=== PATIENT | female | born 1965 | race African-American/Black ===

== ENCOUNTER 2017-03-02 14:13 | Inpatient (IN) | payer OTHER ==
[2017-03-02 14:51] LABS: #Basophils 0.1 thou/uL (0.0-0.2); #Eosinphils 0.2 thou/uL (0.0-0.7); #Lymphocytes 3.2 thou/uL (1.20-3.40); #Monocytes 0.6 thou/uL (0.11-0.59); #Neutrophils 4.3 thou/uL (1.40-6.50); %Basophils 0.6 % (0.0-1.0); %Lymphocytes 38.8 % (21.0-51.0); %Monocytes 6.7 % (0.0-10.0); Mean Platelet Volume 11.4 fL (7.4-10.4); Red Blood Cell (RBC) Count 5.15 mill/uL (4.20-5.40); White Blood Cell (WBC) Count 8.3 thou/uL (4.8-10.8)
[2017-03-02 15:13] LABS: ALT (SGPT) 41 U/L (8-55); AST (SGOT) 38 U/L (5-34); Alkaline Phosphatase 120 U/L (40-150); Anion Gap 14 mmol/L (10-20); BUN (Urea Nitrogen) 9 mg/dL (7.0-18.7); Bilirubin, Total 0.4 mg/dL (0.2-1.2); CK (CPK) 108 U/L (29-168); Calc. Creatinine Clearance 0 mL/min (70-130); Calcium 9.2 mg/dL (7.8-10.44); Carbon Dioxide 30 mmol/L (22-29); Chloride 99 mmol/L (98-107); Estimated GFR-MDRD 80; Globulin 4.3 g/dL (2.4-3.5)
[2017-03-02 15:17] LABS: Troponin I 0.011 ng/mL (< 0.028)
[2017-03-02] MEDS ORDERED: Albuterol Sulfate 2.5 mg/3 ml Neb NEB PRN (17:04)
[2017-03-02] MEDS ORDERED: Cyclobenzaprine 10 MG TAB PO PRN (17:04)
[2017-03-02] MEDS ORDERED: HYDROcodone/Acetaminophen 10/325 mg Tablet PO PRN (17:04)
--- NOTE | 2017-03-02 17:04 | PDOC.EVN ---
Event Note - Event Note Event Note: H&P dictated 1) SOB 2) Cough 3) CHF decompensation 4) DM II 5) Edema 6) Metabolic alkalosis 7) Obesity 8) HTN 9) COPD 10) Hypothyroidism - obs - levaquin 500mg IV q24hrs, blood cultures - consult pulmonary - neb treatments PRN - continue home meds w/ appropriate hold parameters case and plan d/w patient and mother at length, they understand and agree with this plan
[2017-03-02] MEDS ORDERED: Dextrose 50% Abboject 50 ML SYRINGE SLOW IVP PRN (17:05)
[2017-03-02] MEDS ORDERED: Insulin Regular 300 UNITS/3 ML VIAL SC PRN (17:05)
[2017-03-02] MEDS ORDERED: Dextrose 5% in Water 1,000 ML IV PRN (17:05)
--- NOTE | 2017-03-02 17:26 | RAD ---
AP CHEST: History: Dyspnea. Date: 03-02-17 Comparison: 02-18-17 FINDINGS: AP chest demonstrates cardiomegaly. Tracheostomy tube is seen. Pulmonary vascular congestion is note d. The radiograph is less than optimum due to the underpenetrated nature of the film. The costophren ic angles are difficult to assess. I do recommend correlation with PA and lateral views of the chest to better evaluate the lung bases. IMPRESSION: Cardiomegaly and pulmonary vascular congestion. POS: [facility]
[2017-03-02 18:49] VITALS: BMI 78.1
[2017-03-02] MEDS: Heparin 5,000 UNITS/ML VIAL SC SCH (20:56)
[2017-03-02] MEDS: Furosemide 80 MG TAB PO SCH (20:56)
[2017-03-02] MEDS: ALPRAZolam 0.25 MG TAB PO SCH (20:56)
[2017-03-02] MEDS ORDERED: INSULIN DETEMIR SQ SCH (21:00)
[2017-03-02] MEDS ORDERED: Atorvastatin Calcium 10 MG TAB PO SCH (21:00)
[2017-03-02] MEDS: PRE FILLED SC SCH (23:25)
[2017-03-02] MEDS: INSULIN DETEMIR SC SCH (23:25)
--- NOTE | 2017-03-03 00:57 | HP ---
DATE OF ADMISSION: 03/02/2017 CHIEF COMPLAINT: Shortness of breath and cough. HISTORY OF PRESENT ILLNESS: This is a 51-year-old female who was admitted for being seen in the ER for admission for shortness of breath and cough. The patient states the last time she had a bit of a fever of about 100.5 degrees measured at home. The patient states that she has a tracheostomy and has been coughing up sputum from the tracheostomy tube. The patient states that this had happened to her before, at which point in time, she was diagnosed with bronchitis requiring antibiotics and h ad symptomatic relief status post course of antibiotic treatment. The patient follows Dr. Benjamin Stokes for Internal Medicine and Pulmonary, respectively. The patient denies any alleviating o r aggravating factors. Has no other symptoms or associated complaints. ALLERGIES: DULOXETINE, GABAPENTIN, and PREGABALIN. HOME MEDICATIONS: The patient was given last admission prescription for aspirin 81 mg p.o. daily, F lexeril 10 mg p.o. t.i.d. p.r.n. muscle spasm, Lasix 80 mg p.o. b.i.d., [place] 10/325 mg one tab p.o. q. 4-6 hours p.r.n. pain, Xopenex 1.25 mg nebulizer every 6 hours p.r.n. shortness of breath, Levem ir 85 units subcu b.i.d., levothyroxine 300 mcg 1 p.o. daily, lisinopril 20 mg 1 tablet p.o. daily, Protonix 40 mg 1 tablet p.o. b.i.d. K-Dur 20 mEq 1 tab p.o. b.i.d., Pravachol 40 mg p.o. at bedtime , Xanax 0.25 mg p.o. b.i.d. SOCIAL HISTORY: Denies any drinking or smoking. PAST MEDICAL HISTORY: Positive for hypothyroidism, morbid obesity, heart failure, diabetes mellitus , tracheostomy, shortness of breath, lower extremity edema. FAMILY HISTORY: Positive for hypertension, hyperlipidemia, and diabetes on both sides of her family . REVIEW OF SYSTEMS: A twelve-point review of systems performed. Pertinent positives listed in the H PI, otherwise, negative. PHYSICAL EXAMINATION: VITAL SIGNS: Blood pressure 122/83, 95% O2 saturation on 2 liters nasal cannula, heart rate 102, te mperature 98 degree Fahrenheit. GENERAL: The patient appears mildly distressed, sitting up in her bed with 2 liters on Ventimask ab ove her tracheostomy on her neck. HEENT: Normocephalic, atraumatic. Pupils equal, round, reactive to light and accommodation. Oral cavity moist and pink. NECK: Supple. Trach tube in place. CARDIOVASCULAR: Regular rate and rhythm. S1 and S2. No murmurs, rubs, or gallops appreciated. PULMONARY: Difficult to auscultate given large body habitus, however, clear to auscultation bilater ally. ABDOMEN: Positive bowel sounds, soft, nontender, rotund abdomen. EXTREMITIES: Lower extremities, 2+ peripheral pulses, 1+ pitting edema in bilateral lower extremiti es. NEUROLOGIC: No loss of sensory function. Moving all extremities. LABORATORY DATA: WBC 8.3, hemoglobin 13.8, hematocrit 48, platelet count of 179. BMP reveals sodiu m of 138, potassium 5.9, chloride 99, bicarbonate of 30, creatinine of 0.9, glucose of 300. Otherwi se, no abnormalities noted. Chest x-ray done in the emergency room showed pulmonary edema. ASSESSMENT AND PLAN: 1. Shortness of breath. 2. Cough. 3. Congestive heart failure decompensation. 4. Diabetes mellitus type 2. 5. Hyperlipidemia. 6. Edema. 7. Alkalosis, metabolic. 8. Obesity. 9. Hypertension. At this point in time, we will continue the patient on her home medications. We will start the patient on Levaquin 500 mg IV q. 24 hours. We will hold off on IV fluids at this poi nt in time given that the patient has a clinical presentation of being volume overloaded. 10. Tele monitoring. Will consult Pulmonary team for assistance. 11. We will also obtain blood cultures given that the patient stated that she was having measured f onel at home. We will start the patient on DuoNebs. Home medications of thyroid medications to be continued, blood pressure medications to be continued, diabetes medications to be continued. Hepar in and home Protonix for gastrointestinal and deep vein thrombosis prophylaxis. Case and plan discussed with the patient as well as her mother who was at the bedside at length. Th ey understand and agree with this plan.
[2017-03-03 04:50] LABS: Band 4 % (5-11); Hematocrit 41.4 % (36.0-47.0); Mean Platelet Volume 11.5 fL (7.4-10.4); Neutrophil 77 % (42-75); Red Blood Cell (RBC) Count 4.93 mill/uL (4.20-5.40); White Blood Cell (WBC) Count 7.8 thou/uL (4.8-10.8)
[2017-03-03 05:18] LABS: Anion Gap 13 mmol/L (10-20); BUN (Urea Nitrogen) 10 mg/dL (7.0-18.7); Calc. Creatinine Clearance 224 mL/min (70-130); Calcium 9.2 mg/dL (7.8-10.44); Carbon Dioxide 34 mmol/L (22-29); Chloride 93 mmol/L (98-107); Estimated GFR-MDRD 85
[2017-03-03] MEDS: Levothyroxine Sodium 150 MCG TAB PO SCH (05:33)
[2017-03-03] MEDS: Aspirin 81 mg Enteric Coated Tablet PO SCH (07:41)
[2017-03-03] MEDS: Potassium Chloride 20 MEQ TAB PO SCH ×2 (07:41→15:40)
[2017-03-03] MEDS: Furosemide 80 MG TAB PO SCH (07:41)
[2017-03-03] MEDS: Lisinopril 20 MG TAB PO SCH (07:41)
[2017-03-03] MEDS: ALPRAZolam 0.25 MG TAB PO SCH ×2 (07:41→21:14)
[2017-03-03] MEDS: Heparin 5,000 UNITS/ML VIAL SC SCH ×2 (07:42→21:14)
[2017-03-03] MEDS: PRE FILLED SC SCH ×2 (09:47→21:15)
[2017-03-03] MEDS: INSULIN DETEMIR SC SCH ×2 (09:47→21:15)
[2017-03-03] MEDS ORDERED: Dextrose 50% Abboject 50 ML SYRINGE SLOW IVP PRN (10:15)
[2017-03-03] MEDS ORDERED: Dextrose 5% in Water 1,000 ML IV PRN (10:15)
--- NOTE | 2017-03-03 10:20 | PDOC.PN ---
- Subjective Encounter Start Date: 03/03/17 Encounter Start Time: 09:30 Pt seen and examined, chart reviewed in its entrety. This is my first visit with this patient. Pt feels like her po [place]annon is not working and states that this episode is just like previous episodes of volume overload. No F/C, no cough, +SOB, othopnea and POWELL. no n/V, no new complaints. 10 point ROS performed and neg for all systems except as above - Objective Resuscitation Status: full MAR Reviewed: Yes Vital Signs & Weight: Vital Signs (12 hours) Temp Pulse Resp BP BP Pulse Ox 03/03/17 08:00 98.2 F 95 16 03/03/17 07:50 98.2 F 95 16 128/83 95 03/03/17 07:41 149/96 H 03/03/17 04:00 98.5 F 92 22 H 141/80 H 91 L 03/03/17 00:00 98.5 F 103 H 22 H 138/84 Weight Weight 400 lb I&O: 03/02/17 03/03/17 03/04/17 06:59 06:59 06:59 Intake Total 100 Balance 100 Result Diagrams: 03/03/17 04:01 03/03/17 04:01 Additional Labs: Accuchecks 03/03/17 03/02/17 03/02/17 04:26 23:25 19:46 POC Glucose 362 H 266 H 226 H Radiology Reviewed by me: Yes EKG Reviewed by me: Yes Phys Exam - Physical Examination Constitutional: NAD HEENT: PERRLA, moist MMs, sclera anicteric, oral pharynx no lesions Neck: no nodes, no JVD, supple, full ROM Respiratory: no wheezing, no rhonchi, clear to auscultation bilateral faint bibasilar crackles, right more than left Cardiovascular: RRR, no significant murmur Gastrointestinal: soft, non-tender, no distention, positive bowel sounds Musculoskeletal: pulses present, edema present Neurological: non-focal, normal sensation, moves all 4 limbs Lymphatic: no nodes Psychiatric: normal affect, A&O x 3 Skin: no rash, normal turgor, cap refill <2 seconds Dx/Plan (1) Chest pain Code(s): R07.9 - CHEST PAIN, UNSPECIFIED Status: Acute Qualifiers: Chest pain type: chest pain on breathing Qualified Code(s): R07.1 - Chest pain on breathing; R07.81 - Pleurodynia (2) COPD (chronic obstructive pulmonary disease) Status: Chronic Qualifiers: COPD type: unspecified COPD Qualified Code(s): J44.9 - Chronic obstructive pulmonary disease, unspecified (3) Diabetes mellitus type 2, uncontrolled Code(s): E11.65 - TYPE 2 DIABETES MELLITUS WITH HYPERGLYCEMIA Status: Chronic Qualifiers: Diabetes mellitus complication status: with hyperglycemia Diabetes mellitus shelter insulin use: with terminal makeup operator use Qualified Code(s): E11.65 - Type 2 diabetes mellitus with hyperglycemia; Z79.4 - terminal makeup operator (current) use of insulin Comment: Continue Levemir 85u sc BID (4) Essential hypertension Code(s): I10 - ESSENTIAL (PRIMARY) HYPERTENSION Status: Chronic (5) Morbid obesity with body mass index of 70 and over in adult Code(s): E66.01 - MORBID (SEVERE) OBESITY DUE TO EXCESS CALORIES; Z68.45 - BODY MASS INDEX (BMI) 70 OR GREATER, ADULT Status: Chronic (6) Obesity hypoventilation syndrome Code(s): E66.2 - MORBID (SEVERE) OBESITY WITH ALVEOLAR HYPOVENTILATION Status : Chronic (7) Acute on chronic diastolic (congestive) heart failure Code(s): I50.33 - ACUTE ON CHRONIC DIASTOLIC (CONGESTIVE) HEART FAILURE Status : Acute Comment: conver to IV lasix, check echo, await pulm recommendations - Plan cont current plan of care, plan discussed w/ family, grimm catheter, continue antibiotics, respiratory therapy, DVT proph w/lovenox * .
[2017-03-03] MEDS: Furosemide 40 MG/4 ML VIAL SLOW IVP SCH ×3 (11:24→21:14)
[2017-03-03] MEDS: HumaLOG 300 UNITS/3 ML VIAL SC PRN ×2 (11:27→18:26)
--- NOTE | 2017-03-03 13:10 | CON ---
DATE OF CONSULTATION: 03/03/2017 Ms. Bal is a 51-year-old female I have known for many years. [place] and settle d [place]. She has a tracheostomy placed for severe obstructive sleep apnea. She sees me every 2-3 mo nths for a trach change in the office. She recently lost her son to what sounds like an overdose th at was inadvertent. She has been very upset since that point. She was in the Emergency Department recently with complaints of shortness of breath and responded to a nebulizer treatment. Apparently, she presented back with reported fever. Unfortunately, Mr. Bal has been unable to lose weight. She has life threatening obesity. She thacker s some degree of diastolic dysfunction, but her films are so underpenetrated it is unclear whether o r not she really has interstitial edema when she comes in or is just short of breath because of muco us plugging. She does not have a functioning humidifier for her tracheostomy at home, I believe man y of her visits to the hospital are related to just peripheral mucous plugging secondary to a lack o f humidity. She always wears a speaking valve and almost never has humidity on her trach. She was admitted for further care. PAST MEDICAL HISTORY: 1. Remarkable for degenerative arthritis of her knees. 2. Tracheostomy placed in 2006. 3. Status post intubation for obesity hypoventilation in 2006. 4. History of normal left ventricular systolic function. 5. Diabetes. 6. Hypertension. 7. Hypothyroidism on replacement. 8. History of a in the past. SOCIAL HISTORY: She is nonsmoker, nondrinker. She does not use drugs. FAMILY HISTORY: She has no family history of lung disease. Her mother has moved here from [facility] now and is dealing with some early dementia. ALLERGIES: She reports an intolerance to PREGABALIN and GABAPENTIN. REVIEW OF SYSTEMS: Otherwise negative. PHYSICAL EXAMINATION: GENERAL: She is in no distress. VITAL SIGNS: She is afebrile and has been afebrile since admission. Pulse is 92-95 Blood pressure 149/96, respiratory rate 16, oximetry is 98 on trach collar. HEENT: Pupils are equal. Sclerae is anicteric. NECK: Supple. LUNGS: Remarkable for clear distant breath sounds. HEART: Regular rhythm. ABDOMEN: Soft. EXTREMITIES: With asymmetry. LABORATORY DATA: White count 7.8, hemoglobin 13.4, platelets 167. Electrolytes; sodium 135, potassium 4.8, chloride 92, bicarbonate 34, BUN 10, creatinine 0.86, gluco se 396. BNP was 10. IMPRESSION: I suspect her dyspnea is related to mucus plugging and perhaps bronchitis. She needs h umidity and she needs a functioning humidifier for her trach at home. She says Driss has been michele ble to get her another trach humidifier, I am not sure what the reason for this is. This needs to b e worked on by case management. I will be happy to follow with the other physicians caring for her.
[2017-03-03] MEDS: guaiFENesin ER 600 MG TAB PO SCH (15:40)
[2017-03-04 05:28] LABS: Anion Gap 15 mmol/L (10-20); BUN (Urea Nitrogen) 20 mg/dL (7.0-18.7); Calc. Creatinine Clearance 199 mL/min (70-130); Calcium 9.1 mg/dL (7.8-10.44); Carbon Dioxide 34 mmol/L (22-29); Chloride 90 mmol/L (98-107); Estimated GFR-MDRD 74
[2017-03-04] MEDS: Levothyroxine Sodium 150 MCG TAB PO SCH (05:31)
[2017-03-04] MEDS: Furosemide 40 MG/4 ML VIAL SLOW IVP SCH (05:31)
[2017-03-04] MEDS: HumaLOG 300 UNITS/3 ML VIAL SC PRN ×3 (05:39→17:07)
[2017-03-04 06:06] LABS: Hematocrit 41.5 % (36.0-47.0); Red Blood Cell (RBC) Count 4.96 mill/uL (4.20-5.40); White Blood Cell (WBC) Count 9.2 thou/uL (4.8-10.8)
[2017-03-04 06:07] LABS: Band 1 % (5-11); Hypochromia SLIGHT = 6-15 cells (100X) (0-5/hpf); Neutrophil 67 % (42-75); Polychromasia SLIGHT = 2-3 cells (100X) (0-2/hpf); Reactive Lymphocytes 2 % (0-10); Target Cells SLIGHT = 2-5 cells (100X) (0-1/hpf)
[2017-03-04] MEDS: guaiFENesin ER 600 MG TAB PO SCH ×2 (07:46→16:07)
[2017-03-04] MEDS: ALPRAZolam 0.25 MG TAB PO SCH ×2 (07:46→22:08)
[2017-03-04] MEDS: Lisinopril 20 MG TAB PO SCH (07:46)
[2017-03-04] MEDS: Potassium Chloride 20 MEQ TAB PO SCH ×2 (07:47→16:07)
[2017-03-04] MEDS: Heparin 5,000 UNITS/ML VIAL SC SCH ×2 (07:47→22:11)
[2017-03-04] MEDS: Aspirin 81 mg Enteric Coated Tablet PO SCH (07:47)
[2017-03-04] MEDS: PRE FILLED SC SCH ×2 (09:45→22:10)
[2017-03-04] MEDS: INSULIN DETEMIR SC SCH ×2 (09:45→22:10)
--- NOTE | 2017-03-04 14:28 | PDOC.PN ---
- Subjective Encounter Start Date: 03/04/17 Encounter Start Time: 12:00 Subjective: is breathing better -: says lisa helped her a lot - Objective MAR Reviewed: Yes Vital Signs & Weight: Vital Signs (12 hours) Temp Pulse Resp BP BP Pulse Ox 03/04/17 10:00 99.3 F 99 20 127/83 03/04/17 08:00 98.9 F 96 16 93 L 03/04/17 07:46 149/96 H 03/04/17 07:41 93 L Weight Weight 400 lb I&O: 03/03/17 03/04/17 03/05/17 06:59 06:59 06:59 Intake Total 100 2520 Output Total 3500 Balance 100 -980 Result Diagrams: 03/04/17 03:45 03/04/17 03:45 Additional Labs: Accuchecks 03/04/17 03/04/17 03/03/17 12:19 05:39 21:13 POC Glucose 297 H 340 H 302 H 03/03/17 03/03/17 16:10 11:12 POC Glucose 265 H 429 H Phys Exam - Physical Examination HEENT: PERRLA, moist MMs Neck: no JVD trach+ Respiratory: no wheezing, no rales Cardiovascular: RRR, no significant murmur Gastrointestinal: soft, no distention, positive bowel sounds Musculoskeletal: no edema, pulses present Neurological: non-focal, moves all 4 limbs Psychiatric: A&O x 3 Dx/Plan (1) Acute on chronic respiratory failure with hypercapnia Code(s): J96.22 - ACUTE AND CHRONIC RESPIRATORY FAILURE WITH HYPERCAPNIA Status: Acute (2) DM type 2 (diabetes mellitus, type 2) Status: Chronic Qualifiers: Diabetes mellitus complication status: with unspecified complications Diabetes mellitus pathology teacher insulin use: with prison use Qualified Code(s) : E11.8 - Type 2 diabetes mellitus with unspecified complications; Z79.4 - residential (current) use of insulin (3) COPD (chronic obstructive pulmonary disease) Status: Chronic Qualifiers: COPD type: unspecified COPD Qualified Code(s): J44.9 - Chronic obstructive pulmonary disease, unspecified (4) Essential hypertension Code(s): I10 - ESSENTIAL (PRIMARY) HYPERTENSION Status: Chronic (5) Hypothyroidism Code(s): E03.9 - HYPOTHYROIDISM, UNSPECIFIED Status: Chronic Qualifiers: Hypothyroidism type: unspecified Qualified Code(s): E03.9 - Hypothyroidism , unspecified (6) Morbid obesity with body mass index of 70 and over in adult Code(s): E66.01 - MORBID (SEVERE) OBESITY DUE TO EXCESS CALORIES; Z68.45 - BODY MASS INDEX (BMI) 70 OR GREATER, ADULT Status: Chronic (7) Obesity hypoventilation syndrome Code(s): E66.2 - MORBID (SEVERE) OBESITY WITH ALVEOLAR HYPOVENTILATION Status : Chronic - Plan is feeling much better now -: on levaquin, duonebs and steroids -: correctional casework specialist is still working on getting her trach instrument for humidifie -: -d oxygen -: is amb in room. Has coag-ve staph 2/2 diff extremity samples, ??contaminant * . Review of Systems - Medications/Allergies Allergies/Adverse Reactions: Allergies Allergy/AdvReac Type Severity Reaction Status Date / Time gabapentin Allergy Severe Short of Verified 03/02/17 20:34 Breath pregabalin [From Lyrica] Allergy Severe Short of Verified 03/02/17 20:34 Breath duloxetine Allergy Verified 03/02/17 20:34 Medications: Current Medications Hydrocodone Bitart/Acetaminophen ([place] 10/325) 1 tab PO Q4H PRN PRN Reason: Pain Last Admin: 03/03/17 04:02 Dose: 1 tab Albuterol Sulfate (Ventolin) 2.5 mg NEB Q6H PRN PRN Reason: SOB &/or Wheezing Albuterol/Ipratropium (Duoneb) 3 ml NEB [id number] PRN PRN Reason: SOB &/or Wheezing Alprazolam (Xanax) 0.25 mg PO BID [facility] Last Admin: 03/04/17 07:46 Dose: 0.25 mg Aspirin (Ecotrin) 81 mg PO DAILY [facility] Last Admin: 03/04/17 07:47 Dose: 81 mg Cyclobenzaprine HCl (Flexeril) 10 mg PO TID PRN PRN Reason: Muscle Pain Dextrose/Water (Dextrose 50%) 25 gm SLOW IVP PRN PRN PRN Reason: Hypoglycemia Glucagon (Glucagon) 1 mg IM PRN PRN PRN Reason: Hypoglycemia Guaifenesin (Mucinex) 600 mg PO BID-[facility] Last Admin: 03/04/17 07:46 Dose: 600 mg Heparin Sodium (Porcine) (Heparin) 5,000 units SC BID [facility] Last Admin: 03/04/17 07:47 Dose: 5,000 units Insulin Detemir 85 units/ (Miscellaneous Medication) 0.85 mls @ 0 mls/hr SC BID [facility] Last Admin: 03/04/17 09:45 Dose: 0.85 mls Dextrose/Water (D5w) 1,000 mls @ 0 mls/hr IV .Q0M PRN; As Directed PRN Reason: Hypoglycemia Insulin Human Lispro (Humalog) 0 units SC .AGGRESSIVE SLIDING PRN PRN Reason: Aggressive Correctional Scale Last Admin: 03/04/17 12:56 Dose: 9 unit Levofloxacin (Levaquin) 500 mg PO 2000 [facility] Levothyroxine Sodium (Synthroid) 300 mcg PO 0600 [facility] Last Admin: 03/04/17 05:31 Dose: 300 mcg Lisinopril (Zestril) 20 mg PO DAILY [facility] Last Admin: 03/04/17 07:46 Dose: 20 mg Methylprednisolone Sodium Succinate (Solu-Medrol) 40 mg IVP Q8HR [facility] Last Admin: 03/04/17 12:56 Dose: 40 mg Pantoprazole Sodium (Protonix) 40 mg PO BID [facility] Last Admin: 03/04/17 07:46 Dose: 40 mg Potassium Chloride (K-Dur) 20 meq PO BID-[facility] Last Admin: 03/04/17 07:47 Dose: 20 meq Rosuvastatin Calcium (Crestor) 20 mg PO QPM [facility] Last Admin: 03/03/17 21:14 Dose: 20 mg
--- NOTE | 2017-03-04 18:36 | PRG ---
DATE OF SERVICE: 03/04/2017 SUBJECTIVE: Ms. Bal did well overnight. She says she feels 100% better today. OBJECTIVE: VITAL SIGNS: She is afebrile, heart rate is 99, blood pressure 149/96, respiratory rate 16, oximetr y is 93. LUNGS: Clear. HEART: Regular rhythm. ABDOMEN: Soft. LABORATORY DATA AND FINDINGS: Echocardiogram was normal. White count 9.2, hemoglobin 13.3, platele ts 182. Sodium 134, potassium 4.8, chloride 90, bicarbonate 34, BUN 20, creatinine 0.9, glucose 342 . IMPRESSION: Dyspnea aggravated by depression. I suspect her dyspnea, it is a combination of mucus plugging secondary to lack of humidity on her trach collar at home, monitor with anxiety and depress ion over the recent loss of her son. She does not appear to be bronchospastic. I suspect with time and humidification. We will see tracheobronchial secretions clearing up. I do not think she shoul d be discharged until we are sure she has a humidifier attachment for her trach collar at home. I do not feel she has COPD. She may have a mild component of asthma when she gets bronchitis, but t his is always been a small part of any illness. She does have 2 out of 2 coag negative Staph, cultu res reported today. Initially, this was reported 1 out of 2, not sure what to do with this. Blood cultures probably should be repeated. She is a difficult stick.
--- NOTE | 2017-03-04 22:59 | CON ---
DATE OF CONSULTATION: 03/04/2017 REASON FOR CONSULTATION: Bacteremia. HISTORY OF PRESENT ILLNESS: A 51-year-old with obesity hypoventilation syndrome with tracheostomy, who was admitted with low-grade fever and dyspnea with cough and green sputum. She was diagnosed wi th bronchitis and admitted. Pulmonary Medicine has been consulted. The patient is currently receiv ing [place], Ventolin, DuoNeb, Xanax, Ecotrin, Flexeril, guaifenesin, Levaquin, Crestor, Solu-Medrol, pantoprazole and lisinopril. The patient is feeling better. No headaches. No chest pain. The cou gh has diminished. No abdominal pain. Voiding without difficulty. No diarrhea. PAST MEDICAL HISTORY: Morbid obesity, hypoventilation syndrome, cardiomyopathy, tracheostomy, type 2 diabetes. FAMILY HISTORY: Hypertension, hyperlipidemia. ALLERGIES: DULOXETINE, GABAPENTIN, PREGABALIN. PHYSICAL EXAMINATION: VITAL SIGNS: T-max 98.9-99.3, blood pressure 120/83, pulse 99, respirations 20, O2 sat 93%. SKIN: With tracheostomy, peripheral IV access. No lymphadenopathy. HEENT: Ocular movements are conjugate. Sclerae white. Pupils are equal. Oral cavity moist, still quite a few teeth in place. NECK: Supple. No jugular venous distention. LUNGS: With diminished breath sounds at the base. No wheezing or crackles. HEART: S1, S2 with diminished heart sounds. ABDOMEN: Soft abdomen. No obvious tenderness. No ascites or organomegaly noted. No bladder diste ntion. Trace edema in lower extremities. Pulses are 1+ in dorsalis pedis. LABORATORY DATA: White cell count 9.2, hemoglobin 13, platelets 182 with 67% neutrophils, 25% lymph ocytes. Sodium 134, creatinine 0.97, potassium 4.8. The microbiology with 2/2 sets of blood cultures with coagulase negative Staph, other than Staph epi and Staph lugdunensis. Specimens were obtained about 20 minutes apart from the hands. ASSESSMENT: Morbid obesity with hypoventilation syndrome, tracheostomy, admitted with worsening cou gh, low-grade fever and dyspnea. The organisms isolated from the blood cultures likely represent co ntamination of the sample rather than a true bacteremia, we would not recommend treatment. This typ e of sampling from the hands of patients with morbid obesity is naturally fraught with the higher ra anotnia of contamination of those samples.
[2017-03-05 06:01] LABS: Hematocrit 43.4 % (36.0-47.0); Mean Platelet Volume 10.9 fL (7.4-10.4); Red Blood Cell (RBC) Count 5.19 mill/uL (4.20-5.40); White Blood Cell (WBC) Count 10.5 thou/uL (4.8-10.8)
[2017-03-05] MEDS: Levothyroxine Sodium 150 MCG TAB PO SCH (06:01)
[2017-03-05 06:02] LABS: Band 1 % (5-11); Neutrophil 64 % (42-75)
[2017-03-05 06:19] LABS: Anion Gap 14 mmol/L (10-20); BUN (Urea Nitrogen) 25 mg/dL (7.0-18.7); Calc. Creatinine Clearance 195 mL/min (70-130); Carbon Dioxide 35 mmol/L (22-29); Chloride 92 mmol/L (98-107); Estimated GFR-MDRD 72
[2017-03-05 08:20] VITALS: BP 114/77; TEMP 98.2
[2017-03-05] MEDS: INSULIN DETEMIR SC SCH (09:36)
[2017-03-05] MEDS: PRE FILLED SC SCH (09:36)
[2017-03-05] MEDS: Potassium Chloride 20 MEQ TAB PO SCH (09:37)
[2017-03-05] MEDS: ALPRAZolam 0.25 MG TAB PO SCH (09:37)
[2017-03-05] MEDS: Aspirin 81 mg Enteric Coated Tablet PO SCH (09:37)
[2017-03-05] MEDS: guaiFENesin ER 600 MG TAB PO SCH (09:37)
[2017-03-05] MEDS: Heparin 5,000 UNITS/ML VIAL SC SCH (09:37)
[2017-03-05] MEDS: Lisinopril 20 MG TAB PO SCH (09:37)
--- NOTE | 2017-03-05 13:43 | PRG ---
DATE OF SERVICE: 03/05/2017 Colleen Bal is afebrile. Vital signs were stable overnight. She was discharged home with a trac h collar. Humidity has been arranged. It was emphasized that it is important for her to wear this w hen she is at the house. She will keep her follow up appointment with me.
--- NOTE | 2017-03-05 14:14 | PDOC.PN ---
- Subjective Encounter Start Date: 03/05/17 Encounter Start Time: 08:00 Subjective: no sob, feels better - Objective MAR Reviewed: Yes Vital Signs & Weight: Vital Signs (12 hours) Temp Pulse Resp BP BP Pulse Ox 03/05/17 09:37 114/77 03/05/17 08:17 98.2 F 93 20 114/77 90 L 03/05/17 08:00 98.2 F 93 20 Weight Weight 400 lb I&O: 03/04/17 03/05/17 03/06/17 06:59 06:59 06:59 Intake Total 2520 1620 Output Total 3500 2600 Balance -980 -980 Result Diagrams: 03/05/17 05:06 03/05/17 05:06 Additional Labs: Accuchecks 03/05/17 03/05/17 03/04/17 11:10 04:45 20:56 POC Glucose 109 164 H 283 H 03/04/17 16:35 POC Glucose 291 H Phys Exam - Physical Examination HEENT: PERRLA, moist MMs Neck: no JVD, supple Respiratory: no wheezing, no rales Cardiovascular: RRR, no significant murmur Gastrointestinal: soft, non-tender, positive bowel sounds Musculoskeletal: no edema, pulses present Neurological: non-focal, moves all 4 limbs Psychiatric: A&O x 3 Dx/Plan (1) Acute on chronic respiratory failure with hypercapnia Code(s): J96.22 - ACUTE AND CHRONIC RESPIRATORY FAILURE WITH HYPERCAPNIA Status: Resolved (2) DM type 2 (diabetes mellitus, type 2) Status: Chronic Qualifiers: Diabetes mellitus complication status: with unspecified complications Diabetes mellitus director long term care insulin use: with director long term care use Qualified Code(s) : E11.8 - Type 2 diabetes mellitus with unspecified complications; Z79.4 - technician terminal and repeater (current) use of insulin (3) COPD (chronic obstructive pulmonary disease) Status: Chronic Qualifiers: COPD type: unspecified COPD Qualified Code(s): J44.9 - Chronic obstructive pulmonary disease, unspecified (4) Essential hypertension Code(s): I10 - ESSENTIAL (PRIMARY) HYPERTENSION Status: Chronic (5) Hypothyroidism Code(s): E03.9 - HYPOTHYROIDISM, UNSPECIFIED Status: Chronic Qualifiers: Hypothyroidism type: unspecified Qualified Code(s): E03.9 - Hypothyroidism , unspecified (6) Morbid obesity with body mass index of 70 and over in adult Code(s): E66.01 - MORBID (SEVERE) OBESITY DUE TO EXCESS CALORIES; Z68.45 - BODY MASS INDEX (BMI) 70 OR GREATER, ADULT Status: Chronic (7) Obesity hypoventilation syndrome Code(s): E66.2 - MORBID (SEVERE) OBESITY WITH ALVEOLAR HYPOVENTILATION Status : Chronic - Plan hemostable -: her humidifier with trach is arranged for home use -: dc pt home * .
--- NOTE | 2017-03-06 01:32 | DIS ---
DATE OF ADMISSION: 03/02/2017 DATE OF DISCHARGE: 03/05/2017 DISCHARGE DISPOSITION: To home. PRIMARY DISCHARGE DIAGNOSES: Acute on chronic respiratory failure with hypercapnia, morbid obesity with obesity hypoventilation and trach, chronic obstructive pulmonary disease, diabetes mellitus type 2, hypertension, diastolic dysfunction, hypothyroidism. PROCEDURES DONE DURING HOSPITALIZATION: Echo with 2D Doppler done showed an EF of 50%-55%. Chest x-ray done on the day of admission showed cardiomegaly with pulmonary vascular congestion. H and H 13 and 43, platelet count 195. Discharge BUN and creatinine is 25 and 0.9. BNP was 10. DISCHARGE MEDICATIONS: Prednisone tapering dose starting at 10 mg twice daily, Coreg course of 16 days, Crestor 20 mg p.o. daily, Pravachol 20 mg p.o. at bedtime, Protonix 40 mg p.o. twice daily, potassium chloride 20 mEq p.o. twice daily, Lasix 40 mg p.o. twice daily, levothyroxine 300 mcg p.o. daily, lisinopril 20 mg p.o. daily, Levaquin 500 mg p.o. daily for another 3 days, Levemir 90 units subcutaneously twice daily, and aspirin 81 mg p.o. daily. ALLERGIES: GABAPENTIN, LYRICA, and DULOXETINE. INPATIENT CONSULTS: Dr. Stokes for Pulmonology, Dr. Ley for Infectious Disease. DISCHARGE PLAN: Patient to follow up with Dr. Stokes as before and primary care physician in 1 week. BRIEF COURSE DURING HOSPITALIZATION: The patient initially came to ER with complaints of shortness of breath and coughing spells. She had a fever of 100.5 degrees at home. The patient is morbidly obese, weighing nearly 400 pounds and has history of obesity, obesity hypoventilation with tracheostomy. Her humidifier for tracheostomy was not working at home. She was suspected to have mucus plugging. She has had consultation with Dr. Stokes. She was placed on IV antibiotics along with steroids and bronchodilators. She has responded well to above measures. Case management consultation was requested to help with her procuring humidifier for her tracheostomy at home. Meanwhile, her blood cultures grew Staph capitis in left arm and Staph simulans in right arm. A consultation with Dr. Ley was requested for the above and he is of the opinion that these are contaminants. Patient is not having any fever and her white count is normal. Clinically, she has improved as well. In view of this, no additional antibiotics were placed. She is otherwise hemodynamically stable , ambulating minimally inside the room. She appears to be at her baseline and has been cleared by Dr. Stokes for discharge today. Please see a face to face documentation on [facility] for the day of discharge. DALTON
== END 2017-03-05 12:57 | disposition home or self-care (01) | DRG 205 ==
LOC: ERS 14:13 → OBSVTOIN 16:46 → T4-B 16:46
PROVIDERS: ADMIT Internal Medicine; ATTEND Internal Medicine
DX: J95.03 Malfunction of tracheostomy stoma (principal); J96.22 Acute and chronic respiratory failure with hypercapnia; I50.33 Acute on chronic diastolic (congestive) heart failure; E87.3 Alkalosis; I11.0 Hypertensive heart disease with heart failure; T17.990A Other foreign object in respiratory tract, part unspecified in causing asphyxiation, initial encounter; Z68.45 Body mass index [BMI] 70 or greater, adult; E66.2 Morbid (severe) obesity with alveolar hypoventilation; E11.9 Type 2 diabetes mellitus without complications; J44.9 Chronic obstructive pulmonary disease, unspecified; E78.5 Hyperlipidemia, unspecified; E03.9 Hypothyroidism, unspecified; Z88.8 Allergy status to other drugs, medicaments and biological substances; Z83.3 Family history of diabetes mellitus; Z82.49 Family history of ischemic heart disease and other diseases of the circulatory system; Z84.89 Family history of other specified conditions; Y83.8 Other surgical procedures as the cause of abnormal reaction of the patient, or of later complication, without mention of misadventure at the time of the procedure
CPT/HCPCS: 36415; 36416; 71010; 80048; 80053; 82550; 82553; 83880; 84484; 85007; 85025; 85027; 87040; 87077; 87149; 93005; 93306; 94640; 94760; G8978-GP-CK; G8979-GP-CJ; J1644; J1815; J1940; J1956; J2920; J7620

== ENCOUNTER 2017-06-14 16:24 | Inpatient (IN) | payer OTHER ==
[2017-06-14] MEDS ORDERED: Sodium Chloride For Inhalation 0.9% 3 ML NEB ONE (17:05)
[2017-06-14 17:27] LABS: Mean Corpuscular HGB CONC 31.4 g/dL (32.0-36.0); Mean Corpuscular Volume 79.5 fl (81.0-99.0); Mean Platelet Volume 8.6 fL (7.4-10.4); Platelet Count 217 thou/uL (130-400); RBC Distribution Width 18.1 % (11.5-14.5); White Blood Cell (WBC) Count 9.4 thou/uL (4.8-10.8)
[2017-06-14] MEDS ORDERED: Cefepime 1 GM, Admixture Fee 1 EACH in Sterile Water 10 ML SLOW IVP SCH (17:30)
[2017-06-14] MEDS ORDERED: Oseltamivir 75 MG CAP PO SCH (17:30)
[2017-06-14 17:43] LABS: ALT (SGPT) 20 U/L (8-55); AST (SGOT) 21 U/L (5-34); Albumin 3.7 g/dL (3.5-5.0); Alkaline Phosphatase 91 U/L (40-150); Anion Gap 14 mmol/L (10-20); BUN (Urea Nitrogen) 9 mg/dL (7.0-18.7); Bilirubin, Total 0.6 mg/dL (0.2-1.2); Calc. Creatinine Clearance 0 mL/min (70-130); Calcium 9.5 mg/dL (7.8-10.44); Carbon Dioxide 36 mmol/L (22-29); Chloride 95 mmol/L (98-107); Estimated GFR-MDRD 70; Globulin 4.5 g/dL (2.4-3.5); Glucose 235 mg/dL (70-105); Potassium 4.5 mmol/L (3.5-5.1); Protein, Total 8.2 g/dL (6.0-8.3); Sodium 140 mmol/L (136-145)
[2017-06-14 17:47] LABS: #Basophils 0.1 thou/uL (0.0-0.2); #Eosinphils 0.2 thou/uL (0.0-0.7); #Lymphocytes 3.4 thou/uL (1.20-3.40); #Monocytes 0.6 thou/uL (0.11-0.59); #Neutrophils 5.1 thou/uL (1.40-6.50); %Basophils 0.7 % (0.0-1.0); %Eosinophils 2.3 % (0.0-10.0); %Lymphocytes 36.4 % (21.0-51.0); %Monocytes 6.4 % (0.0-10.0); %Neutrophils 54.2 % (42.0-75.0); Anisocytosis SLIGHT = 6-15 cells (100X) (0-5/hpf); CKMB 1.2 ng/mL (0-6.6); Large Platelets SLIGHT; MDiff Complete? YES; PLT Morphology Comment Appears Adequate; Polychromasia SLIGHT = 2-3 cells (100X) (0-2/hpf); Troponin I Less than 0.010 ng/mL (< 0.028)
[2017-06-14] MEDS ORDERED: methylPREDNISolone Sod Succ/PF 125 MG/2 ML VIAL ONE (17:57)
[2017-06-14] MEDS ORDERED: Water For Inject, Bacteriostat 30 ML ONE (17:57)
--- NOTE | 2017-06-14 17:58 | RAD ---
CHEST ONE VIEW 06/14/16 HISTORY: Shortness of breath. COMPARISON: Chest one view 03/02/17. FINDINGS: The heart size is enlarged. Tracheostomy tube is present. Extensive perihilar air space opacities. No pneumothorax. Likely small effusions. IMPRESSION: Cardiomegaly with pulmonary edema and vascular congestion as well as small effusions. POS: H
[2017-06-14 19:38] LABS: Bilirubin Small (Negative); Blood, Urine Negative (Negative); Clarity CLOUDY (Clear); Glucose, Urine (Dipstick) Negative (Negative); Leukocyte Trace (Negative); Nitrite Negative (Negative); Protein, Urine (Dipstick) Trace mg/dL (Neg-Trace); Specific Gravity, Urine 1.024 (1.002-1.036); pH, Urine 6.5 (5.0-9.0)
[2017-06-14 19:41] LABS: Bacteria/HPF 1+ HPF (None Seen); Hyaline Casts/LPF 4-6 HYALINE CAST LPF (0-3 Hyaline); Pathc Cast-AUWi Flag 0.94 (0-2.49); RBC/HPF 0-3 HPF (0-3)
[2017-06-14] MEDS ORDERED: Dextrose 5% in Water 1,000 ML IV PRN (19:56)
[2017-06-14] MEDS ORDERED: Acetaminophen 325 MG TAB PO PRN (19:56)
[2017-06-14] MEDS ORDERED: Dextrose 50% Abboject 50 ML SYRINGE SLOW IVP PRN (19:56)
[2017-06-14] MEDS ORDERED: HYDROcodone/Acetaminophen 5/325 mg Tablet PO PRN (19:56)
[2017-06-14] MEDS ORDERED: Ondansetron ODT 4 MG TAB PO PRN (19:56)
[2017-06-14 20:02] LABS: Actual Bicarbonate (HCO3a) 40.8 mEq/L (22-26); Base Excess (BEa) 10.4 mEq/L (0 (+/-) 2.5); CO2 Tension 84.8 mmHg (35.0-45.0); O2 Tension (PaO2) 49.6 mmHg (80.0-100.0)
[2017-06-14 20:08] LABS: Hematocrit-ABG 53.5 % (36.0-47.0); Hemoglobin (Hb) 14.8 g/dL (12.0-16.0)
[2017-06-14 20:09] LABS: Analyzer IN Cardio ER; Calcium, Ionized 1.1 mmol/L (1.12-1.30); Puncture Site RBA
[2017-06-14 20:48] LABS: CKMB 1.2 ng/mL (0-6.6); Troponin I Less than 0.010 ng/mL (< 0.028)
[2017-06-14] MEDS ORDERED: Lorazepam 2 MG/ML VIAL ONE (21:00)
--- NOTE | 2017-06-14 22:54 | RAD ---
CHEST ONE VIEW 06/14/17 HISTORY: Trach placement. COMPARISON: Radiograph same day. FINDINGS: Tracheostomy is in place. Tip in good position. Multifocal air space opacities are worsening. Heart s ize is enlarged. IMPRESSION: Worsening air space opacities concerning for edema or pneumonia. POS: [facility]
--- NOTE | 2017-06-15 00:07 | HP ---
DATE OF ADMISSION: 06/14/2017 TIME OF SERVICE: 1938 CHIEF COMPLAINT: Shortness of breath. HISTORY OF PRESENT ILLNESS: Ms. Bal is a 51-year-old female with history of severe obesit y, chronic hypoxemic respiratory failure, status post tracheostomy in [address] Stokes, cor onary artery disease, CHF systolic, diabetes and hypothyroidism who presented to the emergency depart ment for being short of breath. PRIMARY CARE PHYSICIAN: Guanaco Alexander M.D. PRIMARY DOOR PULLER: Phil Stokes M.D. HISTORY OF PRESENT ILLNESS: Ms. Bal is a pleasant 51-year-old female with a history above who pre sented to the emergency department tonight for complaints of shortness of breath with some chest pres sure. She uses 4 liters at home with a humidifier, but started to get progressively more short of br eath. She took 4 breathing treatments last night with only slight improvement. Reportedly, she was 55% on room air. I am not sure why they even checked it; she is never on room air, on arrival to the emergency department. Shortly after getting here she was placed on a trach collar. Sats have been in the 90-95 range since then. She denies any current chest pain. No nausea and vomiting. No diarrhea or constipation. See goddard was apparently recently diagnosed with a brain tumor and is being referred to neurosurgeon for a HORSE DOCTOR shunt placement. She does not think she wants to go through that kind of procedure. She denies any current headaches. She was on medicines one 4 times a day and on another secondary me dicine when she was first diagnosed with tumor to help with her headaches and had no recurrence, and she finished this. No other current complaints. At present, she is on a trach collar, speaking in 7 -8 word sentences. She denies any other complaints at present. PAST MEDICAL HISTORY: 1. Coronary artery disease. 2. Congestive heart failure, last EF was 50-55% in February of this year. She had mild MR, trace T R, and no mention of diastolic dysfunction, though I am sure she had some kind of pulmonary hypertens ion. 3. Diabetes mellitus type 2 4. Hypothyroidism. 5. Hyperlipidemia. 6. Hypertension. 7. Severe obesity. 8. Chronic obstructive pulmonary disease. PAST SURGICAL HISTORY: Include, 1. Tracheostomy [place] [address] Stokes. 2. in the past. HOME MEDICATIONS: 1. Pravachol 20 mg p.o. at bedtime. 2. Levothyroxine 300 mcg daily. 3. Levemir 85 units subcu b.i.d. 4. Lasix 80 mg p.o. b.i.d. 5. Wellborn 10/325 one q.4 h. about 5 times a day. 6. Flexeril 10 mg p.o. q.8 h. p.r.n. muscle spasm. 7. Lisinopril 20 mg daily. 8. Protonix 40 mg p.o. b.i.d. 9. Aspirin 81 mg daily. 10. Vitamin D2 of 50,000 units daily. 11. Metformin 500 mg p.o. q.a.m. 12. Crestor 20 mg daily. 13. Thiamine 50 mg daily. 14. Xopenex nebulizer treatments 0.31 mg p.r.n. 15. Nexium 40 mg once a day. 16. Guaifenesin 600 mg p.o. b.i.d. ALLERGIES: CYMBALTA, GABAPENTIN, LYRICA. FAMILY HISTORY: Negative for clotting or bleeding disorder, no immune dysfunction. SOCIAL HISTORY: Significant for her son on 01/2017. No alcohol, tobacco or drug use. Her sign ificant other is with her. CODED STATUS: We talked about code status. She does wish to be FULL CODE. REVIEW OF SYSTEMS: A 10-point review of systems was performed, negative for all other systems except as stated as per HPI. PHYSICAL EXAMINATION: VITAL SIGNS: Temperature 99.0, pulse 104, blood pressure 143/82, respiratory rate initially was 40 d own to 20, sats reportedly 55% on room air and 97% on a trach collar. GENERAL: She is awake. She is alert. She is oriented x3. She is a severely obese -[place] female appears to be in no acute distress. She is talking in 7-8 word sentences. HEENT: Normocephalic, atraumatic. Pupils equal, round, react to light bilaterally, mucous members a re moist. She has no visible lesions or thrush. NECK: Supple. A 6.5 Greenlandic trach tube is in place. She has some clear to whitish sputum production from that. Site is intact. LUNGS: Have coarse bilateral crackles. She has no rhonchi, and no wheezes are present. She states she was wheezing earlier. CARDIOVASCULAR: She is tachycardic, but regular. Normal S1 and S2. No S3. 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 She does not have any audible murmurs. ABDOMEN: Severely obese. It is nontender, nondistended with good bowel sounds. I cannot palpate in ternal organs. EXTREMITIES: No cyanosis, no clubbing. She has no pitting edema, but does have edema in the bilater al lower extremities. SKIN: Warm, moist, and well perfused. She has no visible rashes or lesions. I did not roll her ove r to look at her backside. NEUROLOGIC: Cranial nerves II-XII grossly intact. Strength is 5/5. Speech pattern is normal. She has no focal deficits. MUSCULOSKELETAL: Normal to inspection. She has no inflamed joints and no palpable effusions. LABORATORY DATA: Sodium 140, potassium 4.5, chloride 95, bicarbonate 36, BUN 14, creatinine 1.01, ca lcium 9.5, and glucose of 235. Liver functions include within normal limits. CBC showed a white count of 9.4, hemoglobin 15.0, hematocrit 47.7 and platelet count 217,000. Lactic acid was normal at 1.3. BNP was normal. MB fraction was normal at 1.2 and troponin I was undetecta ble less than 0.010. BNP was normal at 19. Urinalysis showed 11-20 squamous epithelial cells and this is a contaminated specimen. D-dimer was l ess than 0.27. Chest x-ray showed a cardiomegaly, pulmonary edema, pulmonary vascular congestion, and small bilatera l pleural effusions. ASSESSMENT AND PLAN: 1. Congestive heart failure, likely systolic. 2. Acute on chronic exacerbation. She was placed on IV Lasix. She has normal renal function. We w ill schedule her every 6 hours for the next 24-36 hours. Strict I's and O's and a repeat chest x-ray . She just had an echocardiogram in 02/2017, I do not think it is prudent at this point to repeat; p reenaably will not get good pictures given her body habitus anyways. 3. Chest pain: We will get serial cardiac biomarkers. She is not currently having any chest pain. Initial set of biomarkers were negative. 4. Diabetes mellitus type 2, insulin-dependent. We will continue her Levemir. We will get sliding scale insulin on board for correction. She was placed on a diabetic diet. 5. Hypothyroidism on levothyroxine. We will continue. 6. Hyperlipidemia on Crestor and pravastatin. We will continue. 7. Hypertension, on lisinopril. We will continue. Blood pressure is slightly on the elevated side at present. 8. Severe obesity. 9. Chronic obstructive pulmonary disease without acute exacerbation. We will continue her home DuoN ebs. We will have albuterol as needed. We will hold off on steroids at the present time. 10. Gastroesophageal reflux disease, on Protonix. We will continue to give her that twice a day. W e will place her in a telemetry floor on inpatient status. We will notify Dr. Stokes of admission or his colleagues.
[2017-06-15] MEDS: Furosemide 40 MG/4 ML VIAL SLOW IVP SCH ×5 (00:46→21:50)
[2017-06-15 04:37] LABS: Hemoglobin A1c 9.5 % (4.0-6.0)
[2017-06-15 04:41] LABS: ALT (SGPT) 19 U/L (8-55); AST (SGOT) 15 U/L (5-34); Albumin 3.6 g/dL (3.5-5.0); Alkaline Phosphatase 82 U/L (40-150); Anion Gap 13 mmol/L (10-20); BUN (Urea Nitrogen) 14 mg/dL (7.0-18.7); Bilirubin, Total 0.6 mg/dL (0.2-1.2); CKMB 1.4 ng/mL (0-6.6); Calc. Creatinine Clearance 171 mL/min (70-130); Calcium 9.2 mg/dL (7.8-10.44); Carbon Dioxide 36 mmol/L (22-29); Cardiac Risk 3.9 (Less than 4.5); Chloride 93 mmol/L (98-107); Cholesterol 212 mg/dl (< 200 Desired); Estimated GFR-MDRD 63; Glucose 379 mg/dL (70-105); HDL Cholesterol 55 mg/dL (>60 Neg Risk); LDL Cholesterol, Calculated 139 mg/dL; Magnesium 1.8 mg/dL (1.6-2.6); Potassium 4.7 mmol/L (3.5-5.1); Protein, Total 7.6 g/dL (6.0-8.3); Sodium 137 mmol/L (136-145); Triglycerides 91 mg/dL (Less than 150); Troponin I Less than 0.010 ng/mL (< 0.028)
[2017-06-15 05:03] LABS: #Lymphocytes 1.5 thou/uL (1.20-3.40); #Monocytes 0.1 thou/uL (0.11-0.59); #Neutrophils 6.6 thou/uL (1.40-6.50); %Basophils 0.2 % (0.0-1.0); %Eosinophils 0.5 % (0.0-10.0); %Lymphocytes 18.1 % (21.0-51.0); %Monocytes 1.6 % (0.0-10.0); %Neutrophils 79.5 % (42.0-75.0); Hemoglobin 14.6 g/dL (12.0-16.0); Large Platelets SLIGHT; MDiff Complete? YES; Mean Corpuscular HGB CONC 30.4 g/dL (32.0-36.0); Mean Corpuscular Hemoglobin 24.6 pg (27.0-31.0); Mean Corpuscular Volume 80.8 fl (81.0-99.0); Mean Platelet Volume 9.9 fL (7.4-10.4); PLT Morphology Comment Appears Adequate; Platelet Count 196 thou/uL (130-400); RBC Distribution Width 17.9 % (11.5-14.5); Red Blood Cell (RBC) Count 5.92 mill/uL (4.20-5.40); Target Cells SLIGHT = 2-5 cells (100X) (0-1/hpf); White Blood Cell (WBC) Count 8.3 thou/uL (4.8-10.8)
[2017-06-15] MEDS ORDERED: Rosuvastatin 20 MG TAB PO SCH (09:00)
[2017-06-15] MEDS: Enoxaparin Sodium 40 MG/0.4 ML SYRINGE SC SCH (10:44)
--- NOTE | 2017-06-15 11:25 | RAD ---
PORTABLE CHEST: HISTORY: Pulmonary edema. CHF. COMPARISON: 06/14/2017 FINDINGS: Cardiomegaly. Vascular congestion and evidence of mild interstitial edema. IMPRESSION: Not significantly changed from yesterday. POS: [facility]
[2017-06-15 12:32] LABS: Troponin I Less than 0.010 ng/mL (< 0.028)
[2017-06-15] MEDS: Levalbuterol HCl 0.63 MG/3 ML NEB NEB SCH ×2 (14:10→21:59)
--- NOTE | 2017-06-15 14:40 | PDOC.PN ---
- Subjective Encounter Start Date: 06/15/17 Encounter Start Time: 08:15 -: non-verbal Pt place don SIMV overnight via her tach. Still on at present. no notes form pulm as of them tie i saw her this morning. Breathing is okay, lots of phlegm. No F/C, no n/V/D/c, no CP, no other complaints. nursing reports pt has vaginal discharge. Requests SSI coverage for her accuchecks. Due to her hold intiially in the ER, PM long acting insulin not govne, pt npo due to vent status anyways - Objective Resuscitation Status: Resuscitation Status FULL:Full Resuscitation MAR Reviewed: Yes Vital Signs & Weight: Vital Signs (12 hours) Temp Pulse Resp BP Pulse Ox 06/15/17 14:13 73 111/75 06/15/17 14:10 80 20 100 06/15/17 12:36 77 106/58 L 06/15/17 09:44 92 145/76 H 06/15/17 07:36 99.2 F 85 12 84 L 06/15/17 07:00 99.2 F 06/15/17 06:29 84 127/77 06/15/17 04:00 98.2 F 12 Weight Weight 394 lb 10.039 oz Most Recent Monitor Data Heart Rate from ECG 78 NIBP 100/52 NIBP BP-Mean 74 Respiration from ECG 19 SpO2 99 I&O: 06/14/17 06/15/17 06/16/17 06:59 06:59 06:59 Intake Total 0 0 Output Total 245 183 Balance -245 -183 Result Diagrams: 06/15/17 03:45 06/15/17 03:45 Additional Labs: Accuchecks 06/15/17 10:49 POC Glucose 209 H Radiology Reviewed by me: Yes EKG Reviewed by me: Yes Phys Exam - Physical Examination Constitutional: NAD HEENT: PERRLA, moist MMs, sclera anicteric, oral pharynx no lesions trach C/D/I Neck: no nodes, no JVD, supple, full ROM Respiratory: no wheezing, no rales, no rhonchi, clear to auscultation bilateral Cardiovascular: RRR, no significant murmur, no rub Gastrointestinal: soft, non-tender, no distention, positive bowel sounds Musculoskeletal: pulses present, edema present Neurological: non-focal, normal sensation, moves all 4 limbs Lymphatic: no nodes Psychiatric: normal affect, A&O x 3 Skin: no rash, normal turgor, cap refill <2 seconds Dx/Plan (1) Acute on chronic diastolic (congestive) heart failure Code(s): I50.33 - ACUTE ON CHRONIC DIASTOLIC (CONGESTIVE) HEART FAILURE Status : Acute Comment: conver to IV lasix, check echo, await pulm recommendations (2) Chest pain Code(s): R07.9 - CHEST PAIN, UNSPECIFIED Status: Acute Qualifiers: Chest pain type: chest pain on breathing Qualified Code(s): R07.1 - Chest pain on breathing; R07.81 - Pleurodynia Comment: biomarkers negative, tele normal. (3) COPD (chronic obstructive pulmonary disease) Status: Chronic Qualifiers: COPD type: unspecified COPD Qualified Code(s): J44.9 - Chronic obstructive pulmonary disease, unspecified Comment: Pt with hypercapnea last night, Nebs, Steroids. No sign of infection at present (4) DM type 2 (diabetes mellitus, type 2) Status: Chronic Qualifiers: Diabetes mellitus complication status: without complication Diabetes mellitus fdc insulin use: with fdc use Qualified Code(s): E11.9 - Type 2 diabetes mellitus without complications; Z79.4 - buttermaker continuous churn (current) use of insulin; Z79.4 - buttermaker continuous churn (current) use of insulin; Z79.4 - buttermaker continuous churn ( current) use of insulin; Z79.4 - buttermaker continuous churn (current) use of insulin (5) Essential hypertension Code(s): I10 - ESSENTIAL (PRIMARY) HYPERTENSION Status: Chronic (6) Hypothyroidism Code(s): E03.9 - HYPOTHYROIDISM, UNSPECIFIED Status: Chronic Qualifiers: Hypothyroidism type: unspecified Qualified Code(s): E03.9 - Hypothyroidism , unspecified (7) Morbid obesity with body mass index of 70 and over in adult Code(s): E66.01 - MORBID (SEVERE) OBESITY DUE TO EXCESS CALORIES; Z68.45 - BODY MASS INDEX (BMI) 70 OR GREATER, ADULT Status: Chronic (8) Obesity hypoventilation syndrome Code(s): E66.2 - MORBID (SEVERE) OBESITY WITH ALVEOLAR HYPOVENTILATION Status : Chronic (9) Acute on chronic respiratory failure with hypercapnia Code(s): J96.22 - ACUTE AND CHRONIC RESPIRATORY FAILURE WITH HYPERCAPNIA Status: Resolved Comment: on Vent, pulm to see (10) Acute respiratory failure with hypoxia Code(s): J96.01 - ACUTE RESPIRATORY FAILURE WITH HYPOXIA Status: Acute - Plan cont current plan of care, PT/OT, respiratory therapy, DVT proph w/heparin * .
--- NOTE | 2017-06-15 15:00 | CON ---
DATE OF CONSULTATION: 06/15/2017 SERVICE: Pulmonary Medicine. REASON FOR CONSULTATION: Respiratory failure. HISTORY OF PRESENT ILLNESS: The patient is a 51-year-old -Serbian female who has morbid obes ity and chronic respiratory failure associated with that. She ended up getting a tracheostomy about 2 months ago for respiratory failure. Recently, she was downsized to a fenestrated cuffless tracheos etta. She developed increasing respiratory failure. Ultimately, she was found with altered mentatio n. She was brought to the emergency department. An attempt was made to change out her tracheostomy downstairs, but there was malpositioned of that tracheostomy. They tried to use cuffed 6-0 Shiley tr acheostomy. Unfortunately, it was not long enough to get into the tract. As such, she was brought t o the ICU. We were getting poor return of volumes. I switched this one out comfortably for 6.0 Bivo na which has a longer airway. We started getting return of volumes. Overnight, she remained on [facility] anical ventilation. She started waking up comfortably. She denies any current fevers, chills, nause a or vomiting that precipitated this event. Otherwise, there has been no interval change to her cond ition. PAST MEDICAL HISTORY: 1. Coronary artery disease. 2. Chronic diastolic heart failure. 3. Type 2 diabetes mellitus. 4. Hypothyroidism. 5. Dyslipidemia. 6. Hypertension. 7. Morbid obesity. 8. Chronic hypercapnic respiratory failure. 9. Chronic obstructive pulmonary disease, possible (not evident on flow volumes on ventilator). PAST SURGICAL HISTORY: 1. Tracheostomy. 2. section. ALLERGIES: CYMBALTA, GABAPENTIN, LYRICA. MEDICATIONS: List of her inpatient medications were reviewed. No specific updates were made at this time. FAMILY HISTORY: Noncontributory. SOCIAL HISTORY: She has no history of alcohol, tobacco or illicit drug use. She denies exposure to chemicals, dust, asbestos, or tuberculosis. REVIEW OF SYSTEMS: General, head, ears, eyes, nose, throat, cardiovascular, respiratory, GI, , mus culoskeletal, neurologic and skin is negative except as mentioned in the HPI. PHYSICAL EXAMINATION: VITAL SIGNS: Afebrile with a T-max of 99.2. Pulse 77, blood pressure 106/58, respirations 78, respi rations 19, saturation 99% on 30% FiO2. GENERAL: Patient is on mechanical ventilation via tracheostomy. She is awake and alert. She is in no apparent distress. HEENT: Normocephalic, atraumatic. Sclerae are white, conjunctivae pink. Oral mucosa is moist witho ut lesions. LUNGS: Excellent air entry. There is no prolonged expiratory phase. HEART: Normal rate, regular. ABDOMEN: Soft, nontender, nondistended. Bowel sounds are positive. MUSCULOSKELETAL: No cyanosis or clubbing. No pitting in the bilateral lower extremities. NEUROLOGIC: Grossly nonfocal. LABORATORY DATA: WBC 8.3, hemoglobin 14.6, platelets 196,000. D-dimer 0.27. PH 7.30, pCO2 84, pO2 50. Creatinine 1.11, which is gently uptrending. Basic metabolic profile and liver function studies are otherwise unremarkable. Hemoglobin A1c 9.5. Troponins are negative x3. Liver function studies otherwise unremarkable. Influenza A and B is negative. Respiratory virus PCR is also unremarkable. Influenza A swab is negative. Urine cultures negative to date. IMAGING: Chest x-ray demonstrates vascular congestion and evidence of mild interstitial edema, which is likely reflective of her low lung volumes. There is soft tissue attenuation. As such, this is a n underpenetrated film. The current tracheostomy tube appears to be in decent position, though I can not quite tell what the thomas is. Cardiomegaly is evident, but this is an AP film. ASSESSMENT: 1. Acute on chronic hypoxic and hypercapnic respiratory failure. 2. Obesity hypoventilation syndrome. 3. Acute on chronic diastolic heart failure (mild). PLAN: I will decrease her prednisone to p.o. medication to be delivered once daily. This will be li mited to 5 days. I really do not think obstructive airflow limitation was driving thing that present ed her here. We will gently diurese her over the next 24-48 hours and back off on the pressure suppo rt that we are providing her. Since she did well overnight on mechanical ventilation, I will change her over to pressure support and we can wean her slowly. A Dobbhoff tube will need to be initiated i n the meantime. Tube feeds can be initiated once recommendations are in. We will cover her blood panchal gars for the time being with an aggressive sliding scale. Pulmonary Critical Care will continue to josie velásquez. CRITICAL CARE TIME: 30 minutes.
[2017-06-15] MEDS: predniSONE 5 MG TAB PO SCH ×2 (16:37)
[2017-06-15] MEDS: guaiFENesin ER 600 MG TAB PO SCH ×2 (16:37→16:38)
[2017-06-15] MEDS: Potassium Chloride 20 MEQ TAB PO SCH (16:38)
[2017-06-15] MEDS: Lisinopril 20 MG TAB PO SCH (16:58)
[2017-06-15] MEDS: Insulin Regular 300 UNITS/3 ML VIAL SC PRN ×2 (17:35→23:02)
--- NOTE | 2017-06-15 19:02 | RAD ---
ABDOMEN ONE VIEW: History: Dobbhoff tube placement. Comparison: None. FINDINGS: Dobbhoff tube tip is at the gastric antrum. IMPRESSION: Dobbhoff tube tip gastric antrum. POS: [facility]
[2017-06-15] MEDS: Simvastatin 5 MG TAB PO SCH (21:50)
[2017-06-16] MEDS: Furosemide 40 MG/4 ML VIAL SLOW IVP SCH (03:55)
[2017-06-16] MEDS: Insulin Regular 300 UNITS/3 ML VIAL SC PRN ×3 (04:08→20:21)
[2017-06-16 05:31] LABS: BUN (Urea Nitrogen) 15 mg/dL (7.0-18.7); Calc. Creatinine Clearance 165 mL/min (70-130); Estimated GFR-MDRD 60; Glucose 189 mg/dL (70-105); Magnesium 1.9 mg/dL (1.6-2.6)
[2017-06-16 05:40] LABS: Anion Gap 14 mmol/L (10-20); Carbon Dioxide 38 mmol/L (22-29); Chloride 93 mmol/L (98-107); Potassium 4.1 mmol/L (3.5-5.1); Sodium 141 mmol/L (136-145)
[2017-06-16 05:41] LABS: #Basophils 0.1 thou/uL (0.0-0.2); #Lymphocytes 2.5 thou/uL (1.20-3.40); #Monocytes 0.6 thou/uL (0.11-0.59); #Neutrophils 3.8 thou/uL (1.40-6.50); %Basophils 0.7 % (0.0-1.0); %Eosinophils 0.6 % (0.0-10.0); %Monocytes 7.9 % (0.0-10.0); %Neutrophils 54.7 % (42.0-75.0); Hemoglobin 13.8 g/dL (12.0-16.0); Large Platelets SLIGHT; MDiff Complete? YES; Mean Corpuscular HGB CONC 30.8 g/dL (32.0-36.0); Mean Corpuscular Hemoglobin 24.6 pg (27.0-31.0); Mean Corpuscular Volume 80.1 fl (81.0-99.0); Mean Platelet Volume 9.3 fL (7.4-10.4); PLT Morphology Comment Appears Adequate; Platelet Count 175 thou/uL (130-400); RBC Distribution Width 17.8 % (11.5-14.5); Target Cells SLIGHT = 2-5 cells (100X) (0-1/hpf)
[2017-06-16] MEDS: Levalbuterol HCl 0.63 MG/3 ML NEB NEB SCH (07:55)
--- NOTE | 2017-06-16 08:17 | RAD ---
PORTABLE AP CHEST XRAY: DATE: 06/16/17. HISTORY: Pulmonary edema and CHF. COMPARISON: 02/01/17. FINDINGS: Tracheostomy device is noted in place. The patient is rotated to the left which accentuates the card iac silhouette and bronchovascular markings. This exam is under penetrated which limits adequate galileo luation, but there does appear to be increased opacity involving the majority of the right lung soni red to the left. This is probably related to overlying soft tissue density and patient rotation, but pneumonia right lung cannot be entirely excluded, followup chest x-ray is recommended. There is als o suboptimal evaluation of the left lung base. Radioopaque catheter overlies the midline of the ches t which likely represens a Dobbhoff feeding tube placed in the interim. No other interval change. IMPRESSION: 1. Suboptimal evaluation of the chest due to prominent patient rotation. However, tracheostomy brandy ce and Dobbhoff feeding tube are noted in place. 2. Increased density right hemithorax. This may be related to overlying soft tissue density and acc entuation of markings due to patient rotation, but opacity right lung related to pneumonia cannot be excluded. Continued followup to resolution is recommended. A repeat chest x-ray is suggested. POS: [facility]
[2017-06-16] MEDS: Pantoprazole 40 MG VIAL IVP SCH ×2 (08:55→20:11)
[2017-06-16] MEDS: Enoxaparin Sodium 40 MG/0.4 ML SYRINGE SC SCH (08:55)
[2017-06-16] MEDS: Lisinopril 20 MG TAB PO SCH (08:56)
[2017-06-16] MEDS: predniSONE 5 MG TAB PO SCH ×2 (08:56→17:08)
[2017-06-16] MEDS: guaiFENesin ER 600 MG TAB PO SCH ×2 (08:56→17:08)
[2017-06-16] MEDS: Potassium Chloride 20 MEQ TAB PO SCH ×2 (08:56→17:08)
--- NOTE | 2017-06-16 12:56 | PDOC.PN ---
- Subjective Encounter Start Date: 06/16/17 Encounter Start Time: 09:15 Pt on A/C per pulm, CXR reviewed. Breathing okay on vent via trach. Pt sitting up in chair at bedside. denies F/C, no N/v/d/c, no CP, less sputum production. Dr lundberg to take over today, given lasix last night by Dr Foster, pt with 2.5L UOP 10 point ROS performed and neg for all systems except as above - Objective Resuscitation Status: Resuscitation Status FULL:Full Resuscitation MAR Reviewed: Yes Vital Signs & Weight: Vital Signs (12 hours) Temp Pulse Resp BP 06/16/17 11:00 97.4 F L 06/16/17 10:00 16 06/16/17 08:56 124/68 06/16/17 08:00 99 F 100 14 06/16/17 07:55 79 118/54 L 06/16/17 06:00 20 06/16/17 04:00 99.3 F 23 H 06/16/17 02:00 25 H Weight Weight 393 lb 15.457 oz Most Recent Monitor Data Heart Rate from ECG 60 NIBP 108/66 NIBP BP-Mean 80 Respiration from ECG 16 SpO2 96 I&O: 06/15/17 06/16/17 06/17/17 06:59 06:59 06:59 Intake Total 0 120 100 Output Total 245 2433 185 Balance -245 -2313 -85 Result Diagrams: 06/16/17 04:15 06/16/17 04:15 Additional Labs: Accuchecks 06/16/17 06/16/17 06/15/17 08:53 04:05 23:01 POC Glucose 195 H 198 H 233 H 06/15/17 17:27 POC Glucose 180 H Radiology Reviewed by me: Yes EKG Reviewed by me: Yes Phys Exam - Physical Examination Constitutional: NAD HEENT: PERRLA, moist MMs, sclera anicteric, oral pharynx no lesions Neck: no nodes, no JVD, supple, full ROM 6.5fr trach C/D/I Respiratory: no wheezing coarse bilateral BS, no wheezing, good air movement Cardiovascular: RRR, no significant murmur, no rub Gastrointestinal: soft, non-tender, no distention, positive bowel sounds Musculoskeletal: edema present Neurological: non-focal, normal sensation, moves all 4 limbs Lymphatic: no nodes Psychiatric: normal affect, A&O x 3 Skin: no rash, normal turgor, cap refill <2 seconds Dx/Plan (1) Acute on chronic diastolic (congestive) heart failure Code(s): I50.33 - ACUTE ON CHRONIC DIASTOLIC (CONGESTIVE) HEART FAILURE Status : Acute Comment: continue to IV lasix, check echo, followup on pulm recommendations (2) Chest pain Code(s): R07.9 - CHEST PAIN, UNSPECIFIED Status: Resolved Qualifiers: Chest pain type: chest pain on breathing Qualified Code(s): R07.1 - Chest pain on breathing; R07.81 - Pleurodynia Comment: biomarkers negative, tele normal. (3) COPD (chronic obstructive pulmonary disease) Status: Chronic Qualifiers: COPD type: unspecified COPD Qualified Code(s): J44.9 - Chronic obstructive pulmonary disease, unspecified Comment: Pt with hypercapnea on admit, Nebs, Steroids. bilateral opacities developed quickly, mor elike edema (4) DM type 2 (diabetes mellitus, type 2) Status: Chronic Qualifiers: Diabetes mellitus complication status: without complication Diabetes mellitus fpc insulin use: with fpc use Qualified Code(s): E11.9 - Type 2 diabetes mellitus without complications; Z79.4 - skilled nursing (current) use of insulin; Z79.4 - skilled nursing (current) use of insulin; Z79.4 - assistant terminal manager ( current) use of insulin; Z79.4 - assistant terminal manager (current) use of insulin (5) Essential hypertension Code(s): I10 - ESSENTIAL (PRIMARY) HYPERTENSION Status: Chronic (6) Hypothyroidism Code(s): E03.9 - HYPOTHYROIDISM, UNSPECIFIED Status: Chronic Qualifiers: Hypothyroidism type: unspecified Qualified Code(s): E03.9 - Hypothyroidism , unspecified (7) Morbid obesity with body mass index of 70 and over in adult Code(s): E66.01 - MORBID (SEVERE) OBESITY DUE TO EXCESS CALORIES; Z68.45 - BODY MASS INDEX (BMI) 70 OR GREATER, ADULT Status: Chronic (8) Obesity hypoventilation syndrome Code(s): E66.2 - MORBID (SEVERE) OBESITY WITH ALVEOLAR HYPOVENTILATION Status : Chronic (9) Acute on chronic respiratory failure with hypercapnia Code(s): J96.22 - ACUTE AND CHRONIC RESPIRATORY FAILURE WITH HYPERCAPNIA Status: Resolved Comment: on Vent, pulm to see (10) Acute respiratory failure with hypoxia Code(s): J96.01 - ACUTE RESPIRATORY FAILURE WITH HYPOXIA Status: Acute - Plan cont current plan of care, continue antibiotics, respiratory therapy, out of bed /ambulate, DVT proph w/lovenox * .
[2017-06-16] MEDS: Simvastatin 5 MG TAB PO SCH (20:11)
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
[2017-06-17 05:13] LABS: #Eosinphils 0.1 thou/uL (0.0-0.7); #Lymphocytes 2.4 thou/uL (1.20-3.40); #Monocytes 0.6 thou/uL (0.11-0.59); #Neutrophils 5.6 thou/uL (1.40-6.50); %Basophils 0.1 % (0.0-1.0); %Eosinophils 0.8 % (0.0-10.0); %Lymphocytes 27.3 % (21.0-51.0); %Neutrophils 64.9 % (42.0-75.0); Hemoglobin 13.9 g/dL (12.0-16.0); Mean Corpuscular HGB CONC 31.2 g/dL (32.0-36.0); Mean Corpuscular Hemoglobin 24.9 pg (27.0-31.0); Mean Platelet Volume 10.8 fL (7.4-10.4); Platelet Count 165 thou/uL (130-400); RBC Distribution Width 17.9 % (11.5-14.5); Red Blood Cell (RBC) Count 5.57 mill/uL (4.20-5.40); White Blood Cell (WBC) Count 8.7 thou/uL (4.8-10.8)
[2017-06-17 05:21] LABS: Anion Gap 14 mmol/L (10-20); BUN (Urea Nitrogen) 15 mg/dL (7.0-18.7); Calc. Creatinine Clearance 202 mL/min (70-130); Calcium 9.1 mg/dL (7.8-10.44); Carbon Dioxide 33 mmol/L (22-29); Chloride 93 mmol/L (98-107); Estimated GFR-MDRD 76; Glucose 207 mg/dL (70-105); Magnesium 1.9 mg/dL (1.6-2.6); Potassium 4.2 mmol/L (3.5-5.1); Sodium 136 mmol/L (136-145)
[2017-06-17] MEDS: predniSONE 5 MG TAB PO SCH ×2 (08:39→16:14)
[2017-06-17] MEDS: Insulin Regular 300 UNITS/3 ML VIAL SC PRN ×4 (08:39→20:32)
[2017-06-17] MEDS: Pantoprazole 40 MG VIAL IVP SCH ×2 (08:40→20:31)
[2017-06-17] MEDS: Enoxaparin Sodium 40 MG/0.4 ML SYRINGE SC SCH (08:40)
[2017-06-17] MEDS: guaiFENesin ER 600 MG TAB PO SCH ×2 (08:40→16:14)
[2017-06-17] MEDS: Potassium Chloride 20 MEQ TAB PO SCH ×2 (08:40→16:14)
[2017-06-17] MEDS: Lisinopril 20 MG TAB PO SCH (08:40)
--- NOTE | 2017-06-17 13:21 | PRG ---
DATE OF SERVICE: 06/17/2017 SUBJECTIVE: Colleen Bal states that she feels almost back to her baseline. PHYSICAL EXAMINATION: VITAL SIGNS: She is afebrile, heart rate 87, respiratory rate is 20. She is on a trach collar. Blo od pressure 101/70. GENERAL: She is in no distress. LUNGS: Distant and clear. HEART: Regular rhythm. ABDOMEN: Soft. LABORATORY DATA: White count 8.7, hemoglobin 13.9, platelets 165. Sodium 136, potassium 4.2, chlori de 93, bicarbonate 33, BUN 15, and creatinine 0.94. IMPRESSION: Transient respiratory insufficiency. It is unclear to me whether she really needing mec hanical ventilation. Her blood gas is probably near her baseline with pH 7.3, pCO2 of 84, pO2 49 on presentation. I suspect she just had mucous plugging predominantly may be associated with a viral il lness. She is stable to move out of the Critical Care Unit. She is not having excessive secretions or in any respiratory distress. I have written orders to transfer upstairs.
--- NOTE | 2017-06-17 14:50 | PDOC.PN ---
- Subjective Encounter Start Date: 06/17/17 Encounter Start Time: 11:20 Pt extubated yesterday ot TC. zoran well, no f/C, no CP, no SOB, no n/V/D/C, no cough. less sputum, zoran abx. Trach changed out to her normal. Case discussed with Dr lundberg. no wheezes today 10 point ROS performed and neg for all systems except as above. - Objective Resuscitation Status: Resuscitation Status FULL:Full Resuscitation MAR Reviewed: Yes Vital Signs & Weight: Vital Signs (12 hours) Temp Pulse Resp BP Pulse Ox 06/17/17 11:24 97.6 F 06/17/17 11:14 87 20 06/17/17 08:50 92 25 H 100 06/17/17 08:40 140/87 06/17/17 08:00 98.5 F 88 17 06/17/17 07:00 98.5 F 06/17/17 04:00 98.7 F Weight Admit Weight 393 lb Weight 391 lb 1.601 oz Most Recent Monitor Data Heart Rate from ECG 80 NIBP 101/70 NIBP BP-Mean 102 Respiration from ECG 28 SpO2 93 I&O: 06/16/17 06/17/17 06/18/17 06:59 06:59 06:59 Intake Total 120 1920 800 Output Total 2433 890 160 Balance -2313 1030 640 Result Diagrams: 06/17/17 04:13 06/17/17 04:13 Additional Labs: Accuchecks 06/17/17 06/17/17 06/16/17 10:56 07:07 20:21 POC Glucose 202 H 173 H 168 H 06/16/17 15:51 POC Glucose 203 H Radiology Reviewed by me: Yes EKG Reviewed by me: Yes Phys Exam - Physical Examination Constitutional: NAD HEENT: PERRLA, moist MMs, sclera anicteric, oral pharynx no lesions Neck: no nodes, supple, full ROM trach C/D/I Respiratory: no wheezing distant breath sounds, small volume air movement Cardiovascular: RRR, no significant murmur Gastrointestinal: soft, non-tender, no distention, positive bowel sounds Musculoskeletal: pulses present, edema present Neurological: non-focal, normal sensation, moves all 4 limbs Lymphatic: no nodes Psychiatric: normal affect, A&O x 3 Skin: no rash, normal turgor, cap refill <2 seconds Dx/Plan (1) Acute on chronic diastolic (congestive) heart failure Code(s): I50.33 - ACUTE ON CHRONIC DIASTOLIC (CONGESTIVE) HEART FAILURE Status : Acute Comment: better. Off vent, to medical later today, pulm following (2) Chest pain Code(s): R07.9 - CHEST PAIN, UNSPECIFIED Status: Resolved Qualifiers: Chest pain type: chest pain on breathing Qualified Code(s): R07.1 - Chest pain on breathing; R07.81 - Pleurodynia Comment: biomarkers negative, tele normal. (3) COPD (chronic obstructive pulmonary disease) Status: Chronic Qualifiers: COPD type: unspecified COPD Qualified Code(s): J44.9 - Chronic obstructive pulmonary disease, unspecified Comment: Pt with hypercapnea on admit, Nebs, Steroids. bilateral opacities developed quickly, more like edema (4) DM type 2 (diabetes mellitus, type 2) Status: Chronic Qualifiers: Diabetes mellitus complication status: without complication Diabetes mellitus group home insulin use: with laborer marine terminal use Qualified Code(s): E11.9 - Type 2 diabetes mellitus without complications; Z79.4 - laborer marine terminal (current) use of insulin; Z79.4 - group home (current) use of insulin; Z79.4 - group home ( current) use of insulin; Z79.4 - group home (current) use of insulin (5) Essential hypertension Code(s): I10 - ESSENTIAL (PRIMARY) HYPERTENSION Status: Chronic (6) Hypothyroidism Code(s): E03.9 - HYPOTHYROIDISM, UNSPECIFIED Status: Chronic Qualifiers: Hypothyroidism type: unspecified Qualified Code(s): E03.9 - Hypothyroidism , unspecified (7) Morbid obesity with body mass index of 70 and over in adult Code(s): E66.01 - MORBID (SEVERE) OBESITY DUE TO EXCESS CALORIES; Z68.45 - BODY MASS INDEX (BMI) 70 OR GREATER, ADULT Status: Chronic (8) Obesity hypoventilation syndrome Code(s): E66.2 - MORBID (SEVERE) OBESITY WITH ALVEOLAR HYPOVENTILATION Status : Chronic (9) Acute on chronic respiratory failure with hypercapnia Code(s): J96.22 - ACUTE AND CHRONIC RESPIRATORY FAILURE WITH HYPERCAPNIA Status: Resolved Comment: on Vent, pulm to see (10) Acute respiratory failure with hypoxia Code(s): J96.01 - ACUTE RESPIRATORY FAILURE WITH HYPOXIA Status: Acute - Plan cont current plan of care, continue antibiotics, PT/OT, respiratory therapy * .
[2017-06-17] MEDS: Simvastatin 5 MG TAB PO SCH (20:31)
[2017-06-18 06:06] LABS: #Basophils 0.1 thou/uL (0.0-0.2); #Eosinphils 0.1 thou/uL (0.0-0.7); #Lymphocytes 2.6 thou/uL (1.20-3.40); #Monocytes 0.7 thou/uL (0.11-0.59); #Neutrophils 4.8 thou/uL (1.40-6.50); %Basophils 0.9 % (0.0-1.0); %Lymphocytes 31.5 % (21.0-51.0); %Monocytes 8.1 % (0.0-10.0); %Neutrophils 58.5 % (42.0-75.0); Hemoglobin 13.5 g/dL (12.0-16.0); Mean Corpuscular Hemoglobin 24.8 pg (27.0-31.0); Mean Platelet Volume 9.4 fL (7.4-10.4); Platelet Count 152 thou/uL (130-400); RBC Distribution Width 17.9 % (11.5-14.5); Red Blood Cell (RBC) Count 5.46 mill/uL (4.20-5.40); White Blood Cell (WBC) Count 8.2 thou/uL (4.8-10.8)
[2017-06-18 06:15] LABS: Anion Gap 10 mmol/L (10-20); BUN (Urea Nitrogen) 13 mg/dL (7.0-18.7); Calc. Creatinine Clearance 236 mL/min (70-130); Carbon Dioxide 34 mmol/L (22-29); Chloride 96 mmol/L (98-107); Estimated GFR-MDRD Greater than 90; Glucose 196 mg/dL (70-105); Magnesium 1.9 mg/dL (1.6-2.6); Potassium 3.9 mmol/L (3.5-5.1); Sodium 136 mmol/L (136-145)
[2017-06-18] MEDS: Insulin Regular 300 UNITS/3 ML VIAL SC PRN ×4 (06:19→21:43)
[2017-06-18] MEDS ORDERED: Furosemide 80 MG TAB PO PRN (06:29)
[2017-06-18] MEDS ORDERED: Cyclobenzaprine 10 MG TAB PO PRN (06:29)
[2017-06-18] MEDS ORDERED: Levothyroxine 150 MCG TAB PO SCH (07:00)
[2017-06-18] MEDS: Lisinopril 20 MG TAB PO SCH (08:46)
[2017-06-18] MEDS: predniSONE 5 MG TAB PO SCH ×2 (08:47→17:26)
[2017-06-18] MEDS: Potassium Chloride 20 MEQ TAB PO SCH ×2 (08:47→17:25)
[2017-06-18] MEDS: Aspirin 81 mg Enteric Coated Tablet PO SCH (08:47)
[2017-06-18] MEDS: Enoxaparin Sodium 40 MG/0.4 ML SYRINGE SC SCH (08:48)
[2017-06-18] MEDS: Pantoprazole 40 MG VIAL IVP SCH ×2 (08:48→21:35)
[2017-06-18] MEDS: guaiFENesin ER 600 MG TAB PO SCH ×2 (08:48→17:25)
[2017-06-18] MEDS: DULoxetine 60 MG CAP PO SCH (11:41)
[2017-06-18] MEDS: HYDROcodone/Acetaminophen 10/325 mg Tablet PO PRN (13:00)
--- NOTE | 2017-06-18 13:47 | PDOC.PN ---
- Subjective Encounter Start Date: 06/18/17 Encounter Start Time: 06:30 pt doing well, O2 levels 99-100 when up, to 91% overnight. On 5L TC. uses up to 4 at home No F/c, no N/V/D/C, no CP, SOB improved. less sputum production Cultures reviewed. pseudomonas and M. cattarhalis on cx. 10 point rOS performed and neg for all systems except as per HPI - Objective Resuscitation Status: Resuscitation Status FULL:Full Resuscitation MAR Reviewed: Yes Vital Signs & Weight: Vital Signs (12 hours) Temp Pulse Resp BP BP Pulse Ox 06/18/17 12:54 97.9 F 73 16 139/72 90 L 06/18/17 08:47 97.6 F 76 16 123/75 93 L 06/18/17 08:46 97.6 F 76 16 123/75 93 L 06/18/17 03:58 97.5 F L 68 16 120/68 91 L Weight Admit Weight 393 lb Weight 390 lb 6 oz Most Recent Monitor Data Heart Rate from ECG 72 NIBP 126/79 NIBP BP-Mean 102 Respiration from ECG 20 SpO2 95 I&O: 06/17/17 06/18/17 06/19/17 06:59 06:59 06:59 Intake Total 1920 1300 Output Total 890 360 Balance 1030 940 Result Diagrams: 06/18/17 05:35 06/18/17 05:35 Additional Labs: Accuchecks 06/18/17 06/18/17 06/17/17 10:41 05:41 20:33 POC Glucose 194 H 184 H 230 H 06/17/17 16:13 POC Glucose 224 H Phys Exam - Physical Examination Constitutional: NAD HEENT: PERRLA, moist MMs, sclera anicteric, oral pharynx no lesions Neck: no nodes, no JVD, supple, full ROM trach C/D/I Respiratory: clear to auscultation bilateral decreased BS bilaterally, no prolonged expiratory phase Cardiovascular: RRR, no significant murmur Gastrointestinal: soft, non-tender, no distention, positive bowel sounds Musculoskeletal: pulses present, edema present Neurological: non-focal, normal sensation, moves all 4 limbs Lymphatic: no nodes Psychiatric: normal affect, A&O x 3 Skin: no rash, normal turgor, cap refill <2 seconds Dx/Plan (1) Acute on chronic diastolic (congestive) heart failure Code(s): I50.33 - ACUTE ON CHRONIC DIASTOLIC (CONGESTIVE) HEART FAILURE Status : Acute Comment: better. Off vent, to medical last night, pulm following (2) Chest pain Code(s): R07.9 - CHEST PAIN, UNSPECIFIED Status: Resolved Qualifiers: Chest pain type: chest pain on breathing Qualified Code(s): R07.1 - Chest pain on breathing; R07.81 - Pleurodynia Comment: biomarkers negative, tele normal. (3) COPD (chronic obstructive pulmonary disease) Status: Chronic Qualifiers: COPD type: unspecified COPD Qualified Code(s): J44.9 - Chronic obstructive pulmonary disease, unspecified Comment: Pt with hypercapnea on admit, Nebs, Steroids. bilateral opacities developed quickly, more like edema (4) DM type 2 (diabetes mellitus, type 2) Status: Chronic Qualifiers: Diabetes mellitus complication status: without complication Diabetes mellitus fci insulin use: with superintendent terminal use Qualified Code(s): E11.9 - Type 2 diabetes mellitus without complications; Z79.4 - USP (current) use of insulin; Z79.4 - USP (current) use of insulin; Z79.4 - termite technician ( current) use of insulin; Z79.4 - termite technician (current) use of insulin (5) Essential hypertension Code(s): I10 - ESSENTIAL (PRIMARY) HYPERTENSION Status: Chronic (6) Hypothyroidism Code(s): E03.9 - HYPOTHYROIDISM, UNSPECIFIED Status: Chronic Qualifiers: Hypothyroidism type: unspecified Qualified Code(s): E03.9 - Hypothyroidism , unspecified (7) Morbid obesity with body mass index of 70 and over in adult Code(s): E66.01 - MORBID (SEVERE) OBESITY DUE TO EXCESS CALORIES; Z68.45 - BODY MASS INDEX (BMI) 70 OR GREATER, ADULT Status: Chronic (8) Obesity hypoventilation syndrome Code(s): E66.2 - MORBID (SEVERE) OBESITY WITH ALVEOLAR HYPOVENTILATION Status : Chronic (9) Acute on chronic respiratory failure with hypercapnia Code(s): J96.22 - ACUTE AND CHRONIC RESPIRATORY FAILURE WITH HYPERCAPNIA Status: Resolved Comment: on Vent, pulm to see (10) Acute respiratory failure with hypoxia Code(s): J96.01 - ACUTE RESPIRATORY FAILURE WITH HYPOXIA Status: Acute - Plan * .
[2017-06-18 14:07] VITALS: BMI 64.9
[2017-06-18] MEDS: Simvastatin 5 MG TAB PO SCH (21:35)
--- NOTE | 2017-06-18 21:45 | PRG ---
DATE OF SERVICE: 06/18/2017 Colleen Bal has no complaints today. She wants be in the hospital at least 2 more days. In my op inion, knowing her quite well, this is a social request. She feels safe and comfortable in the [facility] and does not want to be back home alone, especially since her son . OBJECTIVE: VITAL SIGNS: She is afebrile, heart rate is 84, respiratory rate 14, oximetry is 91-96. Blood press ure 138/84. LUNGS: Completely clear. IMPRESSION: 1. Status post mechanical ventilation. 2. Acute on chronic respiratory failure. 3. History of diastolic heart failure, although it is impossible to know with her radiographs whethe r she really has pulmonary edema. I believe she has more right heart dysfunction secondary to obesit y hypoventilation syndrome. She tends to get admitted and treated for "edema" when her radiograph re ally never changes very much. There is a diagnosis on the hospitalist's note that she has obstructive lung disease. She does not h ave chronic obstructive pulmonary disease. She does have hypertension and a tracheostomy for her obesity hypoventilation syndrome. A new a trac h was placed and her Bivona trach was removed in the ICU. She is stable for discharge in the morning and was something comes up overnight.
[2017-06-19] MEDS ORDERED: Levothyroxine 150 MCG TAB PO SCH (06:00)
[2017-06-19] MEDS: Insulin Regular 300 UNITS/3 ML VIAL SC PRN ×2 (06:37→11:37)
[2017-06-19] MEDS ORDERED: predniSONE 5 MG TAB PO SCH (08:00)
[2017-06-19] MEDS: Pantoprazole 40 MG VIAL IVP SCH (09:05)
[2017-06-19] MEDS: Potassium Chloride 20 MEQ TAB PO SCH (09:05)
[2017-06-19] MEDS: Aspirin 81 mg Enteric Coated Tablet PO SCH (09:05)
[2017-06-19] MEDS: guaiFENesin ER 600 MG TAB PO SCH (09:05)
[2017-06-19] MEDS: Lisinopril 20 MG TAB PO SCH ×2 (09:05→09:55)
[2017-06-19] MEDS: DULoxetine 60 MG CAP PO SCH (09:06)
[2017-06-19] MEDS: Enoxaparin Sodium 40 MG/0.4 ML SYRINGE SC SCH (09:06)
[2017-06-19] MEDS: HYDROcodone/Acetaminophen 10/325 mg Tablet PO PRN (11:31)
--- NOTE | 2017-06-19 12:45 | DIS ---
DATE OF ADMISSION: 06/14/2017 DATE OF DISCHARGE: 06/19/2017 PRIMARY CARE PHYSICIAN: Dr. Guanaco Alexander. PRIMARY DIRECTOR HARDWARE: Dr. Phil Stokes. DISCHARGE DIAGNOSES: 1. Acute on chronic hypoxic and hypercapnic respiratory failure. 2. Acute on chronic diastolic congestive heart failure. 3. Noncardiac chest pain. 4. Chronic obstructive pulmonary disease without acute exacerbation. 5. Diabetes mellitus, type 2, insulin-dependent. 6. Essential hypertension. 7. Hypothyroidism. 8. Severe obesity with body mass index over 70. 9. Obesity hypoventilation syndrome. CONSULTATIONS: Pulmonary Critical Care, initially Dr. Christian Foster; care was assumed by Dr. Phil Stokes. PROCEDURES: Echocardiogram on 06/14/2017 showed EF 50%-55%, mild TR, but technically inadequate exam due to body habitus. HISTORY AND PHYSICAL: Ms. Bal is a pleasant 51-year-old -[place] female with history of s evere obesity with obesity hypoventilation syndrome, status post tracheostomy in 2005 or 2006. This was done by Dr. Stokes, and he chronically follows her. She presented to the emergency department on 06/14/2017 complaining of shortness of breath. This was accompanied by some chest pressure. Normally uses 4 liters of home oxygen with humidifier, but had been using humidifier and got more short of breath. She is only getting slightly improved with her b reathing treatment, so presented to the emergency department and reportedly was 55% on room air on ar rival to the emergency department, though she is never without oxygen. She was placed on trach collar with good saturations and was subsequently admitted. She gave additio nal history that she has been diagnosed recently with a brain tumor and being referred to Neurosurger y for CLEAT FEEDER shunt placement, but not sure if she wants to do that. HOSPITAL COURSE: The patient was seen and examined by me in the emergency department. She was admit jeni to the [facility]. She remained fairly stable overnight; however, had progressive shortness of breath. A chest x-ray per Pulmonary was found to have vascular congestion and evidence of mild interstitial edema, likely low lung volumes versus diastolic CHF exacerbation. She was gently diuresed, and over night, 06/15/2017 to 06/16/2017, was placed on mechanical ventilation and Dobbhoff tube feeds. On , Dr. Stokes took over care from a pulmonary standpoint. Her tracheostomy tube was cleaned ou t and she was quickly taken off of the ventilator to [facility]. From 06/17/2017 to 06/19/2017, mira goddard did well, and was transferred to the floor. Oxygen saturation remained good. She did have low 90s during the nighttime, but was in the high 90s during the day when sitting upright. Lungs cleared. She responded well to diuresis with decreased lower extremity edema and decreased pulmonary edema, mira goddard tolerated nebs well, and 06/19/2017 was stable for discharge. PHYSICAL EXAMINATION: The patient was seen and examined on the day of discharge. Discharge plan and disposition were discussed with the patient [id number] at the bedside. DISCHARGE MEDICATIONS: 1. DuoNeb 3 mL q.6 hours, prescription sent. 2. Levofloxacin 500 mg p.o. daily for 7 more days, prescription sent. 3. Prednisone 10 mg p.o. q.a.m. and 5 mg p.o. q.p.m., prescription sent. 4. Aspirin 81 mg daily. 5. Flexeril 10 mg p.o. t.i.d. p.r.n. muscle spasm. 6. Duloxetine 60 mg p.o. daily. 7. Lasix 80 mg p.o. b.i.d. 8. Levothyroxine 300 mcg daily. 9. Lisinopril 20 mg daily. 10. Potassium chloride 20 mEq b.i.d. 11. Pravastatin 20 mg p.o. at bedtime. 12. Albuterol sulfate 0.63 mg q.i.d. p.r.n. 13. Levemir 95 units subcu b.i.d. 14. Protonix 40 mg p.o. b.i.d. DISCHARGE DIET: Heart healthy diabetic recommended. DISCHARGE ACTIVITY: Per cardiopulmonary limits. FOLLOWUP APPOINTMENTS: 1. Dr. Alexander within a week. 2. Dr. Stokes with Pulmonology in 2-3 weeks per his schedule.
[2017-06-19 13:14] VITALS: BP 147/90; TEMP 97.8
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
[2017-06-23] MEDS ORDERED: predniSONE 5 MG TAB PO SCH (08:00)
== END 2017-06-19 13:45 | disposition home or self-care (01) | DRG 208 ==
LOC: ERS 16:24 → ERHOLD 19:29 → CCU 21:35 → SURG A 06-17 21:27
PROVIDERS: ADMIT Internal Medicine Infectious Disease; ATTEND Internal Medicine Infectious Disease
PROC: 0B21XFZ Change Tracheostomy Device in Trachea, External Approach (ICD-10-PCS; 2017-06-14)
PROC: 5A1945Z Respiratory Ventilation, 24-96 Consecutive Hours (ICD-10-PCS; principal; 2017-06-15)
DX: J96.21 Acute and chronic respiratory failure with hypoxia (principal); I50.23 Acute on chronic systolic (congestive) heart failure; Z93.0 Tracheostomy status; I27.20 Pulmonary hypertension, unspecified; Z99.81 Dependence on supplemental oxygen; E66.2 Morbid (severe) obesity with alveolar hypoventilation; Z68.44 Body mass index [BMI] 60.0-69.9, adult; E66.01 Morbid (severe) obesity due to excess calories; I08.1 Rheumatic disorders of both mitral and tricuspid valves; I25.10 Atherosclerotic heart disease of native coronary artery without angina pectoris; I11.0 Hypertensive heart disease with heart failure; E11.9 Type 2 diabetes mellitus without complications; E03.9 Hypothyroidism, unspecified; K21.9 Gastro-esophageal reflux disease without esophagitis
CPT/HCPCS: 31502; 36415; 36416; 71045; 74018; 80048; 80053; 80061; 81003; 81015; 82553; 82805; 83036; 83605; 83735; 83880; 84484; 85025; 85379; 87040; 87070; 87077; 87086; 87186; 87205; 87633; 93005; 93306; 93798; 94002; 94003; 94640; 96365; 96366; 96367; 96375; A4216; C1751; C9113; J0692; J1650; J1815; J1940; J1956; J2060; J2930; J3370; J7614; J7620

== ENCOUNTER 2017-08-01 14:52 | Inpatient (IN) | payer OTHER ==
[2017-08-01] MEDS ORDERED: Sodium Chloride For Inhalation 0.9% 3 ML NEB ONE (15:43)
[2017-08-01 15:53] LABS: ALT (SGPT) 28 U/L (8-55); AST (SGOT) 18 U/L (5-34); Albumin 3.4 g/dL (3.5-5.0); Alkaline Phosphatase 82 U/L (40-150); Anion Gap 15 mmol/L (10-20); BUN (Urea Nitrogen) 7 mg/dL (9.8-20.1); Bilirubin, Total 0.9 mg/dL (0.2-1.2); CK (CPK) 58 U/L (29-168); Calc. Creatinine Clearance 0 mL/min (70-130); Calcium 8.9 mg/dL (7.8-10.44); Carbon Dioxide 32 mmol/L (22-29); Chloride 97 mmol/L (98-107); Estimated GFR-MDRD Greater than 90; Globulin 3.9 g/dL (2.4-3.5); Glucose 169 mg/dL (70-105); Lipase 16 U/L (8-78); Potassium 3.7 mmol/L (3.5-5.1); Protein, Total 7.3 g/dL (6.0-8.3); Sodium 140 mmol/L (136-145)
[2017-08-01 15:56] LABS: CKMB 0.7 ng/mL (0-6.6); Troponin I Less than 0.010 ng/mL (< 0.028)
[2017-08-01 16:07] LABS: Band 2 % (5-11); Eosinophils 3 % (0-10); Hemoglobin 13.9 g/dL (12.0-16.0); Hypochromia SLIGHT = 6-15 cells (100X) (0-5/hpf); Large Platelets SLIGHT; Lymphocytes 18 % (21-51); MDiff Complete? YES; Mean Corpuscular HGB CONC 30.4 g/dL (32.0-36.0); Mean Corpuscular Hemoglobin 22.6 pg (27.0-31.0); Mean Corpuscular Volume 74.4 fl (81.0-99.0); Mean Platelet Volume 12.9 fL (7.4-10.4); Microcytosis SLIGHT = 6-15 cells (100X) (0-5/hpf); Monocytes 6 % (0-10); Neutrophil 66 % (42-75); Ovalocytes SLIGHT = 2-5 cells (100X) (0-1/hpf); PLT Morphology Comment Appears Adequate; Platelet Count 180 thou/uL (130-400); Polychromasia SLIGHT = 2-3 cells (100X) (0-2/hpf); RBC Distribution Width 18.1 % (11.5-14.5); Reactive Lymphocytes 4 % (0-10); Red Blood Cell (RBC) Count 6.13 mill/uL (4.20-5.40); Stomatocytes SLIGHT = 2-5 cells (100X) (0-1/hpf); White Blood Cell (WBC) Count 7.1 thou/uL (4.8-10.8)
--- NOTE | 2017-08-01 16:15 | RAD ---
RADIOGRAPH CHEST 1 VIEW: Date: 08/01/17 Time: 3:43 p.m. HISTORY: 52-year-old female with dyspnea, fever and cough. COMPARISON: 06/16/17 and 06/15/17. FINDINGS: This study is limited because of body habitus. Evaluation of the left lower lung zone is especially l imited because of the cardiomegaly and body habitus. Comparison cannot be made with 06/16/17 because on that study the patient is very rotated to the left and the study is very suboptimal. There is no rei or interval change compared to 06/15/17. Tracheostomy tube. Cardiomegaly. Pulmonary vascular engorgemen t. Mild bilateral interstitial densities which are questionable for mild pulmonary interstitial edema . No large pneumothorax. IMPRESSION: 1. Cardiomegaly and at least mild congestive heart failure. 2. Probable, at least mild, pulmonary interstitial edema. 3. Very similar to 06/15/17. JN [] POS: OFF
[2017-08-01] MEDS ORDERED: Acetaminophen 325 MG TAB PO PRN (18:22)
[2017-08-01] MEDS ORDERED: HYDROcodone/Acetaminophen 5/325 mg Tablet PO PRN (18:22)
[2017-08-01] MEDS ORDERED: Ondansetron PF 4 MG/2 ML Vial IVP PRN (18:22)
[2017-08-01] MEDS ORDERED: Ondansetron ODT 4 MG TAB PO PRN (18:22)
[2017-08-01 19:33] LABS: Troponin I Less than 0.010 ng/mL (< 0.028)
[2017-08-01] MEDS ORDERED: Cyclobenzaprine 10 MG TAB PO PRN (20:17)
[2017-08-01] MEDS ORDERED: Furosemide 80 MG TAB PO PRN (20:17)
[2017-08-01] MEDS ORDERED: HumaLOG 300 UNITS/3 ML VIAL SC PRN (20:19)
[2017-08-01] MEDS ORDERED: Dextrose 50% Abboject 50 ML SYRINGE SLOW IVP PRN (20:19)
[2017-08-01] MEDS ORDERED: Dextrose 5% in Water 1,000 ML IV PRN (20:19)
[2017-08-01] MEDS ORDERED: INSULIN DETEMIR SQ SCH (21:00)
[2017-08-01] MEDS ORDERED: Chloraseptic Spray 180 ml Bottle PO PRN (21:24)
[2017-08-01] MEDS ORDERED: Aluminum & Magnesium Hydroxide 60 ML, Lidocaine 2% Viscous Solution 30 ML, diphenhydrAM... SSW PRN (21:24)
[2017-08-01 21:32] VITALS: BMI 76.6
[2017-08-01] MEDS: Pravastatin Sodium 20 MG TAB PO SCH (21:34)
[2017-08-01] MEDS: predniSONE 5 MG TAB PO SCH (21:35)
[2017-08-01] MEDS: Docusate 100 MG CAP PO SCH (21:35)
[2017-08-01] MEDS: INSULIN DETEMIR SC SCH (21:35)
[2017-08-01] MEDS: PRE FILLED SC SCH (21:35)
[2017-08-01] MEDS: Potassium Chloride 20 MEQ TAB PO SCH (21:35)
[2017-08-01] MEDS: Guaifenesin DM 100-10/5 ML UDCUP PO PRN (21:38)
[2017-08-01 22:03] LABS: Troponin I Less than 0.010 ng/mL (< 0.028)
[2017-08-02 05:48] LABS: #Lymphocytes 2.2 thou/uL (1.20-3.40); #Monocytes 0.8 thou/uL (0.11-0.59); #Neutrophils 8.3 thou/uL (1.40-6.50); %Basophils 0.2 % (0.0-1.0); %Eosinophils 0.2 % (0.0-10.0); %Lymphocytes 19.5 % (21.0-51.0); %Monocytes 6.7 % (0.0-10.0); %Neutrophils 73.4 % (42.0-75.0); Mean Corpuscular HGB CONC 29.6 g/dL (32.0-36.0); Mean Corpuscular Volume 77.9 fl (81.0-99.0); Mean Platelet Volume 9.1 fL (7.4-10.4); Platelet Count 175 thou/uL (130-400); RBC Distribution Width 19.4 % (11.5-14.5); Red Blood Cell (RBC) Count 6.09 mill/uL (4.20-5.40); White Blood Cell (WBC) Count 11.3 thou/uL (4.8-10.8)
[2017-08-02 05:55] LABS: Anion Gap 8 mmol/L (10-20); BUN (Urea Nitrogen) 7 mg/dL (9.8-20.1); Calc. Creatinine Clearance 243 mL/min (70-130); Carbon Dioxide 36 mmol/L (22-29); Chloride 98 mmol/L (98-107); Estimated GFR-MDRD Greater than 90; Glucose 160 mg/dL (70-105); Potassium 4.2 mmol/L (3.5-5.1); Sodium 138 mmol/L (136-145)
[2017-08-02] MEDS: Furosemide 20 MG/2 ML VIAL SLOW IVP SCH ×2 (06:09→14:37)
[2017-08-02] MEDS: Levothyroxine Sodium 100 MCG TAB PO SCH (06:09)
[2017-08-02] MEDS: PROVENTIL INHALER 6.7 G (200 INHALATIONS) INH SCH ×3 (06:28→14:16)
--- NOTE | 2017-08-02 07:26 | HP ---
DATE OF ADMISSION: 08/01/2017 CHIEF COMPLAINT: Shortness of breath and fever. HISTORY OF PRESENT ILLNESS: This is a 52-year-old morbidly obese -Mongolian female with a know n history of chronic respiratory failure on tracheostomy for the past 10 years. The patient was in [facility] usual state of health at home. She has noticed that she was having some congestion and shortness of breath for the past 2 days and noted she had a fever this afternoon when she was visited by home [facility] nurse and she suggested to see her primary care physician and they called the primary care phys jaydenan's office. He asked to take Aleve and asked the patient to go to the ER for further evaluation. When the patient arrived at the [place] [facility] and had a chest x-ray showing evidence of bilate ral infiltrates and also there were signs suggestive of a possible congestive heart failure, but her BNP being normal and having a fever with a recent hospitalization. The patient was admitted for furt her evaluation. The patient was acutely hypoxic and she uses 4 liters of nasal cannula at home, but her oxygen requirements went up to 8 liters to keep the saturations to 92%. The patient was complain ing of severe burning pain in her tracheostomy tube. I I&D'd the tracheostomy tube and sent secretio ns for culture. The patient denied having any chest pain, no nausea, no vomiting. She denies having exposure to any sick people recently. She had influenza A and B test, which was negative. She had a flu and pneumonia vaccine during this season. PAST MEDICAL HISTORY: 1. Coronary artery disease. 2. Congestive heart failure with EF of 50% to 55%. 3. Type 2 diabetes mellitus. 4. Hypertension. 5. Hypothyroidism. 6. Severe obesity. 7. Chronic obstructive pulmonary disease on trach tube ventilation. PAST SURGICAL HISTORY: 1. [place]ache[place] [address] Stokes. 2. in the past. ALLERGIES: CYMBALTA, GABAPENTIN and LYRICA. FAMILY HISTORY: Negative for any clotting or bleeding disorder. No evidence of any coronary artery disease in the family. SOCIAL HISTORY: The patient lives on her own and is visited by home health nurse. She has no histor y of alcohol, no history of illicit drug use. Her son last year of January. CODE STATUS: FULL CODE. HOME MEDICATIONS: 1. Albuterol nebulizer inhalation q.i.d. 2. Aspirin 81 mg p.o. daily. 3. Cyclobenzaprine 10 mg p.o. t.i.d. 4. Duloxetine 60 mg p.o. daily. 5. Lasix 80 mg p.o. b.i.d. 6. DuoNebs q.6 hours. 7. Levemir 95 units subcu b.i.d. 8. Levothyroxine 300 mcg p.o. daily. 9. Lisinopril 20 mg p.o. daily. 10. Pantoprazole 40 mg p.o. b.i.d. 11. Potassium 20 mEq p.o. b.i.d. 12. Pravastatin 20 mg p.o. daily. 13. Prednisolone 10 mg p.o. b.i.d. REVIEW OF SYSTEMS: All 12 systems are reviewed with the patient thoroughly and found to be negative at this time. Systems reviewed HEENT, CVS, COMMISSARY ASSISTANT, respiratory, GI, , musculoskeletal, skin, integume ntary, and psychiatric. Constitutional: Weight loss or gain, sense of well-being, ability to conduct usual activities, exerc ise tolerance. Skin/Breast: Rash, itching, changes in hair growth or loss, nail changes, breast lumps, tenderness, swelling, nipple discharge. Eyes: Vision, double vision, tearing, blind spots, pain. ENT/Mouth: Headaches (location, time of onset, duration, precipitating factors), vertigo, lightheade dness, injury. Vision, double vision, tearing, blind spots, pain, nose bleeding, colds, obstruction, discharge, dental difficulties, gingival bleeding, dentures, neck stiffness, pain, tenderness, chacho s in thyroid or other areas. Cardiovascular: Precordial pain, substernal distress, palpitations, syncope, dyspnea on exertion, or thopnea, nocturnal paroxysmal dyspnea, edema, cyanosis, hypertension, heart murmurs, varicosities, ph lebitis, claudication. Respiratory: Pain, shortness of breath, wheezing, stridor, cough, hemoptysis, fever or night sweats. Gastrointestinal: Poor appetite, dysphagia, indigestion, abdominal pain, heartburn, eructation, naus ea, vomiting, hematemesis, jaundice, constipation, or diarrhea, abnormal stools (clinton-colored, tarry, bloody, greasy, foul smelling), flatulence, hemorrhoids, recent changes in bowel habits. Genitourinary: Urgency, frequency, dysuria, nocturia, hematuria, polyuria, oliguria, unusual (or alfred nge in) color of urine, stones, hesitancy, change in size of stream, dribbling, acute retention or in continence, libido, potency. Musculoskeletal: Pain, swelling, redness or heat of muscles or joints, limitation, of motion, muscul ar weakness, atrophy, cramps. Neurologic/Psychiatric: Convulsions, paralyses, tremor, incoordination, paresthesias, difficulties w ith memory of speech, sensory or motor disturbances, or muscular coordination (ataxia, tremor), emoti onal problems, anxiety, depression, previous psychiatric care, unusual perceptions, hallucinations. Allergy/Immunologic: Skin rash, anemia, bleeding tendency, polydipsia, polyuria, intolerance to heat or cold. PHYSICAL EXAMINATION: VITAL SIGNS: Blood pressures are 124/84, heart rate is 100, respiratory rate is 20, and saturation i s 95% on 4 liters. GENERAL: The patient is moderately built, morbidly obese. She is alert and oriented x3. HEENT: Atraumatic, normocephalic. PERRLA. Extraocular muscles were intact. Oral mucosa is pink an d moist. CARDIOVASCULAR: S1, S2 normal. No murmurs, rubs or gallops. LUNGS: Bilateral air entry was equal. No wheezing, no crackles. ABDOMEN: Soft, nontender. No guarding, no rebound tenderness. Bowel sounds normal. MUSCULOSKELETAL: No calf tenderness. No pedal edema. No joint tenderness, no joint swelling. SKIN: No cyanosis, no erythema, no rash, no pallor. NEUROLOGIC: Cranial nerve examination II through XII intact. No focal deficits were noted. PSYCHIATRIC: No signs of suicidal ideation. No signs of kaden. NECK: No JVD noted. No thyromegaly was noted. LABORATORY DATA: Sodium is 140, potassium 3.7, chloride is 97, BUN is 7, creatinine is 0.77, and blood sugar is 169. WBC is 7.1, hemoglobin is 13.9, hematocrit is 45.6, and platelets 180. ASSESSMENT: 1. Acute hypoxic respiratory failure. 2. Acute bilateral pneumonia. 3. Acute on chronic obstructive pulmonary disease. 4. Type 2 diabetes mellitus. 5. Hypertension. 6. Hyperlipidemia. PLAN: 1. Plan is to continue with albuterol nebulizer treatments every 2 to 3 hours p.r.n. and DuoNebs davy ry 4 hours. We will continue with the oral steroids, the patient is on 10 mg p.o. b.i.d. We will co alexia to monitor her respiratory status at this time and will consult Pulmonary in the morning. 2. The patient has evidence of chronic congestive heart failure and she is on Lasix, we will continu e with this at this time. The patient has known low BNP, but usually the BNP is low in morbidly obes e patients, so I would not go by that and will continue with the diuresis at this time. 3. The patient has obstructive sleep apnea. We will continue with the CPAP at bedtime through her t racheostomy tube. 4. Type 2 diabetes mellitus are well controlled. We will continue the patient with a home dose of L evemir and sliding scale insulin. 5. For bilateral pneumonia, we will start the patient on levofloxacin 750 mg IV daily. 6. DVT prophylaxis with Lovenox 40 mg subcu daily. I spent 75 minutes with this patient.
[2017-08-02] MEDS: Potassium Chloride 20 MEQ TAB PO SCH ×2 (08:26→20:24)
[2017-08-02] MEDS: Lisinopril 20 MG TAB PO SCH (08:26)
[2017-08-02] MEDS: Aspirin 81 mg Enteric Coated Tablet PO SCH (08:27)
[2017-08-02] MEDS: Enoxaparin Sodium 40 MG/0.4 ML SYRINGE SC SCH (08:27)
[2017-08-02] MEDS: predniSONE 5 MG TAB PO SCH ×2 (08:27→20:25)
[2017-08-02] MEDS: Docusate 100 MG CAP PO SCH ×2 (08:27→20:22)
[2017-08-02] MEDS ORDERED: DULoxetine 60 MG CAP PO SCH (09:00)
[2017-08-02] MEDS ORDERED: Lisinopril 2.5 MG TAB PO SCH (09:00)
[2017-08-02] MEDS: Piperacillin/Tazobactam 3.375 GM in Sodium Chloride 0.9% 100 ML IVPB SCH ×3 (11:02→22:52)
[2017-08-02] MEDS: INSULIN DETEMIR SC SCH ×2 (11:40→20:23)
[2017-08-02] MEDS: PRE FILLED SC SCH ×2 (11:40→20:23)
--- NOTE | 2017-08-02 14:38 | PDOC.PN ---
- Subjective Encounter Start Date: 08/02/17 Encounter Start Time: 11:00 Patient is seen today, alert and oriented. No other concern noted. Her Cough is improving. - Objective Resuscitation Status: Resuscitation Status FULL:Full Resuscitation MAR Reviewed: Yes Vital Signs & Weight: Vital Signs (12 hours) Temp Pulse Resp BP BP Pulse Ox 08/02/17 14:00 90 20 93 L 08/02/17 11:40 98.7 F 92 20 120/60 94 L 08/02/17 10:15 104 H 20 95 08/02/17 08:26 130/76 08/02/17 08:00 98.9 F 104 H 24 H 95 08/02/17 07:55 98.9 F 104 H 24 H 130/76 95 08/02/17 06:16 108 H 24 H 95 08/02/17 03:56 99.4 F 109 H 20 138/77 92 L 08/02/17 03:26 107 H 22 H 94 L Weight Weight 377 lb 3.2 oz Result Diagrams: 08/02/17 04:50 08/02/17 04:50 Additional Labs: Accuchecks 08/02/17 08/02/17 08/01/17 11:39 03:26 20:14 POC Glucose 132 H 154 H 139 H Radiology Reviewed by me: Yes Phys Exam - Physical Examination HEENT: PERRLA, moist MMs Neck: no nodes, no JVD Respiratory: no wheezing, no rales Cardiovascular: RRR, no significant murmur Gastrointestinal: soft, non-tender Musculoskeletal: pulses present, edema present Neurological: non-focal, normal sensation Lymphatic: no nodes Psychiatric: normal affect, A&O x 3 Dx/Plan (1) Bilateral pneumonia Code(s): J18.9 - PNEUMONIA, UNSPECIFIED ORGANISM Status: Acute Comment: Bilateral infiltares, pt on levofloxacin, Wbc trending Up, will do Anerobic coverage, with zosyn. will repeat chest xray on friday. (2) Acute respiratory failure with hypoxia Code(s): J96.01 - ACUTE RESPIRATORY FAILURE WITH HYPOXIA Status: Acute Comment: Pt was on 8 liters nC yesterday, it doid comne down to 4 Liters, which is her baseline a bill, Will continue with NEb treatment, pt had suction of her Trac tube yesterday lot of mucus did come out. (3) Anxiety and depression Code(s): F41.8 - OTHER SPECIFIED ANXIETY DISORDERS Status: Acute Comment: Continue Xanax 0.25mg BID, spiritual care support (4) COPD (chronic obstructive pulmonary disease) Status: Chronic Qualifiers: COPD type: unspecified COPD Qualified Code(s): J44.9 - Chronic obstructive pulmonary disease, unspecified Comment: Nebs, Steroids. bilateral infiltrates , will continue to monitor (5) DM type 2 (diabetes mellitus, type 2) Status: Chronic Qualifiers: Diabetes mellitus complication status: without complication Diabetes mellitus rn long term care insulin use: with rn long term care use Qualified Code(s): E11.9 - Type 2 diabetes mellitus without complications; Z79.4 - longterm (current) use of insulin; Z79.4 - long term care phlebotomist (current) use of insulin; Z79.4 - long term care phlebotomist ( current) use of insulin; Z79.4 - longterm (current) use of insulin Comment: continue home dose of insulin. keep BG 140-180 (6) Essential hypertension Code(s): I10 - ESSENTIAL (PRIMARY) HYPERTENSION Status: Chronic (7) Hypothyroidism Code(s): E03.9 - HYPOTHYROIDISM, UNSPECIFIED Status: Chronic Qualifiers: Hypothyroidism type: unspecified Qualified Code(s): E03.9 - Hypothyroidism , unspecified Comment: continue home dose of levothyroixne (8) Morbid obesity with body mass index of 70 and over in adult Code(s): E66.01 - MORBID (SEVERE) OBESITY DUE TO EXCESS CALORIES; Z68.45 - BODY MASS INDEX (BMI) 70 OR GREATER, ADULT Status: Chronic - Plan cont current plan of care, continue antibiotics, PT/OT, secondary social studies teacher, respiratory therapy, incentive spirometry, out of bed/ambulate, DVT proph w/ lovenox * . - Discharge Day Encounter end time: 11:35 Review of Systems - Review of Systems Eyes: negative: Pain, Vision Change, Conjunctivae Inflammation, Eyelid Inflammation, Redness, Other ENT: negative: Ear Pain, Ear Discharge, Nose Pain, Nose Discharge, Nose Congestion, Mouth Pain, Mouth Swelling, Throat Pain, Throat Swelling, Other Respiratory: Cough, Shortness of Breath, SOB with Excertion, Wheezing Cardiovascular: negative: chest pain, palpitations, orthopnea, paroxysmal nocturnal dyspnea, edema, light headedness, other Gastrointestinal: negative: Nausea, Vomiting, Abdominal Pain, Diarrhea, Constipation, Melena, Hematochezia, Other Genitourinary: negative: Dysuria, Frequency, Incontinence, Hematuria, Retention , Other Musculoskeletal: negative: Neck Pain, Shoulder Pain, Arm Pain, Back Pain, Hand Pain, Leg Pain, Foot Pain, Other Skin: negative: Rash, Lesions, Baldomero, Bruising, Other - Medications/Allergies Allergies/Adverse Reactions: Allergies Allergy/AdvReac Type Severity Reaction Status Date / Time gabapentin Allergy Severe Short of Verified 08/01/17 20:21 Breath pregabalin [From Lyrica] Allergy Severe Short of Verified 08/01/17 20:21 Breath Medications: Current Medications Acetaminophen (Tylenol) 650 mg PO Q4H PRN PRN Reason: Headache/Fever or Pain Last Admin: 08/02/17 08:26 Dose: 650 mg Hydrocodone Bitart/Acetaminophen (Spencer 5/325) 1 tab PO Q4H PRN PRN Reason: Moderate Pain (4-6) Albuterol Sulfate (Proventil Hfa) 1 puff INH QID-RT [facility] Last Admin: 08/02/17 14:16 Dose: Not Given Albuterol/Ipratropium (Duoneb) 3 ml NEB [id number] [facility] Last Admin: 08/02/17 14:00 Dose: 3 ml Albuterol/Ipratropium (Duoneb) 3 ml IPPB Q2H PRN PRN Reason: SOB &/or Wheezing Aspirin (Ecotrin) 81 mg PO DAILY [facility] Last Admin: 08/02/17 08:27 Dose: 81 mg Cyclobenzaprine HCl (Flexeril) 10 mg PO TIDPRN PRN PRN Reason: Pain Dextrose/Water (Dextrose 50%) 25 gm SLOW IVP PRN PRN PRN Reason: Hypoglycemia Docusate Sodium (Colace) 100 mg PO BID [facility] Last Admin: 08/02/17 08:27 Dose: 100 mg Duloxetine HCl (Cymbalta) 60 mg PO DAILY [facility] Last Admin: 08/02/17 08:35 Dose: Not Given Enoxaparin Sodium (Lovenox) 40 mg SC 0900 [facility] Last Admin: 08/02/17 08:27 Dose: 40 mg Furosemide (Lasix) 20 mg SLOW IVP 0600,1400 [facility] Last Admin: 08/02/17 06:09 Dose: 20 mg Furosemide (Lasix) 80 mg PO BID PRN PRN Reason: Edema Glucagon (Glucagon) 1 mg IM PRN PRN PRN Reason: Hypoglycemia Guaifenesin/Dextromethorphan (Robitussin Dm) 15 ml PO Q4H PRN PRN Reason: Cough Last Admin: 08/01/17 21:38 Dose: 15 ml Levofloxacin 750 mg/ Device 150 mls @ 100 mls/hr IVPB Q24HR [facility] Dextrose/Water (D5w) 1,000 mls @ 0 mls/hr IV .Q0M PRN; As Directed PRN Reason: Hypoglycemia Insulin Detemir 95 units/ (Miscellaneous Medication) 0.95 mls @ 0 mls/hr SC BID [facility] Last Admin: 08/02/17 11:40 Dose: Not Given Piperacillin Sod/Tazobactam (Sod 3.375 gm/ Sodium Chloride) 100 mls @ 200 mls/ hr IVPB 0400,1000,1600,2200 [facility] Last Admin: 08/02/17 11:02 Dose: 100 mls Insulin Human Lispro (Humalog) 0 units SC .MODERATE SLIDING SC PRN PRN Reason: Moderate Correctional Scale Levothyroxine Sodium (Synthroid) 300 mcg PO 0600 [facility] Last Admin: 08/02/17 06:09 Dose: 300 mcg Lisinopril (Zestril) 20 mg PO DAILY [facility] Last Admin: 08/02/17 08:26 Dose: 20 mg Ondansetron HCl (Zofran Odt) 4 mg PO Q6H PRN PRN Reason: Nausea/Vomiting Ondansetron HCl (Zofran) 4 mg IVP Q6H PRN PRN Reason: Nausea/Vomiting Pantoprazole Sodium (Protonix) 40 mg PO BID [facility] Last Admin: 08/02/17 08:27 Dose: 40 mg Phenol (Chloraseptic [place] 180 Ml Bot) 0 ml PO BIDPRN PRN PRN Reason: Sore Throat Potassium Chloride (K-Dur) 20 meq PO BID [facility] Last Admin: 08/02/17 08:26 Dose: 20 meq Pravastatin Sodium (Pravachol) 20 mg PO HS [facility] Last Admin: 08/01/17 21:34 Dose: 20 mg Prednisone (Prednisone) 10 mg PO QAM [facility] Last Admin: 08/02/17 08:27 Dose: 10 mg Prednisone (Prednisone) 5 mg PO QPM [facility] Last Admin: 08/01/17 21:35 Dose: 5 mg Sertraline HCl (Zoloft) 25 mg PO HS NANI Sodium Chloride (Flush - Normal Saline) 10 ml IVF Q12HR [facility] Last Admin: 08/02/17 08:27 Dose: 10 ml Sodium Chloride (Flush - Normal Saline) 10 ml IVF PRN PRN PRN Reason: Saline Flush
--- NOTE | 2017-08-02 15:55 | CON ---
DATE OF CONSULTATION: 07/23/2017 CONSULTING PHYSICIAN: Hospitalist group. REASON FOR CONSULTATION: Pneumonia. HISTORY OF PRESENT ILLNESS: History was obtained by speaking with patient and also reviewing chart alisa josafat. She is a 52-year-old female who was under the care of Dr. Stokes. She was seen by her home [facility] nurse yesterday and noted to have fever up to 103 and tachypnea. She subsequently went to the [facility] in [facility]. She looked so bad that they transferred over to the [facility] Emergency Room and directly admitted her to this facility. She says over the last 3 -4 days, she has been coughing up yellow-colored secretions. The fever started yesterday and she was started on some antibiotics last night and feels somewhat better this morning. She tells me she was scheduled for tracheostomy change with Dr. Stokes early next week and wants to see if she can get melissa t done while she is in the hospital. PAST MEDICAL HISTORY: 1. COPD. 2. Obstructive sleep apnea. 3. Coronary artery disease. 4. Diastolic congestive heart failure. 5. Diabetes mellitus. 6. Hypertension. 7. Hypothyroidism. PAST SURGICAL HISTORY: 1. Tracheostomy in 2005. 2. . ALLERGIES: CYMBALTA, GABAPENTIN, LYRICA. FAMILY MEDICAL HISTORY: Negative for lung disease. SOCIAL HISTORY: She does not smoke, does not consume alcohol, does not use illicit drugs. MEDICATIONS PRIOR TO ADMISSION: Albuterol, aspirin, cyclobenzaprine, duloxetine, Lasix, DuoNeb, Leve jacques, levothyroxine, lisinopril, pantoprazole, potassium, pravastatin 10 mg twice daily, prednisone. REVIEW OF SYSTEMS: Remarkable for greenish yellow sputum production. She has had no weight changes, had subjective fever and chills. No nausea or vomiting. No hematemesis, melena, or hematochezia. No hematuria or dysuria. Remainder 12 point review of systems are negative. PHYSICAL EXAMINATION: VITAL SIGNS: Temperature 98.7, pulse 90, respirations 20, O2 saturation 94% on 5 liters, blood press ure 120/60. GENERAL: She is awake, alert, conversant by occluding her trach. No distress. NEUROLOGIC: She is alert and oriented x3. She moves all 4 extremities without difficulty. HEENT: Eyes unremarkable. NECK: She has 1 palpable lymph node beneath her left-sided submandibular area. She has no jugular v enous distention. No thyromegaly. Trachea is midline and appears clean. CARDIOVASCULAR: S1, S2 regular without murmur. LUNGS: A few inspiratory crackles bilaterally. ABDOMEN: Soft, morbidly obese, soft and nontender. EXTREMITIES: Without clubbing, cyanosis, or edema. LABORATORY DATA: White blood cell count 11.3, hematocrit 47.4, platelet count 175. Sodium 138, pota ssium 4.2, chloride 98, CO2 36, BUN 7, creatinine 0.7, glucose 160. Chest x-ray was reviewed by me personally. She has markedly underpenetrated film. There are possibl y bilateral infiltrates could be that a lot of this is just atelectasis or some mild interstitial alia ma. ASSESSMENT: 1. Tracheitis versus pneumonia. 2. History of chronic obstructive pulmonary disease/sleep apnea. PLAN: I agree with treatment with broad spectrum IV antibiotics. We will plan a trach change from M on. We happy to follow with you.
[2017-08-02] MEDS: Pravastatin Sodium 20 MG TAB PO SCH (20:22)
[2017-08-02] MEDS: Guaifenesin DM 100-10/5 ML UDCUP PO PRN (20:23)
[2017-08-02] MEDS ORDERED: Aluminum & Magnesium Hydroxide 60 ML, Lidocaine 2% Viscous Solution 30 ML, diphenhydrAM... SSW PRN (23:56)
[2017-08-02] MEDS ORDERED: Calcium Carbonate 500 MG ChewTAB PO PRN (23:57)
[2017-08-03] MEDS: Piperacillin/Tazobactam 3.375 GM in Sodium Chloride 0.9% 100 ML IVPB SCH ×5 (04:22→23:48)
[2017-08-03] MEDS: Guaifenesin DM 100-10/5 ML UDCUP PO PRN (05:35)
[2017-08-03] MEDS: Levothyroxine Sodium 100 MCG TAB PO SCH (05:36)
[2017-08-03] MEDS: Furosemide 20 MG/2 ML VIAL SLOW IVP SCH ×2 (05:36→13:18)
[2017-08-03] MEDS: Docusate 100 MG CAP PO SCH ×2 (09:05→20:57)
[2017-08-03] MEDS: Aspirin 81 mg Enteric Coated Tablet PO SCH (09:05)
[2017-08-03] MEDS: PRE FILLED SC SCH ×2 (09:06→20:58)
[2017-08-03] MEDS: INSULIN DETEMIR SC SCH ×2 (09:06→20:58)
[2017-08-03] MEDS: Enoxaparin Sodium 40 MG/0.4 ML SYRINGE SC SCH (09:06)
[2017-08-03] MEDS: Lisinopril 20 MG TAB PO SCH (09:06)
[2017-08-03] MEDS: Potassium Chloride 20 MEQ TAB PO SCH ×2 (09:07→20:57)
[2017-08-03] MEDS: predniSONE 5 MG TAB PO SCH ×2 (09:07→20:57)
[2017-08-03 10:52] LABS: Anion Gap 12 mmol/L (10-20); BUN (Urea Nitrogen) 13 mg/dL (9.8-20.1); Calc. Creatinine Clearance 128 mL/min (70-130); Calcium 9.1 mg/dL (7.8-10.44); Carbon Dioxide 35 mmol/L (22-29); Chloride 98 mmol/L (98-107); Estimated GFR-MDRD 48; Glucose 178 mg/dL (70-105); Potassium 4.6 mmol/L (3.5-5.1); Sodium 140 mmol/L (136-145)
[2017-08-03 11:18] LABS: #Lymphocytes 1.7 thou/uL (1.20-3.40); #Monocytes 0.6 thou/uL (0.11-0.59); #Neutrophils 5.7 thou/uL (1.40-6.50); %Basophils 0.1 % (0.0-1.0); %Eosinophils 0.6 % (0.0-10.0); %Lymphocytes 21.3 % (21.0-51.0); %Monocytes 7.6 % (0.0-10.0); %Neutrophils 70.4 % (42.0-75.0); Anisocytosis SLIGHT = 6-15 cells (100X) (0-5/hpf); Hemoglobin 14.3 g/dL (12.0-16.0); MDiff Complete? YES; Mean Corpuscular HGB CONC 30.5 g/dL (32.0-36.0); Mean Corpuscular Volume 78.8 fl (81.0-99.0); PLT Morphology Comment Appears Adequate; Platelet Count 167 thou/uL (130-400); Polychromasia SLIGHT = 2-3 cells (100X) (0-2/hpf); RBC Distribution Width 19.4 % (11.5-14.5); Red Blood Cell (RBC) Count 5.96 mill/uL (4.20-5.40); White Blood Cell (WBC) Count 8.1 thou/uL (4.8-10.8)
--- NOTE | 2017-08-03 13:34 | PRG ---
DATE OF SERVICE: 08/03/2017 SUBJECTIVE: Ms. Bal is doing well. She is coughing up more sputum and says overall things are be tter than they were the day before yesterday. PHYSICAL EXAMINATION: VITAL SIGNS: Temperature 98.8, pulse 99, respirations 16, O2 saturation 97%, blood pressure 110/71. HEENT: Unremarkable. NECK: No JVD. Trach is clear. CARDIAC: S1 and S2 regular. ABDOMEN: Soft. LUNGS: Clear. EXTREMITIES: No edema. LABORATORY DATA: White blood cell count 8.1, hematocrit 47, platelet count 167. Sodium 140, potassi um 4.6, chloride 98, CO2 35, BUN 13, creatinine 1.4, and glucose 178. Cultures show beta hemolytic s trep. ASSESSMENT: Tracheitis versus pneumonia. PLAN: Continuing antibiotics until sensitivities are back. Dr. Stokes will return tomorrow.
--- NOTE | 2017-08-03 16:22 | PDOC.PN ---
- Subjective Encounter Start Date: 08/03/17 Encounter Start Time: 16:00 Patient is seen today, alert and oriented, No other Concern noted. She is feeling Much better. - Objective Resuscitation Status: Resuscitation Status FULL:Full Resuscitation MAR Reviewed: Yes Vital Signs & Weight: Vital Signs (12 hours) Temp Pulse Resp BP BP Pulse Ox Pulse Ox 08/03/17 11:00 98.8 F 99 16 110/71 97 08/03/17 10:09 85 18 95 08/03/17 09:40 81 L 08/03/17 09:06 120/83 08/03/17 08:00 98.5 F 85 18 08/03/17 07:18 98.5 F 93 18 120/83 98 08/03/17 06:05 85 18 92 L Pulse Ox 08/03/17 11:00 08/03/17 10:09 08/03/17 09:40 88 L 08/03/17 09:06 08/03/17 08:00 08/03/17 07:18 08/03/17 06:05 Weight Weight 373 lb 14.4 oz I&O: 08/02/17 08/03/17 08/04/17 06:59 06:59 06:59 Intake Total 830 Balance 830 Result Diagrams: 08/03/17 10:25 08/03/17 10:25 Additional Labs: Accuchecks 08/03/17 08/03/17 08/02/17 11:10 04:58 19:18 POC Glucose 185 H 142 H 141 H 08/02/17 16:16 POC Glucose 185 H Phys Exam - Physical Examination HEENT: PERRLA, moist MMs Neck: no nodes, no JVD Respiratory: no wheezing, no rales Cardiovascular: RRR, no significant murmur Gastrointestinal: soft, non-tender Musculoskeletal: no edema, pulses present Neurological: non-focal, normal sensation Lymphatic: no nodes Psychiatric: normal affect, A&O x 3 Skin: no rash, normal turgor Dx/Plan (1) Bilateral pneumonia Code(s): J18.9 - PNEUMONIA, UNSPECIFIED ORGANISM Status: Acute Comment: Bilateral infiltares, pt on levofloxacin, Wbc trending Up, will do Anerobic coverage, with zosyn. will repeat chest xray on friday. Stbale, Trach secretions positive for Beta Strep, will d/c Zosyn. (2) Acute respiratory failure with hypoxia Code(s): J96.01 - ACUTE RESPIRATORY FAILURE WITH HYPOXIA Status: Acute Comment: Pt was on 8 liters nC yesterday, it doid comne down to 4 Liters, which is her baseline a bill, Will continue with NEb treatment, pt had suction of her Trac tube yesterday lot of mucus did come out. (3) Anxiety and depression Code(s): F41.8 - OTHER SPECIFIED ANXIETY DISORDERS Status: Acute Comment: Continue Xanax 0.25mg BID, spiritual care support (4) COPD (chronic obstructive pulmonary disease) Status: Chronic Qualifiers: COPD type: unspecified COPD Qualified Code(s): J44.9 - Chronic obstructive pulmonary disease, unspecified Comment: Nebs, Steroids. 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 keep BG 140-180 (6) Essential hypertension Code(s): I10 - ESSENTIAL (PRIMARY) HYPERTENSION Status: Chronic (7) Hypothyroidism Code(s): E03.9 - HYPOTHYROIDISM, UNSPECIFIED Status: Chronic Qualifiers: Hypothyroidism type: unspecified Qualified Code(s): E03.9 - Hypothyroidism , unspecified Comment: continue home dose of levothyroixne (8) Morbid obesity with body mass index of 70 and over in adult Code(s): E66.01 - MORBID (SEVERE) OBESITY DUE TO EXCESS CALORIES; Z68.45 - BODY MASS INDEX (BMI) 70 OR GREATER, ADULT Status: Chronic - Plan cont current plan of care, plan discussed w/ family, continue antibiotics, 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 - Discharge Day Encounter end time: 16:35 Review of Systems - Review of Systems Constitutional: negative: fever, chills, sweats, weakness, malaise, other Eyes: negative: Pain, Vision Change, Conjunctivae Inflammation, Eyelid Inflammation, Redness, Other ENT: Throat Pain Respiratory: negative: Cough, Dry, Shortness of Breath, Hemoptysis, SOB with Excertion, Pleuritic Pain, Sputum, Wheezing Cardiovascular: negative: chest pain, palpitations, orthopnea, paroxysmal nocturnal dyspnea, edema, light headedness, other Gastrointestinal: negative: Nausea, Vomiting, Abdominal Pain, Diarrhea, Constipation, Melena, Hematochezia, Other Genitourinary: negative: Dysuria, Frequency, Incontinence, Hematuria, Retention , Other Musculoskeletal: negative: Neck Pain, Shoulder Pain, Arm Pain, Back Pain, Hand Pain, Leg Pain, Foot Pain, Other Skin: negative: Rash, Lesions, Baldomero, Bruising, Other Neurological: negative: Weakness, Numbness, Incoordination, Change in Speech, Confusion, Seizures, Other - Medications/Allergies Allergies/Adverse Reactions: Allergies Allergy/AdvReac Type Severity Reaction Status Date / Time gabapentin Allergy Severe Short of Verified 08/01/17 20:21 Breath pregabalin [From Lyrica] Allergy Severe Short of Verified 08/01/17 20:21 Breath Medications: Current Medications Acetaminophen (Tylenol) 650 mg PO Q4H PRN PRN Reason: Headache/Fever or Pain Last Admin: 08/02/17 08:26 Dose: 650 mg Hydrocodone Bitart/Acetaminophen ([place] 5/325) 1 tab PO Q4H PRN PRN Reason: Moderate Pain (4-6) Albuterol/Ipratropium (Duoneb) 3 ml NEB [id number] Last Admin: 08/03/17 14:08 Dose: 3 ml Albuterol/Ipratropium (Duoneb) 3 ml IPPB Q2H PRN PRN Reason: SOB &/or Wheezing Aspirin (Ecotrin) 81 mg PO DAILY [facility] Last Admin: 08/03/17 09:05 Dose: 81 mg Calcium Carbonate (Tums) 1,000 mg PO Q6H PRN PRN Reason: Indigestion/HEARTBURN/GAS Last Admin: 08/03/17 00:18 Dose: 1,000 mg Al Hydroxide/Mg Hydroxide 60 ml/ Lidocaine HCl 30 ml/Diphenhydramine HCl 75 mg 0 ml SSW Q6H PRN PRN Reason: Mouth Irritation Last Admin: 08/03/17 00:18 Dose: 10 ml Cyclobenzaprine HCl (Flexeril) 10 mg PO TIDPRN PRN PRN Reason: Pain Dextrose/Water (Dextrose 50%) 25 gm SLOW IVP PRN PRN PRN Reason: Hypoglycemia Docusate Sodium (Colace) 100 mg PO BID [facility] Last Admin: 08/03/17 09:05 Dose: 100 mg Enoxaparin Sodium (Lovenox) 40 mg SC 0900 [facility] Last Admin: 08/03/17 09:06 Dose: 40 mg Furosemide (Lasix) 80 mg PO BID PRN PRN Reason: Edema Glucagon (Glucagon) 1 mg IM PRN PRN PRN Reason: Hypoglycemia Guaifenesin/Dextromethorphan (Robitussin Dm) 15 ml PO Q4H PRN PRN Reason: Cough Last Admin: 08/03/17 05:35 Dose: 15 ml Levofloxacin 750 mg/ Device 150 mls @ 100 mls/hr IVPB Q24HR [facility] Last Admin: 08/03/17 15:44 Dose: 150 mls Dextrose/Water (D5w) 1,000 mls @ 0 mls/hr IV .Q0M PRN; As Directed PRN Reason: Hypoglycemia Insulin Detemir 95 units/ (Miscellaneous Medication) 0.95 mls @ 0 mls/hr SC BID [facility] Last Admin: 08/03/17 09:06 Dose: 0.95 mls Piperacillin Sod/Tazobactam (Sod 3.375 gm/ Sodium Chloride) 100 mls @ 200 mls/ hr IVPB 0400,1000,1600,2200 [facility] Last Admin: 08/03/17 15:45 Dose: 100 mls Insulin Human Lispro (Humalog) 0 units SC .MODERATE SLIDING SC PRN PRN Reason: Moderate Correctional Scale Levothyroxine Sodium (Synthroid) 300 mcg PO 0600 [facility] Last Admin: 08/03/17 05:36 Dose: 300 mcg Lisinopril (Zestril) 20 mg PO DAILY [facility] Last Admin: 08/03/17 09:06 Dose: 20 mg Ondansetron HCl (Zofran Odt) 4 mg PO Q6H PRN PRN Reason: Nausea/Vomiting Ondansetron HCl (Zofran) 4 mg IVP Q6H PRN PRN Reason: Nausea/Vomiting Pantoprazole Sodium (Protonix) 40 mg PO BID [facility] Last Admin: 08/03/17 09:07 Dose: 40 mg Phenol (Chloraseptic [place] 180 Ml Bot) 0 ml PO BIDPRN PRN PRN Reason: Sore Throat Potassium Chloride (K-Dur) 20 meq PO BID [facility] Last Admin: 08/03/17 09:07 Dose: 20 meq Pravastatin Sodium (Pravachol) 20 mg PO HS [facility] Last Admin: 08/02/17 20:22 Dose: 20 mg Prednisone (Prednisone) 10 mg PO QAM [facility] Last Admin: 08/03/17 09:07 Dose: 10 mg Prednisone (Prednisone) 5 mg PO QPM [facility] Last Admin: 08/02/17 20:25 Dose: 5 mg Sertraline HCl (Zoloft) 25 mg PO HS [facility] Last Admin: 08/02/17 20:22 Dose: 25 mg Sodium Chloride (Flush - Normal Saline) 10 ml IVF Q12HR [facility] Last Admin: 08/03/17 09:08 Dose: 10 ml Sodium Chloride (Flush - Normal Saline) 10 ml IVF PRN PRN PRN Reason: Saline Flush
[2017-08-03] MEDS: Pravastatin Sodium 20 MG TAB PO SCH (20:58)
[2017-08-04] MEDS: Piperacillin/Tazobactam 3.375 GM in Sodium Chloride 0.9% 100 ML IVPB SCH ×2 (05:45→11:28)
[2017-08-04] MEDS: Levothyroxine Sodium 100 MCG TAB PO SCH (05:45)
[2017-08-04] MEDS: Potassium Chloride 20 MEQ TAB PO SCH ×2 (08:54→21:11)
[2017-08-04] MEDS: Lisinopril 20 MG TAB PO SCH (08:54)
[2017-08-04] MEDS: Docusate 100 MG CAP PO SCH ×2 (08:54→20:32)
[2017-08-04] MEDS: Aspirin 81 mg Enteric Coated Tablet PO SCH (08:54)
[2017-08-04] MEDS: predniSONE 5 MG TAB PO SCH ×2 (08:55→21:12)
[2017-08-04] MEDS: INSULIN DETEMIR SC SCH ×2 (08:56→20:32)
[2017-08-04] MEDS: PRE FILLED SC SCH ×2 (08:56→20:32)
[2017-08-04] MEDS: Enoxaparin Sodium 40 MG/0.4 ML SYRINGE SC SCH (08:56)
[2017-08-04 11:41] LABS: #Eosinphils 0.1 thou/uL (0.0-0.7); #Monocytes 0.5 thou/uL (0.11-0.59); %Basophils 0.2 % (0.0-1.0); %Eosinophils 1.8 % (0.0-10.0); %Lymphocytes 30.2 % (21.0-51.0); %Monocytes 7.3 % (0.0-10.0); %Neutrophils 60.7 % (42.0-75.0); Anisocytosis SLIGHT = 6-15 cells (100X) (0-5/hpf); Hemoglobin 13.4 g/dL (12.0-16.0); Hypochromia SLIGHT = 6-15 cells (100X) (0-5/hpf); MDiff Complete? YES; Mean Corpuscular HGB CONC 29.6 g/dL (32.0-36.0); Mean Corpuscular Hemoglobin 23.6 pg (27.0-31.0); Mean Corpuscular Volume 79.6 fl (81.0-99.0); Mean Platelet Volume 8.7 fL (7.4-10.4); PLT Morphology Comment Appears Adequate; Platelet Count 170 thou/uL (130-400); RBC Distribution Width 19.7 % (11.5-14.5); Red Blood Cell (RBC) Count 5.68 mill/uL (4.20-5.40); White Blood Cell (WBC) Count 6.5 thou/uL (4.8-10.8)
[2017-08-04] MEDS ORDERED: Nystatin Powder 15 GM BOT TOP PRN (11:55)
[2017-08-04] MEDS ORDERED: Fluconazole 100 MG TAB PO SCH (12:00)
--- NOTE | 2017-08-04 13:53 | PDOC.PN ---
- Subjective Encounter Start Date: 08/04/17 Encounter Start Time: 12:00 Patient is seen today, alert and oriented. C/o persistant itching of her vagina with yellow cheesy discharge. - Objective Resuscitation Status: Resuscitation Status FULL:Full Resuscitation MAR Reviewed: Yes Vital Signs & Weight: Vital Signs (12 hours) Temp Pulse Pulse Resp BP BP Pulse Ox 08/04/17 11:25 87 20 90 L 08/04/17 10:53 88 08/04/17 08:54 130/86 08/04/17 08:00 98.2 F 87 20 92 L 08/04/17 07:11 92 22 H 92 L 08/04/17 04:30 98.5 F 94 20 107/66 90 L 08/04/17 02:54 91 18 93 L Pulse Ox Pulse Ox 08/04/17 11:25 08/04/17 10:53 95 76 L 08/04/17 08:54 08/04/17 08:00 08/04/17 07:11 08/04/17 04:30 08/04/17 02:54 Weight Weight 373 lb 8 oz I&O: 08/03/17 08/04/17 08/05/17 06:59 06:59 06:59 Intake Total 830 2250 Balance 830 2250 Result Diagrams: 08/04/17 10:33 08/03/17 10:25 Additional Labs: Accuchecks 08/04/17 08/04/17 08/03/17 10:45 04:35 19:15 POC Glucose 176 H 149 H 136 H 08/03/17 16:18 POC Glucose 189 H Phys Exam - Physical Examination HEENT: PERRLA, moist MMs Neck: no nodes, no JVD Respiratory: no wheezing, no rales Cardiovascular: RRR, no significant murmur Gastrointestinal: soft, non-tender Musculoskeletal: no edema, pulses present Neurological: non-focal, normal sensation Psychiatric: normal affect, A&O x 3 Dx/Plan (1) Bilateral pneumonia Code(s): J18.9 - PNEUMONIA, UNSPECIFIED ORGANISM Status: Acute Comment: Bilateral infiltares, pt on levofloxacin, Wbc trending Up, will do Anerobic coverage, with zosyn. will repeat chest xray on friday. Stbale, Trach secretions positive for Beta Strep, will d/c Zosyn. (2) Acute respiratory failure with hypoxia Code(s): J96.01 - ACUTE RESPIRATORY FAILURE WITH HYPOXIA Status: Acute Comment: Pt was on 8 liters nC yesterday, it did comne down to 4 Liters, which is her baseline a bill, Will continue with NEb treatment, pt had suction of her Trac tube yesterday lot of mucus did come out. stbale today. (3) Anxiety and depression Code(s): F41.8 - OTHER SPECIFIED ANXIETY DISORDERS Status: Acute Comment: Continue Xanax 0.25mg BID, spiritual care support (4) COPD (chronic obstructive pulmonary disease) Status: Chronic Qualifiers: COPD type: unspecified COPD Qualified Code(s): J44.9 - Chronic obstructive pulmonary disease, unspecified Comment: Nebs, Steroids. bilateral infiltrates , will continue to monitor (5) DM type 2 (diabetes mellitus, type 2) Status: Chronic Qualifiers: Diabetes mellitus complication status: without complication Diabetes mellitus jail insulin use: with research group director use Qualified Code(s): E11.9 - Type 2 diabetes mellitus without complications; Z79.4 - [facility] (current) use of insulin; Z79.4 - [facility] (current) use of insulin; Z79.4 - supervisor blast furnace ( current) use of insulin; Z79.4 - supervisor blast furnace (current) use of insulin Comment: continue home dose of insulin. keep BG 140-180 (6) Essential hypertension Code(s): I10 - ESSENTIAL (PRIMARY) HYPERTENSION Status: Chronic (7) Hypothyroidism Code(s): E03.9 - HYPOTHYROIDISM, UNSPECIFIED Status: Chronic Qualifiers: Hypothyroidism type: unspecified Qualified Code(s): E03.9 - Hypothyroidism , unspecified Comment: continue home dose of levothyroixne (8) Morbid obesity with body mass index of 70 and over in adult Code(s): E66.01 - MORBID (SEVERE) OBESITY DUE TO EXCESS CALORIES; Z68.45 - BODY MASS INDEX (BMI) 70 OR GREATER, ADULT Status: Chronic - Plan cont current plan of care, continue antibiotics, PT/OT, incentive spirometry, out of bed/ambulate, DVT proph w/lovenox * . - Discharge Day Encounter end time: 12:35 Review of Systems - Review of Systems Constitutional: negative: fever, chills, sweats, weakness, malaise, other Eyes: negative: Pain, Vision Change, Conjunctivae Inflammation, Eyelid Inflammation, Redness, Other Respiratory: negative: Cough, Dry, Shortness of Breath, Hemoptysis, SOB with Excertion, Pleuritic Pain, Sputum, Wheezing Cardiovascular: negative: chest pain, palpitations, orthopnea, paroxysmal nocturnal dyspnea, edema, light headedness, other Gastrointestinal: negative: Nausea, Vomiting, Abdominal Pain, Diarrhea, Constipation, Melena, Hematochezia, Other Musculoskeletal: negative: Neck Pain, Shoulder Pain, Arm Pain, Back Pain, Hand Pain, Leg Pain, Foot Pain, Other Skin: negative: Rash, Lesions, Baldomero, Bruising, Other - Medications/Allergies Allergies/Adverse Reactions: Allergies Allergy/AdvReac Type Severity Reaction Status Date / Time gabapentin Allergy Severe Short of Verified 08/01/17 20:21 Breath pregabalin [From Lyrica] Allergy Severe Short of Verified 08/01/17 20:21 Breath Medications: Current Medications Acetaminophen (Tylenol) 650 mg PO Q4H PRN PRN Reason: Headache/Fever or Pain Last Admin: 08/02/17 08:26 Dose: 650 mg Hydrocodone Bitart/Acetaminophen ([place] 5/325) 1 tab PO Q4H PRN PRN Reason: Moderate Pain (4-6) Albuterol/Ipratropium (Duoneb) 3 ml NEB [id number] [facility] Last Admin: 08/04/17 11:25 Dose: 3 ml Albuterol/Ipratropium (Duoneb) 3 ml IPPB Q2H PRN PRN Reason: SOB &/or Wheezing Aspirin (Ecotrin) 81 mg PO DAILY [facility] Last Admin: 08/04/17 08:54 Dose: 81 mg Calcium Carbonate (Tums) 1,000 mg PO Q6H PRN PRN Reason: Indigestion/HEARTBURN/GAS Last Admin: 08/03/17 00:18 Dose: 1,000 mg Al Hydroxide/Mg Hydroxide 60 ml/ Lidocaine HCl 30 ml/Diphenhydramine HCl 75 mg 0 ml SSW Q6H PRN PRN Reason: Mouth Irritation Last Admin: 08/03/17 00:18 Dose: 10 ml Cyclobenzaprine HCl (Flexeril) 10 mg PO TIDPRN PRN PRN Reason: Pain Dextrose/Water (Dextrose 50%) 25 gm SLOW IVP PRN PRN PRN Reason: Hypoglycemia Docusate Sodium (Colace) 100 mg PO BID [facility] Last Admin: 08/04/17 08:54 Dose: 100 mg Enoxaparin Sodium (Lovenox) 40 mg SC 0900 [facility] Last Admin: 08/04/17 08:56 Dose: 40 mg Fluconazole (Diflucan) 150 mg PO NOW [facility] Stop: 08/04/17 14:00 Furosemide (Lasix) 80 mg PO BID PRN PRN Reason: Edema Glucagon (Glucagon) 1 mg IM PRN PRN PRN Reason: Hypoglycemia Guaifenesin/Dextromethorphan (Robitussin Dm) 15 ml PO Q4H PRN PRN Reason: Cough Last Admin: 08/03/17 05:35 Dose: 15 ml Levofloxacin 750 mg/ Device 150 mls @ 100 mls/hr IVPB Q24HR [facility] Last Admin: 08/03/17 15:44 Dose: 150 mls Dextrose/Water (D5w) 1,000 mls @ 0 mls/hr IV .Q0M PRN; As Directed PRN Reason: Hypoglycemia Insulin Detemir 95 units/ (Miscellaneous Medication) 0.95 mls @ 0 mls/hr SC BID [facility] Last Admin: 08/04/17 08:56 Dose: 0.95 mls Insulin Human Lispro (Humalog) 0 units SC .MODERATE SLIDING SC PRN PRN Reason: Moderate Correctional Scale Last Admin: 08/04/17 11:29 Dose: 2 unit Levothyroxine Sodium (Synthroid) 300 mcg PO 0600 [facility] Last Admin: 08/04/17 05:45 Dose: 300 mcg Lisinopril (Zestril) 20 mg PO DAILY [facility] Last Admin: 08/04/17 08:54 Dose: 20 mg Nystatin (Mycostatin Powder) 0 gm TOP BID PRN PRN Reason: Topical Irritations Ondansetron HCl (Zofran Odt) 4 mg PO Q6H PRN PRN Reason: Nausea/Vomiting Ondansetron HCl (Zofran) 4 mg IVP Q6H PRN PRN Reason: Nausea/Vomiting Pantoprazole Sodium (Protonix) 40 mg PO BID [facility] Last Admin: 08/04/17 08:55 Dose: 40 mg Phenol (Chloraseptic [place] 180 Ml Bot) 0 ml PO BIDPRN PRN PRN Reason: Sore Throat Potassium Chloride (K-Dur) 20 meq PO BID [facility] Last Admin: 08/04/17 08:54 Dose: 20 meq Pravastatin Sodium (Pravachol) 20 mg PO HS [facility] Last Admin: 08/03/17 20:58 Dose: 20 mg Prednisone (Prednisone) 10 mg PO QAM [facility] Last Admin: 08/04/17 08:55 Dose: 10 mg Prednisone (Prednisone) 5 mg PO QPM [facility] Last Admin: 08/03/17 20:57 Dose: 5 mg Sertraline HCl (Zoloft) 25 mg PO HS [facility] Last Admin: 08/03/17 20:57 Dose: 25 mg Sodium Chloride (Flush - Normal Saline) 10 ml IVF Q12HR [facility] Last Admin: 08/04/17 08:58 Dose: 10 ml Sodium Chloride (Flush - Normal Saline) 10 ml IVF PRN PRN PRN Reason: Saline Flush
--- NOTE | 2017-08-04 15:59 | PRG ---
DATE OF SERVICE: 08/04/2017 SUBJECTIVE: Events have been reviewed. OBJECTIVE: VITAL SIGNS: She is afebrile, heart rate is 87, respiratory rate is 20, blood pressure 130/86. NECK : She is on a trach collar. LUNGS: Clear. HEART: Regular rhythm. ABDOMEN: Soft. LABORATORY DATA: White count 6.5, hemoglobin 13.4, platelets 170. IMPRESSION: 1. Sleep apnea with tracheostomy in place. 2. Life-threatening obesity with deconditioning. I suspect deconditioning is a biggest fracture wit h her inability to cough up her secretions. PLAN: I am watching her progressively get weaker, as she gets older and we had a long discussion tod ay about getting back into some type of exercise regimen. She never has been successfully calorie co unting in weight loss. Recent loss of her son has aggravated all of this.
[2017-08-04] MEDS: Pravastatin Sodium 20 MG TAB PO SCH (21:20)
[2017-08-05] MEDS: Levothyroxine Sodium 100 MCG TAB PO SCH (05:36)
[2017-08-05] MEDS: Enoxaparin Sodium 40 MG/0.4 ML SYRINGE SC SCH (08:11)
[2017-08-05] MEDS: predniSONE 5 MG TAB PO SCH ×2 (08:12→21:24)
[2017-08-05] MEDS: Lisinopril 20 MG TAB PO SCH (08:13)
[2017-08-05] MEDS: Aspirin 81 mg Enteric Coated Tablet PO SCH (08:14)
[2017-08-05] MEDS: Potassium Chloride 20 MEQ TAB PO SCH ×2 (08:14→21:24)
[2017-08-05] MEDS: Docusate 100 MG CAP PO SCH ×2 (08:15→21:00)
[2017-08-05] MEDS: INSULIN DETEMIR SC SCH ×2 (10:20→21:00)
[2017-08-05] MEDS: PRE FILLED SC SCH ×2 (10:20→21:00)
--- NOTE | 2017-08-05 16:15 | PDOC.PN ---
- Subjective Encounter Start Date: 08/05/17 Encounter Start Time: 16:15 Subjective: nsg notes rev natalie ovn no new c/o family @ bedside incl -: sister and mother and child. feels breathing is better. still -: feels overall very weak - Objective Resuscitation Status: Resuscitation Status FULL:Full Resuscitation Vital Signs & Weight: Vital Signs (12 hours) Temp Pulse Resp BP BP Pulse Ox Pulse Ox 08/05/17 15:49 87 20 92 L 08/05/17 11:28 97.8 F 85 20 155/89 H 91 L 08/05/17 11:16 80 20 94 L 08/05/17 10:46 95 08/05/17 08:13 124/79 08/05/17 08:00 98.2 F 89 20 92 L 08/05/17 07:51 98.2 F 89 20 124/79 92 L Weight Weight 374 lb I&O: 08/04/17 08/05/17 08/06/17 06:59 06:59 06:59 Intake Total 2250 610 Balance 2250 610 Result Diagrams: 08/04/17 10:33 08/03/17 10:25 Additional Labs: Accuchecks 08/05/17 08/05/17 08/05/17 11:15 10:07 08:12 POC Glucose 186 H 154 H 105 08/05/17 08/04/17 08/04/17 05:36 20:17 16:30 POC Glucose 115 H 106 187 H Phys Exam - Physical Examination Constitutional: NAD HEENT: PERRLA, moist MMs, sclera anicteric Neck: no nodes Respiratory: no wheezing, no rales, no rhonchi, clear to auscultation bilateral very diminished throughout Cardiovascular: RRR, no significant murmur, no rub soft heart tones 2/2 habitus Gastrointestinal: soft, positive bowel sounds Psychiatric: normal affect, A&O x 3 Dx/Plan - Plan * SOB with hypoxica * apprec pulmonary c/s * continue with supportive management and care * on trach collar with 4LNC * inquires about attachment for speaking valve obesity * will need close and continued o/p mgmt * work with PT/ OT while inpt diet: as zoran activity: as zoran dvt ppx Review of Systems - Medications/Allergies Allergies/Adverse Reactions: Allergies Allergy/AdvReac Type Severity Reaction Status Date / Time gabapentin Allergy Severe Short of Verified 08/01/17 20:21 Breath pregabalin [From Lyrica] Allergy Severe Short of Verified 08/01/17 20:21 Breath Medications: Current Medications Acetaminophen (Tylenol) 650 mg PO Q4H PRN PRN Reason: Headache/Fever or Pain Last Admin: 08/02/17 08:26 Dose: 650 mg Hydrocodone Bitart/Acetaminophen ([place] 5/325) 1 tab PO Q4H PRN PRN Reason: Moderate Pain (4-6) Last Admin: 08/05/17 08:22 Dose: 1 tab Albuterol/Ipratropium (Duoneb) 3 ml NEB [id number] [facility] Last Admin: 08/06/17 06:20 Dose: 3 ml Albuterol/Ipratropium (Duoneb) 3 ml IPPB Q2H PRN PRN Reason: SOB &/or Wheezing Aspirin (Ecotrin) 81 mg PO DAILY [facility] Last Admin: 08/05/17 08:14 Dose: 81 mg Calcium Carbonate (Tums) 1,000 mg PO Q6H PRN PRN Reason: Indigestion/HEARTBURN/GAS Last Admin: 08/03/17 00:18 Dose: 1,000 mg Al Hydroxide/Mg Hydroxide 60 ml/ Lidocaine HCl 30 ml/Diphenhydramine HCl 75 mg 0 ml SSW Q6H PRN PRN Reason: Mouth Irritation Last Admin: 08/03/17 00:18 Dose: 10 ml Cyclobenzaprine HCl (Flexeril) 10 mg PO TIDPRN PRN PRN Reason: Pain Dextrose/Water (Dextrose 50%) 25 gm SLOW IVP PRN PRN PRN Reason: Hypoglycemia Docusate Sodium (Colace) 100 mg PO BID [facility] Last Admin: 08/05/17 21:00 Dose: Not Given Enoxaparin Sodium (Lovenox) 40 mg SC 0900 [facility] Last Admin: 08/05/17 08:11 Dose: 40 mg Furosemide (Lasix) 80 mg PO BID PRN PRN Reason: Edema Glucagon (Glucagon) 1 mg IM PRN PRN PRN Reason: Hypoglycemia Guaifenesin/Dextromethorphan (Robitussin Dm) 15 ml PO Q4H PRN PRN Reason: Cough Last Admin: 08/03/17 05:35 Dose: 15 ml Dextrose/Water (D5w) 1,000 mls @ 0 mls/hr IV .Q0M PRN; As Directed PRN Reason: Hypoglycemia Insulin Detemir 95 units/ (Miscellaneous Medication) 0.95 mls @ 0 mls/hr SC BID [facility] Last Admin: 08/05/17 21:00 Dose: Not Given Insulin Human Lispro (Humalog) 0 units SC .MODERATE SLIDING SC PRN PRN Reason: Moderate Correctional Scale Last Admin: 08/04/17 11:29 Dose: 2 unit Levofloxacin (Levaquin) 500 mg PO 1500 [facility] Last Admin: 08/05/17 15:16 Dose: 500 mg Levothyroxine Sodium (Synthroid) 300 mcg PO 0600 [facility] Last Admin: 08/06/17 05:55 Dose: 300 mcg Lisinopril (Zestril) 20 mg PO DAILY [facility] Last Admin: 08/05/17 08:13 Dose: 20 mg Nystatin (Mycostatin Powder) 0 gm TOP BID PRN PRN Reason: Topical Irritations Ondansetron HCl (Zofran Odt) 4 mg PO Q6H PRN PRN Reason: Nausea/Vomiting Ondansetron HCl (Zofran) 4 mg IVP Q6H PRN PRN Reason: Nausea/Vomiting Pantoprazole Sodium (Protonix) 40 mg PO BID [facility] Last Admin: 08/05/17 21:24 Dose: 40 mg Phenol (Chloraseptic [place] 180 Ml Bot) 0 ml PO BIDPRN PRN PRN Reason: Sore Throat Potassium Chloride (K-Dur) 20 meq PO BID [facility] Last Admin: 08/05/17 21:24 Dose: 20 meq Pravastatin Sodium (Pravachol) 20 mg PO HS [facility] Last Admin: 08/05/17 21:30 Dose: 20 mg Prednisone (Prednisone) 10 mg PO QAM [facility] Last Admin: 08/05/17 08:12 Dose: 10 mg Prednisone (Prednisone) 5 mg PO QPM [facility] Last Admin: 08/05/17 21:24 Dose: 5 mg Sertraline HCl (Zoloft) 25 mg PO HS [facility] Last Admin: 08/05/17 21:24 Dose: 25 mg Sodium Chloride (Flush - Normal Saline) 10 ml IVF Q12HR [facility] Last Admin: 08/06/17 00:52 Dose: Not Given Sodium Chloride (Flush - Normal Saline) 10 ml IVF PRN PRN PRN Reason: Saline Flush
--- NOTE | 2017-08-05 20:36 | PRG ---
DATE OF SERVICE: 08/05/2017 SUBJECTIVE: Ms. Bal says she is feeling good enough to go home in the morning. OBJECTIVE: VITAL SIGNS: Heart rate is 85. She is afebrile, respiratory rate is 18, oximetry is 91-92 on a trac h collar, blood pressure 155/89. LUNGS: Remarkable for mild rhonchi bilaterally. HEART: Regular rate and rhythm. ABDOMEN: Soft. LABORATORY DATA: Glucose today has been less than 186 for the whole day. IMPRESSION: 1. Asthmatic bronchitis. 2. Status post tracheostomy in 2005 for her sleep apnea. 3. Obesity. She walked 400 feet today, if we can get her exercising at home, hopefully, she will be able to get some of her strength back. Now has suctioning at home, although she usually does not re quire suctioning. Hopefully, we can discharge her home in the morning if she has a stable night.
[2017-08-05] MEDS: Pravastatin Sodium 20 MG TAB PO SCH (21:30)
[2017-08-06] MEDS: Levothyroxine Sodium 100 MCG TAB PO SCH (05:55)
[2017-08-06 09:18] LABS: #Eosinphils 0.1 thou/uL (0.0-0.7); #Lymphocytes 2.7 thou/uL (1.20-3.40); #Monocytes 0.3 thou/uL (0.11-0.59); %Basophils 0.6 % (0.0-1.0); %Eosinophils 1.6 % (0.0-10.0); %Lymphocytes 42.9 % (21.0-51.0); %Monocytes 5.6 % (0.0-10.0); %Neutrophils 49.2 % (42.0-75.0); Hemoglobin 14.1 g/dL (12.0-16.0); Mean Corpuscular HGB CONC 30.5 g/dL (32.0-36.0); Mean Corpuscular Hemoglobin 23.6 pg (27.0-31.0); Mean Corpuscular Volume 77.5 fl (81.0-99.0); Mean Platelet Volume 8.1 fL (7.4-10.4); Platelet Count 167 thou/uL (130-400); RBC Distribution Width 18.8 % (11.5-14.5); Red Blood Cell (RBC) Count 5.98 mill/uL (4.20-5.40); White Blood Cell (WBC) Count 6.2 thou/uL (4.8-10.8)
[2017-08-06] MEDS: INSULIN DETEMIR SC SCH (09:22)
[2017-08-06] MEDS: PRE FILLED SC SCH (09:22)
[2017-08-06] MEDS: Lisinopril 20 MG TAB PO SCH (09:23)
[2017-08-06] MEDS: Enoxaparin Sodium 40 MG/0.4 ML SYRINGE SC SCH (09:23)
[2017-08-06] MEDS: predniSONE 5 MG TAB PO SCH (09:23)
[2017-08-06] MEDS: Aspirin 81 mg Enteric Coated Tablet PO SCH (09:24)
[2017-08-06] MEDS: Docusate 100 MG CAP PO SCH (09:24)
[2017-08-06] MEDS: Potassium Chloride 20 MEQ TAB PO SCH (09:24)
[2017-08-06 09:28] LABS: Anion Gap 9 mmol/L (10-20); BUN (Urea Nitrogen) 11 mg/dL (9.8-20.1); Calc. Creatinine Clearance 218 mL/min (70-130); Calcium 9.4 mg/dL (7.8-10.44); Carbon Dioxide 36 mmol/L (22-29); Chloride 99 mmol/L (98-107); Estimated GFR-MDRD 89; Glucose 99 mg/dL (70-105); Potassium 4.6 mmol/L (3.5-5.1); Sodium 139 mmol/L (136-145)
[2017-08-06 11:40] VITALS: BP 120/50; TEMP 98.8
--- NOTE | 2017-08-06 11:58 | DIS ---
DISCHARGE DIAGNOSES: 1. Asthmatic bronchitis. 2. Tracheostomy in 2005 for sleep apnea. 3. Deconditioning. 4. Super morbid obesity with a body mass index of 75. 5. Leukocytosis, resolved. BRIEF SUMMARY OF HOSPITAL COURSE: A 52-year-old female with a history of tracheostomy in 2005 for ob structive sleep apnea, super morbid obesity who presented with acute respiratory failure with hypoxia , which is currently resolved at the time of discharge. The patient has a trach collar, which she ty pically uses 4 liters nasal cannula as her baseline at home. She required up to 8 liters nasal cannu la during this hospitalization and is currently back down to 5 liters nasal cannula with continuous i mprovement in her respiratory status. Pulmonary Medicine, Dr. Stokes, was consulted during this hospi talization for the patient's likely asthmatic bronchitis. The patient has been on Levaquin and will continue 5-day course to complete a 10 day course of 500 mg p.o. Levaquin. The patient was also plac ed on steroids during this hospitalization and will rapidly taper off as well. The patient has a kno wn history of super morbid obesity. The patient has had significant component of deconditioning over the last several weeks. She worked with Physical Therapy during this hospitalization and was able t o complete some limited ambulation. At the time of discharge, she is recommended for outpatient phys ical therapy for strengthening and conditioning. Patient also has a known history of hypothyroidism, hypertension, type 2 diabetes, anxiety, and depre ssion which were stable during this hospitalization. CONSULTATIONS: 1. Pulmonary Medicine. 2. Case Management. 3. Physical Therapy. DISCHARGE MEDICATION RECONCILIATION: Please see the EMR for full details. The patient is to resume her home regimen with the addition of antibiotics and steroids as noted above. The patient is able t o complete teach back in terms of her new regimen and duration of the new regimen. DISCHARGE INSTRUCTIONS: The patient has been asked to follow up closely with her primary care provid er in the next week to 2 weeks that she will also follow up closely with her aircraft accessories mechanic. LABORATORY DATA AND IMAGING: On 08/06/2017, WBC 6.2, hemoglobin 14.1, hematocrit 46.4, platelets 167 . Sodium 139, potassium 4.6, chloride 99, bicarbonate 36, BUN 11, creatinine 0.82, glucose 99, calci um 9.4. PATIENT CONDITION AT DISCHARGE: VITAL SIGNS: Temperature 97.4, pulse of 82, respirations 16, satting 91% on 5 liters trach collar, b lood pressure 143/99. GENERAL: The patient is awake, alert, appropriate, in no acute distress, lying in the hospital bed, oriented x3. HEENT: Normocephalic, atraumatic, trach collar in place without erythema or exudate surrounding site and appears to be functioning properly per the patient. Moist mucous membranes. Equal ocular motio ns are intact. CARDIOVASCULAR: S1, S2. Soft heart tones likely secondary to habitus. Pulses 2+ bilateral upper ex tremities. RESPIRATORY: Coarseness throughout. Marginal air movement. No overt wheezes, rales or rhonchi. ABDOMEN: Obese, positive bowel sounds, soft, nontender to palpation. MUSCULOSKELETAL: Moving all 4 extremities independently, able to self reposition the bed without ass ist. Thank you for asking me to participate in the care of the patient. Greater than 30 minutes spent coordinating discharge for the patient. Questions or concerns, please contact me at [facility].
--- NOTE | 2017-08-06 15:31 | PRG ---
DATE OF SERVICE: 08/06/2017 SUBJECTIVE: Ms. Bal says she is ready to go home. She is smiling and laughing this morning. PHYSICAL EXAMINATION: LUNGS: Completely clear. HEART: Regular rhythm. ABDOMEN: Soft and nontender. States she is going to exercise on a daily basis when she gets home. I hope she does. Both her and her family understands that this is imperative to get down the road further. I will see her back in the office in 2-3 weeks. We will change her trach at that time.
== END 2017-08-06 12:23 | disposition home health service (06) | DRG 189 ==
LOC: SCSER 14:52 → T4-B 16:10
PROVIDERS: ADMIT Family Medicine; ATTEND Family Medicine
DX: J96.21 Acute and chronic respiratory failure with hypoxia (principal); Z93.0 Tracheostomy status; I11.0 Hypertensive heart disease with heart failure; Z99.81 Dependence on supplemental oxygen; E66.01 Morbid (severe) obesity due to excess calories; I50.32 Chronic diastolic (congestive) heart failure; J44.1 Chronic obstructive pulmonary disease with (acute) exacerbation; Z68.45 Body mass index [BMI] 70 or greater, adult; G47.33 Obstructive sleep apnea (adult) (pediatric); Z79.4 Long term (current) use of insulin; E11.9 Type 2 diabetes mellitus without complications; E03.9 Hypothyroidism, unspecified; F41.9 Anxiety disorder, unspecified; F32.9 Major depressive disorder, single episode, unspecified; I25.10 Atherosclerotic heart disease of native coronary artery without angina pectoris
CPT/HCPCS: 36415; 36416; 71045; 80048; 80053; 82553; 83605; 83690; 83880; 84484; 85025; 87040; 87070; 87077; 87205; 87804; 93005; 94640; 96365; 96366; G8978-GP-CJ; G8979-GP-CH; G8987-GO-CK; G8988-GO-CI; J1650; J1815; J1940; J1956; J2543; J7050; J7620

== ENCOUNTER 2017-12-31 12:16 | Outpatient (CLI) | payer OTHER ==
--- NOTE | 2017-12-31 13:20 | RAD ---
RIGHT KNEE 4 VIEWS: Date: 12/31/17 HISTORY: Chronic knee pain. FINDINGS: There are marked arthritic changes of the knee. There is fairly pronounced medial compartment narrowi ng, prominent spur formation of the lateral compartment, and patellofemoral joint spaces. IMPRESSION: Severe osteoarthritic changes of the knee. POS: [facility]
--- NOTE | 2017-12-31 13:22 | RAD ---
AP STANDING AND LATERAL VIEWS OF BOTH KNEES: Date: 12/31/17 HISTORY: Knee pain FINDINGS: Severe arthritic changes of the right knee are noted. There are marked degenerative changes of the la teral and patellofemoral compartments, and marked medial compartment joint space narrowing. The conklin es on the left knee are slightly less pronounced, but still fairly severe with marked medial compartm ent joint space narrowing. Slightly less prominent spur formation lateral compartment. IMPRESSION: Severe osteoarthritic changes of both knees. POS: [facility]
== END 2017-12-31 12:17 | disposition home or self-care (01) ==
LOC: SCSRAD 12:16
PROVIDERS: ATTEND Family Medicine
DX: M25.561 Pain in right knee (principal); M17.11 Unilateral primary osteoarthritis, right knee; M17.12 Unilateral primary osteoarthritis, left knee
CPT/HCPCS: 73565

== ENCOUNTER 2018-03-10 18:40 | Emergency (ER) | payer OTHER ==
--- NOTE | 2018-03-10 19:58 | RAD ---
FOUR VIEWS RIGHT KNEE: 03/10/18 HISTORY: Pain. Status post fall. COMPARISON: 12/31/17. FINDINGS: There is tricompartmental degenerative change. No fracture. No malalignment. No joint effusion. IMPRESSION: No fracture. POS: [facility]
--- NOTE | 2018-03-10 20:00 | RAD ---
THREE VIEWS RIGHT WRIST: 03/10/18 HISTORY: Pain. Fall. FINDINGS: There appears to be irregularity involving the scaphoid bone. There is concern for possible scaphoid bone fracture. Correlate clinically. Consider dedicated snuff box view versus a CT. Distal carpal row is unremarkable. IMPRESSION: Findings suggesting a scaphoid bone fracture. POS: [facility]
--- NOTE | 2018-03-10 22:58 | CT ---
CT OF RIGHT WRIST: 03/10/18 CLINICAL HISTORY: Pain, fall with injury. FINDINGS: There is no evidence of a displaced scaphoid fracture. There are tiny scattered lucencies that may re late to small cysts and/or interosseous ganglion. There is fat stranding of the regional soft tissues , dorsally, which may be related to contusion/edema in light of the provided clinical history. IMPRESSION: No evidence of scaphoid fracture. Soft tissue edema/contusion, without underlying fracture of the right wrist. POS: [facility]
== END 2018-03-10 23:33 | disposition home or self-care (01) ==
LOC: ERS 18:40
DX: M25.561 Pain in right knee (principal); M25.531 Pain in right wrist; I25.10 Atherosclerotic heart disease of native coronary artery without angina pectoris; E11.9 Type 2 diabetes mellitus without complications; E03.9 Hypothyroidism, unspecified; E78.5 Hyperlipidemia, unspecified; I10 Essential (primary) hypertension; E66.9 Obesity, unspecified; J44.9 Chronic obstructive pulmonary disease, unspecified; F32.9 Major depressive disorder, single episode, unspecified; Z79.899 Other long term (current) drug therapy; Z79.82 Long term (current) use of aspirin; Z79.4 Long term (current) use of insulin; W07.XXXA Fall from chair, initial encounter

== ENCOUNTER 2018-03-31 11:13 | Inpatient (IN) | payer OTHER ==
[2018-03-31] MEDS ORDERED: Piperacillin/Tazobactam 4.5 GM VIAL ONE (11:31)
[2018-03-31 12:01] LABS: Analyzer IN Cardio ER; Base Excess (BEa) 3.6 mEq/L (-2.0 to +3.0); Carboxyhemoglobin (COHb) 1.6 gm% (0.0-3.0); O2 Tension (PaO2) 68.9 mmHg (80.0-100.0); Potassium - ABG Lab 4.46 mmol/L (3.70-5.30); pH, Arterial 7.28 (7.35-7.45)
[2018-03-31 12:02] LABS: CO2 Tension 71.3 mmHg (35.0-45.0); Puncture Site LR
[2018-03-31 12:03] LABS: ALV-art Gradient 127.175 (0-20)
[2018-03-31 12:15] LABS: ALT (SGPT) 47 U/L (8-55); AST (SGOT) 32 U/L (5-34); Alkaline Phosphatase 131 U/L (40-150); Anion Gap 11 mmol/L (10-20); BUN (Urea Nitrogen) 12 mg/dL (9.8-20.1); Bilirubin, Total 0.8 mg/dL (0.2-1.2); Calc. Creatinine Clearance 0 mL/min (70-130); Calcium 9.6 mg/dL (7.8-10.44); Carbon Dioxide 34 mmol/L (22-29); Chloride 98 mmol/L (98-107); Estimated GFR-MDRD 90; Globulin 5.1 g/dL (2.4-3.5); Glucose 77 mg/dL (70-105); Potassium 5.5 mmol/L (3.5-5.1); Protein, Total 9.1 g/dL (6.0-8.3); Sodium 137 mmol/L (136-145)
--- NOTE | 2018-03-31 12:24 | RAD ---
CHEST 1 VIEW: Date: 03/31/18 HISTORY: 52-year-old female with history of shortness of breath and blood coming out of trachea. COMPARISON: 08/01/17. FINDINGS: Marked cardiomegaly with bilateral vascular congestion, with some increased markings bilaterally. No new process. No pneumothorax. IMPRESSION: Overall stable appearing cardiomegaly and vascular congestion with increased markings bilaterally and costophrenic angle blunting. No significant new process. POS: [facility]
[2018-03-31 12:28] LABS: #Basophils 0.1 thou/uL (0.0-0.2); #Eosinphils 0.2 thou/uL (0.0-0.7); #Lymphocytes 3.3 thou/uL (1.20-3.40); #Monocytes 0.6 thou/uL (0.11-0.59); #Neutrophils 3.6 thou/uL (1.40-6.50); %Basophils 1.3 % (0.0-1.0); %Eosinophils 2.8 % (0.0-10.0); %Lymphocytes 42.1 % (21.0-51.0); %Monocytes 7.5 % (0.0-10.0); %Neutrophils 46.4 % (42.0-75.0); Anisocytosis SLIGHT = 6-15 cells (100X) (0-5/hpf); Hemoglobin 16.1 g/dL (12.0-16.0); Large Platelets SLIGHT; MDiff Complete? YES; Mean Corpuscular HGB CONC 29.8 g/dL (32.0-36.0); Mean Corpuscular Volume 80.4 fL (78.0-98.0); Mean Platelet Volume 9.2 fL (7.4-10.4); PLT Morphology Comment Appears Adequate; Platelet Count 164 thou/uL (130-400); RBC Distribution Width 18.2 % (11.5-14.5); Red Blood Cell (RBC) Count 6.72 mill/uL (4.20-5.40); White Blood Cell (WBC) Count 7.8 thou/uL (4.8-10.8)
[2018-03-31 12:35] LABS: Troponin I Less than 0.010 ng/mL (< 0.028)
[2018-03-31] MEDS ORDERED: Acetaminophen 500 MG TAB ONE (13:31)
[2018-03-31] MEDS ORDERED: Labetalol HCl 100 MG/20 ML VIAL ONE (13:32)
[2018-03-31] MEDS ORDERED: Furosemide 40 MG/4 ML VIAL ONE (13:32)
[2018-03-31 14:13] LABS: Bilirubin Negative (Negative); Blood, Urine Negative (Negative); Clarity CLEAR (Clear); Glucose, Urine (Dipstick) Negative (Negative); Leukocyte Small (Negative); Nitrite Negative (Negative); Protein, Urine (Dipstick) Trace mg/dL (Neg-Trace); Specific Gravity, Urine 1.025 (1.002-1.036); pH, Urine 7.5 (5.0-9.0)
[2018-03-31 14:15] LABS: Bacteria/HPF None Seen HPF (None Seen); Hyaline Casts/LPF 0-3 HYALINE CAST LPF (0-3 Hyaline); Pathc Cast-AUWi Flag 0.14 (0-2.49); RBC/HPF 0-3 HPF (0-3); WBC/HPF 0-3 HPF (0-3)
[2018-03-31] MEDS ORDERED: methylPREDNISolone Sod Succ/PF 125 MG/2 ML VIAL ONE (15:30)
[2018-03-31] MEDS ORDERED: Water For Inject, Bacteriostat 30 ML ONE (15:30)
[2018-03-31 18:15] VITALS: BMI 71.6
--- NOTE | 2018-03-31 18:59 | HP ---
PRIMARY CARE PROVIDER: Guanaco Alexander M.D. CHIEF COMPLAINT: Shortness of breath. HISTORY OF PRESENT ILLNESS: Ms. Bal is a pleasant 52-year-old lady who was seen at [facility] on 03/31/2018. She has a history of chronic respiratory failure on tracheostomy. She reports that 2 days ago she started noticing secretions from her tracheostomy. Reports that there were initially yellow, subsequently green and no red. She also reports wheezing. She also reports shortness of breath with exertion. She also reports cough and fever at home. She denies any nausea or vomiting. She denies any chest pain. REVIEW OF SYSTEMS: All other systems reviewed and found to be negative. PAST MEDICAL HISTORY: Coronary artery disease, congestive heart failure, diabetes mellitus type 2, hypertension, hypothyroidism, severe obesity, chronic respiratory failure with tracheostomy. PAST SURGICAL HISTORY: section and tracheostomy. ALLERGIES: CYMBALTA, GABAPENTIN and LYRICA. FAMILY HISTORY: No family history of premature coronary artery disease. SOCIAL HISTORY: She denies any history of tobacco, alcohol, or recreational drug use. HOME MEDICATIONS: Pravastatin 20 mg daily, levothyroxine 300 mcg daily, Levemir 95 units subcutaneously 2 times a day, Lasix 80 mg 2 times a day, Taiban p.r.n., lisinopril 20 mg daily, Protonix 40 mg 2 times a day, aspirin 81 mg daily, vitamin D2 as prescribed by her primary care provider. PHYSICAL EXAMINATION: GENERAL: Ms. Bal is awake and alert, not in acute distress. VITAL SIGNS: Blood pressure is 166/92, pulse 93, respiratory rate 22, and oxygen saturation 99% on 2 liters of oxygen. Her room air oxygen saturation was 84% when she presented to the emergency room, she had a pulse of 107 and respiratory rate of 22. She is morbidly obese with a BMI of 71.6. EYES: No scleral icterus. No conjunctival pallor. ENT: Moist mucosal membranes. No oropharyngeal erythema or exudates. NECK: She has tracheostomy. Normal range of movement. RESPIRATORY: Accessory muscles of breathing are not active. Chest wall movements are symmetric bilaterally. She has diminished air entry. CARDIOVASCULAR: S1 and S2 are heard, regular. No pericardial rub. ABDOMEN: Distended, nontender, bowel sounds are heard. NEUROLOGIC: No facial droop, plantar reflexes downgoing. SKIN: No rashes or subcutaneous nodules. LYMPHATIC: No cervical lymphadenopathy. PSYCHIATRIC: Normal mood, normal affect. The patient is oriented to person, place, and time. LABORATORY DATA: Ms. Bal's labs and investigations were reviewed. I reviewed her electrocardiogram, which shows normal sinus rhythm, no ST changes to suggest an acute coronary syndrome. I also reviewed her chest x-ray, which shows pulmonary vascular congestion. She has a normal white count, elevated hemoglobin of 16, normal platelet count, normal sodium, elevated potassium of 5.5, normal lactic acid, elevated globulin and serum total protein, but otherwise unremarkable liver profile. Urinalysis positive for small amount of leukocyte esterase and arterial blood gases showing pH of 7.28, pCO2 of 71 and pO2 of 68.9. ASSESSMENT AND PLAN: Mr. Bal is a pleasant 52-year-old lady who was seen at [facility] on 03/31/2018. Her problem list includes: 1. Sepsis: Mr. Bal's presentation meets the criteria for sepsis, source of infection probably the upper respiratory tract. She will be admitted to the hospital for further management. She has been started on empiric antibiotics in the form of vancomycin and Zosyn, which I will continue. 2. Chronic hypoxic and hypercapnic respiratory failure: The patient is presenting with respiratory acidosis and non-anion gap metabolic acidosis. Pulmonology Service is being consulted for management of respiratory issues. 3. Diabetes mellitus type 2: Start Accu-Cheks, insulin sliding scale. 4. Dyslipidemia: Continue statin. 5. Congestive heart failure. The patient has a history of chronic congestive heart failure, diastolic. Does not appear to be in diastolic heart failure exacerbation and her BNP is normal at 40.6. Continue home dose of furosemide. 6. Hypothyroidism: Continue Synthroid. 7. Hypertension: Continue home medications, monitor vital signs and titrate antihypertensives as needed. Many thanks for allowing me to participate in your patient's care. Please feel free to contact me with any questions or concerns. LEVEL OF RISK: High. LEVEL OF COMPLEXITY: High. MTDD
[2018-03-31] MEDS ORDERED: INSULIN DETEMIR SQ SCH (21:00)
[2018-03-31] MEDS: Piperacillin/Tazobactam 4.5 GM in Sodium Chloride 0.9% 100 ML IVPB SCH (21:21)
[2018-03-31] MEDS: Pravastatin Sodium 20 MG TAB PO SCH (21:24)
[2018-03-31] MEDS: Insulin Glargine 95 UNITS in Pre-Filled Syringe 1 EACH SC SCH (21:30)
[2018-03-31] MEDS: HYDROcodone/Acetaminophen 10/325 mg Tablet PO SCH (21:31)
[2018-04-01] MEDS: Piperacillin/Tazobactam 4.5 GM in Sodium Chloride 0.9% 100 ML IVPB SCH ×2 (04:42→12:38)
[2018-04-01] MEDS: Furosemide 80 MG TAB PO SCH ×2 (06:27→13:24)
[2018-04-01] MEDS: HYDROcodone/Acetaminophen 10/325 mg Tablet PO SCH ×3 (06:27→21:32)
[2018-04-01] MEDS: Levothyroxine Sodium 100 MCG TAB PO SCH (06:30)
[2018-04-01] MEDS: Insulin Glargine 95 UNITS in Pre-Filled Syringe 1 EACH SC SCH ×2 (09:31→21:33)
[2018-04-01] MEDS: Aspirin 81 mg Enteric Coated Tablet PO SCH (09:32)
[2018-04-01] MEDS: Lisinopril 20 MG TAB PO SCH (09:32)
[2018-04-01] MEDS ORDERED: Benzonatate 100 MG CAP PO SCH ×3 (12:15→21:00)
--- NOTE | 2018-04-01 16:58 | PDOC.PN ---
- Subjective Encounter Start Date: 04/01/18 Encounter Start Time: 08:00 Pt seen for followup re: sepsis. Denies chest pain. Cough+. Green secretions from tracheostomy. - Objective MAR Reviewed: Yes Vital Signs & Weight: Vital Signs (12 hours) Temp Pulse Resp BP BP Pulse Ox 04/01/18 12:00 97.9 F 96 18 129/80 95 04/01/18 11:41 101 H 24 H 93 L 04/01/18 09:32 134/80 04/01/18 08:00 97.9 F 95 20 131/80 95 04/01/18 06:39 105 H 24 H 91 L Weight Weight 379 lb I&O: 03/31/18 04/01/18 04/02/18 06:59 06:59 06:59 Intake Total 1180 Output Total 1000 Balance 180 Result Diagrams: 03/31/18 11:30 03/31/18 11:30 Additional Labs: Accuchecks 04/01/18 04/01/18 03/31/18 11:12 05:59 21:30 POC Glucose 185 H 237 H 246 H 03/31/18 18:26 POC Glucose 189 H EKG Reviewed by me: Yes (Tele: NSR) Phys Exam - Physical Examination Morbid obesity HEENT: moist MMs, sclera anicteric, oral pharynx no lesions, 2+ tonsils trach collar Respiratory: no wheezing, no rales, no rhonchi, clear to auscultation bilateral Cardiovascular: RRR, no rub S1, S2 Gastrointestinal: soft, non-tender, no distention, positive bowel sounds Musculoskeletal: edema present Neurological: moves all 4 limbs Psychiatric: normal affect, A&O x 3 Dx/Plan (1) Sepsis Code(s): A41.9 - SEPSIS, UNSPECIFIED ORGANISM Status: Acute Comment: likely due to acute bronchitis, improving (2) Acute bronchitis Code(s): J20.9 - ACUTE BRONCHITIS, UNSPECIFIED Status: Acute Qualifiers: Comment: continue antibiotics as below (3) Chronic diastolic CHF (congestive heart failure) Code(s): I50.32 - CHRONIC DIASTOLIC (CONGESTIVE) HEART FAILURE Status: Acute Comment: stable, continue furosemide (4) DM type 2 (diabetes mellitus, type 2) Status: Chronic Qualifiers: Diabetes mellitus longterm insulin use: with longterm use Diabetes mellitus complication status: without complication Qualified Code(s): E11.9 - Type 2 diabetes mellitus without complications; Z79.4 - rn long term care (current) use of insulin; Z79.4 - care home (current) use of insulin; Z79.4 - rn long term care ( current) use of insulin; Z79.4 - care home (current) use of insulin Comment: continue accuchecks, insulin sliding scale (5) Essential hypertension Code(s): I10 - ESSENTIAL (PRIMARY) HYPERTENSION Status: Chronic Comment: controlled (6) Hypothyroidism Code(s): E03.9 - HYPOTHYROIDISM, UNSPECIFIED Status: Chronic Qualifiers: Hypothyroidism type: unspecified Qualified Code(s): E03.9 - Hypothyroidism , unspecified Comment: continue synthroid (7) Obesity hypoventilation syndrome Code(s): E66.2 - MORBID (SEVERE) OBESITY WITH ALVEOLAR HYPOVENTILATION Status : Chronic Comment: stable - Plan continue antibiotics, PT/OT * . Review of Systems - Review of Systems Constitutional: negative: fever, chills, sweats, weakness, malaise Respiratory: Cough, SOB with Excertion, Sputum. negative: Dry, Shortness of Breath, Hemoptysis, Pleuritic Pain, Wheezing Cardiovascular: negative: chest pain, palpitations, orthopnea, paroxysmal nocturnal dyspnea, edema, light headedness Gastrointestinal: negative: Nausea, Vomiting, Abdominal Pain, Diarrhea, Constipation, Melena, Hematochezia Genitourinary: negative: Dysuria, Frequency, Incontinence, Hematuria, Retention Skin: negative: Rash, Lesions, Baldomero, Bruising - Medications/Allergies Allergies/Adverse Reactions: Allergies Allergy/AdvReac Type Severity Reaction Status Date / Time gabapentin Allergy Severe Short of Verified 03/31/18 18:16 Breath pregabalin [From Lyrica] Allergy Severe Short of Verified 03/31/18 18:16 Breath duloxetine [From Cymbalta] Allergy Short of Verified 03/31/18 18:16 Breath Medications: Current Medications Hydrocodone Bitart/Acetaminophen ([place] 10/325) 1 tab PO Q8HR NANI Last Admin: 04/01/18 13:24 Dose: 1 tab Albuterol/Ipratropium (Duoneb) 3 ml NEB [id number] NANI Last Admin: 04/01/18 11:41 Dose: 3 ml Aspirin (Ecotrin) 81 mg PO DAILY NANI Last Admin: 04/01/18 09:32 Dose: 81 mg Budesonide (Pulmicort Neb Solution) 0.5 mg INH BID-RT [facility] Cefdinir (Omnicef) 300 mg PO BID [facility] Stop: 04/06/18 21:01 Furosemide (Lasix) 80 mg PO DAILY [facility] Insulin Glargine 95 units/ (Miscellaneous Medication) 0.95 mls @ 0 mls/hr SC BID [facility] Last Admin: 04/01/18 09:31 Dose: 0.95 mls Levothyroxine Sodium (Synthroid) 300 mcg PO 0600 [facility] Last Admin: 04/01/18 06:30 Dose: 300 mcg Lisinopril (Zestril) 20 mg PO DAILY [facility] Last Admin: 04/01/18 09:32 Dose: 20 mg Miscellaneous Medication (Pharmacy To Dose) 1 each IVPB PRN PRN PRN Reason: Pharmacy to dose Pravastatin Sodium (Pravachol) 20 mg PO HS [facility] Last Admin: 03/31/18 21:24 Dose: 20 mg Sodium Chloride (Flush - Normal Saline) 10 ml IVF Q12HR [facility] Last Admin: 04/01/18 09:32 Dose: 10 ml Sodium Chloride (Flush - Normal Saline) 10 ml IVF PRN PRN PRN Reason: Saline Flush Last Admin: 04/01/18 12:39 Dose: 10 ml
--- NOTE | 2018-04-01 18:01 | CON ---
DATE OF CONSULTATION: 04/01/2018 SERVICE: Pulmonary Medicine. REASON FOR CONSULTATION: Respiratory failure. HISTORY OF PRESENT ILLNESS: The patient is a very pleasant 52-year-old - [place] female with past medical history significant for morbid obesity and possible asthma. Either way, she was in her usual state of health until 3 days prior to admission. She was exposed to her niece who had an upper respiratory tract infection, cold and congestion. Ultimately, 3-4 days later, the patient started feeling fevers and had increasing shortness of breath, work of breathing , and thick cough. Ultimately, she presented to the Emergency Department for shortness of breath and little confusion. She denies having any nausea, vomiting, diarrhea, abdominal discomfort, dysuria, frequency, rashes, hot, red, swollen joints, arthralgias. Overnight, she has been on steroids, nebulized medications, and this morning, she is feeling much improved. She is actually coughing up copious amounts of green sputum and can display this. PAST MEDICAL HISTORY: 1. Morbid obesity. 2. Coronary artery disease. 3. Chronic diastolic heart failure. 4. Type 2 diabetes mellitus. 5. Hypertension. 6. Dyslipidemia. 7. Hypothyroidism. 8. Chronic hypoxic and hypercapnic respiratory failure. 9. Obesity hypoventilation syndrome. 10. Possible asthma. PAST SURGICAL HISTORY: section. Tracheostomy. FAMILY HISTORY: Noncontributory. SOCIAL HISTORY: Negative for alcohol, tobacco or illicit drug use. She has no exposure to chemicals, dust asbestos or tuberculosis. ALLERGIES: CYMBALTA, GABAPENTIN, LYRICA. MEDICATIONS: List of inpatient medications reviewed and modified. REVIEW OF SYSTEMS: General, head, ears, eyes, nose, throat, cardiovascular, respiratory, GI, , musculoskeletal, neurologic and skin is negative except as mentioned in the HPI. PHYSICAL EXAMINATION: VITAL SIGNS: Afebrile, pulse 96, blood pressure 129/80, respirations 18, saturation 95% on 35% FiO2 delivered via trach collar. HEENT: Normocephalic, atraumatic. Sclerae are white, conjunctivae pink. Oral mucosa is moist without lesions. LUNGS: Decent air entry. There is slightly prolonged expiratory phase. Polyphonic wheezing and rhonchi are both noted. I do not appreciate any dependent crackles. HEART: Normal rate, regular. ABDOMEN: Soft, nontender, nondistended. Bowel sounds are positive. MUSCULOSKELETAL: No cyanosis or clubbing. There is no pitting in the bilateral lower extremities. NEUROLOGIC: Grossly nonfocal. LABORATORY DATA: WBC 7.8, hemoglobin 16.1, platelets 164,000. PH 7.28, pCO2 of 71 and pO2 69. Glucose ranges from 189-246. BNP 40, troponin negative x1. Basic metabolic profile and liver function studies are unremarkable except for potassium of 3.5. Her bicarbonate is likely chronically elevated. Urinalysis is completely unremarkable. Respiratory culture is negative. Urine culture, blood cultures x2 were also unremarkable. The sputum culture has moderate white blood cells, but only very few gram positive cocci in pair. IMAGING DATA: Chest x-ray demonstrates low lung volumes. Interstitial markings are increased, but likely secondary to volume. Overall, stable compared to prior. I do not see any new consolidating changes. ASSESSMENT: 1. Acute on chronic hypoxic and hypercapnic respiratory failure. 2. Obesity hypoventilation syndrome. 3. Acute bronchitis versus asthma with acute exacerbation. DISCUSSION AND PLAN: I will deescalate her antibiotics to simply Omnicef. This should cover strep species, which were possibly isolated in the sputum. This will likely veneer jointer returner to be normal karime; however. We will deescalate her steroids and will put her 20 mg of prednisone that she will take daily for the next 6-7 days. The cough suppressants will be discontinued. We will start a dose of Mucinex to see if we can thin some of her secretions. The patient appears to be on the dry side to me. As such, back off on her Lasix to once daily. Ultimately, on discharge from the hospital, she will need to resume her home medications. Pulmonary or Critical Care will continue to follow while the patient remains in house, but tomorrow morning, Dr. Stokes will resume care. 70 minutes have been devoted to this patient in various activities. I personally reviewed all imaging studies and laboratory data noted within this document. For fifty percent of this time, I was interacting with the patient at the bedside or coordinating care with the care team. For the remainder of the time I was immediately available to the patient in the hospital unit. [place]
[2018-04-01] MEDS: Budesonide 0.5 MG/2 ML NEB INH SCH (18:16)
[2018-04-01] MEDS: Cefdinir 300 MG CAP PO SCH (21:32)
[2018-04-01] MEDS: Pravastatin Sodium 20 MG TAB PO SCH (21:32)
[2018-04-02] MEDS: HYDROcodone/Acetaminophen 10/325 mg Tablet PO SCH ×3 (05:30→21:31)
[2018-04-02] MEDS: Levothyroxine Sodium 100 MCG TAB PO SCH (05:30)
[2018-04-02] MEDS: Budesonide 0.5 MG/2 ML NEB INH SCH ×2 (07:09→19:47)
[2018-04-02] MEDS ORDERED: Chloraseptic Spray 180 ml Bottle PO PRN ×2 (07:46→08:15)
[2018-04-02] MEDS ORDERED: Nystatin Powder 15 GM BOT TOP PRN ×2 (07:46→08:15)
[2018-04-02] MEDS ORDERED: Calcium Carbonate 500 MG ChewTAB PO PRN (07:46)
[2018-04-02] MEDS ORDERED: Cyclobenzaprine 10 MG TAB PO PRN (07:46)
[2018-04-02] MEDS ORDERED: Lidocaine Viscous Sol 2% 15 ml UD Cup SSW PRN (07:46)
[2018-04-02] MEDS ORDERED: Mag-Al 1200 mg/1200 mg/30 ML UDCUP SSW PRN (07:46)
[2018-04-02] MEDS ORDERED: Acetaminophen 325 MG TAB PO PRN (07:46)
[2018-04-02] MEDS: Aspirin 81 mg Enteric Coated Tablet PO SCH (09:21)
[2018-04-02] MEDS: Cefdinir 300 MG CAP PO SCH ×2 (09:21→21:31)
[2018-04-02] MEDS: Docusate 100 MG CAP PO SCH ×2 (09:21→21:33)
[2018-04-02] MEDS: Lisinopril 20 MG TAB PO SCH (09:22)
[2018-04-02] MEDS: Furosemide 80 MG TAB PO SCH (09:22)
[2018-04-02] MEDS: Insulin Glargine 95 UNITS in Pre-Filled Syringe 1 EACH SC SCH ×2 (10:19→21:33)
--- NOTE | 2018-04-02 10:26 | PDOC.PN ---
- Subjective Encounter Start Date: 04/02/18 Encounter Start Time: 07:40 -: old records requested/rev Patient seen and examined. No new complaints. No overnight events - Objective MAR Reviewed: Yes Vital Signs & Weight: Vital Signs (12 hours) Temp Pulse Resp BP BP BP Pulse Ox 04/02/18 09:22 128/79 04/02/18 07:56 95 04/02/18 07:54 96.7 F L 95 18 128/79 95 04/02/18 07:11 94 L 04/02/18 07:09 94 28 H 94 L 04/02/18 07:05 94 28 H 94 L 04/02/18 03:24 98.4 F 107 H 20 136/87 95 04/02/18 00:25 102 H 18 115/75 92 L 04/01/18 23:59 90 18 95 Weight Weight 379 lb I&O: 04/01/18 04/02/18 04/03/18 06:59 06:59 06:59 Intake Total 1180 1720 Output Total 1000 3600 Balance 180 -1880 Result Diagrams: 03/31/18 11:30 03/31/18 11:30 Additional Labs: Accuchecks 04/02/18 04/01/18 04/01/18 06:02 20:59 17:19 POC Glucose 121 H 137 H 109 04/01/18 11:12 POC Glucose 185 H Radiology Reviewed by me: Yes EKG Reviewed by me: Yes (nsr) Phys Exam - Physical Examination Constitutional: NAD HEENT: PERRLA, moist MMs, sclera anicteric Neck: no JVD, supple tracheostomy+ Respiratory: no wheezing, no rales, no rhonchi limited due to obesity Cardiovascular: RRR, no significant murmur, no rub limited due to obesity Gastrointestinal: soft, non-tender, no distention, positive bowel sounds morbid obesity Musculoskeletal: no edema, pulses present Neurological: non-focal, normal sensation, moves all 4 limbs Psychiatric: normal affect, A&O x 3 Skin: no rash, normal turgor Dx/Plan (1) Acute on chronic diastolic (congestive) heart failure Code(s): I50.33 - ACUTE ON CHRONIC DIASTOLIC (CONGESTIVE) HEART FAILURE Status : Acute Comment: (2) COPD (chronic obstructive pulmonary disease) Status: Chronic Qualifiers: COPD type: unspecified COPD Qualified Code(s): J44.9 - Chronic obstructive pulmonary disease, unspecified Comment: (3) DM type 2 (diabetes mellitus, type 2) Status: Chronic Qualifiers: Diabetes mellitus senior care insulin use: with senior care use Diabetes mellitus complication status: without complication Qualified Code(s): E11.9 - Type 2 diabetes mellitus without complications; Z79.4 - FPC (current) use of insulin; Z79.4 - FPC (current) use of insulin; Z79.4 - intermediate project manager ( current) use of insulin; Z79.4 - intermediate project manager (current) use of insulin Comment: (4) Essential hypertension Code(s): I10 - ESSENTIAL (PRIMARY) HYPERTENSION Status: Chronic Comment: (5) Hypothyroidism Code(s): E03.9 - HYPOTHYROIDISM, UNSPECIFIED Status: Chronic Qualifiers: Hypothyroidism type: unspecified Qualified Code(s): E03.9 - Hypothyroidism , unspecified Comment: (6) Morbid obesity with body mass index of 70 and over in adult Code(s): E66.01 - MORBID (SEVERE) OBESITY DUE TO EXCESS CALORIES; Z68.45 - BODY MASS INDEX (BMI) 70 OR GREATER, ADULT Status: Chronic (7) Obesity hypoventilation syndrome Code(s): E66.2 - MORBID (SEVERE) OBESITY WITH ALVEOLAR HYPOVENTILATION Status : Chronic Comment: stable (8) Acute on chronic respiratory failure with hypercapnia Code(s): J96.22 - ACUTE AND CHRONIC RESPIRATORY FAILURE WITH HYPERCAPNIA Status: Resolved Comment: - Plan cont current plan of care, plan discussed w/ family, continue antibiotics * continue omnicef and doxycycline * pulmonary following * pt is improving * Dc Tele * transfer to medical * medication reviewed as below * symptomatic treatment. * repeat labs today * home medication reconciled Review of Systems - Review of Systems ENT: negative: Ear Pain, Ear Discharge, Nose Pain, Nose Discharge, Nose Congestion, Mouth Pain, Mouth Swelling, Throat Pain, Throat Swelling, Other Respiratory: Cough, Shortness of Breath. negative: Dry, Hemoptysis, SOB with Excertion, Pleuritic Pain, Sputum, Wheezing Cardiovascular: negative: chest pain, palpitations, orthopnea, paroxysmal nocturnal dyspnea, edema, light headedness, other Gastrointestinal: negative: Nausea, Vomiting, Abdominal Pain, Diarrhea, Constipation, Melena, Hematochezia, Other Genitourinary: negative: Dysuria, Frequency, Incontinence, Hematuria, Retention , Other Musculoskeletal: negative: Neck Pain, Shoulder Pain, Arm Pain, Back Pain, Hand Pain, Leg Pain, Foot Pain, Other Skin: negative: Rash, Lesions, Baldomero, Bruising, Other - Medications/Allergies Allergies/Adverse Reactions: Allergies Allergy/AdvReac Type Severity Reaction Status Date / Time gabapentin Allergy Severe Short of Verified 03/31/18 18:16 Breath pregabalin [From Lyrica] Allergy Severe Short of Verified 03/31/18 18:16 Breath duloxetine [From Cymbalta] Allergy Short of Verified 03/31/18 18:16 Breath Medications: Current Medications Acetaminophen (Tylenol) 650 mg PO Q4H PRN PRN Reason: Headache/Fever or Pain Hydrocodone Bitart/Acetaminophen ([place] 10/325) 1 tab PO Q8HR [facility] Last Admin: 04/02/18 05:30 Dose: 1 tab Al Hydroxide/Mg Hydroxide (Maalox) 60 ml SSW Q6H PRN PRN Reason: Mouth Irritation Albuterol/Ipratropium (Duoneb) 3 ml NEB [id number] [facility] Last Admin: 04/02/18 07:05 Dose: 3 ml Aspirin (Ecotrin) 81 mg PO DAILY [facility] Last Admin: 04/02/18 09:21 Dose: 81 mg Budesonide (Pulmicort Neb Solution) 0.5 mg INH BID-RT [facility] Last Admin: 04/02/18 07:09 Dose: 0.5 mg Calcium Carbonate (Tums) 1,000 mg PO Q6H PRN PRN Reason: Indigestion/HEARTBURN/GAS Cefdinir (Omnicef) 300 mg PO BID [facility] Stop: 04/06/18 21:01 Last Admin: 04/02/18 09:21 Dose: 300 mg Cyclobenzaprine HCl (Flexeril) 10 mg PO TID PRN PRN Reason: Muscle Spasm Docusate Sodium (Colace) 100 mg PO BID [facility] Last Admin: 04/02/18 09:21 Dose: 100 mg Furosemide (Lasix) 80 mg PO DAILY [facility] Last Admin: 04/02/18 09:22 Dose: 80 mg Guaifenesin/Dextromethorphan (Robitussin Dm) 15 ml PO Q4H PRN PRN Reason: Cough Insulin Glargine 95 units/ (Miscellaneous Medication) 0.95 mls @ 0 mls/hr SC BID [facility] Last Admin: 04/01/18 21:33 Dose: 0.95 mls Levothyroxine Sodium (Synthroid) 300 mcg PO 0600 [facility] Last Admin: 04/02/18 05:30 Dose: 300 mcg Lidocaine HCl (Xylocaine 2% Viscous) 30 ml SSW Q6H PRN PRN Reason: Mouth Irritation Lisinopril (Zestril) 20 mg PO DAILY [facility] Last Admin: 04/02/18 09:22 Dose: 20 mg Miscellaneous Medication (Pharmacy To Dose) 1 each IVPB PRN PRN PRN Reason: Pharmacy to dose Nystatin (Mycostatin Powder) 1 gm TOP BID PRN PRN Reason: Topical Irritations Phenol (Chloraseptic [place] 180 Ml Bot) 0 ml PO BIDPRN PRN PRN Reason: Sore Throat Pravastatin Sodium (Pravachol) 20 mg PO HS [facility] Last Admin: 04/01/18 21:32 Dose: 20 mg Sertraline HCl (Zoloft) 25 mg PO [facility] Sodium Chloride (Flush - Normal Saline) 10 ml IVF Q12HR [facility] Last Admin: 04/02/18 09:22 Dose: 10 ml Sodium Chloride (Flush - Normal Saline) 10 ml IVF PRN PRN PRN Reason: Saline Flush Last Admin: 04/01/18 12:39 Dose: 10 ml
[2018-04-02 10:48] LABS: #Eosinphils 0.1 thou/uL (0.0-0.7); #Lymphocytes 2.7 thou/uL (1.20-3.40); #Monocytes 0.8 thou/uL (0.11-0.59); #Neutrophils 4.6 thou/uL (1.40-6.50); %Basophils 0.6 % (0.0-1.0); %Eosinophils 1.7 % (0.0-10.0); %Neutrophils 55.6 % (42.0-75.0); Mean Corpuscular HGB CONC 29.8 g/dL (32.0-36.0); Mean Corpuscular Hemoglobin 24.2 pg (27.0-31.0); Mean Corpuscular Volume 81.2 fL (78.0-98.0); Mean Platelet Volume 9.3 fL (7.4-10.4); Platelet Count 146 thou/uL (130-400); RBC Distribution Width 18.2 % (11.5-14.5); White Blood Cell (WBC) Count 8.3 thou/uL (4.8-10.8)
[2018-04-02 11:29] LABS: ALT (SGPT) 31 U/L (8-55); AST (SGOT) 20 U/L (5-34); Albumin 3.8 g/dL (3.5-5.0); Alkaline Phosphatase 107 U/L (40-150); Anion Gap 19 mmol/L (10-20); BUN (Urea Nitrogen) 21 mg/dL (9.8-20.1); Bilirubin, Total 0.5 mg/dL (0.2-1.2); Calc. Creatinine Clearance 215 mL/min (70-130); Calcium 9.2 mg/dL (7.8-10.44); Carbon Dioxide 25 mmol/L (22-29); Chloride 102 mmol/L (98-107); Estimated GFR-MDRD 86; Globulin 4.6 g/dL (2.4-3.5); Glucose 96 mg/dL (70-105); Potassium 4.9 mmol/L (3.5-5.1); Protein, Total 8.4 g/dL (6.0-8.3); Sodium 141 mmol/L (136-145)
[2018-04-02 11:49] LABS: MDiff Complete? YES; PLT Morphology Comment Appears Adequate; Polychromasia SLIGHT = 2-3 cells (100X) (0-2/hpf); Stomatocytes MODERATE= 6-15 cells (100X) (0-1/hpf)
--- NOTE | 2018-04-02 13:09 | PRG ---
DATE OF SERVICE: 04/02/2108 Ms. Bal is still complaining of a cough with a lot of sputum production. PHYSICAL EXAMINATION: VITAL SIGNS: She is afebrile, heart rate 95, respiratory rate is 18, oximetry is 95 on a humidified trach collar. Blood pressure 128/79. LUNGS: Remarkable for coarse equal breath sounds. CARDIOVASCULAR: Regular rhythm. ABDOMEN: Soft and massive. EXTREMITIES: With chronic edema. IMPRESSION: 1. Asthmatic bronchitis. I suspect this is viral mediated. She does not have chronic obstructive p ulmonary disease. 2. Sleep apnea treated with a tracheostomy. 3. Life threatening obesity. Sadly, she has been unable to lose weight. I noticed she is not on steroids so we will add in steroids. She does not need telemetry monitoring. I reviewed her chest radiograph. I do not feel she has congestive heart failure contributing to her admission. She is on a fairly generous dose of Lasix and will develop a metabolic alkalosis with this most likel y which will aggravate her hypoventilation tendencies. Orders have been changed and steroids have be en added. We will continue to follow.
[2018-04-02] MEDS: Pravastatin Sodium 20 MG TAB PO SCH (21:31)
[2018-04-02] MEDS: Guaifenesin DM 100-10/5 ML UDCUP PO PRN (21:32)
[2018-04-03] MEDS: HYDROcodone/Acetaminophen 10/325 mg Tablet PO SCH ×3 (06:32→22:44)
[2018-04-03] MEDS: Levothyroxine Sodium 100 MCG TAB PO SCH (06:32)
[2018-04-03] MEDS: Furosemide 80 MG TAB PO SCH (08:54)
[2018-04-03] MEDS: Lisinopril 20 MG TAB PO SCH (08:54)
[2018-04-03] MEDS: Aspirin 81 mg Enteric Coated Tablet PO SCH (08:54)
[2018-04-03] MEDS: Cefdinir 300 MG CAP PO SCH ×2 (08:54→22:44)
[2018-04-03] MEDS: Docusate 100 MG CAP PO SCH ×2 (08:54→20:54)
[2018-04-03] MEDS: Insulin Glargine 95 UNITS in Pre-Filled Syringe 1 EACH SC SCH (08:58)
[2018-04-03] MEDS: Budesonide 0.5 MG/2 ML NEB INH SCH ×2 (09:13→20:00)
--- NOTE | 2018-04-03 10:26 | PRG ---
DATE OF SERVICE: 04/03/2018 The patient says she feels somewhat congested and not quite ready to go home. PHYSICAL EXAMINATION: VITAL SIGNS: Temperature is 97.5, pulse 100, respirations 20, O2 sat 91% on 8 liters trach collar. HEENT: Unremarkable. NECK: No JVD. CHEST: Coarse breath sounds. CARDIAC: S1 and S2 regular. ABDOMEN: Soft. EXTREMITIES: No edema. LABORATORY DATA: No new labs were done today. ASSESSMENT: Asthma with exacerbation. PLAN: Convert to oral steroids. Plan for discharge this weekend when she feels up to it.
--- NOTE | 2018-04-03 11:01 | PDOC.PN ---
- Subjective Encounter Start Date: 04/03/18 Encounter Start Time: 07:00 Patient seen and examined. No new complaints. No overnight events pt is not feeling up to her baseline, she feels not ready for discharge - Objective MAR Reviewed: Yes Vital Signs & Weight: Vital Signs (12 hours) Temp Pulse Resp BP BP BP BP 04/03/18 09:16 04/03/18 09:13 100 20 04/03/18 09:04 100 20 04/03/18 08:54 128/79 04/03/18 08:00 04/03/18 07:45 97.5 F L 92 18 120/56 L 04/03/18 03:54 98.7 F 97 24 H 121/72 04/03/18 00:40 105 H 24 H 04/02/18 23:44 97.7 F 105 H 20 124/73 Pulse Ox 04/03/18 09:16 91 L 04/03/18 09:13 91 L 04/03/18 09:04 91 L 04/03/18 08:54 04/03/18 08:00 93 L 04/03/18 07:45 93 L 04/03/18 03:54 94 L 04/03/18 00:40 97 04/02/18 23:44 94 L Weight Weight 379 lb I&O: 04/02/18 04/03/18 04/04/18 06:59 06:59 06:59 Intake Total 1720 Output Total 3600 Balance -1880 Result Diagrams: 04/02/18 10:30 04/02/18 10:30 Additional Labs: Accuchecks 04/03/18 04/03/18 04/02/18 05:48 05:15 19:39 POC Glucose 98 47 L* 279 H 04/02/18 04/02/18 16:24 10:42 POC Glucose 123 H 111 H Phys Exam - Physical Examination Constitutional: NAD HEENT: PERRLA, moist MMs, sclera anicteric Neck: no JVD, supple tracheostomy+ Respiratory: no wheezing, no rales, no rhonchi Cardiovascular: RRR, no significant murmur, no rub Gastrointestinal: soft, non-tender, no distention, positive bowel sounds morbid obesity limiting exam Musculoskeletal: no edema, pulses present Neurological: non-focal, normal sensation, moves all 4 limbs Lymphatic: no nodes Psychiatric: normal affect, A&O x 3 Skin: no rash, normal turgor Dx/Plan (1) Acute bronchitis Code(s): J20.9 - ACUTE BRONCHITIS, UNSPECIFIED Status: Acute Qualifiers: Comment: continue antibiotics as below (2) COPD (chronic obstructive pulmonary disease) Status: Chronic Qualifiers: COPD type: unspecified COPD Qualified Code(s): J44.9 - Chronic obstructive pulmonary disease, unspecified Comment: (3) DM type 2 (diabetes mellitus, type 2) Status: Chronic Qualifiers: Diabetes mellitus skilled nursing insulin use: with long term care social worker use Diabetes mellitus complication status: without complication Qualified Code(s): E11.9 - Type 2 diabetes mellitus without complications; Z79.4 - petroleum terminal plant operator (current) use of insulin; Z79.4 - petroleum terminal plant operator (current) use of insulin; Z79.4 - shelter ( current) use of insulin; Z79.4 - petroleum terminal plant operator (current) use of insulin Comment: (4) Essential hypertension Code(s): I10 - ESSENTIAL (PRIMARY) HYPERTENSION Status: Chronic Comment: (5) Hypothyroidism Code(s): E03.9 - HYPOTHYROIDISM, UNSPECIFIED Status: Chronic Qualifiers: Hypothyroidism type: unspecified Qualified Code(s): E03.9 - Hypothyroidism , unspecified Comment: (6) Morbid obesity with body mass index of 70 and over in adult Code(s): E66.01 - MORBID (SEVERE) OBESITY DUE TO EXCESS CALORIES; Z68.45 - BODY MASS INDEX (BMI) 70 OR GREATER, ADULT Status: Chronic (7) Obesity hypoventilation syndrome Code(s): E66.2 - MORBID (SEVERE) OBESITY WITH ALVEOLAR HYPOVENTILATION Status : Chronic Comment: stable (8) Anxiety and depression Code(s): F41.8 - OTHER SPECIFIED ANXIETY DISORDERS Status: Chronic Comment: (9) Chronic stage c diastolic heart failure Code(s): I50.32 - CHRONIC DIASTOLIC (CONGESTIVE) HEART FAILURE Status: Chronic (10) Hypoglycemia due to type 2 diabetes mellitus Code(s): E11.649 - TYPE 2 DIABETES MELLITUS WITH HYPOGLYCEMIA WITHOUT COMA Status: Acute - Plan cont current plan of care, continue antibiotics, respiratory therapy * continue tracheostomy care * medication reviewed as below * symptomatic treatment * discussed with mother * steroid changed to PO. * monitor blood sugar Review of Systems - Review of Systems ENT: negative: Ear Pain, Ear Discharge, Nose Pain, Nose Discharge, Nose Congestion, Mouth Pain, Mouth Swelling, Throat Pain, Throat Swelling, Other Respiratory: negative: Cough, Dry, Shortness of Breath, Hemoptysis, SOB with Excertion, Pleuritic Pain, Sputum, Wheezing Cardiovascular: negative: chest pain, palpitations, orthopnea, paroxysmal nocturnal dyspnea, edema, light headedness, other Gastrointestinal: negative: Nausea, Vomiting, Abdominal Pain, Diarrhea, Constipation, Melena, Hematochezia, Other Genitourinary: negative: Dysuria, Frequency, Incontinence, Hematuria, Retention , Other Musculoskeletal: negative: Neck Pain, Shoulder Pain, Arm Pain, Back Pain, Hand Pain, Leg Pain, Foot Pain, Other - Medications/Allergies Allergies/Adverse Reactions: Allergies Allergy/AdvReac Type Severity Reaction Status Date / Time gabapentin Allergy Severe Short of Verified 03/31/18 18:16 Breath pregabalin [From Lyrica] Allergy Severe Short of Verified 03/31/18 18:16 Breath duloxetine [From Cymbalta] Allergy Short of Verified 03/31/18 18:16 Breath Medications: Current Medications Acetaminophen (Tylenol) 650 mg PO Q4H PRN PRN Reason: Headache/Fever or Pain Hydrocodone Bitart/Acetaminophen ([place] 10/325) 1 tab PO Q8HR [facility] Last Admin: 04/03/18 06:32 Dose: 1 tab Al Hydroxide/Mg Hydroxide (Maalox) 60 ml SSW Q6H PRN PRN Reason: Mouth Irritation Albuterol/Ipratropium (Duoneb) 3 ml NEB [id number] [facility] Last Admin: 04/03/18 09:04 Dose: 3 ml Aspirin (Ecotrin) 81 mg PO DAILY [facility] Last Admin: 04/03/18 08:54 Dose: 81 mg Budesonide (Pulmicort Neb Solution) 0.5 mg INH BID-RT [facility] Last Admin: 04/03/18 09:13 Dose: 0.5 mg Calcium Carbonate (Tums) 1,000 mg PO Q6H PRN PRN Reason: Indigestion/HEARTBURN/GAS Cefdinir (Omnicef) 300 mg PO BID [facility] Stop: 04/06/18 21:01 Last Admin: 04/03/18 08:54 Dose: 300 mg Cyclobenzaprine HCl (Flexeril) 10 mg PO TID PRN PRN Reason: Muscle Spasm Docusate Sodium (Colace) 100 mg PO BID [facility] Last Admin: 04/03/18 08:54 Dose: 100 mg Furosemide (Lasix) 80 mg PO DAILY [facility] Last Admin: 04/03/18 08:54 Dose: 80 mg Guaifenesin/Dextromethorphan (Robitussin Dm) 15 ml PO Q4H PRN PRN Reason: Cough Last Admin: 04/02/18 21:32 Dose: 15 ml Insulin Glargine 95 units/ (Miscellaneous Medication) 0.95 mls @ 0 mls/hr SC BID [facility] Last Admin: 04/03/18 08:58 Dose: 0.95 mls Levothyroxine Sodium (Synthroid) 300 mcg PO 0600 [facility] Last Admin: 04/03/18 06:32 Dose: 300 mcg Lidocaine HCl (Xylocaine 2% Viscous) 30 ml SSW Q6H PRN PRN Reason: Mouth Irritation Lisinopril (Zestril) 20 mg PO DAILY [facility] Last Admin: 04/03/18 08:54 Dose: 20 mg Nystatin (Mycostatin Powder) 1 gm TOP BID PRN PRN Reason: Topical Irritations Phenol (Chloraseptic [place] 180 Ml Bot) 0 ml PO BIDPRN PRN PRN Reason: Sore Throat Pravastatin Sodium (Pravachol) 20 mg PO HS [facility] Last Admin: 04/02/18 21:31 Dose: 20 mg Prednisone (Prednisone) 40 mg PO 1200 [facility] Sertraline HCl (Zoloft) 25 mg PO HS [facility] Last Admin: 04/02/18 21:31 Dose: 25 mg Sodium Chloride (Flush - Normal Saline) 10 ml IVF Q12HR [facility] Last Admin: 04/03/18 09:03 Dose: Not Given Sodium Chloride (Flush - Normal Saline) 10 ml IVF PRN PRN PRN Reason: Saline Flush Last Admin: 04/01/18 12:39 Dose: 10 ml
[2018-04-03] MEDS: predniSONE 20 MG TAB PO SCH (12:10)
[2018-04-03] MEDS: Pravastatin Sodium 20 MG TAB PO SCH (22:45)
[2018-04-03] MEDS: Guaifenesin DM 100-10/5 ML UDCUP PO PRN (22:46)
[2018-04-04] MEDS: Budesonide 0.5 MG/2 ML NEB INH SCH (06:38)
[2018-04-04 06:59] VITALS: BP 130/80; TEMP 98.2
[2018-04-04] MEDS: Levothyroxine Sodium 100 MCG TAB PO SCH (07:04)
[2018-04-04] MEDS: HYDROcodone/Acetaminophen 10/325 mg Tablet PO SCH (07:05)
[2018-04-04] MEDS: Docusate 100 MG CAP PO SCH (09:41)
[2018-04-04] MEDS: Lisinopril 20 MG TAB PO SCH (09:41)
[2018-04-04] MEDS: Furosemide 80 MG TAB PO SCH (09:41)
[2018-04-04] MEDS: Cefdinir 300 MG CAP PO SCH (09:41)
[2018-04-04] MEDS: Aspirin 81 mg Enteric Coated Tablet PO SCH (09:41)
--- NOTE | 2018-04-04 10:15 | PRG ---
DATE OF SERVICE: 04/04/2018. SUBJECTIVE: She feels better and wants to go home. PHYSICAL EXAMINATION: VITAL SIGNS: Temperature is 98.2, pulse 101, respirations 16, blood pressure 130/80, O2 sat 97%. HEENT: Unremarkable. NECK: Trach clean. CARDIAC: S1 and S2 regular. LUNGS: Clear. ABDOMEN: Soft. EXTREMITIES: No obvious edema. LABORATORY DATA: She had no labs done today. ASSESSMENT: Asthma with exacerbation seems to be back to her baseline. PLAN: From our standpoint, she is clear for discharge. She should be able to finish up a short ster oid taper as an outpatient and complete a short course of antibiotics. She should follow up with Dr. Stokes in 2-3 weeks.
--- NOTE | 2018-04-04 10:38 | DIS ---
DATE OF ADMISSION: 03/31/2018 DATE OF DISCHARGE: 04/04/2018 PRIMARY CARE PHYSICIAN: Guanaco Alexander M.D. DISCHARGE DISPOSITION: Home. PRIMARY DISCHARGE DIAGNOSES: 1. Acute asthmatic bronchitis. 2. Hypoglycemia, associated with diabetes, type 2. SECONDARY DISCHARGE DIAGNOSES: Morbid obesity with body mass index 71; obesity hypoventilation syndr ome with tracheostomy; hypothyroidism; hypertension; chronic diastolic heart failure; diabetes, type 2; chronic obstructive pulmonary disease; anxiety with depression. PRIMARY PROCEDURE/OPERATION: None. RADIOLOGICAL INVESTIGATION: Chest x-ray, on admission, showed congestion and cardiomegaly, no acute process. SIGNIFICANT LABORATORY DATA: WBC 8.3, hemoglobin 15.0, platelets 146. PCO2 of 71.3, pO2 of 68.9, bi carbonate 33. Sodium 141, potassium 4.9, BUN 21, creatinine 0.84, calcium 9.2. LFT normal. Urinaly sis unremarkable. Blood culture and urine culture negative. Respiratory culture negative. Respirat ory virus panel negative. DISCHARGE MEDICATIONS: New medications: Prednisone 40 mg p.o. daily for 5 more days and Omnicef 300 mg p.o. b.i.d. for 5 days. Continue following medications: Flexeril 10 mg t.i.d. p.r.n., [place] 10 one tablet q.8 hourly p.r.n., Lasix 80 mg p.o. b.i.d., Levemir insulin 95 units subcu b.i.d. as per h ome dosage, pravastatin 20 mg p.o. at bedtime, Zoloft 25 mg p.o. at bedtime, aspirin 81 mg p.o. daily , DuoNeb q.6 hourly, levothyroxine 300 mcg p.o. daily, lisinopril 20 mg p.o. daily, Nystatin topical application b.i.d. p.r.n., potassium chloride 20 mEq p.o. b.i.d. CONTRAINDICATIONS: None. CODE STATUS: FULL CODE. INPATIENT CONSULTANTS: Pulmonary group was following while in hospital. ALLERGIES: LYRICA and CYMBALTA. DISCHARGE PLAN: Post hospital, the patient will follow up with primary care physician, Dr. Guanaco willett and Dr. Stokes as instructed. HOSPITAL COURSE: The patient is a 52-year-old female with above-mentioned medical problem, who was a dmitted by Dr. Odonnell on 03/31/2018. Please see his H and P for further detail. The patient is mainl y admitted for increasing shortness of breath and cough with yellowish sputum. Her chest x-ray in e emergency room did not show any acute process. She was admitted for acute bronchitis. She was adm itted initially to telemetry floor. She has chronic respiratory failure, which is hypoxic and hyperc apnic and related with her morbid obesity with hypoventilation syndrome. She has tracheostomy and at is why Pulmonary group was consulted and they were managing tracheostomy as well as bronchitis. While in hospital, she was treated with IV antibiotic therapy with steroid, and subsequentlys antibio tic therapy changed to Omnicef for 5 more days and IV steroid changed to oral prednisone. She was no longer requiring telemetry and that is why we transferred her to medical floor where she continued t o do well. Today, I have seen and examined this patient. She is expressing her wish to go home. She is feeling up to her baseline. All review of system reviewed with her and negative. PHYSICAL EXAMINATION: VITAL SIGNS: Currently, temperature 98.2, pulse 91, respiratory rate 18, saturation 99% on the trach collar, blood pressure 130/80, weight 379 pounds. GENERAL: The patient is currently alert, awake, in no obvious acute distress. HEAD: Normocephalic, atraumatic. LUNGS: Clear to auscultation without any rhonchi or rales, though morbid obesity limiting examinatio n. CARDIAC: S1 and S2, distant. ABDOMEN: Morbid obesity. NECK: Tracheostomy in place. EXTREMITIES: No edema. NEUROLOGIC: Nonfocal examination. While in hospital, we noted that her blood sugar was low and that is why we provided patient educatio n about insulin. Necessary patient education about hypoglycemia and diabetes was also provided. All new medication prescriptions sent to her pharmacy. Total time spent on discharge day, 31 minutes.
[2018-04-04] MEDS: predniSONE 20 MG TAB PO SCH (11:58)
[2018-04-04] MEDS ORDERED: Prevnar 13-Val Conj/PF 0.5 ML SYRINGE IM ONE (12:00)
--- NOTE | 2018-04-07 12:49 | PQF ---
I did not discharge this patient. ROCKY ROSASVECELESTINO NAVARROVERONICA [id number] [facility] [id number] CLINICAL DOCUMENTATION CLARIFICATION FORM: POST DISCHARGE Addendum to original discharge summary date: ____ Late entry note date: __ DATE: 04/07/18 ATTN: Please exercise your independent, professional judgment in responding to the clarification form. Clinical indicators are provided on the bottom of this form for your review Please check appropriate box(es): [ ] Sepsis due to: (Pna, UTI, gangrenous gall bladder, etc.) Due to: [ ] Device (please specify) [ ] Implant [ ] Graft [ ] Infusion [ ] SIRS due to non-infectious process (please specify etiology) [ ] with organ dysfunction [ ] without organ dysfunction [ ] Severe sepsis with acute organ dysfunction of: (Examples: respiratory failure, encephalopathy, acute kidney failure, other) [ ] Septic Shock [ ] Localized infection without sepsis [ ] Other diagnosis [ ] Unable to determine In addition, please specify: Present on Admission (POA): [ ] Yes [ ] No [ ] Unable to determine For continuity of documentation, please document condition throughout progress notes and discharge summary. Thank You. CLINICAL INDICATORS - SIGNS / SYMPTOMS / LABS Respiratory rate >20/min, Hypoxemia, Metabolic acidosis Lactic Acid >2mmol/L, WBC count (>12,000/mm^4 or <4000/mm^3 or 10% neuts, 10% bands) RISK FACTORS Upper respiratory infection Heart failure Respiratory Failure TREATMENTS: IV antibiotics - broad spectrum (This form is maintained as a part of the permanent medical record) 2014 [email or web address], [employer], [place]. All Rights Reserved [email or web address] [phone] MTDD
--- NOTE | 2018-04-07 12:55 | PQF ---
I did not discharge this patient. RALPHROCKY VERONICA VELAZQUEZ [id number] [facility]255 [id number] CLINICAL DOCUMENTATION CLARIFICATION FORM: POST DISCHARGE Addendum to original discharge summary date: ____ Late entry note date: __ DATE: 04/07/18 ATTN: Please exercise your independent, professional judgment in responding to the clarification form. Clinical indicators are provided on the bottom of this form for your review Please check appropriate box(s): [ ] Acute Respiratory Failure: [ ] with Hypoxia [ ] with Hypercapnia [ ] Acute On Chronic Respiratory Failure: [ ] with Hypoxia [ ] with Hypercapnia [ ] Acute Respiratory Failure due to: (etiology) [ ] ARDS (Acute Respiratory Distress Syndrome) [ ] Chronic Respiratory Failure only [ ] with Hypoxia [ ] with Hypercapnia [ ] Hypoxia [ ] Other diagnosis [ ] Unable to determine In addition, please specify: Present on Admission (POA): [ ] Yes [ ] No [ ] Unable to determine For continuity of documentation, please document condition throughout progress notes and discharge summary. Thank You. CLINICAL INDICATORS - SIGNS / SYMPTOMS / LABS PCO2 > 50 mm Hg (PCO2 findings of 10-15 mm Hg above the patient's normal level if patient has COPD) PO2 < 60 mm Hg (PCO2 findings of 10-15 mm Hg below the patient's normal level if patient has COPD) RISK FACTORS Asthma exacerbation CHF exacerbation Trach status Morbid obesity TREATMENTS: Oxygen Pulmonary Consult (This form is maintained as a part of the permanent medical record) 2014 [employer]. All Rights Reserved [email or web address] [phone] MTDD
--- NOTE | 2018-04-09 18:21 | PQF ---
ROCKY ROSAS HERNAN FULLER [id number] CLINICAL DOCUMENTATION CLARIFICATION FORM: POST DISCHARGE Addendum to original discharge summary date: ____ Late entry note date: __ DATE: 04/09/18 ATTN: Please exercise your independent, professional judgment in responding to the clarification form. Clinical indicators are provided on the bottom of this form for your review Please check appropriate box(es): [ ] Sepsis due to: (Pna, UTI, gangrenous gall bladder, etc.) Due to: [ ] Device (please specify) [ ] Implant [ ] Graft [ ] Infusion [ ] SIRS due to non-infectious process (please specify etiology) [ ] with organ dysfunction [ ] without organ dysfunction [ ] Severe sepsis with acute organ dysfunction of: (Examples: respiratory failure, encephalopathy, acute kidney failure, other) [ ] Septic Shock [ ] Localized infection without sepsis [ x ] Other diagnosis _acute bronchitis [ ] Unable to determine In addition, please specify: Present on Admission (POA): [ x ] Yes [ ] No [ ] Unable to determine For continuity of documentation, please document condition throughout progress notes and discharge summary. Thank You. CLINICAL INDICATORS - SIGNS / SYMPTOMS / LABS Respiratory rate >20/min, Hypoxemia, Metabolic acidosis Lactic Acid >2mmol/L, WBC count (>12,000/mm^4 or <4000/mm^3 or 10% neuts, 10% bands) RISK FACTORS Upper respiratory tract infection Heart failure Respiratory failure TREATMENTS: IV antibiotics - broad spectrum (This form is maintained as a part of the permanent medical record) 2014 [place]. All Rights Reserved [email or web address] [phone] MTDD
--- NOTE | 2018-04-09 18:25 | PQF ---
ROCKY ROSAS SALIM NOORJIBHAI MD [id number] [facility] [id number] CLINICAL DOCUMENTATION CLARIFICATION FORM: POST DISCHARGE Addendum to original discharge summary date: ____ Late entry note date: __ DATE: 04/09/18 ATTN: Please exercise your independent, professional judgment in responding to the clarification form. Clinical indicators are provided on the bottom of this form for your review Please check appropriate box(s): [ ] Acute Respiratory Failure: [ ] with Hypoxia [ ] with Hypercapnia [x ] Acute On Chronic Respiratory Failure: [x ] with Hypoxia [ x ] with Hypercapnia [ ] Acute Respiratory Failure due to: (etiology) [ ] ARDS (Acute Respiratory Distress Syndrome) [ ] Chronic Respiratory Failure only [ ] with Hypoxia [ ] with Hypercapnia [ ] Hypoxia [ ] Other diagnosis [ ] Unable to determine In addition, please specify: Present on Admission (POA): [ x ] Yes [ ] No [ ] Unable to determine For continuity of documentation, please document condition throughout progress notes and discharge summary. Thank You. CLINICAL INDICATORS - SIGNS / SYMPTOMS / LABS PCO2 > 50 mm Hg (PCO2 findings of 10-15 mm Hg above the patient's normal level if patient has COPD) PO2 < 60 mm Hg (PCO2 findings of 10-15 mm Hg below the patient's normal level if patient has COPD) RISK FACTORS CHF exacerbation Trach status Asthma TREATMENTS: Oxygen Pulmonary Consult (This form is maintained as a part of the permanent medical record) 2014 [employer]. All Rights Reserved [email or web address] [phone] [email or web address]
== END 2018-04-04 12:39 | disposition home or self-care (01) | DRG 189 ==
LOC: ERS 11:13 → 2NO 17:51 → ONC 04-02 15:24
PROVIDERS: ADMIT Internal Medicine; ATTEND Internal Medicine
DX: J96.21 Acute and chronic respiratory failure with hypoxia (principal); I50.33 Acute on chronic diastolic (congestive) heart failure; Z68.45 Body mass index [BMI] 70 or greater, adult; E87.2 Acidosis; J45.901 Unspecified asthma with (acute) exacerbation; E66.2 Morbid (severe) obesity with alveolar hypoventilation; J96.22 Acute and chronic respiratory failure with hypercapnia; Z93.0 Tracheostomy status; I10 Essential (primary) hypertension; Z88.8 Allergy status to other drugs, medicaments and biological substances; Z79.899 Other long term (current) drug therapy; Z79.891 Long term (current) use of opiate analgesic; E78.5 Hyperlipidemia, unspecified; E03.9 Hypothyroidism, unspecified; I11.0 Hypertensive heart disease with heart failure; E11.649 Type 2 diabetes mellitus with hypoglycemia without coma; I25.10 Atherosclerotic heart disease of native coronary artery without angina pectoris; F41.9 Anxiety disorder, unspecified; F32.9 Major depressive disorder, single episode, unspecified
CPT/HCPCS: 36415; 36416; 71045; 80053; 81003; 81015; 82805; 83605; 83880; 84484; 85025; 87040; 87070; 87086; 87205; 87633; 90471; 90670; 90732; 93005; 94640; 96365; 96367; 96375; G0009; J1940; J2543; J2920; J2930; J3370; J7050; J7506; J7620; J7626

== ENCOUNTER 2018-04-20 17:25 | Inpatient (IN) | payer OTHER ==
[~2018-04-20 17:25] MED LIST: ISOVUE-370 76%-LOCM 1 ML ONE
[2018-04-20] MEDS ORDERED: Morphine 4 MG/ML VIAL ONE (17:42)
[2018-04-20] MEDS ORDERED: Ondansetron PF 4 MG/2 ML Vial ONE (17:43)
[2018-04-20 17:51] LABS: #Basophils 0.1 thou/uL (0.0-0.2); #Eosinphils 0.2 thou/uL (0.0-0.7); #Lymphocytes 3.6 thou/uL (1.20-3.40); #Monocytes 0.7 thou/uL (0.11-0.59); #Neutrophils 5.7 thou/uL (1.40-6.50); %Basophils 0.8 % (0.0-1.0); %Eosinophils 1.8 % (0.0-10.0); %Lymphocytes 35.2 % (21.0-51.0); %Monocytes 6.5 % (0.0-10.0); %Neutrophils 55.7 % (42.0-75.0); Hemoglobin 15.2 g/dL (12.0-16.0); Mean Corpuscular HGB CONC 30.6 g/dL (32.0-36.0); Mean Corpuscular Volume 81.5 fL (78.0-98.0); Mean Platelet Volume 9.4 fL (7.4-10.4); Platelet Count 156 thou/uL (130-400); RBC Distribution Width 17.3 % (11.5-14.5); White Blood Cell (WBC) Count 10.2 thou/uL (4.8-10.8)
[2018-04-20 18:11] LABS: ALT (SGPT) 18 U/L (8-55); AST (SGOT) 11 U/L (5-34); Albumin 3.6 g/dL (3.5-5.0); Alkaline Phosphatase 110 U/L (40-150); Anion Gap 10 mmol/L (10-20); BUN (Urea Nitrogen) 12 mg/dL (9.8-20.1); Bilirubin, Total 0.5 mg/dL (0.2-1.2); Calc. Creatinine Clearance 0 mL/min (70-130); Calcium 9.3 mg/dL (7.8-10.44); Carbon Dioxide 31 mmol/L (22-29); Chloride 104 mmol/L (98-107); Estimated GFR-MDRD 88; Globulin 3.5 g/dL (2.4-3.5); Glucose 162 mg/dL (70-105); Potassium 4.7 mmol/L (3.5-5.1); Protein, Total 7.1 g/dL (6.0-8.3); Sodium 140 mmol/L (136-145)
[2018-04-20 18:16] LABS: CKMB 0.8 ng/mL (0-6.6); Troponin I Less than 0.010 ng/mL (< 0.028)
[2018-04-20] MEDS ORDERED: Nitroglycerin 0.4 MG TAB (25 Tab Bottle) ONE (18:17)
[2018-04-20] MEDS ORDERED: HYDROcodone/Acetaminophen 5/325 mg Tablet ONE (18:23)
--- NOTE | 2018-04-20 19:01 | RAD ---
AP VIEW CHEST: 04/20/2018 HISTORY: Dyspnea. COMPARISON: 03/31/2018 FINDINGS: AP view chest demonstrates cardiomegaly. Pulmonary vascular congestion is seen. A tracheostomy tube is in place. The radiographic appearance of the chest is stable and unchanged since the previous comparison exam f rom 03/31/2018. IMPRESSION: 1. Cardiomegaly. 2. Pulmonary vascular congestion. 3. No evidence of effusions, pneumonia, or pneumothorax is seen. POS: [facility]
--- NOTE | 2018-04-20 19:25 | CT ---
CONTRAST ENHANCED CTA CHEST: 04/20/2018 HISTORY: Dyspnea. COMPARISON: 02/18/2017 TECHNIQUE: A contrast enhanced CTA chest is obtained. FINDINGS: CTA chest demonstrates marked cardiomegaly. There are areas of air space opacities in both upper lobes, right middle lobe, and both lower lobes, compatible with possible diffuse multilobar pneumonia. No evidence of filling defects is seen in the pulmonary arteries to suggest pulmonary emboli. The ao rta demonstrates no evidence of dissections or aneurysms. IMPRESSION: 1. Cardiomegaly. 2. Air space opacities visualized in all lobes. This may represent pneumonia. A tracheostomy tube is in place. The right and left bronchi, as well as the more distal bronchi, are also visible, witho ut evidence of significant obstruction. POS: [facility]
[2018-04-20] MEDS ORDERED: Cefepime 2 GM VIAL ONE (19:47)
[2018-04-20] MEDS ORDERED: Labetalol HCl 100 MG/20 ML VIAL SLOW IVP PRN (23:07)
[2018-04-20] MEDS ORDERED: Dextrose 5% in Water 1,000 ML IV PRN (23:07)
[2018-04-20] MEDS ORDERED: HYDROcodone/Acetaminophen 5/325 mg Tablet PO PRN (23:07)
[2018-04-20] MEDS ORDERED: Dextrose 50% Abboject 50 ML SYRINGE SLOW IVP PRN (23:07)
[2018-04-20] MEDS ORDERED: VANCOMYCIN IVPB PRN (23:43)
[2018-04-21] MEDS: Piperacillin/Tazobactam 3.375 GM in Sodium Chloride 0.9% 100 ML IVPB SCH ×4 (00:08→18:15)
[2018-04-21] MEDS ORDERED: Morphine 4 MG/ML VIAL ONE (03:27)
[2018-04-21] MEDS ORDERED: Ventilator Sedation Protocol 1 EACH FS ONE (03:34)
[2018-04-21] MEDS ORDERED: CCU Electrolyte Replacement 1 EACH FS ONE (03:34)
--- NOTE | 2018-04-21 03:38 | PDOC.EVN ---
Event Note - Event Note Event Note: Patient has decompensated since being placed on the floor. After CPAP started she became lethargic, Blood gas demonstrated a severe respiratory acidosis. She was moved to the ICU, Dr. Rordiguez was notified, he came in and placed her on the Ventilator.
[2018-04-21] MEDS ORDERED: Morphine 2 MG/ML SYRINGE SLOW IVP PRN (03:39)
[2018-04-21] MEDS ORDERED: Fentanyl BOLUS 250 ML IVPB PRN (03:39)
[2018-04-21] MEDS ORDERED: Propofol 1,000 MG/100 ML VIAL IV PRN (03:39)
[2018-04-21] MEDS ORDERED: Lorazepam 2 MG/ML VIAL SLOW IVP PRN (03:39)
[2018-04-21] MEDS ORDERED: Propofol BOLUS 1,000 MG/100 ML VIAL IV PRN (03:39)
[2018-04-21] MEDS ORDERED: DISCONTINUE PREVIOUS NARCOTIC PAIN MEDICATIONS AND BENZODIAZEPINES FS SCH (03:39)
[2018-04-21] MEDS ORDERED: Magnesium Oxide 400 MG TAB PO PRN ×2 (03:41)
[2018-04-21] MEDS ORDERED: Potassium Phosphate 12 MMOL in Sodium Chloride 0.9% 250 ML 250 ML IV PRN (03:41)
[2018-04-21] MEDS ORDERED: Potassium Phosphate 9 MMOL in Sodium Chloride 0.9% 100 ML IVPB PRN (03:41)
[2018-04-21] MEDS ORDERED: Magnesium 2 GM/NS 0.9% 100 ML 2 GM in Premix Bag 1 BAG IVPB PRN (03:41)
[2018-04-21] MEDS ORDERED: Potassium Chloride 40 MEQ in Sodium Chloride 0.9% 250 ML 250 ML IVPB PRN (03:41)
[2018-04-21] MEDS ORDERED: Potassium Chloride 40 MEQ in Premix Bag 1 BAG IVPB PRN (03:41)
[2018-04-21] MEDS ORDERED: CCU ELECTROLYTE REPLACEMENT PROTOCOL FS PRN (03:41)
[2018-04-21] MEDS ORDERED: Potassium Phosphate 15 MMOL in Sodium Chloride 0.9% 250 ML 250 ML IV PRN (03:41)
[2018-04-21] MEDS ORDERED: Potassium Chloride 20 MEQ TAB PO PRN (03:41)
[2018-04-21] MEDS ORDERED: Morphine 4 MG/ML VIAL SLOW IVP PRN (03:44)
--- NOTE | 2018-04-21 03:53 | HP ---
PRIMARY CARE PHYSICIAN: Dr. Alexander. LEASING COORDINATOR: Dr. Stokes. CHIEF COMPLAINT: Shortness of breath and thick phlegm. HISTORY OF PRESENT ILLNESS: Ms. Bal is a very pleasant 52-year-old female that has a history of c hronic respiratory failure. She has had a tracheostomy placed, severe life threatening obesity, diab etes mellitus, and hypertension. She was recently treated at our facility for a community-acquired p neumonia and discharged to home on 04/04/2018. She says from then she has been getting a bit worse. She started having thicker sputum, which has been dark green in color. She has been having fevers, which started about 2 days ago. She also notes some pain on the right side of her chest, especially when she tries to breathe. She also feels very congested and feels more short of breath. She denies any nausea or vomiting; however, no headaches, no dizziness. She says she notices some increased sw elling in her legs, but not recently. REVIEW OF SYSTEMS: All systems were reviewed and are negative except for that mentioned in history o f present illness. PAST MEDICAL HISTORY: Significant for coronary artery disease, congestive heart failure with preserv ed ejection fraction, diabetes mellitus, hypertension, hypothyroidism, obesity with a BMI of 70, and chronic respiratory failure, status post tracheostomy. PAST SURGICAL HISTORY: She has had a and a tracheostomy. ALLERGIES: CYMBALTA, GABAPENTIN, and LYRICA. FAMILY HISTORY: Significant for diabetes mellitus, end-stage renal disease, and hypertension. SOCIAL HISTORY: She is , has two children. She is a nonsmoker, nondrinker. Her mother Dona Seth is her surrogate decision maker and she says her sister and daughter can do this as well. See goddard would like to be a FULL CODE. CURRENT MEDICATIONS: Taken from the emergency room records and include pravastatin 20 mg daily, levo thyroxine 300 mcg daily, Levemir 95 units twice a day, Lasix 80 mg twice daily, Corona 10/325 one tabl et every 4 hours as needed, lisinopril 20 mg daily, Protonix 40 mg twice a day, aspirin 81 mg daily, vitamin D2 of 50,000 units daily. PHYSICAL EXAMINATION: GENERAL: She is alert and oriented. She appears to be in some distress due to dyspnea. She is well -developed and she is morbidly obese. VITAL SIGNS: Blood pressure initially was elevated at 169/137. However, currently it is 111/70, hea rt rate 120, respiratory rate of 26, temperature is 98.5. HEENT: Pupils are equal, round, and reactive. Extraocular muscles are intact. Her sclerae anicteri c. Throat no erythema, no exudates. NECK: There are no bruits, no adenopathy. LUNGS: Difficult to hear or auscultate; however, I did not appreciate any wheezing or rales. There could be decreased breath sounds at the bases, possibly some scattered rales. CARDIOVASCULAR: Again, distant heart tones. Her S1, S2 was normal. There is no S3 or S4. No murmu rs, clicks, or rubs. ABDOMEN: Obese, it is soft, it is nontender, nondistended. Positive for bowel sounds. No rebound o r guarding. MUSCULOSKELETAL: No muscle tenderness, no joint effusions. NEUROLOGIC: Her cranial nerves II through XII are intact. Muscle strength is intact in both the upp er and lower extremities. SKIN AND INTEGUMENT: There are no skin changes. No rash. LABORATORY RESULTS: White blood cell count is 10.2, hemoglobin 15.2, hematocrit is 49.7, platelet co unt is 156. D-dimer 0.69. Sodium 140, potassium 4.7, chloride is 104, CO2 is 31, BUN of 12, creatin ine 0.83, glucose is 162. Troponin was less than 0.010. Chest x-ray by my reading is poorly penetra jeni, heart size is slightly enlarged and she had airspace disease in both lungs. X-RAY FINDINGS: On her EKG also by my reading sinus tachycardia, the heart rate is 188. There is qu ite a bit of baseline artifact, but no specific ST wave changes. ASSESSMENT AND PLAN: This is a pleasant 52-year-old female that presented to the emergency room with shortness of breath and increasing sputum. She had a recent hospitalization for pneumonia and appea rs to have patchy airspace disease once again. Since she has recently been hospitalized, this will b e hospital-acquired pneumonia. 1. Hospital-acquired pneumonia with acute hypoxic respiratory failure. She will be placed inpatient started on broad spectrum IV antibiotics including vancomycin and Zosyn. Her universal grinder operator will be consulted. We will need to have aggressive pulmonary care given her tracheostomy suctioning as neede d and DuoNebs scheduled p.r.n. 2. Diabetes mellitus. We will continue her Levemir insulin, Lantus of the equivalent as well as sli ding scale insulin. 3. Hypertension. Reconcile and restart her antihypertensive medications as well as p.r.n. 4. Severe morbid obesity, which is life threatening and we will complicate her recovery. 5. We will place her on deep venous thrombosis prophylaxis.
[2018-04-21] MEDS: Sodium Chloride 0.9% 1,000 ML IV SCH (03:55)
[2018-04-21] MEDS: fentaNYL Citrate/PF 2,000 MCG in Sodium Chloride 0.9% 60 ML IV SCH (04:06)
[2018-04-21 04:40] LABS: pH, Arterial 7.24 (7.35-7.45)
[2018-04-21 04:41] LABS: Actual Bicarbonate (HCO3a) 28.8 mEq/L (22-28); Base Excess (BEa) -0.4 mEq/L (-2.0 to +3.0); CO2 Tension 68.2 mmHg (35.0-45.0); Carboxyhemoglobin (COHb) 1.2 gm% (0.0-3.0); Hemoglobin (Hb) 14.6 g/dL (12.0-16.0); O2 Tension (PaO2) 49.8 mmHg (80.0-100.0)
[2018-04-21 04:42] LABS: Calcium, Ionized 1.18 mmol/L (1.12-1.30); Potassium - ABG Lab 4.92 mmol/L (3.70-5.30); Puncture Site LBR
[2018-04-21 05:17] LABS: Anion Gap 13 mmol/L (10-20); BUN (Urea Nitrogen) 13 mg/dL (9.8-20.1); Calc. Creatinine Clearance 225 mL/min (70-130); Carbon Dioxide 27 mmol/L (22-29); Chloride 105 mmol/L (98-107); Estimated GFR-MDRD Greater than 90; Glucose 230 mg/dL (70-105); Potassium 5.6 mmol/L (3.5-5.1); Sodium 139 mmol/L (136-145)
[2018-04-21 06:28] LABS: #Eosinphils 0.1 thou/uL (0.0-0.7); #Lymphocytes 1.4 thou/uL (1.20-3.40); #Monocytes 0.8 thou/uL (0.11-0.59); #Neutrophils 8.5 thou/uL (1.40-6.50); %Basophils 0.1 % (0.0-1.0); %Lymphocytes 12.7 % (21.0-51.0); %Neutrophils 79.3 % (42.0-75.0); Hemoglobin 14.1 g/dL (12.0-16.0); MDiff Complete? YES; Mean Corpuscular HGB CONC 30.8 g/dL (32.0-36.0); Mean Corpuscular Hemoglobin 25.2 pg (27.0-31.0); Mean Corpuscular Volume 81.7 fL (78.0-98.0); Mean Platelet Volume 10.6 fL (7.4-10.4); Platelet Count 134 thou/uL (130-400); Polychromasia SLIGHT = 2-3 cells (100X) (0-2/hpf); RBC Distribution Width 17.2 % (11.5-14.5); Red Blood Cell (RBC) Count 5.58 mill/uL (4.20-5.40); Target Cells SLIGHT = 2-5 cells (100X) (0-1/hpf); White Blood Cell (WBC) Count 10.7 thou/uL (4.8-10.8)
--- NOTE | 2018-04-21 06:29 | CON ---
DATE OF CONSULTATION: 04/21/2018 HISTORY OF PRESENT ILLNESS: He is an morbidly obese patient was brought in to the hospital at 17:27. I was called at 3:00 a.m. in the morning, because of progressive respiratory failure. She presented with an O2 sat of 88%, shortness of breath, chest pain, congestion. She is apparently coughing up some dark red sputum and green sputum. She has a trach in place, #6. She had previous history of pneumonia in fact, she was just recently d ischarged from the hospital. Blood gases were called after she became obtunded, which showed severe respiratory acidosis. She was brought to the ICU where she was placed on full face BiPAP with a #[address] by Respir atory. A #6 cuffed trach was replaced. The patient was placed on a warm cycle respirator. There is no family member at the bedside. PAST MEDICAL HISTORY: Acute on chronic respiratory failure, morbid obesity, permanent trach to use, hypothyroidism, hypertension, diastolic dysfunction, pneumonia, morbidly obese. MEDICATIONS: From home included Lasix 80 twice a day, Flexeril, Zoloft 25, lisinopril 20, Synthroid , DuoNeb, insulin, prednisone 40, Pravachol. ALLERGIES: CYMBALTA, LYRICA, GABAPENTIN. SOCIAL HISTORY: Alcohol at this stage, none. Tobacco none. PAST SURGICAL HISTORY: , trach. PHYSICAL EXAMINATION: VITAL SIGNS: Post-intubation sats are 98%, pulse 80, blood pressure of . She was given 2 of mo rphine. CHEST: Decreased breath sounds without any wheezing. CARDIAC: Normal S1, S2, no gallops. ABDOMEN: Massive. EXTREMITIES: Trace edema. LABORATORY DATA AND IMAGING: White count 10,000, H&H is 15 and 49, platelet count 56. Electrolytes are normal. D-dimer is 0.69. She had a CT angio done at 06:24 p.m., shows bilateral airspace diseas e, trach. ASSESSMENT: 1. Bilateral bronchopneumonia, morbid obesity, respiratory failure. 2. Permanent trach. 3. Diabetes. PLAN: Continue vent support. Continue steroids, neb treatments, antibiotics. We will notify Dr. Stokes. This is a 45 minute critical time exclusive of the trach change.
[2018-04-21] MEDS: HumaLOG 300 UNITS/3 ML VIAL SC PRN (07:23)
[2018-04-21 07:28] LABS: Actual Bicarbonate (HCO3a) 29.5 mEq/L (22-28); Base Excess (BEa) 4.1 mEq/L (-2.0 to +3.0); CO2 Tension 47.1 mmHg (35.0-45.0); Calcium, Ionized 1.17 mmol/L (1.12-1.30); Carboxyhemoglobin (COHb) 2.7 gm% (0.0-3.0); Hemoglobin (Hb) 13.6 g/dL (12.0-16.0); O2 Tension (PaO2) 109.1 mmHg (80.0-100.0); pH, Arterial 7.42 (7.35-7.45)
[2018-04-21 07:30] LABS: Puncture Site RR
[2018-04-21 07:31] LABS: ALV-art Gradient 545.025 (0-20)
[2018-04-21] MEDS ORDERED: Diabetic Tussin 200 MG/10 ML UDCUP PO PRN (07:43)
[2018-04-21] MEDS ORDERED: Bisacodyl 10 MG SUPP PR PRN (07:43)
[2018-04-21] MEDS ORDERED: Senokot S 8.6-50 MG TAB PO PRN (07:43)
[2018-04-21] MEDS ORDERED: Sodium Chloride 0.65% Nasal 44 ML BOT EA NARE PRN (07:43)
[2018-04-21] MEDS ORDERED: Loperamide HCl 2 MG CAP PO PRN (07:43)
[2018-04-21] MEDS ORDERED: Eucerin (Mineral Oil/Petrolatum,White) 30 gm Jar TOP PRN (07:43)
[2018-04-21] MEDS ORDERED: Artificial Tears 18 DROP/0.9 ML EA EYE PRN (07:43)
[2018-04-21] MEDS ORDERED: Vancomycin HCl 1 GM in Premix Bag 1 BAG IVPB SCH (09:00)
[2018-04-21] MEDS: Enoxaparin Sodium 40 MG/0.4 ML SYRINGE SC SCH (09:30)
[2018-04-21] MEDS: Famotidine/PF 20 mg/2ml Vial SLOW IVP SCH ×2 (09:30→21:39)
[2018-04-21] MEDS: Saccharomyces boulardii 250 MG CAP PO SCH (09:31)
--- NOTE | 2018-04-21 10:02 | RAD ---
PORTABLE CHEST ONE VIEW: 04/21/2018 8:30 a.m. HISTORY: Respiratory failure. COMPARISON: Exam from the previous day. FINDINGS: A tracheostomy tube remains in place. The heart size is enlarged. There is pulmonary vascular conge stion. No lobar consolidation, pneumothoraces, or large effusions are seen. IMPRESSION: Stable examination. POS: [facility]
--- NOTE | 2018-04-21 10:15 | PDOC.PN ---
- Subjective Encounter Start Date: 04/21/18 Encounter Start Time: 09:50 Patient seen and examined. pt is on vent, awake. No overnight events - Objective Resuscitation Status: Resuscitation Status FULL:Full Resuscitation MAR Reviewed: Yes Vital Signs & Weight: Vital Signs (12 hours) Temp Pulse Resp BP BP Pulse Ox 04/21/18 08:00 97 04/21/18 07:25 66 118/81 04/21/18 03:43 109 H 130/102 H 04/21/18 03:30 100 04/21/18 02:55 98.6 F 04/21/18 00:00 97.6 F 111 H 20 136/82 96 04/20/18 23:50 92 L 04/20/18 23:48 110 H 22 H 91 L 04/20/18 23:23 98.5 F 110 H 28 H 114/74 92 L 04/20/18 23:00 92 L Weight Admit Weight 346 lb 12.594 oz Weight 368 lb Most Recent Monitor Data Heart Rate from ECG 76 NIBP 141/93 NIBP BP-Mean 109 Respiration from ECG 18 SpO2 97 I&O: 04/20/18 04/21/18 04/22/18 06:59 06:59 06:59 Intake Total 688.4 Output Total 335 200 Balance 353.4 -200 Result Diagrams: 04/21/18 04:44 04/21/18 04:44 Additional Labs: Accuchecks 04/21/18 00:27 POC Glucose 186 H Radiology Reviewed by me: Yes (chest xray, CT angio reviewed) EKG Reviewed by me: Yes (nsr) Phys Exam - Physical Examination Constitutional: NAD on vent HEENT: PERRLA, sclera anicteric Neck: no nodes, supple trach with vent Respiratory: no wheezing, no rales, no rhonchi limited due to morbid obesity Cardiovascular: RRR, no significant murmur, no rub Gastrointestinal: soft, non-tender, no distention, positive bowel sounds morbid obesity+ Musculoskeletal: no edema, pulses present Lymphatic: no nodes Skin: no rash, normal turgor Dx/Plan (1) Acute on chronic respiratory failure with hypoxia and hypercapnia Code(s): J96.21 - ACUTE AND CHRONIC RESPIRATORY FAILURE WITH HYPOXIA; J96.22 - ACUTE AND CHRONIC RESPIRATORY FAILURE WITH HYPERCAPNIA Status: Acute (2) Community acquired bacterial pneumonia Code(s): J15.9 - UNSPECIFIED BACTERIAL PNEUMONIA Status: Acute Comment: suspecting GPC and GNR (3) Anxiety and depression Code(s): F41.8 - OTHER SPECIFIED ANXIETY DISORDERS Status: Chronic Comment: (4) COPD (chronic obstructive pulmonary disease) Status: Chronic Qualifiers: Comment: (5) Chronic stage c diastolic heart failure Code(s): I50.32 - CHRONIC DIASTOLIC (CONGESTIVE) HEART FAILURE Status: Chronic (6) DM type 2 (diabetes mellitus, type 2) Status: Chronic Qualifiers: Comment: (7) Essential hypertension Code(s): I10 - ESSENTIAL (PRIMARY) HYPERTENSION Status: Chronic Comment: (8) Hypothyroidism Code(s): E03.9 - HYPOTHYROIDISM, UNSPECIFIED Status: Chronic Qualifiers: Comment: (9) Morbid obesity with body mass index of 70 and over in adult Code(s): E66.01 - MORBID (SEVERE) OBESITY DUE TO EXCESS CALORIES; Z68.45 - BODY MASS INDEX (BMI) 70 OR GREATER, ADULT Status: Chronic (10) Obesity hypoventilation syndrome Code(s): E66.2 - MORBID (SEVERE) OBESITY WITH ALVEOLAR HYPOVENTILATION Status : Chronic Comment: stable - Plan cont current plan of care, continue antibiotics, respiratory therapy * continue vancomycin and zosyn * continue vent as per pulmonary * medication reviewed as below * symptomatic treatment * supportive care. Review of Systems - Review of Systems Other: unable to review as pt is on vent - Medications/Allergies Allergies/Adverse Reactions: Allergies Allergy/AdvReac Type Severity Reaction Status Date / Time gabapentin Allergy Severe Short of Verified 04/20/18 23:16 Breath pregabalin [From Lyrica] Allergy Severe Short of Verified 04/20/18 23:16 Breath duloxetine [From Cymbalta] Allergy Short of Verified 04/20/18 23:16 Breath Medications: Current Medications Acetaminophen (Tylenol) 650 mg PO Q4H PRN PRN Reason: Headache/Fever/Mild Pain (1-3) Albuterol/Ipratropium (Duoneb) 3 ml NEB [id number] NANI Last Admin: 04/21/18 07:25 Dose: 3 ml Albuterol/Ipratropium (Duoneb) 3 ml NEB Q4H PRN PRN Reason: SOB &/or Wheezing Artificial Tears (Tears Naturale) 2 drop EA EYE PRN PRN PRN Reason: Dry Eyes Bisacodyl (Dulcolax) 10 mg NV DAILYPRN PRN PRN Reason: Constipation Clonidine (Catapres) 0.1 mg PO Q4H PRN PRN Reason: SBP >= 180 Dextrose/Water (Dextrose 50%) 25 gm SLOW IVP PRN PRN PRN Reason: Hypoglycemia Enoxaparin Sodium (Lovenox) 40 mg SC 0900 [facility] Last Admin: 04/21/18 09:30 Dose: 40 mg Famotidine (Pepcid) 20 mg SLOW IVP BID [facility] Last Admin: 04/21/18 09:30 Dose: 20 mg Glucagon (Glucagon) 1 mg IM PRN PRN PRN Reason: Hypoglycemia Guaifenesin (Robitussin Sf) 200 mg PO Q4H PRN PRN Reason: Cough Guaifenesin/Dextromethorphan (Robitussin Dm) 15 ml PO Q4H PRN PRN Reason: Cough Hydralazine HCl (Apresoline) 10 mg SLOW IVP Q4H PRN PRN Reason: SBP > 180 and HR < 70 Dextrose/Water (D5w) 1,000 mls @ 0 mls/hr IV .Q0M PRN PRN Reason: Hypoglycemia Piperacillin Sod/Tazobactam (Sod 3.375 gm/ Sodium Chloride) 100 mls @ 200 mls/ hr IVPB Q6HR [facility] Last Admin: 04/21/18 07:13 Dose: 100 mls Vancomycin HCl 2 gm/ Sodium (Chloride) 500 mls @ 250 mls/hr IVPB 0100 [facility] Last Admin: 04/21/18 01:07 Dose: 500 mls Fentanyl Citrate 2,000 mcg/ (Sodium Chloride) 100 mls @ 0 mls/hr IV INF [facility]; Protocol Stop: 05/21/18 03:39 Last Admin: 04/21/18 04:06 Dose: 100 mls Fentanyl Citrate (Fentanyl Bolus) 250 mls @ 0 mls/hr IVPB PRN PRN PRN Reason: Breakthrough pain/agitation Stop: 05/21/18 03:39 Potassium Chloride 40 meq/ (Sodium Chloride) 270 mls @ 135 mls/hr IVPB ASDIR PRN PRN Reason: FOR SERUM K+ 2.5 - 3.5 Potassium Chloride 40 meq/ (Device) 100 mls @ 50 mls/hr IVPB ASDIR PRN PRN Reason: FOR SERUM K+ 2.5 - 3.5 Magnesium Sulfate 1 gm/ Sodium (Chloride) 102 mls @ 102 mls/hr IV PRN PRN PRN Reason: MAG LEVEL 1.4 - 2.0 Magnesium Sulfate 2 gm/ Device 100 mls @ 100 mls/hr IVPB ASDIR PRN PRN Reason: MAGNESIUM < 1.4 Potassium Phosphate 9 mmol/ (Sodium Chloride) 103 mls @ 25.75 mls/hr IVPB ASDIR PRN PRN Reason: Phosphate 1.0-1.8 Potassium Phosphate 12 mmol/ (Sodium Chloride) 254 mls @ 63.5 mls/hr IV ASDIR PRN PRN Reason: Serum phosphate 0.5-0.9 Potassium Phosphate 15 mmol/ (Sodium Chloride) 255 mls @ 63.75 mls/hr IV ASDIR PRN PRN Reason: Serum Phos < 0.5 Sodium Chloride (Normal Saline 0.9%) 1,000 mls @ 50 mls/hr IV .Q20H [facility] Last Admin: 04/21/18 03:55 Dose: 1,000 mls Insulin Human Lispro (Humalog) 0 units SC .MODERATE SLIDING SC PRN PRN Reason: Moderate Correctional Scale Last Admin: 04/21/18 07:23 Dose: 4 unit Insulin Human Lispro (Humalog) 0 units SC .BEDTIME SLIDING SC PRN PRN Reason: Bedtime Correctional Scale Labetalol HCl (Normodyne) 20 mg SLOW IVP Q4H PRN PRN Reason: SBP > 180 and HR >/= 70 Loperamide HCl (Imodium) 2 mg PO PRN PRN PRN Reason: Diarrhea/Loose Stools Lorazepam (Ativan) 2 mg SLOW IVP Q1H PRN PRN Reason: Breakthrough agitation Stop: 05/21/18 03:39 Magnesium Oxide (Magnesium Oxide) 400 mg PO BIDPRN PRN PRN Reason: FOR SERUM MAG 1.4 - 2.0 Magnesium Oxide (Magnesium Oxide) 800 mg PO PRN PRN PRN Reason: FOR SERUM MAG < 1.4 Methylprednisolone Sodium Succinate (Solu-Medrol) 40 mg IVP Q6HR [facility] Last Admin: 04/21/18 07:13 Dose: 40 mg Mineral Oil/White Petrolatum (Eucerin Cream) 0 gm TOP BIDPRN PRN PRN Reason: Dry Skin Miscellaneous Medication (Pharmacy To Dose) 1 each IVPB PRN PRN PRN Reason: PNA Miscellaneous Medication (Phos-Nak) 1 pkt PO TIDPRN PRN PRN Reason: FOR PHOS LEVEL 1.0 - 1.8 Miscellaneous Medication (Phos-Nak) 2 pkt PO TIDPRN PRN PRN Reason: FOR PHOS LEVEL 0.5 - 1.0 Morphine Sulfate (Morphine) 2 mg SLOW IVP Q1H PRN PRN Reason: BREAKTHROUGH PAIN/Agitation Stop: 05/21/18 03:39 Morphine Sulfate (Morphine) 4 mg SLOW IVP Q4H PRN PRN Reason: Severe Pain (7-10) Discontinue Previous Narcotic Pain Medications And Benzodiazepines 1 each FS .ONE NANI Stop: 05/21/18 03:39 Ccu Electrolyte (Replacement Protocol) 0 each FS PRN PRN PRN Reason: FOR ELECTROLYTE REPLACEMENT Potassium Chloride (K-Dur) 40 meq PO ASDIR PRN PRN Reason: FOR SERUM K+ 2.5 - 3.5 Potassium Chloride (Klor-Con) 40 meq PER TUBE ASDIR PRN PRN Reason: FOR SERUM K+ 2.5-3.5 Propofol (Diprivan) 1,000 mg IV INF PRN; Protocol PRN Reason: TO ACHIEVE GOAL RASS Stop: 05/21/18 03:39 Propofol (Diprivan Bolus) 20 mg IV Q5MIN PRN PRN Reason: BREAKTHROUGH AGITATION Stop: 05/21/18 03:39 Saccharomyces Boulardii (Florastor) 250 mg PO DAILY [facility] Last Admin: 04/21/18 09:31 Dose: Not Given Senna/Docusate Sodium (Senokot S) 2 tab PO BID PRN PRN Reason: Constipation Sodium Chloride (Babb Nasal [place]yce 0.65%) 0 ml EA NARE QIDPRN PRN PRN Reason: Nasal Congestion
[2018-04-21] MEDS: hydrALAZINE 20 MG/ML VIAL SLOW IVP PRN (14:13)
--- NOTE | 2018-04-21 16:02 | CON ---
DATE OF CONSULTATION: 04/21/2018 HISTORY OF PRESENT ILLNESS: Ms. Bal is a 52-year-old female who I have known for many years ([facility]). She has a chronic indwelling trach for sleep apnea and chronic respiratory celestina lure. She presented feeling like she was dying according to the family. She apparently started having feve r 2 days ago and pain in her chest. She started feeling more congested. She had an appointment to britt lu yesterday, but did not call to ask to be seen sooner. She has been doing water aerobic exercises, but has not been calorie counting. She subsequently has been admitted with a diagnosis of pneumonia based on the findings on CT scan. T he chest radiograph was horribly underpenetrated. PAST MEDICAL HISTORY: Remarkable for, 1. Diastolic heart failure. 2. Diabetes. 3. Hypertension. 4. Hypothyroidism. 5. Life threatening obesity. 6. Status post tracheostomy for sleep apnea. 7. History of . Her only son last year or the year before, found down in a house that was believed to be a drug house. She had severe depression after this. ALLERGIES: To CYMBALTA, GABAPENTIN and LYRICA. FAMILY HISTORY: Positive for diabetes, renal disease and hypertension. SOCIAL HISTORY: She is a nonsmoker, nondrinker. Her mother is her decision maker by report, but her mother is living here because she is developing some dementia. Her sister is here with her as well. MEDICATIONS: Medications have been reviewed. REVIEW OF SYSTEMS: Not obtained because she is ventilated. PHYSICAL EXAMINATION: VITAL SIGNS: Blood pressure 184/109 earlier, 156/85 this afternoon, heart rate is 82, respiratory ra te is 100, oximetry is 98%, respiratory rate is in the teens. HEAD AND NECK: Unremarkable. LUNGS: Remarkable for rhonchi bilaterally. She has significant secretions. HEART: Regular rhythm. Distant S1 and S2. ABDOMEN: Soft and nontender. EXTREMITIES: Chronically edematous. LABORATORY DATA: White count 10.7, hemoglobin 14.1, platelets 134,000. Sodium 139, potassium 5.6, c hloride 105, bicarbonate 27, BUN 13, creatinine 0.78. Chest CT shows patchy infiltrates, more sugges tive of pneumonia than pulmonary edema, especially with her history. IMPRESSION: 1. Community-acquired pneumonia. 2. Status post tracheostomy many years ago. 3. Recent bout of asthmatic bronchitis. 4. Diastolic heart failure. Her BNP is only 83. I doubt her radiograph is consistent with heart failure. I actually feel her di astolic heart failure is over diagnosed in her since her x-rays are always underpenetrated based on h er size. I do believe deconditioning is one of the biggest factor she is facing prior to this pneumonia. We s pent hours and hours in the office, talking about different ways to calorie count, but she has been u nsuccessful at losing weight. I will be happy to follow her. I have met with the family and answere d all their questions. I would anticipate she will be ventilated for several days. Critical care time, 35 minutes.
[2018-04-22] MEDS: fentaNYL Citrate/PF 2,000 MCG in Sodium Chloride 0.9% 60 ML IV SCH ×2 (00:14→19:46)
[2018-04-22] MEDS: Piperacillin/Tazobactam 3.375 GM in Sodium Chloride 0.9% 100 ML IVPB SCH ×4 (00:57→18:19)
[2018-04-22 04:35] LABS: #Lymphocytes 0.8 thou/uL (1.20-3.40); #Monocytes 0.2 thou/uL (0.11-0.59); #Neutrophils 7.3 thou/uL (1.40-6.50); %Basophils 0.1 % (0.0-1.0); %Eosinophils 0.1 % (0.0-10.0); %Lymphocytes 9.9 % (21.0-51.0); %Monocytes 1.9 % (0.0-10.0); Hemoglobin 13.8 g/dL (12.0-16.0); Mean Corpuscular HGB CONC 30.7 g/dL (32.0-36.0); Mean Corpuscular Hemoglobin 24.8 pg (27.0-31.0); Mean Corpuscular Volume 80.7 fL (78.0-98.0); Mean Platelet Volume 8.1 fL (7.4-10.4); Platelet Count 148 thou/uL (130-400); RBC Distribution Width 17.4 % (11.5-14.5); Red Blood Cell (RBC) Count 5.58 mill/uL (4.20-5.40); White Blood Cell (WBC) Count 8.3 thou/uL (4.8-10.8)
[2018-04-22 04:59] LABS: Anion Gap 14 mmol/L (10-20); BUN (Urea Nitrogen) 13 mg/dL (9.8-20.1); Calc. Creatinine Clearance 231 mL/min (70-130); Calcium 9.3 mg/dL (7.8-10.44); Carbon Dioxide 25 mmol/L (22-29); Chloride 104 mmol/L (98-107); Estimated GFR-MDRD Greater than 90; Glucose 261 mg/dL (70-105); Potassium 4.4 mmol/L (3.5-5.1); Sodium 139 mmol/L (136-145)
[2018-04-22] MEDS: HumaLOG 300 UNITS/3 ML VIAL SC PRN ×4 (06:51→21:25)
[2018-04-22 07:53] LABS: Actual Bicarbonate (HCO3a) 27.2 mEq/L (22-28); Base Excess (BEa) 0.4 mEq/L (-2.0 to +3.0); Calcium, Ionized 1.22 mmol/L (1.12-1.30); Carboxyhemoglobin (COHb) 1.3 gm% (0.0-3.0); Hemoglobin (Hb) 14.6 g/dL (12.0-16.0); O2 Tension (PaO2) 87.5 mmHg (80.0-100.0); Potassium - ABG Lab 4.12 mmol/L (3.70-5.30); pH, Arterial 7.34 (7.35-7.45)
--- NOTE | 2018-04-22 08:15 | RAD ---
SEMI UPRIGHT PORTABLE FRONTAL CHEST RADIOGRAPH: Date: 04-22-18 Comparison: 04-21-18 History: Ventilated patient. FINDINGS: Body habitus and portable technique limit detailed assessment. Stable tracheostomy tube present. Card iac silhouette is prominent. There is nonspecific hazy increased density noted within the perihilar r egions and the left lung base, similar when compared to the prior examination. IMPRESSION: Stable appearance of the chest. Detailed assessment of the lung parenchyma is limited on the basis of body habitus and portable technique. POS: [facility]
[2018-04-22] MEDS: Saccharomyces boulardii 250 MG CAP PO SCH (08:52)
[2018-04-22] MEDS: Enoxaparin Sodium 40 MG/0.4 ML SYRINGE SC SCH (08:57)
[2018-04-22] MEDS: Famotidine/PF 20 mg/2ml Vial SLOW IVP SCH ×2 (08:57→21:16)
[2018-04-22] MEDS: Sodium Chloride 0.9% 1,000 ML IV SCH (09:01)
--- NOTE | 2018-04-22 09:40 | PDOC.PN ---
- Subjective Encounter Start Date: 04/22/18 Encounter Start Time: 07:00 Patient seen and examined. pt is on ventilator, awake, family bedside. No overnight events - Objective Resuscitation Status: Resuscitation Status FULL:Full Resuscitation MAR Reviewed: Yes Vital Signs & Weight: Vital Signs (12 hours) Temp Pulse Resp BP Pulse Ox 04/22/18 07:23 78 137/65 04/22/18 07:22 78 16 100 04/22/18 04:00 98.7 F 04/22/18 02:39 78 125/64 04/22/18 00:15 78 20 100 04/22/18 00:00 98.3 F 04/21/18 22:18 83 141/69 H Weight Admit Weight 368 lb Weight 368 lb Most Recent Monitor Data Heart Rate from ECG 81 NIBP 144/81 NIBP BP-Mean 102 Respiration from ECG 16 SpO2 100 I&O: 04/21/18 04/22/18 04/23/18 06:59 06:59 06:59 Intake Total 688.4 2420 Output Total 335 1475 125 Balance 353.4 945 -125 Result Diagrams: 04/22/18 03:52 04/22/18 03:52 Additional Labs: Accuchecks 04/22/18 04/22/18 04/21/18 06:43 01:26 22:13 POC Glucose 242 H 210 H 202 H 04/21/18 04/21/18 18:25 12:00 POC Glucose 179 H 172 H Radiology Reviewed by me: Yes (chest xray reviewed) EKG Reviewed by me: Yes (nsr) Phys Exam - Physical Examination Constitutional: NAD on vent, awake HEENT: PERRLA, moist MMs, sclera anicteric Neck: no JVD, supple tracheostomy+ Respiratory: no wheezing, no rales, no rhonchi anteriorly, limited due to obesity Cardiovascular: RRR, no significant murmur, no rub distant heart sound+ Gastrointestinal: soft, non-tender, no distention, positive bowel sounds morbid obesity Musculoskeletal: no edema, pulses present Neurological: moves all 4 limbs Lymphatic: no nodes Psychiatric: normal affect Skin: no rash, normal turgor Dx/Plan (1) Acute on chronic respiratory failure with hypoxia and hypercapnia Code(s): J96.21 - ACUTE AND CHRONIC RESPIRATORY FAILURE WITH HYPOXIA; J96.22 - ACUTE AND CHRONIC RESPIRATORY FAILURE WITH HYPERCAPNIA Status: Acute (2) Community acquired bacterial pneumonia Code(s): J15.9 - UNSPECIFIED BACTERIAL PNEUMONIA Status: Acute Comment: suspecting GPC and GNR (3) Anxiety and depression Code(s): F41.8 - OTHER SPECIFIED ANXIETY DISORDERS Status: Chronic Comment: (4) COPD (chronic obstructive pulmonary disease) Status: Chronic Qualifiers: Comment: (5) Chronic stage c diastolic heart failure Code(s): I50.32 - CHRONIC DIASTOLIC (CONGESTIVE) HEART FAILURE Status: Chronic (6) DM type 2 (diabetes mellitus, type 2) Status: Chronic Qualifiers: Comment: (7) Essential hypertension Code(s): I10 - ESSENTIAL (PRIMARY) HYPERTENSION Status: Chronic Comment: (8) Hypothyroidism Code(s): E03.9 - HYPOTHYROIDISM, UNSPECIFIED Status: Chronic Qualifiers: Comment: (9) Morbid obesity with body mass index of 70 and over in adult Code(s): E66.01 - MORBID (SEVERE) OBESITY DUE TO EXCESS CALORIES; Z68.45 - BODY MASS INDEX (BMI) 70 OR GREATER, ADULT Status: Chronic (10) Obesity hypoventilation syndrome Code(s): E66.2 - MORBID (SEVERE) OBESITY WITH ALVEOLAR HYPOVENTILATION Status : Chronic Comment: stable - Plan cont current plan of care, continue antibiotics, respiratory therapy * currently on vancomycin and zosyn * continue solumderol * pulmonary managing vent * discussed with family bedside * medication reviewed as below * symptomatic treatment. Review of Systems - Review of Systems ENT: negative: Ear Pain, Ear Discharge, Nose Pain, Nose Discharge, Nose Congestion, Mouth Pain, Mouth Swelling, Throat Pain, Throat Swelling, Other Respiratory: negative: Cough, Dry, Shortness of Breath, Hemoptysis, SOB with Excertion, Pleuritic Pain, Sputum, Wheezing Cardiovascular: negative: chest pain, palpitations, orthopnea, paroxysmal nocturnal dyspnea, edema, light headedness, other Gastrointestinal: negative: Nausea, Vomiting, Abdominal Pain, Diarrhea, Constipation, Melena, Hematochezia, Other Genitourinary: negative: Dysuria, Frequency, Incontinence, Hematuria, Retention , Other Musculoskeletal: negative: Neck Pain, Shoulder Pain, Arm Pain, Back Pain, Hand Pain, Leg Pain, Foot Pain, Other - Medications/Allergies Allergies/Adverse Reactions: Allergies Allergy/AdvReac Type Severity Reaction Status Date / Time gabapentin Allergy Severe Short of Verified 04/20/18 23:16 Breath pregabalin [From Lyrica] Allergy Severe Short of Verified 04/20/18 23:16 Breath duloxetine [From Cymbalta] Allergy Short of Verified 04/20/18 23:16 Breath Medications: Current Medications Acetaminophen (Tylenol) 650 mg PO Q4H PRN PRN Reason: Headache/Fever/Mild Pain (1-3) Albuterol/Ipratropium (Duoneb) 3 ml NEB [id number] [facility] Last Admin: 04/22/18 07:22 Dose: 3 ml Albuterol/Ipratropium (Duoneb) 3 ml NEB Q4H PRN PRN Reason: SOB &/or Wheezing Artificial Tears (Tears Naturale) 2 drop EA EYE PRN PRN PRN Reason: Dry Eyes Bisacodyl (Dulcolax) [address] DAILYPRN PRN PRN Reason: Constipation Clonidine (Catapres) 0.1 mg PO Q4H PRN PRN Reason: SBP >= 180 Dextrose/Water (Dextrose 50%) 25 gm SLOW IVP PRN PRN PRN Reason: Hypoglycemia Enoxaparin Sodium (Lovenox) 40 mg SC 0900 [facility] Last Admin: 04/22/18 08:57 Dose: 40 mg Famotidine (Pepcid) 20 mg SLOW IVP BID [facility] Last Admin: 04/22/18 08:57 Dose: 20 mg Glucagon (Glucagon) 1 mg IM PRN PRN PRN Reason: Hypoglycemia Guaifenesin (Robitussin Sf) 200 mg PO Q4H PRN PRN Reason: Cough Guaifenesin/Dextromethorphan (Robitussin Dm) 15 ml PO Q4H PRN PRN Reason: Cough Hydralazine HCl (Apresoline) 10 mg SLOW IVP Q4H PRN PRN Reason: SBP > 180 and HR < 70 Last Admin: 04/21/18 14:13 Dose: 10 mg Dextrose/Water (D5w) 1,000 mls @ 0 mls/hr IV .Q0M PRN PRN Reason: Hypoglycemia Piperacillin Sod/Tazobactam (Sod 3.375 gm/ Sodium Chloride) 100 mls @ 200 mls/ hr IVPB Q6HR [facility] Last Admin: 04/22/18 07:40 Dose: 100 mls Vancomycin HCl 2 gm/ Sodium (Chloride) 500 mls @ 250 mls/hr IVPB 0100 [facility] Last Admin: 04/22/18 02:30 Dose: 500 mls Fentanyl Citrate 2,000 mcg/ (Sodium Chloride) 100 mls @ 0 mls/hr IV INF NANI; Protocol Stop: 05/21/18 03:39 Last Admin: 04/22/18 00:14 Dose: 100 mls Fentanyl Citrate (Fentanyl Bolus) 250 mls @ 0 mls/hr IVPB PRN PRN PRN Reason: Breakthrough pain/agitation Stop: 05/21/18 03:39 Potassium Chloride 40 meq/ (Sodium Chloride) 270 mls @ 135 mls/hr IVPB ASDIR PRN PRN Reason: FOR SERUM K+ 2.5 - 3.5 Potassium Chloride 40 meq/ (Device) 100 mls @ 50 mls/hr IVPB ASDIR PRN PRN Reason: FOR SERUM K+ 2.5 - 3.5 Magnesium Sulfate 1 gm/ Sodium (Chloride) 102 mls @ 102 mls/hr IV PRN PRN PRN Reason: MAG LEVEL 1.4 - 2.0 Magnesium Sulfate 2 gm/ Device 100 mls @ 100 mls/hr IVPB ASDIR PRN PRN Reason: MAGNESIUM < 1.4 Potassium Phosphate 9 mmol/ (Sodium Chloride) 103 mls @ 25.75 mls/hr IVPB ASDIR PRN PRN Reason: Phosphate 1.0-1.8 Potassium Phosphate 12 mmol/ (Sodium Chloride) 254 mls @ 63.5 mls/hr IV ASDIR PRN PRN Reason: Serum phosphate 0.5-0.9 Potassium Phosphate 15 mmol/ (Sodium Chloride) 255 mls @ 63.75 mls/hr IV ASDIR PRN PRN Reason: Serum Phos < 0.5 Sodium Chloride (Normal Saline 0.9%) 1,000 mls @ 50 mls/hr IV .Q20H [facility] Last Admin: 04/22/18 09:01 Dose: 1,000 mls Insulin Human Lispro (Humalog) 0 units SC .MODERATE SLIDING SC PRN PRN Reason: Moderate Correctional Scale Last Admin: 04/22/18 06:51 Dose: 2 unit Insulin Human Lispro (Humalog) 0 units SC .BEDTIME SLIDING SC PRN PRN Reason: Bedtime Correctional Scale Labetalol HCl (Normodyne) 20 mg SLOW IVP Q4H PRN PRN Reason: SBP > 180 and HR >/= 70 Loperamide HCl (Imodium) 2 mg PO PRN PRN PRN Reason: Diarrhea/Loose Stools Lorazepam (Ativan) 0.5 mg SLOW IVP Q6H PRN PRN Reason: Anxiety/Agitation Magnesium Oxide (Magnesium Oxide) 400 mg PO BIDPRN PRN PRN Reason: FOR SERUM MAG 1.4 - 2.0 Magnesium Oxide (Magnesium Oxide) 800 mg PO PRN PRN PRN Reason: FOR SERUM MAG < 1.4 Methylprednisolone Sodium Succinate (Solu-Medrol) 40 mg IVP Q6HR [facility] Last Admin: 04/22/18 07:40 Dose: 40 mg Mineral Oil/White Petrolatum (Eucerin Cream) 0 gm TOP BIDPRN PRN PRN Reason: Dry Skin Miscellaneous Medication (Pharmacy To Dose) 1 each IVPB PRN PRN PRN Reason: PNA Miscellaneous Medication (Phos-Nak) 1 pkt PO TIDPRN PRN PRN Reason: FOR PHOS LEVEL 1.0 - 1.8 Miscellaneous Medication (Phos-Nak) 2 pkt PO TIDPRN PRN PRN Reason: FOR PHOS LEVEL 0.5 - 1.0 Morphine Sulfate (Morphine) 2 mg SLOW IVP Q1H PRN PRN Reason: BREAKTHROUGH PAIN/Agitation Stop: 05/21/18 03:39 Morphine Sulfate (Morphine) 4 mg SLOW IVP Q4H PRN PRN Reason: Severe Pain (7-10) Discontinue Previous Narcotic Pain Medications And Benzodiazepines 1 each FS .ONE [facility] Stop: 05/21/18 03:39 Ccu Electrolyte (Replacement Protocol) 0 each FS PRN PRN PRN Reason: FOR ELECTROLYTE REPLACEMENT Potassium Chloride (K-Dur) 40 meq PO ASDIR PRN PRN Reason: FOR SERUM K+ 2.5 - 3.5 Potassium Chloride (Klor-Con) 40 meq PER TUBE ASDIR PRN PRN Reason: FOR SERUM K+ 2.5-3.5 Propofol (Diprivan) 1,000 mg IV INF PRN; Protocol PRN Reason: TO ACHIEVE GOAL RASS Stop: 05/21/18 03:39 Propofol (Diprivan Bolus) 20 mg IV Q5MIN PRN PRN Reason: BREAKTHROUGH AGITATION Stop: 12/13/18 03:39 Saccharomyces Boulardii (Florastor) 250 mg PO DAILY [facility] Last Admin: 04/22/18 08:52 Dose: Not Given Senna/Docusate Sodium (Senokot S) 2 tab PO BID PRN PRN Reason: Constipation Sodium Chloride ([place] 0.65%) 0 ml EA NARE QIDPRN PRN PRN Reason: Nasal Congestion
[2018-04-22] MEDS: Lorazepam 2 MG/ML VIAL SLOW IVP PRN (09:50)
--- NOTE | 2018-04-22 13:04 | PRG ---
DATE OF SERVICE: 04/22/2018 SUBJECTIVE: Colleen Bal is in good spirits. She is in no distress. We are slowly decreasing her ventilatory support. OBJECTIVE: VITAL SIGNS: Her heart rates in the 60s-70s. Blood pressure is still intermittently elevated but wi th her very large arms, I am not sure these are accurate blood pressures. Her respiratory rate is 20 . She is afebrile. LUNGS: Distant and clear. HEART: Regular rhythm. ABDOMEN: Soft and nontender. EXTREMITIES: Without asymmetry. She always has lower extremity edema. LABORATORY DATA: White count 8.3, hemoglobin 13.8, platelets 148. Sodium 139, potassium 4.4, chlori de 104, bicarbonate 25, BUN 13, creatinine 0.76, pH 7.34, CO2 is 52, pO2 87. Ventilatory rate was turned down from 16 to 10 today. IMPRESSION AND PLAN: 1. Pneumonia. 2. Acute on chronic respiratory failure. 3. Sleep apnea treated with a tracheostomy. 4. Life-threatening obesity. 5. History of diastolic dysfunction, but her BNP is extremely low. It is more likely that this is a ll pneumonia involving both lungs. I met with family and answered all their questions. She appears to be stable at this time. CRITICAL CARE TIME: Thirty minutes.
[2018-04-23] MEDS: Piperacillin/Tazobactam 3.375 GM in Sodium Chloride 0.9% 100 ML IVPB SCH ×5 (00:17→23:14)
[2018-04-23 04:43] LABS: #Lymphocytes 0.7 thou/uL (1.20-3.40); #Monocytes 0.3 thou/uL (0.11-0.59); #Neutrophils 8.4 thou/uL (1.40-6.50); %Basophils 0.3 % (0.0-1.0); %Lymphocytes 7.1 % (21.0-51.0); %Monocytes 3.1 % (0.0-10.0); %Neutrophils 89.4 % (42.0-75.0); Hemoglobin 13.6 g/dL (12.0-16.0); Mean Corpuscular HGB CONC 30.8 g/dL (32.0-36.0); Mean Corpuscular Volume 81.3 fL (78.0-98.0); Mean Platelet Volume 7.5 fL (7.4-10.4); Platelet Count 144 thou/uL (130-400); RBC Distribution Width 17.2 % (11.5-14.5); Red Blood Cell (RBC) Count 5.42 mill/uL (4.20-5.40); White Blood Cell (WBC) Count 9.4 thou/uL (4.8-10.8)
[2018-04-23 04:54] LABS: Anion Gap 11 mmol/L (10-20); BUN (Urea Nitrogen) 15 mg/dL (9.8-20.1); Calc. Creatinine Clearance 214 mL/min (70-130); Calcium 9.1 mg/dL (7.8-10.44); Carbon Dioxide 28 mmol/L (22-29); Chloride 103 mmol/L (98-107); Estimated GFR-MDRD 89; Glucose 312 mg/dL (70-105); Potassium 4.7 mmol/L (3.5-5.1); Sodium 137 mmol/L (136-145)
[2018-04-23] MEDS: HumaLOG 300 UNITS/3 ML VIAL SC PRN ×4 (06:09→22:14)
[2018-04-23 06:44] LABS: Actual Bicarbonate (HCO3a) 30.8 mEq/L (22-28); Base Excess (BEa) 2.3 mEq/L (-2.0 to +3.0); Calcium, Ionized 1.25 mmol/L (1.12-1.30); Carboxyhemoglobin (COHb) 1.3 gm% (0.0-3.0); Hemoglobin (Hb) 14.3 g/dL (12.0-16.0); O2 Tension (PaO2) 96.6 mmHg (80.0-100.0); Potassium - ABG Lab 4.66 mmol/L (3.70-5.30); pH, Arterial 7.29 (7.35-7.45)
[2018-04-23 06:46] LABS: Puncture Site RR
--- NOTE | 2018-04-23 08:27 | RAD ---
CHEST 1 VIEW: INDICATION: Intubation. COMPARISON: Prior exam dated 04/22/2018. FINDINGS: Cardiomegaly with pulmonary vascular congestion persists. No definite consolidation or pneumothorax is evident. Tracheostomy tube is unchanged in position. IMPRESSION: Stable exam. POS: [facility]
[2018-04-23] MEDS: Famotidine/PF 20 mg/2ml Vial SLOW IVP SCH ×2 (08:47→22:09)
[2018-04-23] MEDS: Saccharomyces boulardii 250 MG CAP PO SCH (08:47)
[2018-04-23] MEDS: Enoxaparin Sodium 40 MG/0.4 ML SYRINGE SC SCH (08:48)
--- NOTE | 2018-04-23 09:58 | PDOC.PN ---
- Subjective Encounter Start Date: 04/23/18 Encounter Start Time: 09:30 Patient seen and examined. No new complaints. No overnight events pt is on vent - Objective Resuscitation Status: Resuscitation Status FULL:Full Resuscitation MAR Reviewed: Yes Vital Signs & Weight: Vital Signs (12 hours) Pulse Resp BP Pulse Ox 04/23/18 08:00 22 H 04/23/18 07:02 67 152/82 H 04/23/18 06:00 14 04/23/18 03:11 56 L 04/23/18 03:00 10 L 04/23/18 00:23 60 23 H 100 04/23/18 00:00 25 H 04/22/18 22:13 58 L Weight Admit Weight 368 lb Weight 368 lb Most Recent Monitor Data Heart Rate from ECG 93 NIBP 121/76 NIBP BP-Mean 91 Respiration from ECG 8 SpO2 97 I&O: 04/22/18 04/23/18 04/24/18 06:59 06:59 06:59 Intake Total 2420 2947.9 240 Output Total 1475 1500 110 Balance 945 1447.9 130 Result Diagrams: 04/23/18 04:25 04/23/18 04:25 Additional Labs: Accuchecks 04/23/18 04/22/18 04/22/18 06:06 21:18 17:08 POC Glucose 323 H 336 H 304 H 04/22/18 12:27 POC Glucose 246 H Radiology Reviewed by me: Yes (chest xray reviewed) EKG Reviewed by me: Yes (nsr) Phys Exam - Physical Examination Constitutional: NAD HEENT: PERRLA, moist MMs, sclera anicteric trach with vent Respiratory: no wheezing, no rales, no rhonchi Cardiovascular: RRR, no significant murmur, no rub Gastrointestinal: soft, non-tender, no distention, positive bowel sounds Musculoskeletal: no edema, pulses present Neurological: non-focal, normal sensation, moves all 4 limbs Lymphatic: no nodes Psychiatric: normal affect Skin: no rash, normal turgor Dx/Plan (1) Acute on chronic respiratory failure with hypoxia and hypercapnia Code(s): J96.21 - ACUTE AND CHRONIC RESPIRATORY FAILURE WITH HYPOXIA; J96.22 - ACUTE AND CHRONIC RESPIRATORY FAILURE WITH HYPERCAPNIA Status: Acute (2) Community acquired bacterial pneumonia Code(s): J15.9 - UNSPECIFIED BACTERIAL PNEUMONIA Status: Acute Comment: suspecting GPC and GNR (3) Anxiety and depression Code(s): F41.8 - OTHER SPECIFIED ANXIETY DISORDERS Status: Chronic Comment: (4) COPD (chronic obstructive pulmonary disease) Status: Chronic Qualifiers: Comment: (5) Chronic stage c diastolic heart failure Code(s): I50.32 - CHRONIC DIASTOLIC (CONGESTIVE) HEART FAILURE Status: Chronic (6) DM type 2 (diabetes mellitus, type 2) Status: Chronic Qualifiers: Comment: (7) Essential hypertension Code(s): I10 - ESSENTIAL (PRIMARY) HYPERTENSION Status: Chronic Comment: (8) Hypothyroidism Code(s): E03.9 - HYPOTHYROIDISM, UNSPECIFIED Status: Chronic Qualifiers: Comment: (9) Morbid obesity with body mass index of 70 and over in adult Code(s): E66.01 - MORBID (SEVERE) OBESITY DUE TO EXCESS CALORIES; Z68.45 - BODY MASS INDEX (BMI) 70 OR GREATER, ADULT Status: Chronic (10) Obesity hypoventilation syndrome Code(s): E66.2 - MORBID (SEVERE) OBESITY WITH ALVEOLAR HYPOVENTILATION Status : Chronic Comment: stable - Plan cont current plan of care, plan discussed w/ family, continue antibiotics, respiratory therapy * add diflucan for yeast infection * discussed with mother bedside * medication reviewed as below * symptomatic treatment * vent as per pulmonary * continue vancomycin and zosyn and solumedrol. Review of Systems - Review of Systems Other: not reliable as pt is not able to talk well with trach and on vent - Medications/Allergies Allergies/Adverse Reactions: Allergies Allergy/AdvReac Type Severity Reaction Status Date / Time gabapentin Allergy Severe Short of Verified 04/20/18 23:16 Breath pregabalin [From Lyrica] Allergy Severe Short of Verified 04/20/18 23:16 Breath duloxetine [From Cymbalta] Allergy Short of Verified 04/20/18 23:16 Breath Medications: Current Medications Acetaminophen (Tylenol) 650 mg PO Q4H PRN PRN Reason: Headache/Fever/Mild Pain (1-3) Albuterol/Ipratropium (Duoneb) 3 ml NEB [id number] [facility] Last Admin: 04/23/18 07:02 Dose: 3 ml Albuterol/Ipratropium (Duoneb) 3 ml NEB Q4H PRN PRN Reason: SOB &/or Wheezing Artificial Tears (Tears Naturale) 2 drop EA EYE PRN PRN PRN Reason: Dry Eyes Bisacodyl (Dulcolax) 10 mg [place] DAILYPRN PRN PRN Reason: Constipation Clonidine (Catapres) 0.1 mg PO Q4H PRN PRN Reason: SBP >= 180 Dextrose/Water (Dextrose 50%) 25 gm SLOW IVP PRN PRN PRN Reason: Hypoglycemia Enoxaparin Sodium (Lovenox) 40 mg SC 0900 [facility] Last Admin: 04/23/18 08:48 Dose: 40 mg Famotidine (Pepcid) 20 mg SLOW IVP BID [facility] Last Admin: 04/23/18 08:47 Dose: 20 mg Glucagon (Glucagon) 1 mg IM PRN PRN PRN Reason: Hypoglycemia Guaifenesin (Robitussin Sf) 200 mg PO Q4H PRN PRN Reason: Cough Guaifenesin/Dextromethorphan (Robitussin Dm) 15 ml PO Q4H PRN PRN Reason: Cough Hydralazine HCl (Apresoline) 10 mg SLOW IVP Q4H PRN PRN Reason: SBP > 180 and HR < 70 Last Admin: 04/21/18 14:13 Dose: 10 mg Dextrose/Water (D5w) 1,000 mls @ 0 mls/hr IV .Q0M PRN PRN Reason: Hypoglycemia Piperacillin Sod/Tazobactam (Sod 3.375 gm/ Sodium Chloride) 100 mls @ 200 mls/ hr IVPB Q6HR [facility] Last Admin: 04/23/18 05:54 Dose: 100 mls Fentanyl Citrate 2,000 mcg/ (Sodium Chloride) 100 mls @ 0 mls/hr IV INF NANI; Protocol Stop: 05/21/18 03:39 Last Admin: 04/22/18 19:46 Dose: 100 mls Fentanyl Citrate (Fentanyl Bolus) 250 mls @ 0 mls/hr IVPB PRN PRN PRN Reason: Breakthrough pain/agitation Stop: 05/21/18 03:39 Potassium Chloride 40 meq/ (Sodium Chloride) 270 mls @ 135 mls/hr IVPB ASDIR PRN PRN Reason: FOR SERUM K+ 2.5 - 3.5 Potassium Chloride 40 meq/ (Device) 100 mls @ 50 mls/hr IVPB ASDIR PRN PRN Reason: FOR SERUM K+ 2.5 - 3.5 Magnesium Sulfate 1 gm/ Sodium (Chloride) 102 mls @ 102 mls/hr IV PRN PRN PRN Reason: MAG LEVEL 1.4 - 2.0 Magnesium Sulfate 2 gm/ Device 100 mls @ 100 mls/hr IVPB ASDIR PRN PRN Reason: MAGNESIUM < 1.4 Potassium Phosphate 9 mmol/ (Sodium Chloride) 103 mls @ 25.75 mls/hr IVPB ASDIR PRN PRN Reason: Phosphate 1.0-1.8 Potassium Phosphate 12 mmol/ (Sodium Chloride) 254 mls @ 63.5 mls/hr IV ASDIR PRN PRN Reason: Serum phosphate 0.5-0.9 Potassium Phosphate 15 mmol/ (Sodium Chloride) 255 mls @ 63.75 mls/hr IV ASDIR PRN PRN Reason: Serum Phos < 0.5 Vancomycin HCl 1.75 gm/ Sodium (Chloride) 500 mls @ 250 mls/hr IVPB 0100,1300 [facility] Insulin Human Lispro (Humalog) 0 units SC .MODERATE SLIDING SC PRN PRN Reason: Moderate Correctional Scale Last Admin: 04/23/18 06:09 Dose: 8 unit Insulin Human Lispro (Humalog) 0 units SC .BEDTIME SLIDING SC PRN PRN Reason: Bedtime Correctional Scale Last Admin: 04/22/18 21:25 Dose: 4 unit Labetalol HCl (Normodyne) 20 mg SLOW IVP Q4H PRN PRN Reason: SBP > 180 and HR >/= 70 Loperamide HCl (Imodium) 2 mg PO PRN PRN PRN Reason: Diarrhea/Loose Stools Lorazepam (Ativan) 0.5 mg SLOW IVP Q6H PRN PRN Reason: Anxiety/Agitation Last Admin: 04/22/18 09:50 Dose: 0.5 mg Magnesium Oxide (Magnesium Oxide) 400 mg PO BIDPRN PRN PRN Reason: FOR SERUM MAG 1.4 - 2.0 Magnesium Oxide (Magnesium Oxide) 800 mg PO PRN PRN PRN Reason: FOR SERUM MAG < 1.4 Methylprednisolone Sodium Succinate (Solu-Medrol) 40 mg IVP Q6HR [facility] Last Admin: 04/23/18 05:54 Dose: 40 mg Mineral Oil/White Petrolatum (Eucerin Cream) 0 gm TOP BIDPRN PRN PRN Reason: Dry Skin Miscellaneous Medication (Pharmacy To Dose) 1 each IVPB PRN PRN PRN Reason: PNA Miscellaneous Medication (Phos-Nak) 1 pkt PO TIDPRN PRN PRN Reason: FOR PHOS LEVEL 1.0 - 1.8 Miscellaneous Medication (Phos-Nak) 2 pkt PO TIDPRN PRN PRN Reason: FOR PHOS LEVEL 0.5 - 1.0 Morphine Sulfate (Morphine) 2 mg SLOW IVP Q1H PRN PRN Reason: BREAKTHROUGH PAIN/Agitation Stop: 05/21/18 03:39 Morphine Sulfate (Morphine) 4 mg SLOW IVP Q4H PRN PRN Reason: Severe Pain (7-10) Discontinue Previous Narcotic Pain Medications And Benzodiazepines 1 each FS .ONE [facility] Stop: 05/21/18 03:39 Ccu Electrolyte (Replacement Protocol) 0 each FS PRN PRN PRN Reason: FOR ELECTROLYTE REPLACEMENT Potassium Chloride (K-Dur) 40 meq PO ASDIR PRN PRN Reason: FOR SERUM K+ 2.5 - 3.5 Potassium Chloride (Klor-Con) 40 meq PER TUBE ASDIR PRN PRN Reason: FOR SERUM K+ 2.5-3.5 Propofol (Diprivan) 1,000 mg IV INF PRN; Protocol PRN Reason: TO ACHIEVE GOAL RASS Stop: 05/21/18 03:39 Propofol (Diprivan Bolus) 20 mg IV Q5MIN PRN PRN Reason: BREAKTHROUGH AGITATION Stop: 05/21/18 03:39 Saccharomyces Boulardii (Florastor) 250 mg PO DAILY [facility] Last Admin: 04/23/18 08:47 Dose: 250 mg Senna/Docusate Sodium (Senokot S) 2 tab PO BID PRN PRN Reason: Constipation Sodium Chloride ([place] 0.65%) 0 ml EA NARE QIDPRN PRN PRN Reason: Nasal Congestion
[2018-04-23] MEDS ORDERED: Fluconazole 100 MG TAB PO SCH (10:00)
[2018-04-23] MEDS ORDERED: Insulin Glargine 30 UNITS in Pre-Filled Syringe 1 EACH SC SCH (11:00)
[2018-04-23] MEDS ORDERED: Vancomycin HCl 1.75 GM in Sodium Chloride 0.9% 500 ML IVPB SCH (13:00)
--- NOTE | 2018-04-23 15:10 | PRG ---
DATE OF SERVICE: 04/23/2018 SUBJECTIVE: Colleen Bal did well overnight. She has no complaints today. OBJECTIVE: GENERAL: This morning, her heart rate was in the 80s. Blood pressure has been stable. Blood pressu re after lunch 156/96. LUNGS: Remarkable for clear breath sounds. She has strong cough. HEART: Regular rhythm. ABDOMEN: Soft. EXTREMITIES: Unchanged. LABORATORY DATA: White count 9.4, hemoglobin 13.6, platelets 144. PH 7.29, CO2 of 66, pO2 of 96. S odium 137, potassium 4.7, chloride 103, bicarbonate 28, BUN 15, creatinine 0.82. IMPRESSION: 1. Acute respiratory failure secondary to pneumonia. 2. Asthma. 3. Sleep apnea treated with tracheostomy. 4. Deconditioning. 5. Life threatening obesity. 6. Diabetes. PLAN: I feel she has likely been eating to keep up with her insulin. Given that I am told she was o n over 180 units of insulin today. We will start with slow release insulin and then supplement her w ith sliding scale, gradually advance her diet. She has been on trach collar all afternoon, she has d one well with that. We will continue nocturnal ventilation for now. Critical care time 30 minutes.
[2018-04-23] MEDS: Acetaminophen 325 MG TAB PO PRN (17:59)
[2018-04-23] MEDS: Cepastat Lozenges 1 LOZ PO PRN (19:59)
[2018-04-23] MEDS: Lorazepam 2 MG/ML VIAL SLOW IVP PRN (22:38)
[2018-04-23] MEDS: hydrALAZINE 20 MG/ML VIAL SLOW IVP PRN (23:15)
[2018-04-24] MEDS: Piperacillin/Tazobactam 3.375 GM in Sodium Chloride 0.9% 100 ML IVPB SCH (05:42)
[2018-04-24] MEDS: HumaLOG 300 UNITS/3 ML VIAL SC PRN ×3 (05:50→21:24)
[2018-04-24] MEDS: hydrALAZINE 20 MG/ML VIAL SLOW IVP PRN (06:16)
[2018-04-24 06:26] LABS: Anion Gap 10 mmol/L (10-20); BUN (Urea Nitrogen) 15 mg/dL (9.8-20.1); Calc. Creatinine Clearance 222 mL/min (70-130); Calcium 9.4 mg/dL (7.8-10.44); Carbon Dioxide 29 mmol/L (22-29); Chloride 100 mmol/L (98-107); Estimated GFR-MDRD Greater than 90; Glucose 299 mg/dL (70-105); Potassium 4.5 mmol/L (3.5-5.1); Sodium 134 mmol/L (136-145)
[2018-04-24 06:47] LABS: #Lymphocytes 0.9 thou/uL (1.20-3.40); #Monocytes 0.2 thou/uL (0.11-0.59); %Basophils 0.3 % (0.0-1.0); %Eosinophils 0.1 % (0.0-10.0); %Lymphocytes 11.3 % (21.0-51.0); %Monocytes 2.5 % (0.0-10.0); %Neutrophils 85.9 % (42.0-75.0); Hemoglobin 14.5 g/dL (12.0-16.0); Large Platelets SLIGHT; MDiff Complete? YES; Mean Corpuscular HGB CONC 30.8 g/dL (32.0-36.0); Mean Corpuscular Volume 81.3 fL (78.0-98.0); Mean Platelet Volume 10.8 fL (7.4-10.4); PLT Morphology Comment Appears Adequate; Platelet Count 137 thou/uL (130-400); RBC Distribution Width 17.2 % (11.5-14.5); Red Blood Cell (RBC) Count 5.78 mill/uL (4.20-5.40); White Blood Cell (WBC) Count 8.2 thou/uL (4.8-10.8)
[2018-04-24] MEDS: Cepastat Lozenges 1 LOZ PO PRN ×3 (07:39→20:21)
[2018-04-24] MEDS: Acetaminophen 325 MG TAB PO PRN ×3 (07:39→20:21)
--- NOTE | 2018-04-24 08:09 | RAD ---
CHEST 1 VIEW: COMPARISON: 04/23/2018. HISTORY: Ventilated patient. Respiratory distress. FINDINGS: Tracheostomy is redemonstrated. Heart is enlarged. Pulmonary vessels are within normal limits. Red emonstration of interstitial opacities in the right hemithorax. No significant pleural fluid or pneu mothorax. IMPRESSION: No significant interval change. POS: [facility]
[2018-04-24] MEDS: Guaifenesin DM 100-10/5 ML UDCUP PO PRN (08:54)
[2018-04-24] MEDS: Fluconazole 100 MG TAB PO SCH (08:54)
[2018-04-24] MEDS: Famotidine/PF 20 mg/2ml Vial SLOW IVP SCH ×2 (08:54→20:21)
[2018-04-24] MEDS: Insulin Glargine 30 UNITS in Pre-Filled Syringe 1 EACH SC SCH ×2 (08:55→21:24)
[2018-04-24] MEDS: Saccharomyces boulardii 250 MG CAP PO SCH (08:55)
[2018-04-24] MEDS: Enoxaparin Sodium 40 MG/0.4 ML SYRINGE SC SCH (08:55)
[2018-04-24] MEDS ORDERED: Furosemide 40 MG/4 ML VIAL IVP SCH (10:48)
--- NOTE | 2018-04-24 10:59 | PRG ---
DATE OF SERVICE: 04/24/2018 SUBJECTIVE: Ms. Bal did well overnight. She is willing to try not using nocturnal ventilation to night. OBJECTIVE: LUNGS: Clear. She does have thick secretions. HEART: Regular rhythm. ABDOMEN: Soft and nontender. EXTREMITIES: Without edema. She feels like she is swollen, so will give her one low dose of Lasix. I do not feel that diastolic heart failure as a cause of her admission. I feel this is more likely p neumonia. Antibiotics can be switched to oral antibiotics at this time. She will remain in the critical care unit. We will switch mechanical ventilation to p.r.n. I met wi th family and answered all their questions.
--- NOTE | 2018-04-24 11:06 | PDOC.PN ---
- Subjective Encounter Start Date: 04/24/18 Encounter Start Time: 09:30 Patient seen and examined. No new complaints. No overnight events pt is off vent now but she was on last night has very thick secretion through trach - Objective Resuscitation Status: Resuscitation Status FULL:Full Resuscitation MAR Reviewed: Yes Vital Signs & Weight: Vital Signs (12 hours) Temp Pulse Resp BP Pulse Ox 04/24/18 07:19 94 L 04/24/18 06:49 81 04/24/18 06:16 73 195/114 H 04/24/18 03:14 69 04/24/18 03:00 21 H 04/24/18 01:00 98.1 F 04/24/18 00:53 61 29 H 96 04/23/18 23:15 72 Weight Admit Weight 368 lb Weight 368 lb Most Recent Monitor Data Heart Rate from ECG 88 NIBP 148/91 NIBP BP-Mean 110 Respiration from ECG 23 SpO2 96 I&O: 04/23/18 04/24/18 04/25/18 06:59 06:59 06:59 Intake Total 2947.9 2637 Output Total 1500 1615 Balance 1447.9 1022 Result Diagrams: 04/24/18 06:07 04/24/18 06:07 Additional Labs: Accuchecks 04/24/18 04/23/18 04/23/18 05:43 22:09 17:13 POC Glucose 255 H 287 H 282 H 04/23/18 11:14 POC Glucose 323 H Radiology Reviewed by me: Yes (chest xray reviewed) EKG Reviewed by me: Yes (nsr) Phys Exam - Physical Examination Constitutional: NAD HEENT: PERRLA, moist MMs, sclera anicteric Neck: no JVD, supple trach+ Respiratory: no wheezing, no rales, no rhonchi limited due to morbid obesity Cardiovascular: RRR, no significant murmur Gastrointestinal: soft, non-tender, no distention, positive bowel sounds morbid obesity Musculoskeletal: no edema, pulses present Neurological: non-focal Lymphatic: no nodes Psychiatric: normal affect Skin: no rash, normal turgor Dx/Plan (1) Acute on chronic respiratory failure with hypoxia and hypercapnia Code(s): J96.21 - ACUTE AND CHRONIC RESPIRATORY FAILURE WITH HYPOXIA; J96.22 - ACUTE AND CHRONIC RESPIRATORY FAILURE WITH HYPERCAPNIA Status: Acute (2) Community acquired bacterial pneumonia Code(s): J15.9 - UNSPECIFIED BACTERIAL PNEUMONIA Status: Acute Comment: suspecting GPC and GNR (3) Anxiety and depression Code(s): F41.8 - OTHER SPECIFIED ANXIETY DISORDERS Status: Chronic Comment: (4) COPD (chronic obstructive pulmonary disease) Status: Chronic Qualifiers: Comment: (5) Chronic stage c diastolic heart failure Code(s): I50.32 - CHRONIC DIASTOLIC (CONGESTIVE) HEART FAILURE Status: Chronic (6) DM type 2 (diabetes mellitus, type 2) Status: Chronic Qualifiers: Comment: (7) Essential hypertension Code(s): I10 - ESSENTIAL (PRIMARY) HYPERTENSION Status: Chronic Comment: (8) Hypothyroidism Code(s): E03.9 - HYPOTHYROIDISM, UNSPECIFIED Status: Chronic Qualifiers: Comment: (9) Morbid obesity with body mass index of 70 and over in adult Code(s): E66.01 - MORBID (SEVERE) OBESITY DUE TO EXCESS CALORIES; Z68.45 - BODY MASS INDEX (BMI) 70 OR GREATER, ADULT Status: Chronic (10) Obesity hypoventilation syndrome Code(s): E66.2 - MORBID (SEVERE) OBESITY WITH ALVEOLAR HYPOVENTILATION Status : Chronic Comment: stable - Plan cont current plan of care, plan discussed w/ family, continue antibiotics, respiratory therapy * today solumedrol changed to PO prednisone * as per pulmonary antibiotics changed to PO * continue diflucan * continue mucinex * monitor in ccu and ventilator use only PRN * medication reviewed as below * symptomatic treatment * discussed with family bedside * will add lantus 30 unit sc bedtime. Review of Systems - Review of Systems Constitutional: negative: fever, chills, sweats, weakness, malaise, other Eyes: negative: Pain, Vision Change, Conjunctivae Inflammation, Eyelid Inflammation, Redness, Other ENT: negative: Ear Pain, Ear Discharge, Nose Pain, Nose Discharge, Nose Congestion, Mouth Pain, Mouth Swelling, Throat Pain, Throat Swelling, Other Respiratory: Cough, Shortness of Breath. negative: Dry, Hemoptysis, SOB with Excertion, Pleuritic Pain, Sputum, Wheezing Cardiovascular: negative: chest pain, palpitations, orthopnea, paroxysmal nocturnal dyspnea, edema, light headedness, other Gastrointestinal: negative: Nausea, Vomiting, Abdominal Pain, Diarrhea, Constipation, Melena, Hematochezia, Other Genitourinary: negative: Dysuria, Frequency, Incontinence, Hematuria, Retention , Other Musculoskeletal: negative: Neck Pain, Shoulder Pain, Arm Pain, Back Pain, Hand Pain, Leg Pain, Foot Pain, Other Skin: negative: Rash, Lesions, Baldomero, Bruising, Other - Medications/Allergies Allergies/Adverse Reactions: Allergies Allergy/AdvReac Type Severity Reaction Status Date / Time gabapentin Allergy Severe Short of Verified 04/20/18 23:16 Breath pregabalin [From Lyrica] Allergy Severe Short of Verified 04/20/18 23:16 Breath duloxetine [From Cymbalta] Allergy Short of Verified 04/20/18 23:16 Breath Medications: Current Medications Acetaminophen (Tylenol) 650 mg PO Q4H PRN PRN Reason: Headache/Fever/Mild Pain (1-3) Last Admin: 04/24/18 07:39 Dose: 650 mg Albuterol/Ipratropium (Duoneb) 3 ml NEB A4HT-FP [facility] Last Admin: 04/24/18 06:49 Dose: 3 ml Albuterol/Ipratropium (Duoneb) 3 ml NEB Q4H PRN PRN Reason: SOB &/or Wheezing Artificial Tears (Tears Naturale) 2 drop EA EYE PRN PRN PRN Reason: Dry Eyes Bisacodyl (Dulcolax) 10 mg MA DAILYPRN PRN PRN Reason: Constipation Clonidine (Catapres) 0.1 mg PO Q4H PRN PRN Reason: SBP >= 180 Dextrose/Water (Dextrose 50%) 25 gm SLOW IVP PRN PRN PRN Reason: Hypoglycemia Enoxaparin Sodium (Lovenox) 40 mg SC 0900 [facility] Last Admin: 04/24/18 08:55 Dose: 40 mg Famotidine (Pepcid) 20 mg SLOW IVP BID [facility] Last Admin: 04/24/18 08:54 Dose: 20 mg Fluconazole (Diflucan) 100 mg PO DAILY [facility] Last Admin: 04/24/18 08:54 Dose: 100 mg Furosemide (Lasix) 60 mg IVP NOW [facility] Stop: 04/24/18 12:00 Glucagon (Glucagon) 1 mg IM PRN PRN PRN Reason: Hypoglycemia Guaifenesin (Robitussin Sf) 200 mg PO Q4H PRN PRN Reason: Cough Guaifenesin (Mucinex) 1,200 mg PO Q12HR NANI Guaifenesin/Dextromethorphan (Robitussin Dm) 15 ml PO Q4H PRN PRN Reason: Cough Last Admin: 04/24/18 08:54 Dose: 15 ml Hydralazine HCl (Apresoline) 10 mg SLOW IVP Q4H PRN PRN Reason: SBP > 180 and HR < 70 Last Admin: 04/24/18 06:16 Dose: 10 mg Dextrose/Water (D5w) 1,000 mls @ 0 mls/hr IV .Q0M PRN PRN Reason: Hypoglycemia Potassium Chloride 40 meq/ (Sodium Chloride) 270 mls @ 135 mls/hr IVPB ASDIR PRN PRN Reason: FOR SERUM K+ 2.5 - 3.5 Potassium Chloride 40 meq/ (Device) 100 mls @ 50 mls/hr IVPB ASDIR PRN PRN Reason: FOR SERUM K+ 2.5 - 3.5 Magnesium Sulfate 1 gm/ Sodium (Chloride) 102 mls @ 102 mls/hr IV PRN PRN PRN Reason: MAG LEVEL 1.4 - 2.0 Magnesium Sulfate 2 gm/ Device 100 mls @ 100 mls/hr IVPB ASDIR PRN PRN Reason: MAGNESIUM < 1.4 Potassium Phosphate 9 mmol/ (Sodium Chloride) 103 mls @ 25.75 mls/hr IVPB ASDIR PRN PRN Reason: Phosphate 1.0-1.8 Potassium Phosphate 12 mmol/ (Sodium Chloride) 254 mls @ 63.5 mls/hr IV ASDIR PRN PRN Reason: Serum phosphate 0.5-0.9 Potassium Phosphate 15 mmol/ (Sodium Chloride) 255 mls @ 63.75 mls/hr IV ASDIR PRN PRN Reason: Serum Phos < 0.5 Insulin Glargine 30 units/ (Miscellaneous Medication) 0.3 mls @ 0 mls/hr SC QAM NANI Last Admin: 04/24/18 08:55 Dose: 0.3 mls Insulin Glargine 30 units/ (Miscellaneous Medication) 0.3 mls @ 0 mls/hr SC HS NANI Insulin Human Lispro (Humalog) 0 units SC .BEDTIME SLIDING SC PRN PRN Reason: Bedtime Correctional Scale Last Admin: 04/23/18 22:14 Dose: 3 unit Insulin Human Lispro (Humalog) 0 units SC .AGGRESSIVE SLIDING PRN; Protocol PRN Reason: AGGRESSIVE SLIDING SCALE Last Admin: 04/24/18 05:50 Dose: 9 unit Labetalol HCl (Normodyne) 20 mg SLOW IVP Q4H PRN PRN Reason: SBP > 180 and HR >/= 70 Loperamide HCl (Imodium) 2 mg PO PRN PRN PRN Reason: Diarrhea/Loose Stools Lorazepam (Ativan) 0.5 mg SLOW IVP Q6H PRN PRN Reason: Anxiety/Agitation Last Admin: 04/23/18 22:38 Dose: 0.5 mg Magnesium Oxide (Magnesium Oxide) 400 mg PO BIDPRN PRN PRN Reason: FOR SERUM MAG 1.4 - 2.0 Magnesium Oxide (Magnesium Oxide) 800 mg PO PRN PRN PRN Reason: FOR SERUM MAG < 1.4 Mineral Oil/White Petrolatum (Eucerin Cream) 0 gm TOP BIDPRN PRN PRN Reason: Dry Skin Miscellaneous Medication (Pharmacy To Dose) 1 each IVPB PRN PRN PRN Reason: PNA Miscellaneous Medication (Phos-Nak) 1 pkt PO TIDPRN PRN PRN Reason: FOR PHOS LEVEL 1.0 - 1.8 Miscellaneous Medication (Phos-Nak) 2 pkt PO TIDPRN PRN PRN Reason: FOR PHOS LEVEL 0.5 - 1.0 Morphine Sulfate (Morphine) 2 mg SLOW IVP Q1H PRN PRN Reason: BREAKTHROUGH PAIN/Agitation Stop: 05/21/18 03:39 Morphine Sulfate (Morphine) 4 mg SLOW IVP Q4H PRN PRN Reason: Severe Pain (7-10) Discontinue Previous Narcotic Pain Medications And Benzodiazepines 1 each FS .ONE NANI Stop: 05/21/18 03:39 Ccu Electrolyte (Replacement Protocol) 0 each FS PRN PRN PRN Reason: FOR ELECTROLYTE REPLACEMENT Potassium Chloride (K-Dur) 40 meq PO ASDIR PRN PRN Reason: FOR SERUM K+ 2.5 - 3.5 Potassium Chloride (Klor-Con) 40 meq PER TUBE ASDIR PRN PRN Reason: FOR SERUM K+ 2.5-3.5 Prednisone (Prednisone) 40 mg PO QAM-WM NANI Propofol (Diprivan) 1,000 mg IV INF PRN; Protocol PRN Reason: TO ACHIEVE GOAL RASS Stop: 05/21/18 03:39 Saccharomyces Boulardii (Florastor) 250 mg PO DAILY [facility] Last Admin: 04/24/18 08:55 Dose: 250 mg Scopolamine (Transderm Scop) 1.5 mg TD Q3D [facility] Senna/Docusate Sodium (Senokot S) 2 tab PO BID PRN PRN Reason: Constipation Sodium Chloride ([place] Nasal [place] 0.65%) 0 ml EA NARE QIDPRN PRN PRN Reason: Nasal Congestion Sodium Chloride (Flush - Normal Saline) 10 ml IVF Q12HR [facility] Last Admin: 04/23/18 22:09 Dose: 10 ml Sodium Chloride (Flush - Normal Saline) 10 ml IVF PRN PRN PRN Reason: Saline Flush Throat Lozenges (Cepastat Lozenges) 1 che PO PRN PRN PRN Reason: SORE THROAT Last Admin: 04/24/18 07:39 Dose: 1 che
[2018-04-24] MEDS: Scopolamine 1.5 mg/72 hour Patch TD SCH (11:11)
--- NOTE | 2018-04-24 17:50 | EKG ---
Test Reason : SOB Blood Pressure : / mmHG Vent. Rate : 118 BPM Atrial Rate : 118 BPM P-R Int : 136 ms QRS Dur : 080 ms QT Int : 334 ms P-R-T Axes : 042 039 033 degrees QTc Int : 468 ms Sinus tachycardia Otherwise normal ECG Confirmed by RADHA STOCKTON [id number]), metropolitan editor [address] ([id number] on 04/24/2018 5:49:04 PM Referred By: Confirmed By:RADHA STOCKTON
[2018-04-24] MEDS: guaiFENesin ER 600 MG TAB PO SCH (20:20)
[2018-04-25] MEDS: Acetaminophen 325 MG TAB PO PRN ×2 (03:26→09:27)
[2018-04-25] MEDS: Cepastat Lozenges 1 LOZ PO PRN ×3 (03:26→18:12)
[2018-04-25] MEDS: Guaifenesin DM 100-10/5 ML UDCUP PO PRN ×2 (03:28→09:45)
[2018-04-25 06:53] LABS: Band 1 % (5-11); Hemoglobin 14.8 g/dL (12.0-16.0); Lymphocytes 33 % (21-51); MDiff Complete? YES; Mean Corpuscular HGB CONC 30.7 g/dL (32.0-36.0); Mean Corpuscular Hemoglobin 24.7 pg (27.0-31.0); Mean Corpuscular Volume 80.5 fL (78.0-98.0); Mean Platelet Volume 10.7 fL (7.4-10.4); Monocytes 6 % (0-10); Neutrophil 60 % (42-75); PLT Morphology Comment Appears Decreased; Platelet Count 113 thou/uL (130-400); Polychromasia SLIGHT = 2-3 cells (100X) (0-2/hpf); RBC Distribution Width 17.3 % (11.5-14.5); Red Blood Cell (RBC) Count 5.99 mill/uL (4.20-5.40); White Blood Cell (WBC) Count 6.6 thou/uL (4.8-10.8)
[2018-04-25 09:04] LABS: Anion Gap 10 mmol/L (10-20); BUN (Urea Nitrogen) 18 mg/dL (9.8-20.1); Calc. Creatinine Clearance 266 mL/min (70-130); Carbon Dioxide 31 mmol/L (22-29); Chloride 101 mmol/L (98-107); Estimated GFR-MDRD Greater than 90; Glucose 102 mg/dL (70-105); Potassium 4.4 mmol/L (3.5-5.1); Sodium 138 mmol/L (136-145)
[2018-04-25] MEDS: predniSONE 20 MG TAB PO SCH (09:28)
[2018-04-25] MEDS: guaiFENesin ER 600 MG TAB PO SCH ×2 (09:29→20:15)
[2018-04-25] MEDS: Enoxaparin Sodium 40 MG/0.4 ML SYRINGE SC SCH (09:29)
[2018-04-25] MEDS: Fluconazole 100 MG TAB PO SCH (09:29)
[2018-04-25] MEDS: Famotidine/PF 20 mg/2ml Vial SLOW IVP SCH ×2 (09:29→20:16)
[2018-04-25] MEDS: Saccharomyces boulardii 250 MG CAP PO SCH (09:30)
--- NOTE | 2018-04-25 09:44 | PDOC.PN ---
- Subjective Encounter Start Date: 04/25/18 Encounter Start Time: 09:41 Ms. Bal was seen today in follow-up of Pneumonia. She look much better than when I saw her on admission. She comlains of some pain around the trach collar. She also notes some pain in her right knee. She normally takes [place] at home. - Objective Resuscitation Status: Resuscitation Status FULL:Full Resuscitation MAR Reviewed: Yes Vital Signs & Weight: Vital Signs (12 hours) Temp Pulse Resp Pulse Ox 04/25/18 09:08 94 L 04/25/18 07:00 97.9 F 04/25/18 04:00 97.8 F 04/25/18 00:45 89 31 H 93 L 04/25/18 00:00 98.0 F Weight Admit Weight 368 lb Weight 368 lb Most Recent Monitor Data Heart Rate from ECG 72 NIBP 158/99 NIBP BP-Mean 118 Respiration from ECG 27 SpO2 95 I&O: 04/24/18 04/25/18 04/26/18 06:59 06:59 06:59 Intake Total 2637 1906 Output Total 1615 4065 70 Balance 1022 -2159 -70 Result Diagrams: 04/25/18 05:45 04/25/18 07:48 Additional Labs: Accuchecks 04/25/18 04/24/18 04/24/18 06:53 21:23 15:55 POC Glucose 110 251 H 288 H Phys Exam - Physical Examination HEENT: PERRLA + rhonchi anteriorly in both lungs, and Score Caller- wheezing- bilaterally Cardiovascular: RRR, no significant murmur, no rub Gastrointestinal: soft, non-tender, no distention, positive bowel sounds Musculoskeletal: no edema Dx/Plan (1) Hospital-acquired pneumonia Code(s): J18.9 - PNEUMONIA, UNSPECIFIED ORGANISM Status: Acute (2) Acute on chronic respiratory failure with hypoxia and hypercapnia Code(s): J96.21 - ACUTE AND CHRONIC RESPIRATORY FAILURE WITH HYPOXIA; J96.22 - ACUTE AND CHRONIC RESPIRATORY FAILURE WITH HYPERCAPNIA Status: Acute (3) DM type 2 (diabetes mellitus, type 2) Status: Chronic Qualifiers: Comment: (4) Essential hypertension Code(s): I10 - ESSENTIAL (PRIMARY) HYPERTENSION Status: Chronic Comment: (5) Morbid obesity with body mass index of 70 and over in adult Code(s): E66.01 - MORBID (SEVERE) OBESITY DUE TO EXCESS CALORIES; Z68.45 - BODY MASS INDEX (BMI) 70 OR GREATER, ADULT Status: Chronic (6) Obesity hypoventilation syndrome Code(s): E66.2 - MORBID (SEVERE) OBESITY WITH ALVEOLAR HYPOVENTILATION Status : Chronic Comment: stable - Plan * Pneumonia- Hospital acquired with acute respiratory failure- improving- She is now off continuous mechanical ventilation. She is on oral antibiotics. Continue aggressive pulmonary toilet. * HTN- blood pressure is elevated- but unsure if this is factious due to cuff size- will continue the current antibiotics, and PRN medications * DM- blood glucose is stable * KATERINA- ( Obesity Hypoventilation ) stable * Deconditioning- continue PT/OT. * Symptom Management
[2018-04-25] MEDS: Insulin Glargine 30 UNITS in Pre-Filled Syringe 1 EACH SC SCH ×2 (09:45→20:16)
[2018-04-25] MEDS: HYDROcodone/Acetaminophen 10/325 mg Tablet PO PRN ×2 (11:09→20:18)
--- NOTE | 2018-04-25 14:15 | PRG ---
DATE OF SERVICE: 04/25/2018 SUBJECTIVE: This morning, she is sitting on the side of the bed. Trach in place without any distres s. No coughing, no wheezing. She says the trach is bothering her. Only next week we can probably downsize it to a cuffless trach. OBJECTIVE: VITAL SIGNS: Sats are 94 on trach collar, blood pressure 158/90, respiratory rate 18.. CHEST: Decreased breath sounds, anterior rhonchi. CARDIAC: Normal S1 and S2, no gallops. ABDOMEN: Soft, no masses. LABORATORY DATA: White count 6.6, H and H 4 and 48, platelet count is 113. Electrolytes are normal. Last chest x-ray shows haziness, probably . IMPRESSION: Acute on chronic respiratory failure, pneumonia, chronic obstructive pulmonary disease, sleep apnea. PLAN: Continue supportive care and PT. P.o. prednisone. She could probably be transferred to a monitored bed. [id number] critical care time.
[2018-04-25] MEDS: HumaLOG 300 UNITS/3 ML VIAL SC PRN ×2 (18:11→20:16)
[2018-04-26] MEDS: HYDROcodone/Acetaminophen 10/325 mg Tablet PO PRN ×2 (03:17→19:58)
[2018-04-26] MEDS: Cepastat Lozenges 1 LOZ PO PRN ×4 (03:18→22:56)
[2018-04-26 03:50] LABS: #Basophils 0.1 thou/uL (0.0-0.2); #Eosinphils 0.1 thou/uL (0.0-0.7); #Lymphocytes 2.1 thou/uL (1.20-3.40); #Monocytes 0.7 thou/uL (0.11-0.59); #Neutrophils 5.2 thou/uL (1.40-6.50); %Basophils 1.1 % (0.0-1.0); %Lymphocytes 25.3 % (21.0-51.0); %Monocytes 8.6 % (0.0-10.0); Hemoglobin 14.5 g/dL (12.0-16.0); Mean Corpuscular HGB CONC 30.9 g/dL (32.0-36.0); Mean Corpuscular Hemoglobin 24.8 pg (27.0-31.0); Mean Corpuscular Volume 80.3 fL (78.0-98.0); Platelet Count 117 thou/uL (130-400); RBC Distribution Width 16.9 % (11.5-14.5); Red Blood Cell (RBC) Count 5.86 mill/uL (4.20-5.40); White Blood Cell (WBC) Count 8.1 thou/uL (4.8-10.8)
[2018-04-26 04:10] LABS: Anion Gap 8 mmol/L (10-20); BUN (Urea Nitrogen) 16 mg/dL (9.8-20.1); Calc. Creatinine Clearance 270 mL/min (70-130); Calcium 8.9 mg/dL (7.8-10.44); Carbon Dioxide 37 mmol/L (22-29); Chloride 99 mmol/L (98-107); Estimated GFR-MDRD Greater than 90; Glucose 149 mg/dL (70-105); Sodium 140 mmol/L (136-145)
[2018-04-26] MEDS: Enoxaparin Sodium 40 MG/0.4 ML SYRINGE SC SCH (08:38)
[2018-04-26] MEDS: Fluconazole 100 MG TAB PO SCH (08:38)
[2018-04-26] MEDS: predniSONE 20 MG TAB PO SCH (08:39)
[2018-04-26] MEDS: Famotidine/PF 20 mg/2ml Vial SLOW IVP SCH (08:39)
[2018-04-26] MEDS: guaiFENesin ER 600 MG TAB PO SCH ×2 (08:39→19:58)
[2018-04-26] MEDS: Saccharomyces boulardii 250 MG CAP PO SCH (08:40)
[2018-04-26] MEDS: Insulin Glargine 30 UNITS in Pre-Filled Syringe 1 EACH SC SCH ×2 (08:41→20:00)
--- NOTE | 2018-04-26 09:54 | PDOC.PN ---
- Subjective Encounter Start Date: 04/26/18 Encounter Start Time: 09:53 Ms. Bal was seen today in follow-up of Pneumonia. She complains of some pain around the trach collar, but otherwise ok. she continues to have the left knee pain. - Objective Resuscitation Status: Resuscitation Status FULL:Full Resuscitation MAR Reviewed: Yes Vital Signs & Weight: Vital Signs (12 hours) Temp Pulse Resp Pulse Ox 04/26/18 07:38 92 L 04/26/18 07:13 69 25 H 95 04/26/18 05:00 98.0 F 04/26/18 01:16 67 23 H 98 04/26/18 00:00 97.9 F Weight Admit Weight 368 lb Weight 368 lb Most Recent Monitor Data Heart Rate from ECG 89 NIBP 149/107 NIBP BP-Mean 121 Respiration from ECG 19 SpO2 97 I&O: 04/25/18 04/26/18 04/27/18 06:59 06:59 06:59 Intake Total 1906 1780 0 Output Total 4065 1305 0 Balance -2159 475 0 Result Diagrams: 04/26/18 03:20 04/26/18 03:20 Additional Labs: Accuchecks 04/26/18 04/25/18 04/25/18 05:56 20:15 17:03 POC Glucose 122 H 283 H 223 H 04/25/18 09:50 POC Glucose 104 Phys Exam - Physical Examination HEENT: PERRLA Respiratory: no wheezing, no rales, no rhonchi, clear to auscultation bilateral Cardiovascular: RRR, no significant murmur, no rub Gastrointestinal: soft, non-tender, no distention, positive bowel sounds Musculoskeletal: edema present + crepitus in the knee joint- bilaterally Neurological: non-focal Dx/Plan (1) Hospital-acquired pneumonia Code(s): J18.9 - PNEUMONIA, UNSPECIFIED ORGANISM Status: Acute (2) Acute on chronic respiratory failure with hypoxia and hypercapnia Code(s): J96.21 - ACUTE AND CHRONIC RESPIRATORY FAILURE WITH HYPOXIA; J96.22 - ACUTE AND CHRONIC RESPIRATORY FAILURE WITH HYPERCAPNIA Status: Acute (3) DM type 2 (diabetes mellitus, type 2) Status: Chronic Qualifiers: Comment: (4) Essential hypertension Code(s): I10 - ESSENTIAL (PRIMARY) HYPERTENSION Status: Chronic Comment: (5) Morbid obesity with body mass index of 70 and over in adult Code(s): E66.01 - MORBID (SEVERE) OBESITY DUE TO EXCESS CALORIES; Z68.45 - BODY MASS INDEX (BMI) 70 OR GREATER, ADULT Status: Chronic (6) Obesity hypoventilation syndrome Code(s): E66.2 - MORBID (SEVERE) OBESITY WITH ALVEOLAR HYPOVENTILATION Status : Chronic Comment: stable - Plan * Healthcare Associated Pneumonia- She is now off antibiotics. Her respiratory status has improved * DM- blood glucose is stable * HTN- Blood Pressure is a bit labile, but mostly controlled- will restart Lisinopril * She can be moved to the [facility]. * Mobilize as tolerated
--- NOTE | 2018-04-26 12:10 | PRG ---
DATE OF SERVICE: 04/26/2018 SUBJECTIVE: This morning, awake, alert, responsive, in no distress. OBJECTIVE: VITAL SIGNS: Sats are 92 on trach collar, respiratory , pulse 69, blood pressure 149/89. CHEST: Chest reveals decreased breath sounds, no wheezing. CARDIAC: Normal S1, S2. ABDOMEN: Soft, no masses. LABORATORY DATA: White count 8000, H and H 4 and 47, platelet count is normal. IMPRESSION: Chronic obstructive pulmonary disease; morbid obesity; sleep apnea; respiratory failure, improved. PLAN: She can be transferred to MICU unit. Continue supportive care. Can probably downsize to a cuffless trach tomorrow.
[2018-04-27] MEDS: HYDROcodone/Acetaminophen 10/325 mg Tablet PO PRN ×3 (00:43→21:09)
[2018-04-27] MEDS: Cepastat Lozenges 1 LOZ PO PRN ×3 (00:44→21:10)
[2018-04-27] MEDS: Enoxaparin Sodium 40 MG/0.4 ML SYRINGE SC SCH (07:38)
[2018-04-27] MEDS: Fluconazole 100 MG TAB PO SCH (07:38)
[2018-04-27] MEDS: predniSONE 20 MG TAB PO SCH (07:38)
[2018-04-27] MEDS: guaiFENesin ER 600 MG TAB PO SCH ×2 (07:39→21:08)
[2018-04-27] MEDS: Saccharomyces boulardii 250 MG CAP PO SCH (07:39)
[2018-04-27] MEDS: hydrALAZINE 20 MG/ML VIAL SLOW IVP PRN ×2 (07:40→16:41)
[2018-04-27] MEDS: cloNIDine 0.1 MG TAB PO PRN ×2 (07:49→15:06)
[2018-04-27] MEDS ORDERED: Sterile Water 10 ML VIAL IVP SCH (08:39)
[2018-04-27] MEDS: Activase 2 MG VIAL CATH SCH ×2 (09:18→11:45)
[2018-04-27] MEDS: Insulin Glargine 30 UNITS in Pre-Filled Syringe 1 EACH SC SCH (09:51)
--- NOTE | 2018-04-27 10:04 | PDOC.PN ---
- Subjective Encounter Start Date: 04/27/18 Encounter Start Time: 09:59 Ms. Bal was seen today in follow-up of Pneumonia. She says she is feeling better, but still has some tension around her tracheostomy site. - Objective Resuscitation Status: Resuscitation Status FULL:Full Resuscitation MAR Reviewed: Yes Vital Signs & Weight: Vital Signs (12 hours) Temp Pulse Resp BP Pulse Ox 04/27/18 07:26 97.7 F 67 22 H 191/114 H 96 04/27/18 07:15 75 20 97 04/27/18 03:43 96.9 F L 60 20 139/62 97 04/27/18 01:03 66 20 97 04/26/18 23:46 97.4 F L 60 20 173/116 H 95 Weight Admit Weight 368 lb Weight 383 lb 4.8 oz Most Recent Monitor Data Heart Rate from ECG 77 NIBP 109/89 NIBP BP-Mean 95 Respiration from ECG 20 SpO2 99 I&O: 04/26/18 04/27/18 04/28/18 06:59 06:59 06:59 Intake Total 1780 1860 Output Total 1305 1625 Balance 475 235 Result Diagrams: 04/26/18 03:20 04/26/18 03:20 Additional Labs: Accuchecks 04/27/18 04/27/18 04/26/18 06:49 05:44 21:36 POC Glucose 85 67 L 173 H 04/26/18 11:34 POC Glucose 147 H Phys Exam - Physical Examination HEENT: PERRLA Respiratory: no wheezing decreased breath sounds at the bases Cardiovascular: RRR, no significant murmur, no rub Gastrointestinal: soft, non-tender, no distention, positive bowel sounds Musculoskeletal: no edema Neurological: non-focal, moves all 4 limbs Psychiatric: normal affect, A&O x 3 Dx/Plan (1) Hospital-acquired pneumonia Code(s): J18.9 - PNEUMONIA, UNSPECIFIED ORGANISM Status: Acute (2) Acute on chronic respiratory failure with hypoxia and hypercapnia Code(s): J96.21 - ACUTE AND CHRONIC RESPIRATORY FAILURE WITH HYPOXIA; J96.22 - ACUTE AND CHRONIC RESPIRATORY FAILURE WITH HYPERCAPNIA Status: Resolved (3) DM type 2 (diabetes mellitus, type 2) Status: Chronic Qualifiers: Comment: (4) Essential hypertension Code(s): I10 - ESSENTIAL (PRIMARY) HYPERTENSION Status: Chronic Comment: (5) Morbid obesity with body mass index of 70 and over in adult Code(s): E66.01 - MORBID (SEVERE) OBESITY DUE TO EXCESS CALORIES; Z68.45 - BODY MASS INDEX (BMI) 70 OR GREATER, ADULT Status: Chronic (6) Obesity hypoventilation syndrome Code(s): E66.2 - MORBID (SEVERE) OBESITY WITH ALVEOLAR HYPOVENTILATION Status : Chronic Comment: stable - Plan * Healthcare Associated Pneumonia- she has completed antibiotics * DM- blood glucose is running low- will decrease the dose of her scheduled insulin, and continue with SSI * HTN- blood pressure is elevated- will re-start Lisinopril * KATERINA- stable * Thrombocytopenia- Pepcid was discontinued, and Started Protonix in it's place - will monitor * Severe deconditioning- continue PT/OT, and plan is for possible Rehab transfer.
[2018-04-27] MEDS ORDERED: Lisinopril 20 MG TAB PO SCH ×2 (10:07→10:30)
[2018-04-27] MEDS: Scopolamine 1.5 mg/72 hour Patch TD SCH (10:33)
[2018-04-27] MEDS: HumaLOG 300 UNITS/3 ML VIAL SC PRN ×2 (12:33→17:24)
--- NOTE | 2018-04-27 15:08 | PRG ---
DATE OF SERVICE: 04/27/2018 SUBJECTIVE: Colleen Bal says she is feeling better. She wants her trach changed back to her cuff less trach. OBJECTIVE: VITAL SIGNS: She is afebrile, heart rate is 63, respiratory rate is 18, oximetry is 92, blood pressu re 121/72. LUNGS: Clear. HEART: Regular rhythm. ABDOMEN: Soft. LABORATORY DATA: There is no new lab today. IMPRESSION: 1. Pneumonia with respiratory failure, clinically improved. 2. Life threatening obesity. 3. Sleep apnea treated with a permanent tracheostomy. We will change out her trach later today or t omorrow.
[2018-04-27] MEDS ORDERED: Simvastatin 5 MG TAB PO SCH (21:00)
[2018-04-27] MEDS: Insulin Glargine 10 UNITS in Pre-Filled Syringe 1 EACH SC SCH (21:19)
[2018-04-28 04:29] LABS: #Basophils 0.1 thou/uL (0.0-0.2); #Eosinphils 0.2 thou/uL (0.0-0.7); #Lymphocytes 2.2 thou/uL (1.20-3.40); #Monocytes 0.6 thou/uL (0.11-0.59); %Basophils 0.6 % (0.0-1.0); %Eosinophils 3.1 % (0.0-10.0); %Lymphocytes 26.8 % (21.0-51.0); %Monocytes 7.7 % (0.0-10.0); %Neutrophils 61.8 % (42.0-75.0); Hemoglobin 14.1 g/dL (12.0-16.0); Mean Corpuscular Hemoglobin 24.9 pg (27.0-31.0); Mean Corpuscular Volume 80.3 fL (78.0-98.0); Platelet Count 118 thou/uL (130-400); RBC Distribution Width 16.5 % (11.5-14.5); Red Blood Cell (RBC) Count 5.67 mill/uL (4.20-5.40)
[2018-04-28 04:33] LABS: Anion Gap 9 mmol/L (10-20); BUN (Urea Nitrogen) 14 mg/dL (9.8-20.1); Calc. Creatinine Clearance 269 mL/min (70-130); Calcium 8.9 mg/dL (7.8-10.44); Carbon Dioxide 36 mmol/L (22-29); Chloride 99 mmol/L (98-107); Estimated GFR-MDRD Greater than 90; Glucose 81 mg/dL (70-105); Sodium 140 mmol/L (136-145)
[2018-04-28] MEDS: Enoxaparin Sodium 40 MG/0.4 ML SYRINGE SC SCH (09:10)
[2018-04-28] MEDS: Insulin Glargine 10 UNITS in Pre-Filled Syringe 1 EACH SC SCH ×2 (09:10→20:05)
[2018-04-28] MEDS: predniSONE 20 MG TAB PO SCH (09:11)
[2018-04-28] MEDS: guaiFENesin ER 600 MG TAB PO SCH ×2 (09:11→20:02)
[2018-04-28] MEDS: Saccharomyces boulardii 250 MG CAP PO SCH (09:11)
[2018-04-28] MEDS: Lisinopril 20 MG TAB PO SCH (09:11)
[2018-04-28] MEDS: Aspirin 81 mg Enteric Coated Tablet PO SCH (09:11)
[2018-04-28] MEDS: HYDROcodone/Acetaminophen 10/325 mg Tablet PO PRN ×2 (09:21→23:50)
[2018-04-28] MEDS: Fluconazole 100 MG TAB PO SCH (09:21)
--- NOTE | 2018-04-28 09:59 | PDOC.PN ---
- Subjective Encounter Start Date: 04/28/18 Encounter Start Time: 09:58 Ms. Bal was seen today in follow-up of Pneumonia. She is breathing better, but notes some tightness around her trach. She also notes the continued pain in her right knee. - Objective Resuscitation Status: Resuscitation Status FULL:Full Resuscitation MAR Reviewed: Yes Vital Signs & Weight: Vital Signs (12 hours) Temp Pulse Resp BP BP Pulse Ox 04/28/18 09:11 137/93 H 04/28/18 07:46 98 04/28/18 07:23 97.2 F L 71 26 H 159/97 H 93 L 04/28/18 06:51 85 22 H 95 04/28/18 04:00 98.4 F 69 16 159/92 H 91 L 04/28/18 00:10 96 24 H 96 04/28/18 00:08 98.6 F 81 18 172/89 H 92 L Weight Admit Weight 368 lb Weight 383 lb 4.8 oz Most Recent Monitor Data Heart Rate from ECG 77 NIBP 109/89 NIBP BP-Mean 95 Respiration from ECG 20 SpO2 99 I&O: 04/27/18 04/28/18 04/29/18 06:59 06:59 06:59 Intake Total 1860 410 Output Total 1625 2900 Balance 235 -2490 Result Diagrams: 04/28/18 03:31 04/28/18 03:31 Additional Labs: Accuchecks 04/28/18 04/27/18 04/27/18 05:38 20:08 16:20 POC Glucose 72 246 H 300 H 04/27/18 10:28 POC Glucose 175 H Phys Exam - Physical Examination HEENT: PERRLA Respiratory: no wheezing, no rales, no rhonchi, clear to auscultation bilateral Cardiovascular: RRR, no significant murmur, no rub Gastrointestinal: soft, non-tender, no distention, positive bowel sounds Musculoskeletal: edema present Neurological: non-focal, moves all 4 limbs Psychiatric: normal affect, A&O x 3 Dx/Plan (1) Hospital-acquired pneumonia Code(s): J18.9 - PNEUMONIA, UNSPECIFIED ORGANISM Status: Acute (2) Acute on chronic respiratory failure with hypoxia and hypercapnia Code(s): J96.21 - ACUTE AND CHRONIC RESPIRATORY FAILURE WITH HYPOXIA; J96.22 - ACUTE AND CHRONIC RESPIRATORY FAILURE WITH HYPERCAPNIA Status: Resolved (3) DM type 2 (diabetes mellitus, type 2) Status: Chronic Qualifiers: Comment: (4) Essential hypertension Code(s): I10 - ESSENTIAL (PRIMARY) HYPERTENSION Status: Chronic Comment: (5) Morbid obesity with body mass index of 70 and over in adult Code(s): E66.01 - MORBID (SEVERE) OBESITY DUE TO EXCESS CALORIES; Z68.45 - BODY MASS INDEX (BMI) 70 OR GREATER, ADULT Status: Chronic (6) Obesity hypoventilation syndrome Code(s): E66.2 - MORBID (SEVERE) OBESITY WITH ALVEOLAR HYPOVENTILATION Status : Chronic Comment: stable (7) Physical deconditioning Code(s): R53.81 - OTHER MALAISE Status: Acute - Plan * Pneumonia- She has completed her course of antibiotics * KATERINA - treated with chronic tracheostomy. * HTN- blood pressure is stable * DM- blood glucose is still running a bit low- will continue to viktoriya insulin as needed * Deconditioning- severely deconditioned- continue PT/OT and she will likely need some time with PT at a skilled or Rehab facility prior to discharge home
[2018-04-28] MEDS ORDERED: predniSONE 20 MG TAB PO SCH (10:58)
--- NOTE | 2018-04-28 11:34 | PRG ---
DATE OF SERVICE: 04/28/2018 SUBJECTIVE: Ms. Bal is doing well. She wanted her trach changed to a new #6. Cuffless trach was placed and smooth inner cannula will be placed (there was one missing in the box). The fenestrated cannulas tend to give her granulation tissue in her stoma. OBJECTIVE: VITAL SIGNS: She is afebrile, blood pressure 137/93, respiratory rate 20, oximetry is 93. LUNGS: Clear. HEART: Regular rhythm. ABDOMEN: Soft. EXTREMITIES: She is still fairly unsteady on her feet. LABORATORY DATA: White count is 8, hemoglobin 14.1, platelets 118,000. Sodium 140, potassium 4, chl oride 99, bicarbonate 36, BUN 14, creatinine 0.6. ASSESSMENT AND PLAN: Family wants to take her over to [place] for her rehabilitation and diet mo nitoring. If she can get to where she can walk short distance to a car, I would be fine with this in stead of her going into a long-term here in town. She is hesitant to leave town. I will support her with whichever decision she makes. We are not having any secretion issues at this time. Her ast hma appears to be stable. I believe she is recovering from pneumonia. Her prednisone dosing can be cut tomorrow to 20 mg a day.
[2018-04-28] MEDS: HumaLOG 300 UNITS/3 ML VIAL SC PRN (17:18)
[2018-04-28] MEDS ORDERED: Simvastatin 20 MG TAB PO SCH (21:00)
[2018-04-29] MEDS ORDERED: predniSONE 20 MG TAB PO SCH (08:00)
--- NOTE | 2018-04-29 08:30 | PDOC.PN ---
- Subjective Encounter Start Date: 04/29/18 Encounter Start Time: 08:29 Ms. Bal was seen today in follow-up of Pneumonia. She says she is feeling much better. She is less short of breath, and the trach feels better after this was changed. - Objective Resuscitation Status: Resuscitation Status FULL:Full Resuscitation MAR Reviewed: Yes Vital Signs & Weight: Vital Signs (12 hours) Temp Pulse Resp BP Pulse Ox 04/29/18 07:41 98 04/29/18 07:34 98.2 F 79 12 142/91 H 95 04/29/18 07:18 97 04/29/18 07:17 80 18 96 04/29/18 03:51 97.8 F 66 20 150/92 H 90 L 04/29/18 00:12 74 20 95 04/28/18 23:42 97.6 F 74 20 161/103 H 96 Weight Admit Weight 368 lb Weight 383 lb 4.8 oz Most Recent Monitor Data Heart Rate from ECG 77 NIBP 109/89 NIBP BP-Mean 95 Respiration from ECG 20 SpO2 99 I&O: 04/28/18 04/29/18 04/30/18 06:59 06:59 06:59 Intake Total 410 1160 Output Total 2900 1500 Balance -2490 -340 Result Diagrams: 04/28/18 03:31 04/28/18 03:31 Additional Labs: Accuchecks 04/29/18 04/28/18 04/28/18 05:31 20:03 16:40 POC Glucose 73 194 H 254 H 04/28/18 10:40 POC Glucose 133 H Phys Exam - Physical Examination HEENT: PERRLA Respiratory: no wheezing, no rales, no rhonchi, clear to auscultation bilateral Cardiovascular: RRR, no significant murmur, no rub Gastrointestinal: soft, non-tender, positive bowel sounds Musculoskeletal: no edema Dx/Plan (1) Hospital-acquired pneumonia Code(s): J18.9 - PNEUMONIA, UNSPECIFIED ORGANISM Status: Resolved (2) Acute on chronic respiratory failure with hypoxia and hypercapnia Code(s): J96.21 - ACUTE AND CHRONIC RESPIRATORY FAILURE WITH HYPOXIA; J96.22 - ACUTE AND CHRONIC RESPIRATORY FAILURE WITH HYPERCAPNIA Status: Resolved (3) DM type 2 (diabetes mellitus, type 2) Status: Chronic Qualifiers: Comment: (4) Essential hypertension Code(s): I10 - ESSENTIAL (PRIMARY) HYPERTENSION Status: Chronic Comment: (5) Morbid obesity with body mass index of 70 and over in adult Code(s): E66.01 - MORBID (SEVERE) OBESITY DUE TO EXCESS CALORIES; Z68.45 - BODY MASS INDEX (BMI) 70 OR GREATER, ADULT Status: Chronic (6) Obesity hypoventilation syndrome Code(s): E66.2 - MORBID (SEVERE) OBESITY WITH ALVEOLAR HYPOVENTILATION Status : Chronic Comment: stable (7) Physical deconditioning Code(s): R53.81 - OTHER MALAISE Status: Acute - Plan * Pneumonia- resolved * HTN- blood pressure is a bit elevated - will add a low dose Amlodipine * DM- blood glucose has been a bit labile- will continue the current dose of Insulin with a SSI * Deconditioning- continue PT/OT * Plan is for Skilled vs. Rehab either locally or in [place]..
[2018-04-29] MEDS: guaiFENesin ER 600 MG TAB PO SCH (08:42)
[2018-04-29] MEDS: Aspirin 81 mg Enteric Coated Tablet PO SCH (08:43)
[2018-04-29] MEDS: Saccharomyces boulardii 250 MG CAP PO SCH (08:43)
[2018-04-29] MEDS: Fluconazole 100 MG TAB PO SCH (08:43)
[2018-04-29] MEDS: Enoxaparin Sodium 40 MG/0.4 ML SYRINGE SC SCH (08:43)
[2018-04-29] MEDS: Insulin Glargine 10 UNITS in Pre-Filled Syringe 1 EACH SC SCH (08:44)
[2018-04-29] MEDS: Lisinopril 20 MG TAB PO SCH (08:46)
[2018-04-29 10:48] VITALS: BMI 74.8
[2018-04-29] MEDS: HYDROcodone/Acetaminophen 10/325 mg Tablet PO PRN (11:10)
--- NOTE | 2018-04-29 13:55 | PRG ---
DATE OF SERVICE: 04/29/2018 SUBJECTIVE: She says she walked 400 feet yesterday and 500 today. She is still a little bit hypertensive, although her arms are so large, I cannot imagine that the [facility] are accurate. OBJECTIVE: VITAL SIGNS: Temperature is 97.6, heart rate 82, respiratory rate is 23, blood pressure this afterno on 167/110. LUNGS: Clear. CARDIOVASCULAR: Regular rhythm. ABDOMEN: Soft. IMPRESSION: 1. Pneumonia, clinically improved. 2. Underlying asthma that is controlled. 3. Status post removal of her cuffed tracheostomy and a new #6 cuffless tracheostomy was placed with a smooth inner cannula. 4. Obesity. 5. Deconditioning. It is really up to her whether or not she feels strong enough to go home. Her aunt wants her to come over to [place] and stay with her, so they can help and force a diet. Apparently, her life situ ation here is pretty stressful. I will see her if she is discharged this weekend. If she is dischar ged today or tomorrow, I will see her in follow up in the office in 3-4 weeks.
[2018-04-29 15:25] VITALS: BP 164/89; TEMP 98
[2018-04-29] MEDS: HumaLOG 300 UNITS/3 ML VIAL SC PRN (16:54)
--- NOTE | 2018-04-29 19:47 | DIS ---
DATE OF ADMISSION: 04/20/2018 DATE OF DISCHARGE: 04/29/2018 PRIMARY CARE PHYSICIAN: Guanaco Alexander M.D. DISCHARGE DISPOSITION: To inpatient rehabilitation. DISCHARGE DIAGNOSES: 1. Healthcare-associated pneumonia. 2. Acute on chronic respiratory failure with hypoxemia and hypercapnia. 3. Diabetes mellitus, type 2. 4. Hypertension. 5. Morbid obesity with a BMI of 70. 6. Congestive heart failure with preserved ejection fraction. DISCHARGE MEDICATIONS: Pravastatin 20 mg at bedtime, Zoloft 25 mg p.o. at bedtime, aspirin 81 mg dusty ly, clonidine 0.1 mg p.o. q.4 h. as needed, Colace 100 mg twice daily, Lovenox 40 mg subcu daily for DVT prophylaxis, Lasix 80 mg daily, Zuni 10/325 one tablet q.4 h. as needed, Lantus insulin 10 units twice a day, Albuterol nebulizers q.6 scheduled and q.4 hours p.r.n., levothyroxine 300 mcg daily, l isinopril 200 mg daily, Nystatin powder 15 grams twice a day as needed, Protonix 40 mg daily, K-Dur 2 0 mEq daily, prednisone 20 mg daily, Florastor 250 mg daily, and scopolamine transdermal every 3 days . PROCEDURES DONE DURING ADMISSION: The patient had a CT angiogram of the chest showing cardiomegaly. There was some airspace opacities visualized in all lobes. This could represent pneumonia. A trach eostomy tube was in place. CODE STATUS: FULL CODE. ALLERGIES: GABAPENTIN, PREGABALIN, and DULOXETINE. HOSPITAL COURSE: Ms. Bal is a very pleasant 52-year-old female that has a history of chronic resp iratory failure due mostly to obesity hypoventilation syndrome. She has a tracheostomy, which she thacker s had in place since 2005. She was recently treated at our facility for pneumonia and was discharged on 04/04/2018. She says that she had been doing okay after discharge, but then began to have recrud escence of her symptoms. She began having cough and congestion and increasing shortness of breath. She was subsequently admitted and found to have pneumonia. This is likely a healthcare-associated pn eumonia since her recent hospitalization was within the last 3 months. She was admitted to the [facility] and started on broad spectrum antibiotics; however, she quickly decompensated and required intubation . She remained on the ventilator for several days until she could be weaned off. She was seen by lmonary and Critical Care during this time. There was also some degree of volume overload. She was diuresed with IV Lasix initially and a couple of days after admission and then the diuretics were dis continued due to some degree of elevated CO2 level. She was able to be transitioned out of the ICU. Her tracheostomy tube was changed and the size was adjusted. The patient had become somewhat decond itioned during the course of her hospital stay. She was only able to take a few steps within the brian m and would quickly become hypertensive and tachycardic due to severe physical deconditioning. For t his reason, she was evaluated for inpatient rehabilitation and once she was stabilized, able to be tr ansferred to the inpatient rehab on 04/29/2018.
== END 2018-04-29 19:50 | DRG 208 ==
LOC: ERS 17:25 → T4-B 19:41 → CCU 22:47 → IMCU/EMU 04-26 17:05
PROVIDERS: ADMIT Internal Medicine Infectious Disease; ATTEND Internal Medicine Infectious Disease
PROC: 5A1945Z Respiratory Ventilation, 24-96 Consecutive Hours (ICD-10-PCS; principal; 2018-04-21)
DX: J15.9 Unspecified bacterial pneumonia (principal); J96.21 Acute and chronic respiratory failure with hypoxia; J96.22 Acute and chronic respiratory failure with hypercapnia; Z68.45 Body mass index [BMI] 70 or greater, adult; E87.2 Acidosis; I50.32 Chronic diastolic (congestive) heart failure; E66.2 Morbid (severe) obesity with alveolar hypoventilation; E11.9 Type 2 diabetes mellitus without complications; I25.10 Atherosclerotic heart disease of native coronary artery without angina pectoris; I11.0 Hypertensive heart disease with heart failure; E03.9 Hypothyroidism, unspecified; F41.9 Anxiety disorder, unspecified; F32.9 Major depressive disorder, single episode, unspecified; J44.9 Chronic obstructive pulmonary disease, unspecified; Z79.82 Long term (current) use of aspirin; Z79.4 Long term (current) use of insulin; Z93.0 Tracheostomy status; Z83.3 Family history of diabetes mellitus; Z84.1 Family history of disorders of kidney and ureter; Z82.49 Family history of ischemic heart disease and other diseases of the circulatory system
CPT/HCPCS: 36415; 36416; 71045; 71275; 80048; 80053; 80202; 82553; 82805; 83605; 83880; 84484; 85025; 85379; 87040; 87070; 87205; 93005; 94002; 94003; 94640; 94760; 96365; 96368; 96375; A4216; G8978-GP-CJ; G8979-GP-CI; G8987-GO-CJ; G8988-GO-CI; G8996-GN-CH; G8997-GN-CH; J0360; J0692; J1650; J1940; J1956; J2060; J2270; J2405; J2543; J2920; J2997; J3010; J3370; J7050; J7506; J7620; S0028

== ENCOUNTER 2018-07-08 09:02 | Outpatient (CLI) | payer OTHER ==
--- NOTE | 2018-07-08 11:04 | MMO ---
BILATERAL MAMMOGRAMS: DATE: 07/08/18 HISTORY: Screening mammography. COMPARISON: 01/20/14. FINDINGS: Scattered fibroglandular densities and benign-appearing calcifications. No dominant mass or suspiciou s calcifications. The study was evaluated with the assistance of computer-aided detection. IMPRESSION: BIRADS 1: Negative Suggest routine follow-up. POS: [facility]
== END 2018-07-08 09:03 | disposition home or self-care (01) ==
LOC: SCSMAMMO 09:02
PROVIDERS: ATTEND Family Medicine
DX: Z12.31 Encounter for screening mammogram for malignant neoplasm of breast (principal)
CPT/HCPCS: 77067

== ENCOUNTER 2018-07-13 15:21 | Emergency (ER) | payer OTHER ==
[2018-07-13] MEDS ORDERED: Lidocaine 1% (PF) 30 ML VIAL ONE (17:01)
[2018-07-13] MEDS ORDERED: HYDROcodone/Acetaminophen 10/325 mg Tablet ONE (17:01)
[2018-07-13 17:20] LABS: #Eosinphils 0.2 thou/uL (0.0-0.7); #Lymphocytes 2.7 thou/uL (1.20-3.40); #Monocytes 0.9 thou/uL (0.11-0.59); #Neutrophils 5.1 thou/uL (1.40-6.50); %Basophils 0.5 % (0.0-1.0); %Eosinophils 1.8 % (0.0-10.0); %Lymphocytes 30.4 % (21.0-51.0); %Monocytes 10.2 % (0.0-10.0); %Neutrophils 57.1 % (42.0-75.0); Hemoglobin 13.6 g/dL (12.0-16.0); Mean Corpuscular HGB CONC 32.1 g/dL (32.0-36.0); Mean Corpuscular Volume 77.8 fL (78.0-98.0); Mean Platelet Volume 11.9 fL (7.4-10.4); Platelet Count 193 thou/uL (130-400); RBC Distribution Width 14.6 % (11.5-14.5); Red Blood Cell (RBC) Count 5.45 mill/uL (4.20-5.40)
[2018-07-13 17:32] LABS: ALT (SGPT) 30 U/L (8-55); AST (SGOT) 22 U/L (5-34); Albumin 3.4 g/dL (3.5-5.0); Alkaline Phosphatase 73 U/L (40-150); Anion Gap 12 mmol/L (10-20); BUN (Urea Nitrogen) 12 mg/dL (9.8-20.1); Bilirubin, Total 0.8 mg/dL (0.2-1.2); Calc. Creatinine Clearance 0 mL/min (70-130); Calcium 9.8 mg/dL (7.8-10.44); Carbon Dioxide 28 mmol/L (22-29); Chloride 101 mmol/L (98-107); Estimated GFR-MDRD Greater than 90; Globulin 3.4 g/dL (2.4-3.5); Glucose 141 mg/dL (70-105); Potassium 4.1 mmol/L (3.5-5.1); Protein, Total 6.8 g/dL (6.0-8.3); Sodium 137 mmol/L (136-145)
[2018-07-13] MEDS ORDERED: Morphine 4 MG/ML VIAL ONE (17:38)
== END 2018-07-13 18:31 | disposition home or self-care (01) ==
LOC: ERS 15:21
DX: L02.213 Cutaneous abscess of chest wall (principal); N76.4 Abscess of vulva; L02.416 Cutaneous abscess of left lower limb; I25.10 Atherosclerotic heart disease of native coronary artery without angina pectoris; E11.9 Type 2 diabetes mellitus without complications; E03.9 Hypothyroidism, unspecified; E78.5 Hyperlipidemia, unspecified; I11.0 Hypertensive heart disease with heart failure; I50.9 Heart failure, unspecified; E66.9 Obesity, unspecified; J44.9 Chronic obstructive pulmonary disease, unspecified; F32.9 Major depressive disorder, single episode, unspecified
CPT/HCPCS: 10060; 36415; 56405; 80053; 83605; 85025; 96372; J2001; J2270

== ENCOUNTER 2018-07-16 20:36 | Observation (INO) | payer OTHER ==
[2018-07-16 21:22] LABS: #Basophils 0.1 thou/uL (0.0-0.2); #Eosinphils 0.1 thou/uL (0.0-0.7); #Lymphocytes 2.6 thou/uL (1.20-3.40); #Neutrophils 3.9 thou/uL (1.40-6.50); %Basophils 1.2 % (0.0-1.0); %Eosinophils 1.6 % (0.0-10.0); %Lymphocytes 33.4 % (21.0-51.0); %Monocytes 12.8 % (0.0-10.0); Hemoglobin 13.5 g/dL (12.0-16.0); Mean Corpuscular Hemoglobin 25.1 pg (27.0-31.0); Mean Corpuscular Volume 78.7 fL (78.0-98.0); Mean Platelet Volume 12.1 fL (7.4-10.4); Platelet Count 171 thou/uL (130-400); RBC Distribution Width 15.1 % (11.5-14.5); Red Blood Cell (RBC) Count 5.35 mill/uL (4.20-5.40); White Blood Cell (WBC) Count 7.7 thou/uL (4.8-10.8)
--- NOTE | 2018-07-16 21:31 | RAD ---
AP VIEW CHEST: 07/16/18 HISTORY: Fever. Patient with tracheostomy. Difficulty with tracheostomy tube. AP view chest is obtained on 07/16/18. Comparison made to previous exam from 04/24/18. AP view chest demonstrates a tracheostomy tube in place. Cardiomegaly seen. Pulmonary vascular conges tion seen. No evidence of effusions, pneumonia or pneumothorax seen. IMPRESSION: Cardiomegaly with no evidence of acute intrathoracic abnormality seen. POS: [facility]
[2018-07-16 21:44] LABS: ALT (SGPT) 20 U/L (8-55); AST (SGOT) 18 U/L (5-34); Albumin 3.6 g/dL (3.5-5.0); Alkaline Phosphatase 69 U/L (40-150); Anion Gap 13 mmol/L (10-20); BUN (Urea Nitrogen) 8 mg/dL (9.8-20.1); Bilirubin, Total 0.4 mg/dL (0.2-1.2); Calc. Creatinine Clearance 0 mL/min (70-130); Calcium 9.7 mg/dL (7.8-10.44); Carbon Dioxide 24 mmol/L (22-29); Chloride 103 mmol/L (98-107); Estimated GFR-MDRD 89; Globulin 3.6 g/dL (2.4-3.5); Glucose 156 mg/dL (70-105); Potassium 4.4 mmol/L (3.5-5.1); Protein, Total 7.2 g/dL (6.0-8.3); Sodium 136 mmol/L (136-145)
[2018-07-16] MEDS ORDERED: Furosemide 40 MG/4 ML VIAL ONE (22:28)
[2018-07-17] MEDS ORDERED: Dextrose 50% Abboject 50 ML SYRINGE SLOW IVP PRN (01:27)
[2018-07-17] MEDS ORDERED: HumaLOG 300 UNITS/3 ML VIAL SC PRN (01:27)
[2018-07-17] MEDS ORDERED: hydrALAZINE 20 MG/ML VIAL SLOW IVP PRN (01:27)
[2018-07-17] MEDS ORDERED: Dextrose 5% in Water 1,000 ML IV PRN (01:27)
[2018-07-17] MEDS ORDERED: Ondansetron PF 4 MG/2 ML Vial IVP PRN (01:27)
[2018-07-17] MEDS ORDERED: Acetaminophen 325 MG TAB PO PRN (01:27)
--- NOTE | 2018-07-17 04:23 | HP ---
PRIMARY CARE PHYSICIAN: Guanaco Alexander MD. CHIEF COMPLAINT: Concern for fever yesterday and feeding tightness around her trach. HISTORY OF PRESENT ILLNESS: This is a 53-year-old female with past medical history of morbid obesity, congestive heart failure with preserved ejection fraction, hypertension, diabetes type 2, chronic respiratory failure likely due to obesity hypoventilation syndrome. The patient has a trach since 2005 and is on continuous oxygen at home, presented to the emergency department for feeding tightness around her trach. The patient reports that yesterday she thought she had a fever of 101 Farenheit, but then on recheck by her relative, the patient's temperature was 98.6 Farenheit. The patient reports that she follows up with PCP and the patient has 2 cellulitis, one under her right breast and second on her left labia. The patient is taking bactrim twice per day at this point. The patient denies any shortness of breath or chest pain at this point. The patient was taking Lasix 40 mg twice per day when she was discharged from rehab recently. She stopped taking that medication because she was concerned that if she urinates lot, then she will get UTI. The patient in the past has been on Lasix 80 mg twice per day, Lasix was changed to 40 mg twice per day at the rehab. The patient reports compliance with her medications at this point. Review of chart indicate medications some of which the patient was able verify. The patient has home health as well and reported that she follows up with her trash collector supervisor and was recently seen within the last month. The patient 's trach was recently changed. The patient denies any problems with her trach change since it has been changed. The patient's trach was checked in the ER and it was suctioned. There was not any significant infection noted. The patient's chest x-ray shows to be diminished in the ER. In the ER, the patient was given one dose of Lasix 40 mg IV. The patient was also given hydralazine because of her blood pressure was 197/129 on arrival. The patient was also given DuoNeb as well. The patient did not have any other complaints other than mentioned above. MEDICATIONS: 1. Lasix. 2. Insulin. 3. DuoNeb. 4. Levothyroxine. 5. Lisinopril. 6. Nystatin. PAST MEDICAL HISTORY: 1. Diabetes. 2. Coronary artery disease. 3. Congestive heart failure. 4. Obesity hypoventilation syndrome. 5. Morbid obesity. PAST SURGICAL HISTORY: Trach and . SOCIAL HISTORY: The patient lives at home, does not smoke or drink. FAMILY HISTORY: Significant for diabetes and end-stage renal disease. ALLERGIES: CYMBALTA, GABAPENTIN, AND LYRICA. REVIEW OF SYSTEMS: CONSTITUTIONAL: Subjective fever yesterday. EYES: No visual changes. EARS: No changes to her hearing. NOSE: No bleeding. THROAT: No sore throat noted. CARDIOVASCULAR: Denies any chest pain. Reports edema. RESPIRATIONS: Some shortness of breath, cough, and sputum production. GI: No nausea, vomiting, or diarrhea. GENITOURINARY: Denies dysuria. Reports infection, for which she is being treated. MSK: Edema. SKIN: Boils under her breast and her left labia. PHYSICAL EXAMINATION: VITAL SIGNS: Blood pressure 113/77, pulse 105, respirations 19, and O2 saturation 99% with the trach. CONSTITUTIONAL: Alert, in no acute distress. HEENT: Eyes, extraocular movements are intact. No abnormality grossly noted of ears and nose. Mouth, no exudate noted. NECK: The patient has a trach. CARDIOVASCULAR: Limited because of morbid obesity. Heart sounds could be heard and no murmurs, rubs, or gallops could be appreciated. RESPIRATIONS: Examination limited due to morbid obesity, diminished breath sounds. BREASTS: Boil seems to be drained. No surrounding erythema or tenderness noted. ABDOMEN: Bowel sounds positive, soft, and nontender. VAGINAL: Left labia boil nontender. No surrounding erythema noted. EXTREMITIES: Lower extremity examination; trace edema. NEUROLOGIC: Alert. SKIN: Boils as mentioned in the chest. GENITOURINARY: From by SUPERVISOR [employer] Reyes. IMAGING STUDIES: Chest x-ray, cardiomegaly with no evidence of acute intrathoracic abnormality seen. EKG negative for ST segment elevation. LABORATORY DATA: CBC and BMP reviewed. BMP within normal limits. Troponin also within limits at this point. ASSESSMENT AND PLAN: 1. Shortness of breath: Supsect acute congestive heart failure. Other dx include URI. BNP within normal limits and CBC also not significant for any infection at this point. The patient was given Lasix IV suspecting may be congestive heart failure exacerbation with volume overload given the patient had not taken her Lasix. We will continue IV Lasix 40 mg daily at this point right now. We will continue trach and O2 management per RT, nebulizer as well. We will draw blood cultures and sputum cultures, look at influenza panel. Trach being managed by trash collector supervisor 2. Obesity hypoventilation syndrome. Continue trach as mentioned above. 3. Hypertension, uncontrolled on admission. The patient was given hydralazine IV. We will have hydralazine p.r.n. We will restart home medications once it have been verified 4. . Cellulitis under her right breast and left labia. We will continue home Bactrim twice per day. We will get cultures at this point. They did not appear to be acutely infected or worsening at this point. 5. Diabetes. Continue insulin SSI, PT/OT ordered. DVT prophylaxis ordered. If the patient does not improve and continues to have symptoms, recommended consulting trash collector supervisor. At this point, the patient is full code. 6. Medical power of sergeant of corrections. She would like a daughter to be assigned and then after that her sister. Job ID: [id number] [facility]
[2018-07-17] MEDS: HYDROcodone/Acetaminophen 10/325 mg Tablet PO PRN ×2 (05:19→16:54)
[2018-07-17 06:02] LABS: #Eosinphils 0.2 thou/uL (0.0-0.7); #Lymphocytes 2.4 thou/uL (1.20-3.40); #Neutrophils 3.1 thou/uL (1.40-6.50); %Basophils 0.4 % (0.0-1.0); %Eosinophils 2.5 % (0.0-10.0); %Lymphocytes 35.9 % (21.0-51.0); %Monocytes 14.8 % (0.0-10.0); %Neutrophils 46.5 % (42.0-75.0); Mean Corpuscular HGB CONC 31.7 g/dL (32.0-36.0); Mean Corpuscular Hemoglobin 24.9 pg (27.0-31.0); Mean Corpuscular Volume 78.5 fL (78.0-98.0); Platelet Count 158 thou/uL (130-400); RBC Distribution Width 15.1 % (11.5-14.5); Red Blood Cell (RBC) Count 5.23 mill/uL (4.20-5.40); White Blood Cell (WBC) Count 6.7 thou/uL (4.8-10.8)
[2018-07-17 06:25] LABS: Anion Gap 11 mmol/L (10-20); BUN (Urea Nitrogen) 9 mg/dL (9.8-20.1); Calc. Creatinine Clearance 225 mL/min (70-130); Calcium 9.4 mg/dL (7.8-10.44); Carbon Dioxide 28 mmol/L (22-29); Chloride 103 mmol/L (98-107); Estimated GFR-MDRD Greater than 90; Glucose 114 mg/dL (70-105); Potassium 4.1 mmol/L (3.5-5.1); Sodium 138 mmol/L (136-145)
[2018-07-17] MEDS: Enoxaparin Sodium 40 MG/0.4 ML SYRINGE SC SCH (09:35)
[2018-07-17] MEDS: Sulfameth/Trimethoprim DS 800-160mg TAB PO SCH ×2 (09:35→20:25)
[2018-07-17] MEDS: Aspirin 81 mg Enteric Coated Tablet PO SCH (09:35)
[2018-07-17] MEDS: Furosemide 40 MG/4 ML VIAL SLOW IVP SCH (09:35)
[2018-07-17] MEDS: Docusate 100 MG CAP PO SCH ×2 (09:35→20:25)
[2018-07-17 12:08] VITALS: BMI 65.9
--- NOTE | 2018-07-17 18:27 | PDOC.PN ---
- Subjective Encounter Start Date: 07/17/18 Encounter Start Time: 18:25 Patient lying in bed, feels better. Denies chest pain, shortness of breath. Continuing on lasix. - Objective Resuscitation Status - Order Detail: 07/16/18 23:31 Resuscitation Status Routine Resuscitation Status: FULL: Full Resuscitation MAR Reviewed: Yes Vital Signs & Weight: Vital Signs (12 hours) Temp Pulse Pulse Pulse Resp BP BP 07/17/18 16:00 98.2 F 99 22 H 07/17/18 12:00 98.6 F 92 22 H 07/17/18 11:09 07/17/18 09:43 104 H 108 H 181/83 H 135/75 07/17/18 08:37 98.0 F 96 24 H BP Pulse Ox 07/17/18 16:00 124/74 92 L 07/17/18 12:00 126/79 94 L 07/17/18 11:09 86 L 07/17/18 09:43 07/17/18 08:37 127/62 93 L Weight Admit Weight 349 lb 3.2 oz Weight 349 lb 3.2 oz I&O: 07/16/18 07/17/18 07/18/18 06:59 06:59 06:59 Intake Total 200 920 Output Total 400 900 Balance -200 20 Result Diagrams: 07/17/18 05:09 07/17/18 05:09 Additional Labs: Accuchecks 07/17/18 07/17/18 07/17/18 16:30 12:03 05:17 POC Glucose 125 H 163 H 111 H Radiology Reviewed by me: Yes Phys Exam - Physical Examination Constitutional: NAD HEENT: PERRLA, moist MMs, oral pharynx no lesions Neck: no nodes, full ROM Trach in place Diminished breath sounds Cardiovascular: RRR, no significant murmur Gastrointestinal: soft, non-tender, positive bowel sounds Obese Musculoskeletal: pulses present trace edema Neurological: non-focal, moves all 4 limbs Lymphatic: no nodes Psychiatric: normal affect, A&O x 3 Skin: no rash, cap refill <2 seconds Dx/Plan - Plan cont current plan of care, continue antibiotics, respiratory therapy, DVT proph w/lovenox * Continue supportive medical management * Viral screen negative, cultures so far negative * Continue bactrim for cellulitis/boil * Currently improving with lasix * Last echo showed preserved EF
[2018-07-18] MEDS: HYDROcodone/Acetaminophen 10/325 mg Tablet PO PRN ×2 (03:12→11:17)
[2018-07-18] MEDS: Aspirin 81 mg Enteric Coated Tablet PO SCH (09:51)
[2018-07-18] MEDS: Enoxaparin Sodium 40 MG/0.4 ML SYRINGE SC SCH (10:02)
[2018-07-18] MEDS: Furosemide 40 MG/4 ML VIAL SLOW IVP SCH (10:02)
[2018-07-18] MEDS: Docusate 100 MG CAP PO SCH (10:02)
[2018-07-18] MEDS: Sulfameth/Trimethoprim DS 800-160mg TAB PO SCH (10:02)
[2018-07-18 17:26] VITALS: BP 137/80; TEMP 97.6
== END 2018-07-18 18:24 | disposition home or self-care (01) ==
LOC: ERS 20:36 → 2NO 07-17 00:55
PROVIDERS: ADMIT Family Medicine; ATTEND Family Medicine
DX: R06.02 Shortness of breath (principal); E66.2 Morbid (severe) obesity with alveolar hypoventilation; Z68.44 Body mass index [BMI] 60.0-69.9, adult; N61.0 Mastitis without abscess; N76.2 Acute vulvitis; E11.9 Type 2 diabetes mellitus without complications; I25.10 Atherosclerotic heart disease of native coronary artery without angina pectoris; I50.9 Heart failure, unspecified; Z88.8 Allergy status to other drugs, medicaments and biological substances; Z99.81 Dependence on supplemental oxygen; Z98.890 Other specified postprocedural states
CPT/HCPCS: 36415; 36416; 71045; 80048; 80053; 83605; 83880; 84484; 85025; 87040; 87633; 89220; 93005; 94640; 96372; 96374; 96376; G0378; J1650; J1940

== ENCOUNTER 2018-11-30 16:34 | Observation (INO) | payer OTHER ==
[2018-11-30 17:29] LABS: #Basophils 0.1 thou/uL (0.0-0.2); #Eosinphils 0.2 thou/uL (0.0-0.7); #Lymphocytes 3.8 thou/uL (1.20-3.40); #Monocytes 0.7 thou/uL (0.11-0.59); #Neutrophils 3.3 thou/uL (1.40-6.50); %Basophils 0.9 % (0.0-1.0); %Lymphocytes 46.9 % (21.0-51.0); %Monocytes 8.1 % (0.0-10.0); %Neutrophils 41.1 % (42.0-75.0); Mean Corpuscular HGB CONC 33.4 g/dL (32.0-36.0); Mean Corpuscular Hemoglobin 26.3 pg (27.0-31.0); Mean Corpuscular Volume 78.7 fL (78.0-98.0); Mean Platelet Volume 11.4 fL (7.4-10.4); Platelet Count 160 thou/uL (130-400); RBC Distribution Width 15.7 % (11.5-14.5); Red Blood Cell (RBC) Count 4.97 mill/uL (4.20-5.40); White Blood Cell (WBC) Count 8.1 thou/uL (4.8-10.8)
--- NOTE | 2018-11-30 17:40 | RAD ---
Chest one view HISTORY: Dyspnea. COMPARISON: 07/16/2018. FINDINGS: Cardiac silhouette is magnified and enlarged. Pulmonary vasculature is engorged with bilate ral perihilar infiltrates. Mediastinum midline with tracheostomy appliance in place. No lobar consolidation or evidence of pneumothorax. IMPRESSION: Cardiomegaly with mild pulmonary edema. Similar to the previous exam.
[2018-11-30 17:53] LABS: ALT (SGPT) 10 U/L (8-55); AST (SGOT) 11 U/L (5-34); Albumin 3.6 g/dL (3.5-5.0); Alkaline Phosphatase 95 U/L (40-150); Anion Gap 9 mmol/L (10-20); BUN (Urea Nitrogen) 10 mg/dL (9.8-20.1); Bilirubin, Total 0.3 mg/dL (0.2-1.2); Calc. Creatinine Clearance 0 mL/min (70-130); Calcium 9.1 mg/dL (7.8-10.44); Carbon Dioxide 29 mmol/L (22-29); Chloride 106 mmol/L (98-107); Estimated GFR-MDRD Greater than 90; Globulin 3.5 g/dL (2.4-3.5); Glucose 124 mg/dL (70-105); Protein, Total 7.1 g/dL (6.0-8.3); Sodium 139 mmol/L (136-145)
[2018-11-30] MEDS ORDERED: Aspirin 325 MG TAB ONE (21:42)
[2018-11-30] MEDS ORDERED: Nitroglycerin 0.4 MG TAB 1 EACH ONE (21:42)
[2018-11-30] MEDS ORDERED: Acetaminophen 500 MG TAB ONE (21:45)
[2018-11-30 22:06] LABS: Troponin I Less than 0.010 ng/mL (< 0.028)
[2018-11-30] MEDS ORDERED: Ondansetron PF 4 MG/2 ML Vial IVP PRN (22:26)
[2018-11-30] MEDS ORDERED: Ondansetron ODT 4 MG TAB PO PRN (22:26)
[2018-11-30] MEDS ORDERED: Acetaminophen 650 MG Suppository PR PRN (22:26)
[2018-11-30] MEDS ORDERED: Acetaminophen 325 MG TAB PO PRN (22:26)
[2018-11-30] MEDS ORDERED: Furosemide 40 MG/4 ML VIAL SLOW IVP SCH (22:30)
[2018-11-30] MEDS ORDERED: Nitroglycerin 2% Ointment 1 INCH/1 GM Packet TOP SCH (22:45)
[2018-11-30] MEDS ORDERED: Dextrose 5% in Water 1,000 ML IV PRN (23:22)
[2018-11-30] MEDS ORDERED: HumaLOG 300 UNITS/3 ML VIAL SC PRN (23:22)
[2018-11-30] MEDS ORDERED: Dextrose 50% Abboject 50 ML SYRINGE SLOW IVP PRN (23:22)
--- NOTE | 2018-11-30 23:50 | HP ---
PRIMARY CARE PHYSICIAN: The patient follows with Dr. Stokes. CHIEF COMPLAINT: Shortness of breath. HISTORY OF PRESENT ILLNESS: This is a 53-year-old female patient who is morbidly obese with history of CHF, diabetes, hypertension, coronary artery disease, hypothyroidism, and hyperlipidemia, came to the hospital after having severe gradually worsening shortness of breath associated with some greenish sputum. The patient has a trach. The patient follows with Dr. Stokes. She has a history of hypoventilation syndrome and also severe COPD, continues oxygen on the trach collar. Associated with cough. REVIEW OF SYSTEMS: CONSTITUTIONAL: The patient had fever, but has resolved. That was a few days ago. No chills. Generalized weakness. RESPIRATORY: The patient has cough, sputum production, shortness of breath. The patient has a Trach . CARDIOVASCULAR: No chest pain, palpitation. GASTROINTESTINAL: No nausea. No vomiting, diarrhea, or abdominal pain. SUPERVISOR LITHARGE: No dizziness, headache or feeling lightheaded. GENITOURINARY: No burning on urination. EXTREMITIES: No leg swelling. All other systems were reviewed and negative except for the findings mentioned above. PAST MEDICAL HISTORY: As mentioned in the HPI. PAST SURGICAL HISTORY: Trach and . PSYCHIATRIC HISTORY: Depression and loss of son 2 years ago. SOCIAL HISTORY: No alcohol. No drugs. No smoking history. Lives at home. FAMILY HISTORY: Noncontributory to this case. ALLERGIES: NO ALLERGIES IN MILD BENDING. ALLERGIES: CYMBALTA, GABAPENTIN, AND LYRICA. REPORTED MEDICATIONS: Pravastatin, levothyroxine, Levemir, Lasix, lisinopril, Protonix, aspirin, ergocalciferol, Crestor, thiamine, Xopenex, Ultram, and Bactrim DS. PHYSICAL EXAMINATION: VITAL SIGNS: On presentation, blood pressure 149/89 with heart rate 86, respiratory rate was 12, temperature 98.8, pain 9/10 and oxygen saturation 99% on room air. GENERAL: The patient is morbidly obese. The patient has a trach. The patient is alert and oriented, not in acute distress. HEENT: Eyes normal conjunctivae. Moist oral mucosa. Anicteric. No JVD. RESPIRATORY: Bilateral diminished air entry. No rales. No wheezes. Symmetric expansion. CARDIOVASCULAR: Normal rate and regular rhythm. No murmurs. No edema. ABDOMEN: Soft. Normal bowel sounds. MUSCULOSKELETAL: Baseline range of motion and strength. SKIN: Warm and intact. No pallor. No rash. No redness. Capillary refill seems to be intact. NEURO: No evidence of any new focal weakness. Cranial nerves seems to be intact. PSYCH: The patient is in good mood. No anxiety. Optimal judgment. DIAGNOSTIC STUDIES: EKG was reviewed. The patient has normal sinus rhythm with a rate of 79 with no significant abnormalities found on the EKG. Chest x-ray showed cardiomegaly with congestive heart failure. LABORATORY DATA: Reviewed. The patient has white count 9.1, hemoglobin 13, MCV 78.7, platelet count 160. Chemistry; sodium 139, potassium 5.0, chloride 106, carbon dioxide 29, anion gap 9, BUN 10, creatinine 0.76, GFR greater than 90, glucose 124, calcium 9.1, total bilirubin 0.3. LFTs were negative. Troponin was negative x2. ASSESSMENT AND PLAN: The patient will be placed in the hospital with following medical problems: 1. Acute hypoxic respiratory failure, which is acute on chronic. The patient will be continued on oxygen. We will consult Dr. Stokes to see the patient for any further recommendation. The patient reported having some mucus plug in the past few days coming out of the trach and she reported she can clean her trach properly. However, no other fever. No other signs of sepsis at this point or infection. This seems to be mostly related to underlying congestive heart failure. The patient has reported that she has had no Lasix in the past few days because she had been told that whenever she was dehydrated, just to hold the Lasix. 2. Acute congestive heart failure exacerbation. The patient has held the Lasix as mentioned above. We will restart the Lasix. Reconcile home medications. We will do daily weight. Monitor kidney function. Reconcile home medications. 3. Morbid obesity. Advised to lose weight. 4. Uncontrolled diabetes, blood sugar 124. This is mild. We will place the patient on sliding scale for optimal control. 5. Uncontrolled hypertension, systolic blood pressure 149, reconcile home medications, adjust treatment as needed. 6. Hyperlipidemia. Low-cholesterol diet is advised. Reconcile home medications. 7. History of coronary artery disease, reconcile home medications. Does not seems to be the primary problem at this point. 8. Deep venous thrombosis prophylaxis. Job ID: [id number]
[2018-12-01] MEDS ORDERED: Nitroglycerin 2% Ointment 1 INCH/1 GM Packet ONE (00:56)
[2018-12-01] MEDS ORDERED: Furosemide 40 MG/4 ML VIAL ONE ×2 (00:56→07:38)
[2018-12-01 01:02] LABS: Troponin I Less than 0.010 ng/mL (< 0.028)
[2018-12-01 03:40] LABS: #Eosinphils 0.2 thou/uL (0.0-0.7); #Lymphocytes 3.1 thou/uL (1.20-3.40); #Monocytes 0.5 thou/uL (0.11-0.59); #Neutrophils 3.4 thou/uL (1.40-6.50); %Basophils 0.5 % (0.0-1.0); %Eosinophils 3.3 % (0.0-10.0); %Lymphocytes 42.4 % (21.0-51.0); %Monocytes 6.9 % (0.0-10.0); %Neutrophils 46.8 % (42.0-75.0); Hemoglobin 11.9 g/dL (12.0-16.0); Mean Corpuscular HGB CONC 33.2 g/dL (32.0-36.0); Mean Corpuscular Hemoglobin 26.7 pg (27.0-31.0); Mean Corpuscular Volume 80.2 fL (78.0-98.0); Mean Platelet Volume 11.7 fL (7.4-10.4); Platelet Count 144 thou/uL (130-400); RBC Distribution Width 15.6 % (11.5-14.5); Red Blood Cell (RBC) Count 4.46 mill/uL (4.20-5.40); White Blood Cell (WBC) Count 7.3 thou/uL (4.8-10.8)
[2018-12-01 04:00] LABS: Anion Gap 11 mmol/L (10-20); BUN (Urea Nitrogen) 13 mg/dL (9.8-20.1); Calc. Creatinine Clearance 0 mL/min (70-130); Calcium 8.8 mg/dL (7.8-10.44); Carbon Dioxide 27 mmol/L (22-29); Chloride 104 mmol/L (98-107); Estimated GFR-MDRD 87; Glucose 237 mg/dL (70-105); Potassium 3.9 mmol/L (3.5-5.1); Sodium 138 mmol/L (136-145)
[2018-12-01] MEDS: Furosemide 40 MG/4 ML VIAL SLOW IVP SCH ×2 (07:47→15:49)
[2018-12-01] MEDS: Nitroglycerin 2% Ointment 1 INCH/1 GM Packet TOP SCH ×3 (07:48→21:06)
[2018-12-01] MEDS ORDERED: Enoxaparin Sodium 40 MG/0.4 ML SYRINGE ONE (09:06)
[2018-12-01] MEDS: Enoxaparin Sodium 40 MG/0.4 ML SYRINGE SC SCH (09:10)
[2018-12-01 10:06] VITALS: BMI 62.8
--- NOTE | 2018-12-01 12:38 | PDOC.PN ---
- Subjective Encounter Start Date: 12/01/18 Encounter Start Time: 12:37 Patient sitting in bed, she reports shortness of breath improved today. She reports a lot of phlegm production that improves with suction of trach. She denies chest pain, palpitations or abdominal pain. She does state right knee pain that she has been dealing with fora while and plans to see an orthopedic surgeon due to arthritis and "knee is bone on bone" - Objective Resuscitation Status - Order Detail: 11/30/18 22:26 Resuscitation Status Routine Resuscitation Status: FULL: Full Resuscitation MAR Reviewed: Yes Vital Signs & Weight: Vital Signs (12 hours) Temp Pulse Resp BP Pulse Ox 12/01/18 09:55 97.9 F 86 20 129/68 100 Weight Weight 366 lb 6.4 oz I&O: 11/30/18 12/01/18 12/02/18 06:59 06:59 06:59 Output Total 400 Balance -400 Result Diagrams: 12/01/18 03:20 12/01/18 03:20 Additional Labs: Accuchecks 12/01/18 10:46 POC Glucose 177 H Radiology Reviewed by me: Yes Phys Exam - Physical Examination Constitutional: NAD HEENT: moist MMs, oral pharynx no lesions Neck: no nodes, supple Coarse breath sounds bilaterally Cardiovascular: RRR, no significant murmur Gastrointestinal: soft, positive bowel sounds Musculoskeletal: pulses present Neurological: non-focal, moves all 4 limbs Lymphatic: no nodes Psychiatric: A&O x 3 Skin: normal turgor Dx/Plan (1) Acute on chronic respiratory failure with hypoxia and hypercapnia Code(s): J96.21 - ACUTE AND CHRONIC RESPIRATORY FAILURE WITH HYPOXIA; J96.22 - ACUTE AND CHRONIC RESPIRATORY FAILURE WITH HYPERCAPNIA Status: Acute (2) COPD (chronic obstructive pulmonary disease) Status: Chronic Qualifiers: Comment: (3) Chronic stage c diastolic heart failure Code(s): I50.32 - CHRONIC DIASTOLIC (CONGESTIVE) HEART FAILURE Status: Chronic (4) DM type 2 (diabetes mellitus, type 2) Status: Chronic Qualifiers: Comment: (5) Essential hypertension Code(s): I10 - ESSENTIAL (PRIMARY) HYPERTENSION Status: Chronic Comment: (6) Hypothyroidism Code(s): E03.9 - HYPOTHYROIDISM, UNSPECIFIED Status: Chronic Qualifiers: Comment: (7) Obesity hypoventilation syndrome Code(s): E66.2 - MORBID (SEVERE) OBESITY WITH ALVEOLAR HYPOVENTILATION Status : Chronic Comment: stable (8) Anxiety and depression Code(s): F41.8 - OTHER SPECIFIED ANXIETY DISORDERS Status: Chronic Comment: - Plan cont current plan of care, DVT proph w/lovenox * Continue lasix and supportive care * Suction and oxygen via trach as needed * Consult placed for patient coach operator Dr Stokes * Continue other home medications
--- NOTE | 2018-12-01 20:32 | PDOC.EVN ---
Event Note - Event Note Event Note: Notified by RN, patient complaining of hypersecretions and also home meds have not yet been reconciled. Will start scopolamine patch to help with secretions. Patient normally on nebs at home, will resume, in addition to Levothyroxine, statin, and Lisinopril. Will hold on Lasix, since she is already on IV Lasix.
[2018-12-01] MEDS: Pravastatin Sodium 20 MG TAB PO SCH (21:00)
[2018-12-01] MEDS ORDERED: Scopolamine 1.5 mg/72 hour Patch TD SCH (21:00)
[2018-12-01] MEDS: Diabetic Tussin 200 MG/10 ML UDCUP PO PRN (22:39)
[2018-12-02] MEDS: Levothyroxine Sodium 100 MCG TAB PO SCH (06:09)
[2018-12-02] MEDS: Furosemide 40 MG/4 ML VIAL SLOW IVP SCH ×2 (06:09→14:58)
[2018-12-02] MEDS: Nitroglycerin 2% Ointment 1 INCH/1 GM Packet TOP SCH ×3 (07:30→21:29)
[2018-12-02] MEDS: Lisinopril 20 MG TAB PO SCH (09:59)
[2018-12-02] MEDS: Enoxaparin Sodium 40 MG/0.4 ML SYRINGE SC SCH (09:59)
[2018-12-02] MEDS: Aspirin 81 mg Enteric Coated Tablet PO SCH (10:01)
--- NOTE | 2018-12-02 16:10 | PDOC.PN ---
- Subjective Encounter Start Date: 12/02/18 Encounter Start Time: 16:08 Patient sitting up in bed with family at bedside. She reports continued cough with phlegm production. She reports shortness of breath and wheezing improved with duonebs. She denies chest pain or palpitations. - Objective Resuscitation Status - Order Detail: 11/30/18 22:26 Resuscitation Status Routine Resuscitation Status: FULL: Full Resuscitation MAR Reviewed: Yes Vital Signs & Weight: Vital Signs (12 hours) Temp Pulse Resp BP BP Pulse Ox 12/02/18 13:44 70 14 12/02/18 11:05 97.8 F 70 16 128/59 L 98 12/02/18 08:00 97.9 F 84 18 122/72 93 L 12/02/18 07:19 80 16 12/02/18 04:45 76 18 129/63 98 Weight Weight 359 lb 8 oz I&O: 12/01/18 12/02/18 12/03/18 06:59 06:59 06:59 Intake Total 900 Output Total 2600 Balance -1700 Result Diagrams: 12/01/18 03:20 12/01/18 03:20 Additional Labs: Accuchecks 12/02/18 12/02/18 12/01/18 12:07 06:13 21:07 POC Glucose 190 H 148 H 148 H 12/01/18 16:31 POC Glucose 121 H Radiology Reviewed by me: Yes Phys Exam - Physical Examination Constitutional: NAD HEENT: oral pharynx no lesions Neck: no nodes, full ROM Coarse breath sounds bilaterally Cardiovascular: RRR, no significant murmur Gastrointestinal: soft, positive bowel sounds Mild tenderness in LUQ Musculoskeletal: pulses present Neurological: moves all 4 limbs Lymphatic: no nodes Psychiatric: normal affect, A&O x 3 Skin: no rash, cap refill <2 seconds Dx/Plan (1) Acute on chronic respiratory failure with hypoxia and hypercapnia Code(s): J96.21 - ACUTE AND CHRONIC RESPIRATORY FAILURE WITH HYPOXIA; J96.22 - ACUTE AND CHRONIC RESPIRATORY FAILURE WITH HYPERCAPNIA Status: Acute (2) COPD (chronic obstructive pulmonary disease) Status: Chronic Qualifiers: Comment: (3) Chronic stage c diastolic heart failure Code(s): I50.32 - CHRONIC DIASTOLIC (CONGESTIVE) HEART FAILURE Status: Chronic (4) DM type 2 (diabetes mellitus, type 2) Status: Chronic Qualifiers: Comment: (5) Essential hypertension Code(s): I10 - ESSENTIAL (PRIMARY) HYPERTENSION Status: Chronic Comment: (6) Hypothyroidism Code(s): E03.9 - HYPOTHYROIDISM, UNSPECIFIED Status: Chronic Qualifiers: Comment: (7) Obesity hypoventilation syndrome Code(s): E66.2 - MORBID (SEVERE) OBESITY WITH ALVEOLAR HYPOVENTILATION Status : Chronic Comment: stable (8) Anxiety and depression Code(s): F41.8 - OTHER SPECIFIED ANXIETY DISORDERS Status: Chronic Comment: - Plan cont current plan of care, plan discussed w/ family, respiratory therapy, DVT proph w/lovenox * Continue Diuresis * Symptomatic care * Consult to her primary adjunct psychology professor Dr Stokes placed and appreciate recommendations * Continue scopolamine patch for secretions * Trach care as directed * Will likely transition to oral lasix and discharge home in next 24 hours
[2018-12-02] MEDS ORDERED: Calcium Carbonate 500 MG ChewTAB PO PRN (16:16)
[2018-12-02] MEDS: Diabetic Tussin 200 MG/10 ML UDCUP PO PRN (16:35)
[2018-12-02 16:47] LABS: #Basophils 0.1 thou/uL (0.0-0.2); #Eosinphils 0.2 thou/uL (0.0-0.7); #Lymphocytes 3.2 thou/uL (1.20-3.40); #Monocytes 0.6 thou/uL (0.11-0.59); #Neutrophils 3.5 thou/uL (1.40-6.50); %Basophils 0.8 % (0.0-1.0); %Eosinophils 2.6 % (0.0-10.0); %Monocytes 8.4 % (0.0-10.0); %Neutrophils 46.1 % (42.0-75.0); Hemoglobin 14.1 g/dL (12.0-16.0); Mean Corpuscular HGB CONC 33.5 g/dL (32.0-36.0); Mean Corpuscular Hemoglobin 26.5 pg (27.0-31.0); Mean Corpuscular Volume 79.1 fL (78.0-98.0); Mean Platelet Volume 11.3 fL (7.4-10.4); Platelet Count 174 thou/uL (130-400); RBC Distribution Width 15.2 % (11.5-14.5); Red Blood Cell (RBC) Count 5.31 mill/uL (4.20-5.40); White Blood Cell (WBC) Count 7.6 thou/uL (4.8-10.8)
[2018-12-02 17:08] LABS: Anion Gap 16 mmol/L (10-20); BUN (Urea Nitrogen) 17 mg/dL (9.8-20.1); Calc. Creatinine Clearance 193 mL/min (70-130); Calcium 9.7 mg/dL (7.8-10.44); Carbon Dioxide 29 mmol/L (22-29); Chloride 97 mmol/L (98-107); Estimated GFR-MDRD 82; Glucose 147 mg/dL (70-105); Sodium 138 mmol/L (136-145)
[2018-12-02] MEDS ORDERED: INSULIN DETEMIR 90 UNIT SQ SCH (21:00)
[2018-12-02] MEDS: Pravastatin Sodium 20 MG TAB PO SCH (21:27)
[2018-12-02] MEDS: PRE FILLED SC SCH (21:30)
[2018-12-02] MEDS: INSULIN GLARGINE SC SCH (21:30)
[2018-12-03 05:30] LABS: #Eosinphils 0.2 thou/uL (0.0-0.7); #Lymphocytes 2.9 thou/uL (1.20-3.40); #Monocytes 0.7 thou/uL (0.11-0.59); #Neutrophils 3.5 thou/uL (1.40-6.50); %Basophils 0.5 % (0.0-1.0); %Eosinophils 3.3 % (0.0-10.0); %Lymphocytes 39.9 % (21.0-51.0); %Monocytes 9.4 % (0.0-10.0); %Neutrophils 46.9 % (42.0-75.0); Mean Corpuscular HGB CONC 33.2 g/dL (32.0-36.0); Mean Corpuscular Hemoglobin 26.2 pg (27.0-31.0); Mean Platelet Volume 11.8 fL (7.4-10.4); Platelet Count 162 thou/uL (130-400); RBC Distribution Width 15.1 % (11.5-14.5); Red Blood Cell (RBC) Count 4.96 mill/uL (4.20-5.40); White Blood Cell (WBC) Count 7.4 thou/uL (4.8-10.8)
[2018-12-03 05:51] LABS: Anion Gap 12 mmol/L (10-20); BUN (Urea Nitrogen) 17 mg/dL (9.8-20.1); Calc. Creatinine Clearance 209 mL/min (70-130); Calcium 9.1 mg/dL (7.8-10.44); Carbon Dioxide 32 mmol/L (22-29); Chloride 97 mmol/L (98-107); Estimated GFR-MDRD 90; Glucose 125 mg/dL (70-105); Potassium 3.8 mmol/L (3.5-5.1); Sodium 137 mmol/L (136-145)
[2018-12-03] MEDS: Nitroglycerin 2% Ointment 1 INCH/1 GM Packet TOP SCH (06:14)
[2018-12-03] MEDS: Levothyroxine Sodium 100 MCG TAB PO SCH (06:17)
[2018-12-03] MEDS: Furosemide 40 MG/4 ML VIAL SLOW IVP SCH (06:18)
[2018-12-03] MEDS: Lisinopril 20 MG TAB PO SCH (10:08)
[2018-12-03] MEDS: Aspirin 81 mg Enteric Coated Tablet PO SCH (10:08)
[2018-12-03] MEDS: PRE FILLED SC SCH (10:09)
[2018-12-03] MEDS: INSULIN GLARGINE SC SCH (10:09)
[2018-12-03] MEDS: Enoxaparin Sodium 40 MG/0.4 ML SYRINGE SC SCH (10:10)
[2018-12-03 12:32] VITALS: BP 143/64; TEMP 98.4
--- NOTE | 2018-12-04 12:34 | EKG ---
Test Reason : Blood Pressure : / mmHG Vent. Rate : 079 BPM Atrial Rate : 079 BPM P-R Int : 160 ms QRS Dur : 074 ms QT Int : 384 ms P-R-T Axes : 039 029 060 degrees QTc Int : 440 ms Normal sinus rhythm Normal ECG Confirmed by MERA PRATT ([id number]), greeting card editor ARLINE SLOAN ([id number]) on 12/04/2018 12:34:50 PM Referred By: Confirmed By:MERA PRATT
== END 2018-12-03 13:20 | disposition home or self-care (01) ==
LOC: ERS 16:34 → ERHOLD 21:40 → 2SW 12-01 09:31
PROVIDERS: ADMIT Hospitalist; ATTEND Hospitalist
DX: J96.21 Acute and chronic respiratory failure with hypoxia (principal); J96.22 Acute and chronic respiratory failure with hypercapnia; I11.0 Hypertensive heart disease with heart failure; I50.32 Chronic diastolic (congestive) heart failure; I25.10 Atherosclerotic heart disease of native coronary artery without angina pectoris; E03.9 Hypothyroidism, unspecified; E78.5 Hyperlipidemia, unspecified; E11.9 Type 2 diabetes mellitus without complications; J44.9 Chronic obstructive pulmonary disease, unspecified; F41.8 Other specified anxiety disorders; E66.2 Morbid (severe) obesity with alveolar hypoventilation; Z68.44 Body mass index [BMI] 60.0-69.9, adult; Z79.4 Long term (current) use of insulin; Z79.82 Long term (current) use of aspirin; Z79.899 Other long term (current) drug therapy; Z88.8 Allergy status to other drugs, medicaments and biological substances
CPT/HCPCS: 36415; 36416; 71045; 80048; 80053; 83880; 84484; 85025; 93005; 94640; 94760; 96360; 96361; 96372; 96374; 96376; G0378; J1650; J1815; J1940; J7620

== ENCOUNTER 2019-02-03 11:42 | Inpatient (IN) | payer OTHER ==
[2019-02-03] MEDS ORDERED: methylPREDNISolone Sod Succ/PF 125 MG/2 ML VIAL ONE (12:51)
[2019-02-03 13:28] LABS: #Basophils 0.1 thou/uL (0.0-0.2); #Eosinphils 0.4 thou/uL (0.0-0.7); #Lymphocytes 3.6 thou/uL (1.20-3.40); #Monocytes 0.8 thou/uL (0.11-0.59); #Neutrophils 8.9 thou/uL (1.40-6.50); %Basophils 0.6 % (0.0-1.0); %Eosinophils 2.6 % (0.0-10.0); %Lymphocytes 26.2 % (21.0-51.0); %Monocytes 5.8 % (0.0-10.0); %Neutrophils 64.8 % (42.0-75.0); Hemoglobin 13.1 g/dL (12.0-16.0); Mean Corpuscular HGB CONC 33.6 g/dL (32.0-36.0); Mean Corpuscular Hemoglobin 26.9 pg (27.0-31.0); Mean Corpuscular Volume 80.1 fL (78.0-98.0); Mean Platelet Volume 12.1 fL (7.4-10.4); Platelet Count 142 thou/uL (130-400); RBC Distribution Width 13.5 % (11.5-14.5); Red Blood Cell (RBC) Count 4.86 mill/uL (4.20-5.40); White Blood Cell (WBC) Count 13.7 thou/uL (4.8-10.8)
--- NOTE | 2019-02-03 14:04 | RAD ---
PORTABLE CHEST: HISTORY: Dyspnea. COMPARISON: 11/30/2018. FINDINGS: Cardiomegaly. Vascular congestion. Confluent infiltrate and/or edema seen in the perihilar regions, slightly more prominent on the right. Probable effusions. Suboptimal exam due to attenuation and po rtable technique. IMPRESSION: Cardiomegaly and evidence of vascular congestion and probable edema. POS: [facility]
[2019-02-03] MEDS ORDERED: Furosemide 40 MG/4 ML VIAL ONE (14:43)
[2019-02-03] MEDS ORDERED: cefTRIAXone\\ROCEPHIN 2 GM VIAL ONE (14:43)
[2019-02-03] MEDS ORDERED: Aspirin Chewable 81 MG TAB ONE (14:43)
[2019-02-03 14:51] LABS: ALT (SGPT) 13 U/L (8-55); AST (SGOT) 8 U/L (5-34); Albumin 3.5 g/dL (3.5-5.0); Alkaline Phosphatase 86 U/L (40-150); Anion Gap 11 mmol/L (10-20); BUN (Urea Nitrogen) 17 mg/dL (9.8-20.1); Bilirubin, Total 0.4 mg/dL (0.2-1.2); Calc. Creatinine Clearance 0 mL/min (70-130); Calcium 8.8 mg/dL (7.8-10.44); Carbon Dioxide 28 mmol/L (22-29); Chloride 103 mmol/L (98-107); Estimated GFR-MDRD Greater than 90; Globulin 3.2 g/dL (2.4-3.5); Glucose 149 mg/dL (70-105); Potassium 4.7 mmol/L (3.5-5.1); Protein, Total 6.7 g/dL (6.0-8.3); Sodium 137 mmol/L (136-145)
[2019-02-03] MEDS ORDERED: Azithromycin 500 MG VIAL ONE (15:53)
[2019-02-03] MEDS ORDERED: Acetaminophen 500 MG TAB ONE (18:21)
[2019-02-03 18:31] LABS: Troponin I Less than 0.010 ng/mL (< 0.028)
[2019-02-03] MEDS ORDERED: Ondansetron PF 4 MG/2 ML Vial IVP PRN (18:52)
[2019-02-03] MEDS ORDERED: Ondansetron ODT 4 MG TAB PO PRN (18:52)
[2019-02-03] MEDS ORDERED: Acetaminophen 650 MG Suppository PR PRN (18:52)
[2019-02-03] MEDS ORDERED: Senokot S 8.6-50 MG TAB PO PRN (18:52)
[2019-02-03] MEDS ORDERED: Dextrose 5% in Water 1,000 ML IV PRN (18:56)
[2019-02-03] MEDS ORDERED: Dextrose 50% Abboject 50 ML SYRINGE SLOW IVP PRN (18:56)
--- NOTE | 2019-02-03 19:12 | PDOC.HHP ---
Hospitalist HPI - History of Present Illness Chest pain History of Present Illness: Patient states she has been experiencing shortness of breath and chest pain for the last several days. She has noted hemoptysis x 2 days. Very concerned for pneumonia due to previous admission with severe SOB/pneumonia in 04/2018 during which time she required intubation x 2.5 weeks. She is on O2 at home with tracheostomy in place since 2005. ED Course: Had CXR demonstrating CHF exacerbation. Treated with lasix in the ED. Has had 2L of urinary output since then. Hospitalist History - Past Medical History Source: patient Other Medical History: CHF COPD Depression Hypothyroidism Diabetes Mellitus, insulin dependent Hypertension Tracheostomy, recently changed by Dr. Stokes 2 weeks ago. CAD Hyperlipidemia Morbid obesity - Past Surgical History Other Surgical History: Tracheostomy - Social History Smoking Status: Never smoker Alcohol: reports: None. denies: Rare, Occassional, Heavy Drugs: reports: none. denies: cocaine, heroine, marijuana, methamphetamine, Other Living Situation: Alone - Exam General Appearance: NAD Eye: PERRL, anicteric sclera ENT: normocephalic atraumatic, no oropharyngeal lesions, moist mucosa Neck: supple, no lymphadenopathy Heart: RRR Respiratory: CTAB, no wheezes, no rales, no ronchi Gastrointestinal: soft, non-distended (morbidly obese), no guarding, tender to palpation (diffuse discomfort with palpation) Extremities: no edema Skin: normal turgor, no lesions, no rashes Neurological: CN's grossly intact Musculoskeletal: normal tone, normal strength Psychiatric: normal affect, normal behavior, A&O x 3 Hospitalist Results - Labs Result Diagrams: 02/03/19 12:59 02/03/19 14:17 Lab results: WBC 13.7 thou/uL (4.8-10.8) H 02/03/19 12:59 Hgb 13.1 g/dL (12.0-16.0) 02/03/19 12:59 Hct 38.9 % (36.0-47.0) 02/03/19 12:59 MCV 80.1 fL (78.0-98.0) 02/03/19 12:59 Plt Count 142 thou/uL (130-400) 02/03/19 12:59 Neutrophils % 64.8 % (42.0-75.0) 02/03/19 12:59 Sodium 137 mmol/L (136-145) 02/03/19 14:17 Potassium 4.7 mmol/L (3.5-5.1) 02/03/19 14:17 Chloride 103 mmol/L (98-107) 02/03/19 14:17 Carbon Dioxide 28 mmol/L (22-29) 02/03/19 14:17 BUN 17 mg/dL (9.8-20.1) 02/03/19 14:17 Creatinine 0.71 mg/dL (0.6-1.1) 02/03/19 14:17 Glucose 149 mg/dL (70-105) H 02/03/19 14:17 Calcium 8.8 mg/dL (7.8-10.44) 02/03/19 14:17 Total Bilirubin 0.4 mg/dL (0.2-1.2) 02/03/19 14:17 AST 8 U/L (5-34) 02/03/19 14:17 ALT 13 U/L (8-55) 02/03/19 14:17 Alkaline Phosphatase 86 U/L (40-150) 02/03/19 14:17 Troponin I Less than 0.010 ng/mL (< 0.028) 02/03/19 17:13 B-Natriuretic Peptide 15.9 pg/mL (0-100) 02/03/19 12:54 Serum Total Protein 6.7 g/dL (6.0-8.3) 02/03/19 14:17 Albumin 3.5 g/dL (3.5-5.0) 02/03/19 14:17 Hospitalist H&P A/P - Problem (1) Chest pain Code(s): R07.9 - CHEST PAIN, UNSPECIFIED Status: Acute Assessment and Plan: reports cough and hemoptysis. Will add d-dimer, if positive will obtain CTA. Possible underlying pneumonia, continue IV Abx. Consult placed to Dr. March, Dr. Rodriguez has discussed case with him. (2) Acute CHF Code(s): I50.9 - HEART FAILURE, UNSPECIFIED Status: Acute Assessment and Plan: Continue lasix, given 80 mg of lasix in ED. (3) DM type 2 (diabetes mellitus, type 2) Status: Chronic Qualifiers: Assessment and Plan: Resume home meds and monitor glucose. Initiate ISS. (4) Essential hypertension Code(s): I10 - ESSENTIAL (PRIMARY) HYPERTENSION Status: Chronic (5) Hypothyroidism Code(s): E03.9 - HYPOTHYROIDISM, UNSPECIFIED Status: Chronic Qualifiers: Assessment and Plan: Resume home meds once verified. (6) Morbid obesity with body mass index of 70 and over in adult Code(s): E66.01 - MORBID (SEVERE) OBESITY DUE TO EXCESS CALORIES; Z68.45 - BODY MASS INDEX (BMI) 70 OR GREATER, ADULT Status: Chronic Assessment and Plan: Patient previously receiving rehab and it was discontinued. PT/OT consult placed.
[2019-02-03] MEDS: Famotidine 20 MG TAB PO SCH (20:23)
[2019-02-03 20:25] VITALS: BMI 70.4
[2019-02-03 20:45] LABS: Troponin I Less than 0.010 ng/mL (< 0.028)
[2019-02-03] MEDS ORDERED: Famotidine/PF 20 mg/2ml Vial SLOW IVP SCH (21:00)
[2019-02-03] MEDS: HumaLOG 300 UNITS/3 ML VIAL SC PRN (22:01)
[2019-02-04] MEDS: methylPREDNISolone Sod Succ 40 MG VIAL IVP SCH ×5 (00:36→23:41)
[2019-02-04 07:04] LABS: Anion Gap 17 mmol/L (10-20); BUN (Urea Nitrogen) 16 mg/dL (9.8-20.1); Calc. Creatinine Clearance 223 mL/min (70-130); Calcium 9.4 mg/dL (7.8-10.44); Carbon Dioxide 22 mmol/L (22-29); Chloride 100 mmol/L (98-107); Estimated GFR-MDRD Greater than 90; Glucose 282 mg/dL (70-105); Potassium 5.2 mmol/L (3.5-5.1); Sodium 134 mmol/L (136-145)
[2019-02-04 07:14] LABS: #Lymphocytes 1.7 thou/uL (1.20-3.40); #Monocytes 0.2 thou/uL (0.11-0.59); #Neutrophils 11.1 thou/uL (1.40-6.50); %Basophils 0.2 % (0.0-1.0); %Lymphocytes 12.9 % (21.0-51.0); %Monocytes 1.7 % (0.0-10.0); %Neutrophils 85.2 % (42.0-75.0); Hemoglobin 13.6 g/dL (12.0-16.0); Mean Corpuscular HGB CONC 34.1 g/dL (32.0-36.0); Mean Corpuscular Volume 79.1 fL (78.0-98.0); Mean Platelet Volume 11.3 fL (7.4-10.4); Platelet Count 166 thou/uL (130-400); RBC Distribution Width 13.2 % (11.5-14.5); Red Blood Cell (RBC) Count 5.04 mill/uL (4.20-5.40)
[2019-02-04] MEDS: HumaLOG 300 UNITS/3 ML VIAL SC PRN ×4 (09:45→21:05)
[2019-02-04] MEDS: Acetaminophen 325 MG TAB PO PRN ×2 (09:46→17:24)
[2019-02-04] MEDS: Famotidine 20 MG TAB PO SCH ×2 (09:47→20:59)
--- NOTE | 2019-02-04 11:05 | CON ---
DATE OF CONSULTATION: HISTORY OF PRESENT ILLNESS: A morbidly obese 53-year-old female, who sees Dr. Stokes, has been having difficulty breathing now for several days, presented to the ER with low-grade fever, cough, congestion, and shortness of breath. Difficult to assess much on the x-rays, just morbidly obese, haziness bilateral. Possibility of superimposed infection. The patient has a permanent trach. She is in and out of the hospital numerous times, in fact she just left the hospital no more than a month ago, acute on chronic respiratory failure. PAST MEDICAL HISTORY: 1. Morbid obesity. 2. Permanent trach. 3. KATERINA. 4. Diabetes. 5. Hypertension. 6. Hypothyroidism. 7. Anxiety. 8. Depression. 9. Bronchitis. 10. Severe deconditioning. PREVIOUS SURGERIES: 1. Trach. 2. . ALLERGIES: CYMBALTA, GABAPENTIN, AND LYRICA. SOCIAL HISTORY: No alcohol or tobacco. HOME MEDICINES: As outlined. 1. Aspirin. 2. Lasix 80 twice a day. 3. Pravachol 20. 4. Protonix 20. 5. Lisinopril 20. 6. Synthroid 200. 7. Neb. 8. Insulin 90 b.i.d. 9. Pain medicine. 10. Zoloft. REVIEW OF SYSTEMS: Otherwise negative. PHYSICAL EXAMINATION: GENERAL: She is in mild distress. VITAL SIGNS: With a respiratory rate of 20, temperature 98, pulse 77, saturations 93%, and blood pressure 146/82. CHEST: Bilateral rhonchi. CARDIAC: Sinus tach. ABDOMEN: Massive. EXTREMITIES: Trace edema. LABORATORY DATA: Sodium 134 and glucose 282. White count 13,000, hemoglobin and hematocrit 13 and 36. Platelet count is normal. IMPRESSION: 1. Acute on chronic respiratory failure. 2. Morbid obesity. 3. Diastolic dysfunction. 4. Diabetes. PLAN: Restart home medication. Empiric antibiotics. Supportive care. We will follow. TIME SPENT: Consultation note, 70 minutes, 50% in direct patient care. Job ID: [id number]
[2019-02-04] MEDS: Piperacillin/Tazobactam 4.5 GM in Sodium Chloride 0.9% 100 ML IVPB SCH ×3 (12:05→23:41)
--- NOTE | 2019-02-04 15:26 | PDOC.HOSPP ---
- Subjective Encounter Date: 02/04/19 Encounter Time: 11:00 Subjective: Ms. Bal was seen today in follow-up of acute respiratory failure and hemoptysis. She is feeling better. She is talking in complete sentences, and says the hemoptysis has cleared up. - Objective Vital Signs & Weight: Vital Signs (12 hours) Temp Pulse Pulse Pulse Resp BP BP 02/04/19 14:17 88 20 02/04/19 12:27 98.1 F 78 19 02/04/19 10:30 78 80 161/77 H 192/88 H 02/04/19 07:39 02/04/19 07:37 02/04/19 07:35 98 F 77 19 02/04/19 07:34 74 20 02/04/19 03:25 98.1 F 73 20 BP Pulse Ox 02/04/19 14:17 02/04/19 12:27 129/73 92 L 02/04/19 10:30 02/04/19 07:39 97 02/04/19 07:37 97 02/04/19 07:35 146/92 H 95 02/04/19 07:34 97 02/04/19 03:25 134/65 100 Weight Admit Weight 373 lb 3 oz Weight 373 lb 3 oz I&O: 02/03/19 02/04/19 02/05/19 06:59 06:59 06:59 Intake Total 240 Output Total 1450 Balance -1210 Result Diagrams: 02/04/19 07:07 02/04/19 05:41 Additional Labs: Accuchecks 02/04/19 02/04/19 02/03/19 11:09 05:16 23:30 POC Glucose 302 H 276 H 324 H 02/03/19 21:42 POC Glucose 375 H Hospitalist ROS - Medication Medications: Active Medications Generic Name Dose Route Start Last Admin Trade Name Freq PRN Reason Stop Dose Admin Acetaminophen 650 mg 02/03/19 18:52 02/04/19 09:46 Tylenol PO 650 mg Q4H PRN Administration Headache/Fever/Mild Pain (1-3) Albuterol/Ipratropium 3 ml 02/04/19 13:00 02/04/19 14:20 Duoneb NEB Not Given [id number] NANI Famotidine 20 mg 02/03/19 21:00 02/04/19 09:47 Pepcid PO 20 mg Q12HR NANI Administration Piperacillin Sod/Tazobactam 100 mls @ 200 mls/hr 02/04/19 12:00 02/04/19 12: 05 Sod 4.5 gm/ Sodium Chloride IVPB 100 mls Q6HR NANI Administration Insulin Human Lispro 0 units 02/03/19 18:56 02/04/19 12:07 Humalog SC 11 unit .AGGRESSIVE SLIDING PRN Administration Aggressive Correctional Scale Methylprednisolone Sodium Succinate 40 mg 02/03/19 23:59 02/04/19 12:06 Solu-Medrol IVP 40 mg Q6HR NANI Administration - Exam Eye: PERRL, anicteric sclera Heart: RRR, no murmur, no gallops, no rubs Respiratory: CTAB, no wheezes, no rales, no ronchi, normal chest expansion, no tachypnea Gastrointestinal: soft, non-tender, non-distended, normal bowel sounds, no palpable masses, no hepatomegaly Extremities: no cyanosis, no clubbing Hosp A/P (1) Acute respiratory failure with hypoxemia Code(s): J96.01 - ACUTE RESPIRATORY FAILURE WITH HYPOXIA Status: Acute (2) COPD (chronic obstructive pulmonary disease) Status: Chronic Qualifiers: (3) DM type 2 (diabetes mellitus, type 2) Status: Chronic Qualifiers: (4) Essential hypertension Code(s): I10 - ESSENTIAL (PRIMARY) HYPERTENSION Status: Chronic (5) Morbid obesity with body mass index of 70 and over in adult Code(s): E66.01 - MORBID (SEVERE) OBESITY DUE TO EXCESS CALORIES; Z68.45 - BODY MASS INDEX (BMI) 70 OR GREATER, ADULT Status: Chronic - Plan * Acute on chronic respiratory failure- due to pneumonia- continue Levaquin and Zosyn * Hemoptysis- due to #1 * HTN- blood pressure is a bit labile * DM- blood glucose is elevated- due to steroids- she has been re-started on her home insulin, and continue SSI * COPD- stable * Continue as per Pulmonary Medicine
[2019-02-04] MEDS: Simvastatin 5 MG TAB PO SCH (20:59)
[2019-02-04] MEDS: guaiFENesin ER 600 MG TAB PO SCH (20:59)
[2019-02-04] MEDS ORDERED: INSULIN DETEMIR 90 UNIT SQ SCH (21:00)
[2019-02-04] MEDS ORDERED: Pravastatin Sodium 20 MG TAB PO SCH (21:00)
[2019-02-04] MEDS ORDERED: Furosemide 80 MG TAB PO SCH (21:00)
[2019-02-04] MEDS: Insulin Glargine 90 UNITS in Pre-Filled Syringe 1 EACH SC SCH (21:00)
[2019-02-05] MEDS: Piperacillin/Tazobactam 4.5 GM in Sodium Chloride 0.9% 100 ML IVPB SCH ×3 (05:13→18:08)
[2019-02-05] MEDS: Levothyroxine Sodium 100 MCG TAB PO SCH (05:14)
[2019-02-05] MEDS: methylPREDNISolone Sod Succ 40 MG VIAL IVP SCH ×3 (05:17→18:07)
[2019-02-05] MEDS: HumaLOG 300 UNITS/3 ML VIAL SC PRN ×4 (05:54→21:53)
[2019-02-05] MEDS: guaiFENesin ER 600 MG TAB PO SCH ×2 (08:56→21:53)
[2019-02-05] MEDS: Pantoprazole 40 MG GRANULES PACKET PO SCH (08:57)
[2019-02-05] MEDS: Lisinopril 20 MG TAB PO SCH (08:57)
[2019-02-05] MEDS: Furosemide 80 MG TAB PO SCH ×2 (08:58→15:21)
[2019-02-05] MEDS: Famotidine 20 MG TAB PO SCH ×2 (08:59→21:52)
[2019-02-05] MEDS: Aspirin 81 mg Enteric Coated Tablet PO SCH (08:59)
[2019-02-05] MEDS: Insulin Glargine 90 UNITS in Pre-Filled Syringe 1 EACH SC SCH (09:00)
[2019-02-05] MEDS ORDERED: Non-Formulary Item 1 EACH (Levothyroxine Sodium [Levothyroxine Sodium] 200 MCG) PO SCH (09:00)
--- NOTE | 2019-02-05 15:20 | PRG ---
DATE OF SERVICE: 02/05/2019 SUBJECTIVE: The patient is seen and examined at the bedside. She is feeling somewhat better. Her breathing improved. She is putting a lot of urine out. OBJECTIVE: VITAL SIGNS: Blood pressure is 172/100, temperature is 98.4, pulse is 67, respiratory rate is 17, O2 saturation is 90% on trach collar, flow rate is 12. HEENT: Head is otherwise normocephalic. Pupils are responding to light properly. Sclerae are nonicteric. Oral mucosa is moist. GENERAL: She is morbidly obese. Her BMI is 69.6. She weighs 368 pounds and her height is 5 feet and 1 inch. NECK: Obese. LUNGS: Breath sounds diminished at both bases. HEART: S1, S2 normal. No S3. No S4. Distant. ABDOMEN: Very obese. Bowel sounds present. No organomegaly. EXTREMITIES: 1+ peripheral edema similar bilaterally on both lower extremities. NEUROLOGIC: She follows my commands. She moves all 4 extremities. There is no any motor or sensory deficits. LABORATORY DATA: Labs showed a white count of 13.0, hemoglobin 13.6, hematocrit 39.9, platelet count is 166,000. Glycemia is between 198 to 332. IMPRESSION: 1. Acute respiratory failure with hypoxemia. 2. Chronic tracheostomy status. 3. Chronic obstructive pulmonary disease. 4. Morbid obesity. 5. Diabetes mellitus, type 2. 6. Essential hypertension. PLAN: Continue diuresis. She is putting out around 1500 mL per 24 hours. Continue DuoNeb. Continue steroids. Continue antibiotic which is Levaquin IV piggyback and Zosyn IV piggyback. Continue DuoNeb. Echocardiogram was done, results are still pending. Job ID: [id number]
[2019-02-05] MEDS: Acetaminophen 325 MG TAB PO PRN (15:29)
--- NOTE | 2019-02-05 19:51 | PRG ---
DATE OF SERVICE: 02/05/2019 SUBJECTIVE: Colleen Bal has no complaints. She says she feels much better. Intake and output, previous 24 hours -1300 mL. OBJECTIVE: VITAL SIGNS: Stable. She is afebrile. Heart rate 70, respiratory rate 17, oximetry is 98%. On her trach collar, blood pressure 135/79. She did have a couple of elevated blood pressures that were recorded earlier, but it is unclear whether or not a large cuff was being used for these measurements. IMPRESSION: 1. Obesity with sleep apnea and a tracheostomy. 2. History of diastolic dysfunction. Her BNP was only 15 this admission, so it is hard to believe that her complaints were related to diastolic heart failure. Impossible to get a good radiograph given her size. I truly believe after having cared for quite a long period of time, there is some time some secondary gain with being admitted to the hospital. It has also been possibly know whether blood pressure is controlled at home or not. Other issues include diabetes and a history of asthma, although to be quite honest, really only have heard her wheeze in the past when she has had a bad case of bronchitis. She is not wheezing at this point in time, so I will stop the steroids. They are just making her hungry at this point, I believe. I will stop the IV antimicrobial therapy as well. Job ID: [id number]
[2019-02-05] MEDS: Simvastatin 5 MG TAB PO SCH (21:52)
[2019-02-05] MEDS: Insulin Glargine 100 UNITS in Pre-Filled Syringe 1 EACH SC SCH (22:27)
[2019-02-06] MEDS: Levothyroxine Sodium 100 MCG TAB PO SCH (06:10)
[2019-02-06] MEDS: HumaLOG 300 UNITS/3 ML VIAL SC PRN (06:34)
[2019-02-06 07:38] LABS: #Basophils 0.1 thou/uL (0.0-0.2); #Lymphocytes 3.2 thou/uL (1.20-3.40); #Neutrophils 8.4 thou/uL (1.40-6.50); %Basophils 0.7 % (0.0-1.0); %Eosinophils 0.1 % (0.0-10.0); %Lymphocytes 25.1 % (21.0-51.0); %Monocytes 8.1 % (0.0-10.0); Hemoglobin 14.4 g/dL (12.0-16.0); Mean Corpuscular HGB CONC 33.8 g/dL (32.0-36.0); Mean Corpuscular Hemoglobin 27.1 pg (27.0-31.0); Mean Corpuscular Volume 80.1 fL (78.0-98.0); Mean Platelet Volume 10.9 fL (7.4-10.4); Platelet Count 202 thou/uL (130-400); RBC Distribution Width 13.5 % (11.5-14.5); White Blood Cell (WBC) Count 12.7 thou/uL (4.8-10.8)
[2019-02-06 07:55] LABS: Anion Gap 10 mmol/L (10-20); BUN (Urea Nitrogen) 20 mg/dL (9.8-20.1); Calc. Creatinine Clearance 207 mL/min (70-130); Calcium 9.4 mg/dL (7.8-10.44); Carbon Dioxide 34 mmol/L (22-29); Chloride 98 mmol/L (98-107); Estimated GFR-MDRD 86; Glucose 183 mg/dL (70-105); Sodium 138 mmol/L (136-145)
[2019-02-06] MEDS: Pantoprazole 40 MG GRANULES PACKET PO SCH (09:16)
[2019-02-06] MEDS: Aspirin 81 mg Enteric Coated Tablet PO SCH (09:16)
[2019-02-06] MEDS: Amlodipine 5 MG TAB PO SCH (09:16)
[2019-02-06] MEDS: Lisinopril 20 MG TAB PO SCH (09:16)
[2019-02-06] MEDS: Famotidine 20 MG TAB PO SCH ×2 (09:16→21:52)
[2019-02-06] MEDS: Insulin Glargine 100 UNITS in Pre-Filled Syringe 1 EACH SC SCH ×2 (09:17→21:51)
[2019-02-06] MEDS: Furosemide 80 MG TAB PO SCH ×2 (09:17→13:57)
[2019-02-06] MEDS: guaiFENesin ER 600 MG TAB PO SCH ×2 (09:17→21:51)
--- NOTE | 2019-02-06 13:23 | PRG ---
DATE OF SERVICE: 02/06/2019 SUBJECTIVE: The patient is seen and examined at the bedside. She complains about some cramps in the left flank and left part of the abdomen. Apparently, she is on her cycle. She did not have menstrual bleeding for a quite some time and it came back. She has some clots, and she is asking me for some naproxen to help her pain related to the cycle. Her appetite is good. OBJECTIVE: VITAL SIGNS: Blood pressure is 140/82, pulse is 101, respiratory rate is 12, O2 saturation is 94%, temperature is 97.4, maximal temperature is 99.5. HEENT: Her pupils are responding to light properly. Sclerae are nonicteric. Oral mucosa is moist. NECK: Supple. Obese. LUNGS: Clear. HEART: S1, S2 normal. No S3. No S4. ABDOMEN: Soft, obese, nontender. There is some tenderness in the left flank area to palpation. EXTREMITIES: 1+ peripheral edema on both lower extremities. NEUROLOGICAL: She is alert and oriented x4. There is no any motor or sensory deficit present. Cranial nerves are intact. LABORATORY DATA: Labs showed white count of 12.7, hematocrit 42.4, hemoglobin 14.4, platelet count 202. Sodium of 138, potassium 4.0, chloride 98, CO2 of 34, BUN 20, creatinine 0.84, glycemia is ranging from 134 to 288, calcium 9.4. IMAGING STUDIES: Echocardiogram, an LVEF was estimated at 45% to 55%. Technically, inadequate exam. There is some possible diastolic dysfunction based on the echocardiogram, but the quality of this test was not that good. IMPRESSION: 1. Acute respiratory failure with hypoxemia. 2. Chronic tracheostomy in place. 3. Morbid obesity. 4. Diabetes mellitus type 2. 5. Essential hypertension. 6. Menstrual period most likely related to menopausal bleeding. 7. Muscle cramps, most likely related to diuretic use. PLAN: Start her on some p.o. potassium and magnesium. Continue diuretics p.o. Start her on naproxen. Continue DuoNeb's. Continue antibiotic. Cardiology consultation for possible CHF, diastolic dysfunction diagnosis. Job ID: [id number]
[2019-02-06] MEDS: Naproxen 500 MG TAB PO PRN (13:57)
--- NOTE | 2019-02-06 17:04 | PRG ---
DATE OF SERVICE: 02/06/2019 SUBJECTIVE: Colleen Bal is probably at her baseline. I also watched her ambulating in the [place] without any complaints. She is very cooperative with physical therapy. Echocardiogram was done. As expected it is an inadequate study technically because of her size. No good visualization of the left ventricle was obtained, although she does have LVH. OBJECTIVE: LUNGS: Clear. HEART: Regular rhythm. ABDOMEN: Soft. IMPRESSION: 1. Diastolic dysfunction, clinically stable. 2. Status post tracheostomy for acute on chronic respiratory failure with sleep apnea. PLAN: I believe she is stable for discharge. Job ID: [id number]
[2019-02-06] MEDS: Simvastatin 5 MG TAB PO SCH (21:51)
[2019-02-07] MEDS: Naproxen 500 MG TAB PO PRN ×2 (02:24→13:53)
[2019-02-07] MEDS: Levothyroxine Sodium 100 MCG TAB PO SCH (05:19)
[2019-02-07] MEDS ORDERED: Potassium Chloride 20 MEQ TAB PO SCH (08:00)
[2019-02-07] MEDS: Aspirin 81 mg Enteric Coated Tablet PO SCH (08:10)
[2019-02-07] MEDS: Pantoprazole 40 MG GRANULES PACKET PO SCH (08:10)
[2019-02-07] MEDS: Famotidine 20 MG TAB PO SCH (08:10)
[2019-02-07] MEDS: Amlodipine 5 MG TAB PO SCH (08:10)
[2019-02-07] MEDS: Furosemide 80 MG TAB PO SCH ×2 (08:10→13:54)
[2019-02-07] MEDS: guaiFENesin ER 600 MG TAB PO SCH (08:10)
[2019-02-07] MEDS: Lisinopril 20 MG TAB PO SCH (08:10)
[2019-02-07] MEDS: Insulin Glargine 100 UNITS in Pre-Filled Syringe 1 EACH SC SCH (08:11)
[2019-02-07] MEDS ORDERED: Magnesium Oxide 250 MG TAB PO SCH (09:00)
[2019-02-07 12:33] VITALS: BP 159/66; TEMP 98.1
--- NOTE | 2019-02-07 15:30 | PRG ---
DATE OF SERVICE: 02/07/2019 SUBJECTIVE: Colleen Bal is in no distress. She has no complaints. OBJECTIVE: VITAL SIGNS: She is afebrile. Heart rate is 89, respiratory rate 17, oximetry is 97%, and blood pressure 159/66. LUNGS: Clear. HEART: Regular rhythm. ABDOMEN: Soft. IMPRESSION AND PLAN: 1. Diastolic heart failure ? 2. Life-threatening obesity. 3. Status post tracheostomy with chronic indwelling #6 Shiley, which she does an excellent job of caring for at home. 4. History of asthma, but no clinical asthma this admission. Blood pressures have been recorded as being elevated intermittently, but this is using a wrist cuff, which is notoriously inaccurate. She had a totally normal BNP this admission. Even though echo suggests her EF was down a little bit, I doubt that is a real finding given the technical difficulty of doing an echocardiogram on an almost 400 pounds woman. I believe she is stable for discharge. Job ID: [id number]
== END 2019-02-07 15:35 | disposition home or self-care (01) | DRG 291 ==
LOC: ERS 11:42 → 2NO 16:20
PROVIDERS: ADMIT Internal Medicine Nephrology; ATTEND Internal Medicine Nephrology
DX: I11.0 Hypertensive heart disease with heart failure (principal); I50.31 Acute diastolic (congestive) heart failure; J18.9 Pneumonia, unspecified organism; J96.21 Acute and chronic respiratory failure with hypoxia; Z68.44 Body mass index [BMI] 60.0-69.9, adult; J44.0 Chronic obstructive pulmonary disease with (acute) lower respiratory infection; R04.2 Hemoptysis; E66.2 Morbid (severe) obesity with alveolar hypoventilation; E11.9 Type 2 diabetes mellitus without complications; E03.9 Hypothyroidism, unspecified; F41.9 Anxiety disorder, unspecified; F32.9 Major depressive disorder, single episode, unspecified; Z93.0 Tracheostomy status; Z79.82 Long term (current) use of aspirin; Z79.899 Other long term (current) drug therapy; Z79.4 Long term (current) use of insulin
CPT/HCPCS: 36415; 36416; 71045; 80048; 80053; 83605; 83880; 84484; 85025; 85379; 87040; 93005; 93306; 94640; 94760; 96365; 96367; 96375; J0456; J0696; J1815; J1940; J1956; J2543; J2920; J2930; J3490; J7620

== ENCOUNTER 2019-07-21 16:04 | Inpatient (IN) | payer OTHER ==
[2019-07-21] MEDS ORDERED: Cefepime 2 GM VIAL ONE (16:34)
[2019-07-21 16:40] LABS: Base Excess-Venous 3.6 mmol/L (-2.0 to 3.0); Bicarbonate (HCO3v) 30.6 mmol/L (22.0-28.0); CO2 Tension (PvCO2) 54.2 mmHg (40.0-50.0); Calcium, Ionized 1.11 mmol/L (See Comments:); Chloride 101 mmol/L (98-107); Glucose 211 mg/dL (70-105); Hemoglobin - Calc 15.8 g/dL (12.0-16.0); Lactate 1.28 mmol/L (0.50-2.20); Sodium 140 mmol/L (138-145); T. Carbon Dioxide 32.3 mmol/L (22.0-28.0); vO2 Saturation-calc 54.7 % (60.0-85.0)
--- NOTE | 2019-07-21 16:48 | RAD ---
RADIOGRAPH CHEST 1 VIEW: Date: 07/21/19 Time: 4:39 p.m. HISTORY: 54-year-old female with cough and chest pain. COMPARISON: 01/26/19 FINDINGS: Tracheostomy tube remains. Cardiomegaly again noted. Pulmonary venous engorgement. Study is limited b ecause of body habitus. Diffuse haziness throughout bilateral lung goldman probably represents pulmona ry edema. Focal mass-like opacity at right perihilar region, new since prior study. No pneumothorax. IMPRESSION: 1. Mass versus consolidation at right perihilar upper lobe. 2. Cardiomegaly and probably congestive heart failure. JN [] POS: [facility]
[2019-07-21 16:52] LABS: #Basophils 0.1 thou/uL (0.0-0.2); #Eosinphils 0.3 thou/uL (0.0-0.7); #Lymphocytes 2.6 thou/uL (1.20-3.40); #Monocytes 0.6 thou/uL (0.11-0.59); #Neutrophils 6.4 thou/uL (1.40-6.50); %Basophils 0.7 % (0.0-1.0); %Eosinophils 2.7 % (0.0-10.0); %Lymphocytes 26.1 % (21.0-51.0); %Monocytes 5.8 % (0.0-10.0); %Neutrophils 64.7 % (42.0-75.0); Hemoglobin 16.1 g/dL (12.0-16.0); Mean Corpuscular HGB CONC 32.7 g/dL (32.0-36.0); Mean Corpuscular Hemoglobin 25.3 pg (27.0-31.0); Mean Corpuscular Volume 77.4 fL (78.0-98.0); Mean Platelet Volume 11.6 fL (7.4-10.4); Platelet Count 158 thou/uL (130-400); RBC Distribution Width 16.7 % (11.5-14.5); Red Blood Cell (RBC) Count 6.34 mill/uL (4.20-5.40); White Blood Cell (WBC) Count 9.9 thou/uL (4.8-10.8)
[2019-07-21 17:20] LABS: ALT (SGPT) 13 U/L (8-55); AST (SGOT) 27 U/L (5-34); Albumin 4.2 g/dL (3.5-5.0); Alkaline Phosphatase 104 U/L (40-110); Anion Gap 14 mmol/L (10-20); BUN (Urea Nitrogen) 7 mg/dL (9.8-20.1); Bilirubin, Total 0.6 mg/dL (0.2-1.2); CK (CPK) 304 U/L (29-168); Calc. Creatinine Clearance 0 mL/min (70-130); Calcium 9.2 mg/dL (7.8-10.44); Carbon Dioxide 28 mmol/L (22-29); Chloride 100 mmol/L (98-107); Estimated GFR-MDRD 88; Globulin 4.7 g/dL (2.4-3.5); Glucose 187 mg/dL (70-105); Lipase 24 U/L (8-78); Potassium 5.1 mmol/L (3.5-5.1); Protein, Total 8.9 g/dL (6.0-8.3); Sodium 137 mmol/L (136-145)
[2019-07-21] MEDS ORDERED: Labetalol HCl 100 MG/20 ML VIAL ONE (17:50)
[2019-07-21] MEDS ORDERED: Morphine 4 MG/ML VIAL ONE (17:50)
[2019-07-21] MEDS ORDERED: Acetaminophen 500 MG TAB ONE (18:18)
[2019-07-21] MEDS ORDERED: HYDROcodone/Acetaminophen 7.5/325 mg Tablet PO PRN (18:39)
[2019-07-21] MEDS ORDERED: Ondansetron PF 4 MG/2 ML Vial IVP PRN (18:39)
[2019-07-21] MEDS ORDERED: Senokot S 8.6-50 MG TAB PO PRN (18:39)
[2019-07-21] MEDS ORDERED: Dextrose 5% in Water 1,000 ML IV PRN (18:44)
[2019-07-21] MEDS ORDERED: Dextrose 50% Abboject 50 ML SYRINGE SLOW IVP PRN (18:44)
[2019-07-21] MEDS ORDERED: Labetalol HCl 100 MG/20 ML VIAL SLOW IVP PRN (18:44)
[2019-07-21] MEDS ORDERED: hydrALAZINE 20 MG/ML VIAL SLOW IVP PRN (18:58)
--- NOTE | 2019-07-21 20:05 | HP ---
CHIEF COMPLAINT: Respiratory failure and cough. HISTORY OF PRESENT ILLNESS: A 54-year-old obese female, trach dependent due to her obesity hypoventilation syndrome and trach placed remotely, presenting with respiratory failure with cough and fever of a few days duration. In the ER, she had a sepsis alert. Chest x-ray showed right upper lobe and middle lobe pneumonia and hypoxia with sats of 86%. Blood cultures done and vancomycin, cefepime, Levaquin initiated. She also presented with hypertensive urgency with systolic blood pressure around 240. After labetalol IV given, her blood pressure is 205/120. The patient will be admitted for further care. REVIEW OF SYSTEMS: The patient had a subjective fever the last few days and cough. She did not notice any tracheal abnormality or discharge. Denies [place] chest pain, but generalized body ache. No nausea, vomiting, abdominal pain, constipation, diarrhea, hematuria, or dysuria. She also admitted for very similar presentation in January 2019. Requiring intubation in 2018 for the same. Tracheostomy placed in 2005. PAST MEDICAL HISTORY: 1. Morbid obesity. 2. Hypertension. 3. Insulin-dependent type 2 diabetes mellitus. 4. Hypertension. 5. CHF. 6. Hypothyroidism. 7. Status post trach. MEDICATIONS: 1. Amlodipine 5 mg daily. 2. Aspirin 81 mg daily. 3. Lasix 80 mg twice a day. 4. Guaifenesin 600 mg twice a day. 5. Glargine 100 units twice a day. 6. DuoNeb 3 mL every 6 hours as needed. 7. Levothyroxine 200 mcg daily. 8. Lisinopril 20 mg daily. 9. Pantoprazole 20 mg daily. 10. Potassium chloride 20 mEq. 11. Sertraline 25 mg at bedtime. 12. Zocor 10 mg at bedtime. SOCIAL HISTORY: Does not smoke or drink alcohol. FAMILY HISTORY: Father's health conditions, unknown. Mother had diabetes, hypertension as well as Alzheimer's. PHYSICAL EXAMINATION: VITAL SIGNS: Still pending, but she is afebrile and her blood pressure on the monitor was 205/125. GENERAL: She is morbidly obese female, almost in cry spell today. Trach in place and she is able to talk clearly without any discomfort. CARDIOVASCULAR: Regular rate and rhythm. LUNGS: Anterior auscultation has a remote lung sounds. I did not appreciate any wheezing. ABDOMEN: Quite protuberant. Significant pannus all lower. EXTREMITIES: Again with a body habitus and not able to assess any edema. SKIN: No rash noted. LABORATORY DATA: Her chemistry panel looks in the normal range except creatine kinase of 304, total protein 8.9. Her lipase is 24. Her blood glucose is 187. Creatinine 0.82. CBC in the normal range. Her venous pH 7.3, pCO2 54. PO2, again it is a venous blood and it is 30.6. Her chest x-ray showed mass versus consolidation at right perihilar upper lobe. Cardiomegaly and probably CHF. IMPRESSION: This is a 54-year-old morbidly obese female presenting with the followin. Community-acquired pneumonia. 2. Right middle lobe and right upper lobe pneumonia. 3. Hypoxia. 4. Chronic hypercapnic respiratory failure and s/p trach dependent. plan: 1. Blood cultures have been done in the ER. I will continue vancomycin, cefepime, and Levaquin. 2. Follow the culture results and deescalate antibiotics. This is more of a clinical picture as she does not have any temp as well as elevated white count currently. 3. Hypertensive urgency, unknown etiology for the elevated blood pressure. The patient states that she is compliant with her medications. I will continue her home regimen as well as p.r.n. labetalol and hydralazine. 4. Type 2 diabetes mellitus. She is on very high doses of insulin. We will continue the same along with the sliding scale insulin. 5. History of hypothyroidism. Continue with her supplement. 5b. Morbid obesity - consider bariatric surgery as outpatient. 6. DVT prophylaxis. Lovenox b.i.d. 7. Rest of the management based on the clinical course. Job ID: [id number] [facility]
[2019-07-21] MEDS ORDERED: Vancomycin HCl 1 GM in Premix Bag 1 BAG IVPB SCH (21:00)
[2019-07-21 22:10] VITALS: BMI 78.7
[2019-07-21] MEDS: Insulin Glargine 100 UNITS in Pre-Filled Syringe 1 EACH SC SCH (23:13)
[2019-07-21] MEDS: guaiFENesin ER 600 MG TAB PO SCH (23:14)
[2019-07-21] MEDS: Simvastatin 5 MG TAB PO SCH (23:14)
[2019-07-21] MEDS: Famotidine/PF 20 mg/2ml Vial SLOW IVP SCH (23:14)
[2019-07-21] MEDS: Enoxaparin Sodium 40 MG/0.4 ML SYRINGE SC SCH (23:14)
[2019-07-21] MEDS: hydrALAZINE 20 MG/ML VIAL SLOW IVP SCH (23:14)
[2019-07-21] MEDS: Furosemide 80 MG TAB PO SCH (23:15)
[2019-07-22] MEDS: Cefepime 1 GM in Sodium Chloride 0.9% 100 ML IVPB SCH ×2 (04:33→17:22)
[2019-07-22] MEDS: hydrALAZINE 20 MG/ML VIAL SLOW IVP SCH ×2 (04:33→10:49)
[2019-07-22 04:35] LABS: #Eosinphils 0.2 thou/uL (0.0-0.7); #Lymphocytes 1.7 thou/uL (1.20-3.40); #Monocytes 0.9 thou/uL (0.11-0.59); #Neutrophils 6.8 thou/uL (1.40-6.50); %Basophils 0.5 % (0.0-1.0); %Eosinophils 1.7 % (0.0-10.0); %Lymphocytes 17.8 % (21.0-51.0); %Neutrophils 71.1 % (42.0-75.0); Hemoglobin 13.9 g/dL (12.0-16.0); Mean Corpuscular HGB CONC 32.9 g/dL (32.0-36.0); Mean Corpuscular Hemoglobin 25.6 pg (27.0-31.0); Mean Corpuscular Volume 77.9 fL (78.0-98.0); Mean Platelet Volume 12.4 fL (7.4-10.4); Platelet Count 135 thou/uL (130-400); RBC Distribution Width 15.7 % (11.5-14.5); Red Blood Cell (RBC) Count 5.43 mill/uL (4.20-5.40); White Blood Cell (WBC) Count 9.6 thou/uL (4.8-10.8)
[2019-07-22 04:52] LABS: Anion Gap 11 mmol/L (10-20); BUN (Urea Nitrogen) 6 mg/dL (9.8-20.1); Calc. Creatinine Clearance 238 mL/min (70-130); Calcium 8.9 mg/dL (7.8-10.44); Carbon Dioxide 30 mmol/L (22-29); Chloride 97 mmol/L (98-107); Estimated GFR-MDRD Greater than 90; Glucose 301 mg/dL (70-105); Potassium 3.6 mmol/L (3.5-5.1); Sodium 134 mmol/L (136-145)
[2019-07-22] MEDS: Levothyroxine Sodium 100 MCG TAB PO SCH (06:09)
[2019-07-22] MEDS: Vancomycin HCl 1.75 GM in Sodium Chloride 0.9% 500 ML IVPB SCH ×2 (06:09→17:26)
[2019-07-22] MEDS ORDERED: Lisinopril 20 MG TAB PO SCH (09:00)
[2019-07-22] MEDS: Enoxaparin Sodium 40 MG/0.4 ML SYRINGE SC SCH ×2 (10:46→23:06)
[2019-07-22] MEDS: Aspirin 325 mg Enteric Coated Tablet PO SCH (10:46)
[2019-07-22] MEDS: Magnesium Oxide 250 MG TAB PO SCH (10:47)
[2019-07-22] MEDS: Potassium Chloride 20 MEQ TAB PO SCH (10:47)
[2019-07-22] MEDS: guaiFENesin ER 600 MG TAB PO SCH ×2 (10:48→23:06)
[2019-07-22] MEDS: Furosemide 80 MG TAB PO SCH ×2 (10:49→23:06)
[2019-07-22] MEDS: Famotidine/PF 20 mg/2ml Vial SLOW IVP SCH ×2 (10:49→23:05)
[2019-07-22] MEDS: Acetaminophen 325 MG TAB PO PRN ×2 (12:54→23:06)
[2019-07-22] MEDS ORDERED: Insulin Glargine 50 UNITS in Pre-Filled Syringe 1 EACH SC SCH (13:00)
--- NOTE | 2019-07-22 13:42 | PDOC.HOSPP ---
- Subjective Encounter Date: 07/22/19 Encounter Time: 10:30 Subjective: feels slightly better since admission, RT nearby, will do chest PT as being obese, IS may not be effective. BG high. flu neg; rabia in process. - Objective Vital Signs & Weight: Vital Signs (12 hours) Temp Pulse Resp BP BP Pulse Ox 07/22/19 11:45 98.9 F 114 H 20 175/95 H 93 L 07/22/19 10:39 99.4 F 112 H 17 156/90 H 92 L 07/22/19 10:34 110 H 22 H 95 07/22/19 07:54 114 H 24 H 98 07/22/19 04:41 134/75 07/22/19 04:33 115 H 200/100 H 07/22/19 04:24 100.4 F H 115 H 22 H 200/100 H 100 07/22/19 03:31 119 H 20 100 Weight Weight 403 lb 7.135 oz I&O: 07/21/19 07/22/19 07/23/19 06:59 06:59 06:59 Intake Total 240 Output Total 3300 Balance -3060 Result Diagrams: 07/22/19 04:18 07/22/19 04:18 Additional Labs: Accuchecks 07/22/19 07/22/19 07/21/19 11:24 05:46 21:41 POC Glucose 247 H 286 H 299 H Hospitalist ROS - Medication Medications: Active Medications Generic Name Dose Route Start Last Admin Trade Name Freq PRN Reason Stop Dose Admin Acetaminophen 650 mg 07/21/19 18:39 07/22/19 12:54 Tylenol PO 650 mg Q4H PRN Administration Headache/Fever/Mild Pain (1-3) Albuterol/Ipratropium 3 ml 07/22/19 10:30 07/22/19 10:34 Duoneb NEB 3 ml [id number] NANI Administration Aspirin 325 mg 07/22/19 09:00 07/22/19 10:46 Ecotrin PO 325 mg DAILY NANI Administration Enoxaparin Sodium 40 mg 07/21/19 21:00 07/22/19 10:46 Lovenox SC 40 mg BID NANI Administration Famotidine 20 mg 07/21/19 21:00 07/22/19 10:49 Pepcid SLOW IVP 20 mg Q12HR NANI Administration Furosemide 80 mg 07/21/19 21:00 07/22/19 10:49 Lasix PO 80 mg BID NANI Administration Guaifenesin 600 mg 07/21/19 21:00 07/22/19 10:48 Mucinex PO 600 mg BID NANI Administration Hydralazine HCl 20 mg 07/21/19 21:00 07/22/19 10:49 Apresoline SLOW IVP 20 mg 0300,0900,1500,2100 NANI Administration Cefepime HCl 1 gm/ Sodium 100 mls @ 200 mls/hr 07/22/19 05:00 07/22/19 04:33 Chloride IVPB 100 mls 0500,1700 NANI Administration Vancomycin HCl 1.75 gm/ Sodium 500 mls @ 250 mls/hr 07/22/19 06:00 07/22/19 06:09 Chloride IVPB 500 mls 0600,1800 NANI Administration Levofloxacin 750 mg 07/22/19 06:00 07/22/19 06:09 Levaquin PO 750 mg 0600 NANI Administration Levothyroxine Sodium 200 mcg 07/22/19 06:00 07/22/19 06:09 Synthroid PO 200 mcg 0600 NANI Administration Lisinopril 20 mg 07/22/19 09:00 07/22/19 10:47 Zestril PO 20 mg DAILY NANI Administration Magnesium Oxide 250 mg 07/22/19 09:00 07/22/19 10:47 Magnesium Oxide PO 250 mg DAILY NANI Administration Pantoprazole Sodium 20 mg 07/22/19 09:00 07/22/19 10:51 Protonix PO 20 mg DAILY NANI Administration Potassium Chloride 20 meq 07/22/19 08:00 07/22/19 10:47 K-Dur PO 20 meq QAM-WM NANI Administration Sertraline HCl 25 mg 07/21/19 21:00 07/21/19 23:15 Zoloft PO 25 mg HS NANI Administration Simvastatin 10 mg 07/21/19 21:00 07/21/19 23:14 Zocor PO 10 mg HS NANI Administration - Exam General Appearance: NAD, awake alert Eye: PERRL ENT: normocephalic atraumatic Neck: supple Heart: RRR Respiratory: CTAB Gastrointestinal: non-distended, normal bowel sounds Extremities: no cyanosis Skin: normal turgor Neurological: no focal deficits Hosp A/P - Plan Comm acquired pneumonia RML and RUL pneumonia --blx ucx in process -flu neg. HTN urgency --suboptimally cont'd BP at baseline - nc'd acei dose to the max -added hydralazine PO tid, w.. holds. DM2 -not cont'd -fw w.. a1c - titrating basal insulin. Morbid obesity -would benefit w.. bariatric sux evaluation as outpt.
[2019-07-22] MEDS: Insulin Glargine 100 UNITS in Pre-Filled Syringe 1 EACH SC SCH (13:43)
[2019-07-22] MEDS: hydrALAZINE 25 MG TAB PO SCH ×2 (16:12→23:06)
[2019-07-22] MEDS: Insulin Regular 300 UNITS/3 ML VIAL SC PRN (18:25)
[2019-07-22] MEDS: Insulin Glargine 50 UNITS in Pre-Filled Syringe 1 EACH SC SCH ×2 (23:04→23:07)
[2019-07-22] MEDS: Simvastatin 5 MG TAB PO SCH (23:05)
[2019-07-23 05:08] LABS: Hemoglobin A1c 9.4 % (4.0-6.0)
[2019-07-23] MEDS: Cefepime 1 GM in Sodium Chloride 0.9% 100 ML IVPB SCH ×2 (05:16→17:14)
[2019-07-23] MEDS: Acetaminophen 325 MG TAB PO PRN (05:16)
[2019-07-23] MEDS: Levothyroxine Sodium 100 MCG TAB PO SCH (05:16)
[2019-07-23 05:28] LABS: Vancomycin, Trough 10.9 ug/mL
[2019-07-23] MEDS: Vancomycin HCl 1.75 GM in Sodium Chloride 0.9% 500 ML IVPB SCH (07:37)
[2019-07-23] MEDS: hydrALAZINE 25 MG TAB PO SCH ×3 (09:25→20:34)
[2019-07-23] MEDS: Fioricet 325/50/40 mg Tablet PO PRN (09:26)
[2019-07-23] MEDS: Magnesium Oxide 250 MG TAB PO SCH (09:28)
[2019-07-23] MEDS: Potassium Chloride 20 MEQ TAB PO SCH (09:28)
[2019-07-23] MEDS: Furosemide 80 MG TAB PO SCH ×2 (09:29→20:35)
[2019-07-23] MEDS: Enoxaparin Sodium 40 MG/0.4 ML SYRINGE SC SCH ×2 (09:29→20:33)
[2019-07-23] MEDS: guaiFENesin ER 600 MG TAB PO SCH ×4 (09:29→20:35)
[2019-07-23] MEDS: Aspirin 325 mg Enteric Coated Tablet PO SCH (09:29)
[2019-07-23] MEDS: Famotidine/PF 20 mg/2ml Vial SLOW IVP SCH ×2 (09:30→20:35)
[2019-07-23] MEDS: Insulin Glargine 50 UNITS in Pre-Filled Syringe 1 EACH SC SCH ×3 (09:36→20:37)
[2019-07-23] MEDS: Lisinopril 20 MG TAB PO SCH (09:53)
[2019-07-23] MEDS ORDERED: Bacteriostatic Water 30 ML VIAL FS PRN (10:24)
[2019-07-23] MEDS ORDERED: methylPREDNISolone Sod Succ/PF 125 MG/2 ML VIAL IVP SCH (10:30)
--- NOTE | 2019-07-23 10:44 | PDOC.HOSPP ---
- Subjective Encounter Date: 07/23/19 Encounter Time: 09:40 Subjective: cough, and no fever or high wbcs. feels frontal [place] and BP. no neck stiffness per pt. - Objective Vital Signs & Weight: Vital Signs (12 hours) Temp Pulse Resp BP BP Pulse Ox 07/23/19 09:25 112 H 135/73 07/23/19 07:46 99 F 117 H 20 119/72 93 L 07/23/19 07:40 110 H 20 07/23/19 05:16 121 H 170/88 H 07/23/19 03:58 98.0 F 113 H 16 173/82 H 92 L 07/23/19 02:19 121 H 28 H 93 L 07/22/19 23:41 98.4 F 170/88 H 07/22/19 23:06 116 H 07/22/19 22:53 116 H 28 H 95 Weight Weight 403 lb 7.135 oz I&O: 07/22/19 07/23/19 07/24/19 06:59 06:59 06:59 Intake Total 240 1280 Output Total 3300 2200 Balance -3060 -920 Result Diagrams: 07/22/19 04:18 07/22/19 04:18 Additional Labs: Accuchecks 07/23/19 07/22/19 07/22/19 06:40 21:10 17:00 POC Glucose 147 H 178 H 242 H 07/22/19 11:24 POC Glucose 247 H Hospitalist ROS - Medication Medications: Active Medications Generic Name Dose Route Start Last Admin Trade Name Freq PRN Reason Stop Dose Admin Acetaminophen 650 mg 07/21/19 18:39 07/23/19 05:16 Tylenol PO 650 mg Q4H PRN Administration Fever/Mild Pain (1-3) Acetaminophen/Butalbital/Caffeine 1 tab 07/23/19 08:57 07/23/19 09:26 Fioricet PO 07/28/19 08:58 1 tab TIDPRN PRN Administration Headache Albuterol/Ipratropium 3 ml 07/22/19 10:30 07/23/19 07:40 Duoneb NEB 3 ml [id number] NANI Administration Aspirin 325 mg 07/22/19 09:00 07/23/19 09:29 Ecotrin PO 325 mg DAILY NANI Administration Enoxaparin Sodium 40 mg 07/21/19 21:00 07/23/19 09:29 Lovenox SC 40 mg BID NANI Administration Famotidine 20 mg 07/21/19 21:00 07/23/19 09:30 Pepcid SLOW IVP 20 mg Q12HR NANI Administration Furosemide 80 mg 07/21/19 21:00 07/23/19 09:29 Lasix PO 80 mg BID NANI Administration Guaifenesin 600 mg 07/21/19 21:00 07/23/19 09:29 Mucinex PO 600 mg BID NANI Administration Hydralazine HCl 20 mg 07/21/19 18:58 07/23/19 05:16 Apresoline SLOW IVP 20 mg Q6H PRN Administration SBP > 150 Hydralazine HCl 50 mg 07/22/19 15:00 07/23/19 09:25 Apresoline PO 50 mg TID NANI Administration Cefepime HCl 1 gm/ Sodium 100 mls @ 200 mls/hr 07/22/19 05:00 07/23/19 05:16 Chloride IVPB 100 mls 0500,1700 NANI Administration Insulin Glargine 50 units/ 0.5 mls @ 0 mls/hr 07/22/19 21:00 07/23/19 09:38 Miscellaneous Medication SC 0.5 mls BID NANI Administration Insulin Glargine 50 units/ 0.5 mls @ 0 mls/hr 07/22/19 21:00 07/23/19 09:36 Miscellaneous Medication SC 0.5 mls BID NANI Administration Insulin Human Regular 0 units 07/21/19 18:44 07/22/19 18:25 Humulin R SC 4 unit .MODERATE SLIDING SC PRN Administration Moderate Correctional Scale Levofloxacin 750 mg 07/22/19 06:00 07/23/19 05:16 Levaquin PO 750 mg 0600 NANI Administration Levothyroxine Sodium 200 mcg 07/22/19 06:00 07/23/19 05:16 Synthroid PO 200 mcg 0600 NANI Administration Lisinopril 40 mg 07/23/19 09:00 07/23/19 09:53 Zestril PO 40 mg DAILY NANI Administration Magnesium Oxide 250 mg 07/22/19 09:00 07/23/19 09:28 Magnesium Oxide PO 250 mg DAILY NANI Administration Pantoprazole Sodium 20 mg 07/22/19 09:00 07/23/19 09:28 Protonix PO 20 mg DAILY NANI Administration Potassium Chloride 20 meq 07/22/19 08:00 07/23/19 09:28 K-Dur PO 20 meq QAM-WM NANI Administration Sertraline HCl 25 mg 07/21/19 21:00 07/22/19 23:05 Zoloft PO 25 mg HS NANI Administration Simvastatin 10 mg 07/21/19 21:00 07/22/19 23:05 Zocor PO 10 mg HS NANI Administration - Exam General Appearance: NAD, awake alert Eye: PERRL, anicteric sclera ENT: normocephalic atraumatic ENT - other findings: trach Heart: RRR Respiratory: CTAB Gastrointestinal: normal bowel sounds Skin: normal turgor Neurological: cranial nerve grossly intact, no focal deficits Neurological - other findings: difficult to assess meningeal sns in the pt Hosp A/P - Plan Comm acquired pneumonia RML and RUL pneumonia --blx ucx in process -flu neg. -given morbid obesity, i have intstructed resp therapist to do chest PT q4hr duing BD treatments, guaifensin qid -added solumedrol on as sxs are not getting better -pulmonary consult. HTN urgency --suboptimally cont'd BP at baseline - nc'd acei dose to the max -added hydralazine PO tid, w.. holds. -BP much better on DM2 -not cont'd -fw w.. a1c---------> 9.4 - titrating basal insulin. Frontal headache and no hx of migraine, no pain behind the eyes and no neck stiffness. - does not believe this is related to meningeal/meningitis - but keep the differential in mind, if clinical cond. changes, CT head and consider IR eval for LP. - fioricet PRN Morbid obesity -would benefit w.. bariatric sux evaluation as outpt.
[2019-07-23] MEDS: Bacteriostatic Water 30 ML VIAL FS PRN (10:54)
[2019-07-23] MEDS: Insulin Regular 300 UNITS/3 ML VIAL SC PRN (17:16)
[2019-07-23] MEDS: Simvastatin 5 MG TAB PO SCH (20:35)
[2019-07-23] MEDS: Famotidine 20 MG TAB PO SCH (20:35)
--- NOTE | 2019-07-24 00:26 | CON ---
DATE OF CONSULTATION: 07/23/2019 HISTORY OF PRESENT ILLNESS: Ms. Bal is a 54-year-old female, who I have followed for many years with tracheostomy placed for obesity hypoventilation syndrome. I will see her every couple of months in the office to change out her trach. She presented on the with complaints of fever and a cough. She was admitted, started on broad antimicrobial therapy. She was also noted to be hypertensive when she came in. She says she is feeling better. She had hemoptysis on presentation. She says she now has pink sputum. PAST MEDICAL HISTORY: Remarkable for: 1. Hypertension. 2. Diabetes. 3. Diastolic dysfunction. 4. Hypothyroidism, on replacement. 5. History of tracheostomy. 6. History of obesity. MEDICATIONS: Have been reviewed. FAMILY HISTORY: Not obtained. SOCIAL HISTORY: Nonsmoker, nondrinker. She is not . Unfortunately, her son presumably from a drug overdose many years back. REVIEW OF SYSTEMS: 10 point review of systems completed, otherwise negative. Most of her family is in [place], but they are very supportive. PHYSICAL EXAMINATION: GENERAL: Ms. Bal is a 54-year-old female, who I have followed for many years with tracheostomy placed for obesity hypoventilation syndrome. VITAL SIGNS: She is afebrile now. Heart rate is 105, respiratory rate is 20, oximetry is 93% on a trach collar, blood pressure 143/79. HEAD AND NECK: Unremarkable. LUNGS: Distant, clear. HEART: Regular rhythm. No S3. S1 and S2 are distant secondary to her size. ABDOMEN: Soft and nontender. EXTREMITIES: Without asymmetry. LABORATORY DATA: White count 9.6, hemoglobin 13.9, platelets 135. Yesterday, sodium 134, potassium 3.6, chloride 97, bicarb 30, BUN 6, creatinine 0.79. Chest radiograph is very underpenetrated and rotated, suggests a right suprahilar infiltrate. IMPRESSION: 1. Probable pneumonia versus radiographic abnormality secondary to mucus plugging. I doubt this is lung mass. 2. She is so large, so the good quality chest x-ray is not easily feasible. She can probably be transitioned into p.o. antimicrobial therapy. I am not sure she needs 160 mg of Lasix a day. This will probably create a metabolic alkalosis. Her steroid dosing can be decreased. TIME SPENT: This is a 50-minute consult, with greater than 50% of the time was spent on the unit coordinating care. Job ID: [id number] [facility]
[2019-07-24] MEDS: Cefepime 1 GM in Sodium Chloride 0.9% 100 ML IVPB SCH (04:48)
[2019-07-24] MEDS: Levothyroxine Sodium 100 MCG TAB PO SCH (04:49)
[2019-07-24] MEDS ORDERED: methylPREDNISolone Sod Succ/PF 125 MG/2 ML VIAL IVP SCH (09:00)
[2019-07-24] MEDS: Enoxaparin Sodium 40 MG/0.4 ML SYRINGE SC SCH ×2 (10:00→20:13)
[2019-07-24] MEDS: Magnesium Oxide 250 MG TAB PO SCH (10:00)
[2019-07-24] MEDS: Potassium Chloride 20 MEQ TAB PO SCH (10:01)
[2019-07-24] MEDS: guaiFENesin ER 600 MG TAB PO SCH ×4 (10:01→20:14)
[2019-07-24] MEDS: Furosemide 80 MG TAB PO SCH ×2 (10:01→20:14)
[2019-07-24] MEDS: Lisinopril 20 MG TAB PO SCH (10:02)
[2019-07-24] MEDS: Famotidine 20 MG TAB PO SCH ×2 (10:03→20:13)
[2019-07-24] MEDS: hydrALAZINE 25 MG TAB PO SCH ×3 (10:03→20:13)
[2019-07-24] MEDS: Aspirin 325 mg Enteric Coated Tablet PO SCH (10:03)
[2019-07-24] MEDS: methylPREDNISolone Sod Succ 40 MG VIAL IVP SCH ×2 (10:04→20:19)
[2019-07-24] MEDS: Famotidine/PF 20 mg/2ml Vial SLOW IVP SCH ×2 (10:20→20:14)
[2019-07-24] MEDS: Insulin Glargine 50 UNITS in Pre-Filled Syringe 1 EACH SC SCH ×2 (10:55→20:18)
[2019-07-24] MEDS: Insulin Regular 300 UNITS/3 ML VIAL SC PRN ×2 (10:56→18:21)
--- NOTE | 2019-07-24 12:12 | PDOC.HOSPP ---
- Subjective Encounter Date: 07/24/19 Encounter Time: 08:00 Subjective: says she is breathing better and thinks she can ambulate a bit today her resp secretions are coming down but still yellow green per patient. no fever, is fully oriented will arrange for speaking valve per patient - Objective Vital Signs & Weight: Vital Signs (12 hours) Temp Pulse Resp BP BP Pulse Ox 07/24/19 11:21 108 H 18 07/24/19 11:19 108 H 18 07/24/19 10:03 108 H 144/70 H 07/24/19 10:02 144/70 H 07/24/19 08:00 98.6 F 99 24 H 144/70 H 93 L 07/24/19 03:27 98.0 F 108 H 16 125/60 93 L 07/24/19 02:32 110 H 28 H 92 L Weight Weight 403 lb 7.135 oz I&O: 07/23/19 07/24/19 07/25/19 06:59 06:59 06:59 Intake Total 1280 2260 Output Total 2200 1450 Balance -920 810 Result Diagrams: 07/22/19 04:18 07/22/19 04:18 Additional Labs: Accuchecks 07/24/19 07/24/19 07/23/19 10:52 05:30 20:15 POC Glucose 196 H 212 H 358 H 07/23/19 07/23/19 17:02 10:46 POC Glucose 323 H 149 H Hospitalist ROS - Medication Medications: Active Medications Generic Name Dose Route Start Last Admin Trade Name Freq PRN Reason Stop Dose Admin Acetaminophen 650 mg 07/21/19 18:39 07/23/19 05:16 Tylenol PO 650 mg Q4H PRN Administration Fever/Mild Pain (1-3) Acetaminophen/Butalbital/Caffeine 1 tab 07/23/19 08:57 07/23/19 09:26 Fioricet PO 07/28/19 08:58 1 tab TIDPRN PRN Administration Headache Albuterol/Ipratropium 3 ml 07/22/19 10:30 07/24/19 11:19 Duoneb NEB 3 ml [id number] NANI Administration Aspirin 325 mg 07/22/19 09:00 07/24/19 10:03 Ecotrin PO 325 mg DAILY NANI Administration Enoxaparin Sodium 40 mg 07/21/19 21:00 07/24/19 10:00 Lovenox SC 40 mg BID NANI Administration Famotidine 20 mg 07/21/19 21:00 07/24/19 10:20 Pepcid SLOW IVP Not Given Q12HR [facility] Famotidine 20 mg 07/23/19 21:00 07/24/19 10:03 Pepcid PO 20 mg Q12HR NANI Administration Furosemide 80 mg 07/21/19 21:00 07/24/19 10:01 Lasix PO 80 mg BID NANI Administration Guaifenesin 600 mg 07/23/19 13:00 07/24/19 10:01 Mucinex PO 600 mg QID NANI Administration Hydralazine HCl 20 mg 07/21/19 18:58 07/23/19 05:16 Apresoline SLOW IVP 20 mg Q6H PRN Administration SBP > 150 Hydralazine HCl 50 mg 07/22/19 15:00 07/24/19 10:03 Apresoline PO 50 mg TID NANI Administration Cefepime HCl 1 gm/ Sodium 100 mls @ 200 mls/hr 07/22/19 05:00 07/24/19 04:48 Chloride IVPB 100 mls 0500,1700 NANI Administration Insulin Glargine 50 units/ 0.5 mls @ 0 mls/hr 07/22/19 21:00 07/24/19 10:55 Miscellaneous Medication SC 0.5 mls BID NANI Administration Insulin Glargine 50 units/ 0.5 mls @ 0 mls/hr 07/22/19 21:00 07/24/19 10:55 Miscellaneous Medication SC 0.5 mls BID NANI Administration Vancomycin HCl 2 gm/ Sodium 500 mls @ 250 mls/hr 07/23/19 18:00 07/24/19 05: 35 Chloride IVPB 500 mls 0600,1800 NANI Administration Insulin Human Regular 0 units 07/21/19 18:44 07/24/19 10:56 Humulin R SC 2 unit .MODERATE SLIDING SC PRN Administration Moderate Correctional Scale Levofloxacin 750 mg 07/22/19 06:00 07/24/19 04:49 Levaquin PO 750 mg 0600 NANI Administration Levothyroxine Sodium 200 mcg 07/22/19 06:00 07/24/19 04:49 Synthroid PO 200 mcg 0600 NANI Administration Lisinopril 40 mg 07/23/19 09:00 07/24/19 10:02 Zestril PO 40 mg DAILY NANI Administration Magnesium Oxide 250 mg 07/22/19 09:00 07/24/19 10:00 Magnesium Oxide PO 250 mg DAILY NANI Administration Methylprednisolone Sodium Succinate 20 mg 07/24/19 09:00 07/24/19 10:04 Solu-Medrol IVP 20 mg BID NANI Administration Pantoprazole Sodium 20 mg 07/22/19 09:00 07/24/19 10:02 Protonix PO 20 mg DAILY NANI Administration Potassium Chloride 20 meq 07/22/19 08:00 07/24/19 10:01 K-Dur PO 20 meq QAM-WM NANI Administration Sertraline HCl 25 mg 07/21/19 21:00 07/23/19 20:33 Zoloft PO 25 mg HS NANI Administration Simvastatin 10 mg 07/21/19 21:00 07/23/19 20:35 Zocor PO 10 mg HS NANI Administration Sterile Water 1 ml 07/23/19 10:23 07/23/19 10:54 Bacteriostatic Water FS 1 ml PRN PRN Administration RECONSTITUTION - Exam General Appearance: awake alert Eye: PERRL, anicteric sclera ENT: no oropharyngeal lesions, moist mucosa Neck: no JVD Neck - other findings: trach+ Heart: RRR, no murmur Respiratory: no wheezes, no rales, rhonchi Gastrointestinal: soft, non-tender, non-distended, normal bowel sounds Extremities: no cyanosis, 1+ LE edema Neurological: cranial nerve grossly intact, no focal deficits Psychiatric: A&O x 3 Hosp A/P (1) Acute on chronic respiratory failure with hypoxia and hypercapnia Code(s): J96.21 - ACUTE AND CHRONIC RESPIRATORY FAILURE WITH HYPOXIA; J96.22 - ACUTE AND CHRONIC RESPIRATORY FAILURE WITH HYPERCAPNIA Status: Acute (2) Community acquired bacterial pneumonia Code(s): J15.9 - UNSPECIFIED BACTERIAL PNEUMONIA Status: Acute (3) Anxiety and depression Code(s): F41.8 - OTHER SPECIFIED ANXIETY DISORDERS Status: Chronic (4) COPD (chronic obstructive pulmonary disease) Status: Chronic Qualifiers: COPD type: unspecified COPD (5) Chronic stage c diastolic heart failure Code(s): I50.32 - CHRONIC DIASTOLIC (CONGESTIVE) HEART FAILURE Status: Chronic (6) DM type 2 (diabetes mellitus, type 2) Status: Chronic Qualifiers: Diabetes mellitus continuous churn buttermaker insulin use: with continuous churn buttermaker use (7) Essential hypertension Code(s): I10 - ESSENTIAL (PRIMARY) HYPERTENSION Status: Chronic (8) Hypothyroidism Code(s): E03.9 - HYPOTHYROIDISM, UNSPECIFIED Status: Chronic Qualifiers: (9) Morbid obesity with body mass index of 70 and over in adult Code(s): E66.01 - MORBID (SEVERE) OBESITY DUE TO EXCESS CALORIES; Z68.45 - BODY MASS INDEX (BMI) 70 OR GREATER, ADULT Status: Chronic (10) Obesity hypoventilation syndrome Code(s): E66.2 - MORBID (SEVERE) OBESITY WITH ALVEOLAR HYPOVENTILATION Status : Chronic - Plan is on trach collar on vanc, cefepime and levaquin, may switch to omnicef if ok with . Blood cs x2 is -ve. solumedrol 20mg q12h, nebs continue lantus 50 u bid, hydralazine tid, lisinopril, high dose lasix bid and synthroid PT to mobilize as tolerated (she normally ambulates with rw at home) dm is a bit uncontrolled due to steroids but its getting tapered, has coverage for now. may tx to medical floor in am if stable
--- NOTE | 2019-07-24 16:47 | PRG ---
DATE OF SERVICE: 07/24/2019 SUBJECTIVE: Ms. Bal says she feels 100% better. Her hemoptysis is for all practical purposes resolved. OBJECTIVE: VITAL SIGNS: Blood pressure is 142/76, heart rate 112, she is afebrile, respiratory rates in the teens, oximetry is 94% on her trach collar. LUNGS: Clear. HEART: Regular rhythm. ABDOMEN: Soft. IMPRESSION: 1. Pneumonia. She is afebrile. Could be switched to p.o. antimicrobial therapy. 2. History of asthma. 3. Obesity hypoventilation. 4. Chronic indwelling trach. 5. Diabetes. 6. History of diastolic dysfunction. 7. Hypertension. 8. Morbid obesity. She has actually been losing some weight and exercising in a pool. I am surprise she can exercise in a pool with her trach, but she is not getting in the deep water. PLAN: Cultures have been reviewed, all them were negative. We will continue supportive care. She could probably move off the telemetry unit. Job ID: [id number]
[2019-07-24] MEDS: Simvastatin 5 MG TAB PO SCH (20:13)
[2019-07-24] MEDS: Bacteriostatic Water 30 ML VIAL FS PRN (20:19)
[2019-07-25] MEDS: Fioricet 325/50/40 mg Tablet PO PRN (03:31)
[2019-07-25] MEDS: Levothyroxine Sodium 100 MCG TAB PO SCH (06:21)
[2019-07-25] MEDS: Famotidine 20 MG TAB PO SCH ×2 (09:39→20:23)
[2019-07-25] MEDS: hydrALAZINE 25 MG TAB PO SCH ×3 (09:39→20:22)
[2019-07-25] MEDS: Aspirin 325 mg Enteric Coated Tablet PO SCH (09:40)
[2019-07-25] MEDS: Lisinopril 20 MG TAB PO SCH (09:41)
[2019-07-25] MEDS: guaiFENesin ER 600 MG TAB PO SCH ×4 (09:41→20:23)
[2019-07-25] MEDS: Potassium Chloride 20 MEQ TAB PO SCH (09:43)
[2019-07-25] MEDS: Magnesium Oxide 250 MG TAB PO SCH (09:43)
[2019-07-25] MEDS: Furosemide 80 MG TAB PO SCH ×2 (09:43→20:22)
[2019-07-25] MEDS: methylPREDNISolone Sod Succ 40 MG VIAL IVP SCH ×2 (09:44→20:23)
[2019-07-25] MEDS: Enoxaparin Sodium 40 MG/0.4 ML SYRINGE SC SCH ×2 (09:45→20:23)
[2019-07-25] MEDS: Bacteriostatic Water 30 ML VIAL FS PRN (09:45)
[2019-07-25] MEDS: Insulin Glargine 50 UNITS in Pre-Filled Syringe 1 EACH SC SCH ×3 (09:47→20:37)
[2019-07-25] MEDS: Insulin Regular 300 UNITS/3 ML VIAL SC PRN ×2 (09:48→17:47)
--- NOTE | 2019-07-25 11:30 | PDOC.HOSPP ---
- Subjective Encounter Date: 07/25/19 Encounter Time: 08:15 Subjective: breathing better, is ambulating around her bed and to the bathroom. - Objective Vital Signs & Weight: Vital Signs (12 hours) Temp Pulse Resp BP BP Pulse Ox 07/25/19 11:02 98 28 H 07/25/19 11:00 91 18 07/25/19 09:41 138/77 07/25/19 09:39 91 131/71 07/25/19 08:00 98 F 91 25 H 131/71 98 07/25/19 05:30 97.6 F 100 32 H 170/81 H 91 L 07/25/19 02:53 111 H 24 H 92 L Weight Weight 403 lb 7.135 oz I&O: 07/24/19 07/25/19 07/26/19 06:59 06:59 06:59 Intake Total 2260 1437 360 Output Total 1450 1850 Balance 810 -413 360 Result Diagrams: 07/22/19 04:18 07/22/19 04:18 Additional Labs: Accuchecks 07/25/19 07/24/19 07/24/19 05:31 20:19 17:08 POC Glucose 188 H 113 H 222 H 07/24/19 10:52 POC Glucose 196 H Hospitalist ROS - Medication Medications: Active Medications Generic Name Dose Route Start Last Admin Trade Name Freq PRN Reason Stop Dose Admin Acetaminophen 650 mg 07/21/19 18:39 07/23/19 05:16 Tylenol PO 650 mg Q4H PRN Administration Fever/Mild Pain (1-3) Acetaminophen/Butalbital/Caffeine 1 tab 07/23/19 08:57 07/25/19 03:31 Fioricet PO 07/28/19 08:58 1 tab TIDPRN PRN Administration Headache Albuterol/Ipratropium 3 ml 07/22/19 10:30 07/25/19 11:00 Duoneb NEB 3 ml [id number] NANI Administration Aspirin 325 mg 07/22/19 09:00 07/25/19 09:40 Ecotrin PO 325 mg DAILY NANI Administration Enoxaparin Sodium 40 mg 07/21/19 21:00 07/25/19 09:45 Lovenox SC 40 mg BID NANI Administration Famotidine 20 mg 07/23/19 21:00 07/25/19 09:39 Pepcid PO 20 mg Q12HR NANI Administration Furosemide 80 mg 07/21/19 21:00 07/25/19 09:43 Lasix PO 80 mg BID NANI Administration Guaifenesin 600 mg 07/23/19 13:00 07/25/19 09:41 Mucinex PO 600 mg QID NANI Administration Hydralazine HCl 20 mg 07/21/19 18:58 07/23/19 05:16 Apresoline SLOW IVP 20 mg Q6H PRN Administration SBP > 150 Hydralazine HCl 50 mg 07/22/19 15:00 07/25/19 09:39 Apresoline PO 50 mg TID NANI Administration Insulin Glargine 50 units/ 0.5 mls @ 0 mls/hr 07/22/19 21:00 07/25/19 09:47 Miscellaneous Medication SC 0.5 mls BID NANI Administration Insulin Glargine 50 units/ 0.5 mls @ 0 mls/hr 07/22/19 21:00 07/25/19 09:48 Miscellaneous Medication SC 0.5 mls BID NANI Administration Insulin Human Regular 0 units 07/21/19 18:44 07/25/19 09:48 Humulin R SC 2 unit .MODERATE SLIDING SC PRN Administration Moderate Correctional Scale Levofloxacin 750 mg 07/22/19 06:00 07/25/19 06:21 Levaquin PO 750 mg 0600 NANI Administration Levothyroxine Sodium 200 mcg 07/22/19 06:00 07/25/19 06:21 Synthroid PO 200 mcg 0600 NANI Administration Lisinopril 40 mg 07/23/19 09:00 07/25/19 09:41 Zestril PO 40 mg DAILY NANI Administration Magnesium Oxide 250 mg 07/22/19 09:00 07/25/19 09:43 Magnesium Oxide PO 250 mg DAILY NANI Administration Methylprednisolone Sodium Succinate 20 mg 07/24/19 09:00 07/25/19 09:44 Solu-Medrol IVP 20 mg BID NANI Administration Pantoprazole Sodium 20 mg 07/22/19 09:00 07/25/19 09:41 Protonix PO 20 mg DAILY NANI Administration Potassium Chloride 20 meq 07/22/19 08:00 07/25/19 09:43 K-Dur PO 20 meq QAM-WM NANI Administration Sertraline HCl 25 mg 07/21/19 21:00 07/24/19 20:13 Zoloft PO 25 mg HS NANI Administration Simvastatin 10 mg 07/21/19 21:00 07/24/19 20:13 Zocor PO 10 mg HS NANI Administration Sterile Water 1 ml 07/23/19 10:23 07/25/19 09:45 Bacteriostatic Water FS 1 ml PRN PRN Administration RECONSTITUTION - Exam General Appearance: awake alert Eye: PERRL, anicteric sclera ENT: no oropharyngeal lesions, moist mucosa Neck: supple, no JVD Heart: RRR, no murmur Respiratory: no wheezes, no rales Gastrointestinal: soft, non-tender, non-distended, normal bowel sounds Extremities: no cyanosis, no edema Neurological: cranial nerve grossly intact, no focal deficits Psychiatric: normal affect, A&O x 3 Hosp A/P (1) Acute on chronic respiratory failure with hypoxia and hypercapnia Code(s): J96.21 - ACUTE AND CHRONIC RESPIRATORY FAILURE WITH HYPOXIA; J96.22 - ACUTE AND CHRONIC RESPIRATORY FAILURE WITH HYPERCAPNIA Status: Acute (2) Community acquired bacterial pneumonia Code(s): J15.9 - UNSPECIFIED BACTERIAL PNEUMONIA Status: Acute (3) Anxiety and depression Code(s): F41.8 - OTHER SPECIFIED ANXIETY DISORDERS Status: Chronic (4) COPD (chronic obstructive pulmonary disease) Status: Chronic Qualifiers: COPD type: unspecified COPD (5) Chronic stage c diastolic heart failure Code(s): I50.32 - CHRONIC DIASTOLIC (CONGESTIVE) HEART FAILURE Status: Chronic (6) DM type 2 (diabetes mellitus, type 2) Status: Chronic Qualifiers: Diabetes mellitus terminal superintendent insulin use: with retirement use (7) Essential hypertension Code(s): I10 - ESSENTIAL (PRIMARY) HYPERTENSION Status: Chronic (8) Hypothyroidism Code(s): E03.9 - HYPOTHYROIDISM, UNSPECIFIED Status: Chronic Qualifiers: (9) Morbid obesity with body mass index of 70 and over in adult Code(s): E66.01 - MORBID (SEVERE) OBESITY DUE TO EXCESS CALORIES; Z68.45 - BODY MASS INDEX (BMI) 70 OR GREATER, ADULT Status: Chronic (10) Obesity hypoventilation syndrome Code(s): E66.2 - MORBID (SEVERE) OBESITY WITH ALVEOLAR HYPOVENTILATION Status : Chronic - Plan is on trach collar on omnicef. Blood cs x2 is -ve. solumedrol 20mg q12h, nebs continue lantus 50 u bid, hydralazine tid, lisinopril, high dose lasix bid and synthroid PT to mobilize as tolerated (she normally ambulates with rw at home) dm is a bit uncontrolled due to steroids but its getting tapered, has coverage for now. tx to medical floor she feels weak and thinks she will need another day or 2 to go home has morbid obesity with bmi of 78, is able to ambulate now in her room.
--- NOTE | 2019-07-25 16:45 | PRG ---
DATE OF SERVICE: 07/25/2019 SUBJECTIVE: Colleen Bal said she coughed up a mucus plug that went all the way across the room and hit the wall. Obviously, her cough is quite strong. OBJECTIVE: VITAL SIGNS: Heart rate is 95, respiratory rate is 18, oximetry is 93% on a trach collar, blood pressure is 155/87. LUNGS: Clear. HEART: Regular rhythm. ABDOMEN: Soft. IMPRESSION: 1. Pneumonia. 2. Asthma. 3. Obesity hypoventilation. 4. Tracheostomy, chronically indwelling. 5. Obesity with deconditioning. 6. Hypertension. PLAN: Continue supportive care. She can move off the telemetry unit. Job ID: [id number]
--- NOTE | 2019-07-25 19:07 | RAD ---
FRONTAL RADIOGRAPH CHEST: Date: 07-25-2019 Comparison: 07-21-2019 History: Pneumonia. FINDINGS: Stable tracheostomy tube. Detailed assessment limited by motion artifact. Pulmonary vascular congesti on and nonspecific perihilar interstitial prominence suspected. Stable enlargement of the cardiac kenneth houette. IMPRESSION: Stable appearance of the chest, limited by respiratory motion artifact. POS: CHRISTIAN
[2019-07-25] MEDS: Simvastatin 5 MG TAB PO SCH (20:22)
[2019-07-26] MEDS: Fioricet 325/50/40 mg Tablet PO PRN (03:03)
[2019-07-26] MEDS: Levothyroxine Sodium 100 MCG TAB PO SCH (05:08)
[2019-07-26] MEDS: Lisinopril 20 MG TAB PO SCH (08:47)
[2019-07-26] MEDS: Magnesium Oxide 250 MG TAB PO SCH (08:47)
[2019-07-26] MEDS: Famotidine 20 MG TAB PO SCH ×2 (08:47→20:53)
[2019-07-26] MEDS: Aspirin 325 mg Enteric Coated Tablet PO SCH (08:47)
[2019-07-26] MEDS: Furosemide 80 MG TAB PO SCH ×2 (08:47→20:54)
[2019-07-26] MEDS: hydrALAZINE 25 MG TAB PO SCH ×3 (08:48→20:55)
[2019-07-26] MEDS: Enoxaparin Sodium 40 MG/0.4 ML SYRINGE SC SCH ×2 (08:51→20:56)
[2019-07-26] MEDS: guaiFENesin ER 600 MG TAB PO SCH ×4 (08:51→20:54)
[2019-07-26] MEDS: Potassium Chloride 20 MEQ TAB PO SCH (08:51)
[2019-07-26] MEDS: Insulin Glargine 50 UNITS in Pre-Filled Syringe 1 EACH SC SCH ×2 (08:52→20:58)
[2019-07-26] MEDS: methylPREDNISolone Sod Succ 40 MG VIAL IVP SCH ×2 (08:55→21:45)
[2019-07-26] MEDS ORDERED: Loperamide HCl 2 MG CAP PO PRN (12:19)
[2019-07-26] MEDS ORDERED: ALPRAZolam 1 MG TAB PO PRN (12:19)
--- NOTE | 2019-07-26 12:23 | PDOC.HOSPP ---
- Subjective Encounter Date: 07/26/19 Encounter Time: 11:00 Subjective: breathing better, is ambulating in room she got her speaking valve now - Objective Vital Signs & Weight: Vital Signs (12 hours) Temp Pulse Resp BP BP Pulse Ox 07/26/19 11:17 98.4 F 101 H 17 144/85 H 93 L 07/26/19 11:05 102 H 16 95 07/26/19 11:00 102 H 20 95 07/26/19 08:48 104 H 07/26/19 08:47 119/68 07/26/19 08:00 97 07/26/19 07:57 93 14 97 07/26/19 07:00 93 18 97 07/26/19 06:59 98.4 F 104 H 18 119/68 94 L 07/26/19 02:47 99 18 91 L Weight Weight 403 lb 7.135 oz I&O: 07/25/19 07/26/19 07/27/19 06:59 06:59 06:59 Intake Total 1437 1840 Output Total 1850 1550 Balance -413 290 Result Diagrams: 07/22/19 04:18 07/22/19 04:18 Additional Labs: Accuchecks 07/26/19 07/26/19 07/25/19 11:19 05:04 19:29 POC Glucose 120 H 109 217 H 07/25/19 17:08 POC Glucose 260 H Hospitalist ROS - Medication Medications: Active Medications Generic Name Dose Route Start Last Admin Trade Name Freq PRN Reason Stop Dose Admin Acetaminophen 650 mg 07/21/19 18:39 07/23/19 05:16 Tylenol PO 650 mg Q4H PRN Administration Fever/Mild Pain (1-3) Acetaminophen/Butalbital/Caffeine 1 tab 07/23/19 08:57 07/26/19 03:03 Fioricet PO 07/28/19 08:58 1 tab TIDPRN PRN Administration Headache Albuterol/Ipratropium 3 ml 07/22/19 10:30 07/26/19 11:05 Duoneb NEB 3 ml [id number] NANI Administration Aspirin 325 mg 07/22/19 09:00 07/26/19 08:47 Ecotrin PO 325 mg DAILY NANI Administration Enoxaparin Sodium 40 mg 07/21/19 21:00 07/26/19 08:51 Lovenox SC 40 mg BID NANI Administration Famotidine 20 mg 07/23/19 21:00 07/26/19 08:47 Pepcid PO 20 mg Q12HR NANI Administration Furosemide 80 mg 07/21/19 21:00 07/26/19 08:47 Lasix PO 80 mg BID NANI Administration Guaifenesin 600 mg 07/23/19 13:00 07/26/19 08:51 Mucinex PO 600 mg QID NANI Administration Hydralazine HCl 20 mg 07/21/19 18:58 07/23/19 05:16 Apresoline SLOW IVP 20 mg Q6H PRN Administration SBP > 150 Hydralazine HCl 50 mg 07/22/19 15:00 07/26/19 08:48 Apresoline PO 50 mg TID NANI Administration Insulin Glargine 50 units/ 0.5 mls @ 0 mls/hr 07/22/19 21:00 07/26/19 08:52 Miscellaneous Medication SC 0.5 mls BID NANI Administration Insulin Human Regular 0 units 07/21/19 18:44 07/25/19 17:47 Humulin R SC 6 unit .MODERATE SLIDING SC PRN Administration Moderate Correctional Scale Levofloxacin 750 mg 07/22/19 06:00 07/26/19 05:08 Levaquin PO 750 mg 0600 NANI Administration Levothyroxine Sodium 200 mcg 07/22/19 06:00 07/26/19 05:08 Synthroid PO 200 mcg 0600 NANI Administration Lisinopril 40 mg 07/23/19 09:00 07/26/19 08:47 Zestril PO 40 mg DAILY NANI Administration Methylprednisolone Sodium Succinate 20 mg 07/24/19 09:00 07/26/19 08:55 Solu-Medrol IVP 20 mg BID NANI Administration Pantoprazole Sodium 20 mg 07/22/19 09:00 07/26/19 08:51 Protonix PO 20 mg DAILY NANI Administration Potassium Chloride 20 meq 07/22/19 08:00 07/26/19 08:51 K-Dur PO 20 meq QAM-WM NANI Administration Sertraline HCl 25 mg 07/21/19 21:00 07/25/19 20:23 Zoloft PO 25 mg HS NANI Administration Simvastatin 10 mg 07/21/19 21:00 07/25/19 20:22 Zocor PO 10 mg HS NANI Administration Sterile Water 1 ml 07/23/19 10:23 07/25/19 09:45 Bacteriostatic Water FS 1 ml PRN PRN Administration RECONSTITUTION - Exam General Appearance: awake alert Eye: PERRL, anicteric sclera ENT: no oropharyngeal lesions, moist mucosa Neck: no JVD Neck - other findings: trach+ Heart: RRR, no murmur Respiratory: no wheezes, no rales, rhonchi Gastrointestinal: soft, non-tender, non-distended, normal bowel sounds Extremities: no cyanosis, no edema Neurological: cranial nerve grossly intact, no focal deficits Psychiatric: normal affect, A&O x 3 Hosp A/P (1) Acute on chronic respiratory failure with hypoxia and hypercapnia Code(s): J96.21 - ACUTE AND CHRONIC RESPIRATORY FAILURE WITH HYPOXIA; J96.22 - ACUTE AND CHRONIC RESPIRATORY FAILURE WITH HYPERCAPNIA Status: Resolved (2) Community acquired bacterial pneumonia Code(s): J15.9 - UNSPECIFIED BACTERIAL PNEUMONIA Status: Acute (3) Anxiety and depression Code(s): F41.8 - OTHER SPECIFIED ANXIETY DISORDERS Status: Chronic (4) COPD (chronic obstructive pulmonary disease) Status: Chronic Qualifiers: COPD type: unspecified COPD (5) Chronic stage c diastolic heart failure Code(s): I50.32 - CHRONIC DIASTOLIC (CONGESTIVE) HEART FAILURE Status: Chronic (6) DM type 2 (diabetes mellitus, type 2) Status: Chronic Qualifiers: Diabetes mellitus group home insulin use: with long term care administrator use (7) Essential hypertension Code(s): I10 - ESSENTIAL (PRIMARY) HYPERTENSION Status: Chronic (8) Hypothyroidism Code(s): E03.9 - HYPOTHYROIDISM, UNSPECIFIED Status: Chronic Qualifiers: (9) Morbid obesity with body mass index of 70 and over in adult Code(s): E66.01 - MORBID (SEVERE) OBESITY DUE TO EXCESS CALORIES; Z68.45 - BODY MASS INDEX (BMI) 70 OR GREATER, ADULT Status: Chronic (10) Obesity hypoventilation syndrome Code(s): E66.2 - MORBID (SEVERE) OBESITY WITH ALVEOLAR HYPOVENTILATION Status : Chronic - Plan is on trach collar on omnicef. Blood cs x2 is -ve. solumedrol 20mg q12h, nebs continue lantus 50 u bid, hydralazine tid, lisinopril, high dose lasix bid and synthroid PT to mobilize as tolerated (she normally ambulates with rw at home) dm is a bit uncontrolled due to steroids but its getting tapered, has coverage for now. she still feels weak and thinks she will need another day or 2 to go home has morbid obesity with bmi of 78, is able to ambulate now in her room. xanax for anxiety, some diarrhea this am likely from mgo, loperamide prn
--- NOTE | 2019-07-26 12:40 | PRG ---
DATE OF SERVICE: 07/26/2019 SUBJECTIVE: Colleen Bal is feeling better. She has been ambulating a little bit. OBJECTIVE: VITAL SIGNS: She is afebrile. Heart rate is 101, blood pressure 119/68, respiratory rate 17, oximetry is 93% on trach collar, and blood pressure 144/85. LUNGS: Clear. HEART: Regular rhythm. ABDOMEN: Soft. IMPRESSION: Pneumonia, clinically improved. Abnormality in a right suprahilar region is not as well defined on yesterday's chest radiograph, arguing that maybe this is more asthmatic bronchitis and pneumonia. Either way, she is clinically improved. She will have her tracheostomy tube changed prior to discharge. She may be a candidate to go home tomorrow or the next day. Job ID: [id number]
[2019-07-26] MEDS: Insulin Regular 300 UNITS/3 ML VIAL SC PRN ×2 (16:04→21:02)
[2019-07-26] MEDS: Simvastatin 5 MG TAB PO SCH (20:54)
[2019-07-27] MEDS: Fioricet 325/50/40 mg Tablet PO PRN ×2 (00:55→05:20)
[2019-07-27] MEDS: Levothyroxine Sodium 100 MCG TAB PO SCH (05:19)
[2019-07-27 07:09] VITALS: BP 154/79; TEMP 98
[2019-07-27] MEDS: hydrALAZINE 25 MG TAB PO SCH ×2 (08:24→14:31)
[2019-07-27] MEDS: Furosemide 80 MG TAB PO SCH (08:25)
[2019-07-27] MEDS: guaiFENesin ER 600 MG TAB PO SCH ×2 (08:25→14:31)
[2019-07-27] MEDS: Famotidine 20 MG TAB PO SCH (08:25)
[2019-07-27] MEDS: Potassium Chloride 20 MEQ TAB PO SCH (08:25)
[2019-07-27] MEDS: Aspirin 325 mg Enteric Coated Tablet PO SCH (08:25)
[2019-07-27] MEDS: Enoxaparin Sodium 40 MG/0.4 ML SYRINGE SC SCH (08:26)
[2019-07-27] MEDS: Insulin Glargine 50 UNITS in Pre-Filled Syringe 1 EACH SC SCH (08:26)
[2019-07-27] MEDS: Lisinopril 20 MG TAB PO SCH (08:27)
[2019-07-27] MEDS: methylPREDNISolone Sod Succ 40 MG VIAL IVP SCH (08:27)
[2019-07-27] MEDS: Insulin Regular 300 UNITS/3 ML VIAL SC PRN (15:46)
--- NOTE | 2019-07-27 20:35 | PRG ---
DATE OF SERVICE: 07/27/2019 Colleen Bal says she is feeling good. Her chest radiograph did not show any infiltrates in the previous infiltrate, had improved suggesting this is just severe case of bronchitis. #6 Shiley CFN tracheostomy tube was placed today without difficulty. The old trach was discarded intact. The speaking valve was attached to her tracheostomy tube. Her lungs are completely clear. Vital signs have been stable. I feel she is a candidate to go home. She wants to know if she go to [facility] in [place] next week. She plans to go just to stay with family in the house and not go out to the parade, which I think is totally reasonable. I will see her back in followup in 4 to 6 weeks. Job ID: [id number]
--- NOTE | 2019-07-28 08:14 | DIS ---
DATE OF ADMISSION: 07/21/2019 DATE OF DISCHARGE: 07/27/2019 DISCHARGE DISPOSITION: To home. PRIMARY DISCHARGE DIAGNOSES: Acute on chronic respiratory failure with hypoxia and bronchopneumonia. SECONDARY DISCHARGE DIAGNOSES: Morbid obesity, obstructive sleep apnea with chronic tracheostomy, chronic obstructive pulmonary disease, anxiety, depression, hypertension, history of congestive heart failure with diastolic dysfunction which was stable, hypothyroidism, obesity hypoventilation syndrome. PROCEDURES DONE DURING HOSPITALIZATION: Chest x-ray done showed cardiomegaly, right perihilar upper lobe area questionable infiltrate. Blood cultures x2, no growth. Influenza A and B antigens were negative. H and H 13 and 42, platelet count 135 , MCV 97 with 71% neutrophils. Venous blood gas on arrival showed a pH of 7.36, pCO2 of 54, PO2 of 30, bicarb was 30 on the blood gas. Discharge BUN and creatinine are around 6 and 0.7. HbA1c was 9.4. DISCHARGE MEDICATIONS: 1. Aspirin 81mg p.o. daily. 2. Lasix 80 mg twice daily. 3. Levothyroxine 200 mcg p.o. daily. 4. Zoloft 25 mg p.o. at bedtime. 5. Mucinex 600 mg p.o. twice daily. 6. Hydralazine 50 mg p.o. three times daily. 7. Lantus 50 units subcu twice daily. 8. DuoNeb q.6 hourly p.r.n. 9. Lisinopril 20 mg daily. 10. K-Dur 20 mEq p.o. daily. 11. Prednisone 10 mg twice daily for 5 days, then daily for 5 days and to discontinue. 12. Simvastatin 10 mg p.o. at bedtime. ALLERGIES: TO DULOXETINE, GABAPENTIN, AND LYRICA. INPATIENT CONSULT: Dr. Stokes for Pulmonology. DISCHARGE PLAN: The patient to follow up with her primary care physician, Dr. Alexander on 07/28/2019 at 02:00 p.m. She needs to see Dr. Stokes in 3 weeks. BRIEF COURSE DURING HOSPITALIZATION: The patient initially got admitted on the with complaints of shortness of breath and acute respiratory failure with hypoxia. She has known history of tracheostomy for obesity hypoventilation and obstructive sleep apnea along with morbid life-threatening obesity. Initial x-rays were suspicious for possible right lung pneumonia. She was placed on broad-spectrum antibiotics along with bronchodilators. She has had consultation with Dr. Stokes for Pulmonology. The patient has done remarkably well with these measures. She also had chest physiotherapy as well. Prior to discharge, she was ambulating in the room. She is on trach collar. The patient was never placed on the ventilator during her stay here. The patient was counseled with regard to medication compliance and followup compliance along with the dietary compliance. She was counseled with regarding exercise and weight loss. Please note, I have seen and examined the patient on the day of discharge. Job ID: [id number] MTDD
--- NOTE | 2019-07-28 23:13 | PQF ---
ROCKY ROSAS VINAYA KUMAR MD [id number] [id number] CLINICAL DOCUMENTATION CLARIFICATION FORM: POST DISCHARGE Addendum to original discharge summary date: ____ Late entry note date: __ DATE:07/28/2019 ATTN: KEYSHAWN JEFFREY MD Please exercise your independent, professional judgment in responding to the clarification form. Clinical indicators are provided on the bottom of this form for your review Please check appropriate box(es): [ ] Sepsis due to: (Pna, UTI, gangrenous gall bladder, etc.) Due to: [ ] Device (please specify) [ ] Implant [ ] Graft [ ] Infusion [ ] SIRS due to non-infectious process (please specify etiology) [ ] with organ dysfunction [ ] without organ dysfunction [ ] Severe sepsis with acute organ dysfunction of: (Examples: respiratory failure, encephalopathy, acute kidney failure, other) [ ] Septic Shock [ ] Localized infection without sepsis [ x] Other diagnosis _Please send this query to if you are quoting him [ ] Unable to determine In addition, please specify: Present on Admission (POA): [ ] Yes [ ] No [ ] Unable to determine For continuity of documentation, please document condition throughout progress notes and discharge summary. Thank You. CLINICAL INDICATORS - SIGNS / SYMPTOMS / LABS SIRS scoring:Productive cough/PNA, Yes Patient did meet at least 1 criteria for STEP A, Temperature <36 C (96.8F) - or - >38 C (100.9F), Heart rate > 90, Yes patient did meet at least 2 criteria for STEP B. A sepsis alert was activated due to patient meeting the activation requirements in Step A bob Step B- Documented in ED on 07/21 [facility] Ned Pulse-132--Documented in ED on 07/21 [facility] Resp-30--Documented in ED on 07/21 [facility] Acute on chronic respiratory failure with hypoxia and bronchopneumonia - Documented in Discharge summary on 07/27 by Keyshawn Jeffrey MD Blood cultures x 2 no growth-Documented in Discharge summary on 07/27 by Keyshawn Jeffrey MD RISK FACTORS Bronchopneumonia -Documented in Discharge summary on 07/27 by Keyshawn Jeffrey MD TREATMENTS: SAP Clinical Social Work Aide Crystal Reports Winform ViewerBlood cultures have been done in the ER. I will continue vancomycin, Cefepime and lavaquin-Documented in H&P on 07/21 by Shannan Garcia MD (This form is maintained as a part of the permanent medical record) 2014 [employer]. All Rights Reserved [email or web address] MTDD
--- NOTE | 2019-08-03 08:53 | PQF ---
ROCKY ROSAS SHANNAN GARCIA [id number] [id number] [id number] CLINICAL DOCUMENTATION CLARIFICATION FORM: POST DISCHARGE Addendum to original discharge summary date: ____ Late entry note date: __ DATE:08/03/2019 ATTN:SHANNAN GARCIA Please exercise your independent, professional judgment in responding to the clarification form. Clinical indicators are provided on the bottom of this form for your review Please check appropriate box(s): [ ] Bronchopneumonia is a complication of Tracheostomy [ ] Bronchopneumonia is not a complication of Tracheostomy [ ] Other diagnosis [ x ] Unable to determine CLINICAL INDICATORS - SIGNS / SYMPTOMS / LABS A 54 year old obese female trach dependent due to her obesity hypoventilation syndrome and trach placed remotely -Documented in H&P on 07/21 by Shannan Garcia MD Tracheostomy chronically indwelling -Documented in PN on 07/25 by Phil Stokes Acute on chronic respiratory failure with hypoxia and bronchopneumonia- Documented in Discharge summary on 07/27 by Keyshawn Jeffrey MD RISK FACTORS Tracheostomy chronically indwelling -Documented in PN on 07/25 by Phil Stokes TREATMENT: I will continue vancomycin, cefepime and Levaquin-Documented in H&P on 07/21 by Shannan Garcia MD She will have tracheostomy tube changed prior to discharge -Documented in PN on 07/26 by Phil Stokes CFN tracheostomy tube was placed today whitout difficulty-Documented in PN on by Phil Stokes She was placed on broad spectrum antibiotics along with bronchodilators- Documented in Discharge summary on 07/27 by Keyshawn Jeffrey MD SAP Human Factors Specialist Crystal Reports Winform Viewer(This form is maintained as a part of the permanent medical record) 2014 [employer]. All Rights Reserved [email or web address] [phone] [place]
== END 2019-07-27 17:38 | disposition home or self-care (01) | DRG 193 ==
LOC: ERS 16:04 → 2NO 21:21 → T4-B 07-25 13:49
PROVIDERS: ADMIT Internal Medicine; ATTEND Internal Medicine
PROC: 0B21XFZ Change Tracheostomy Device in Trachea, External Approach (ICD-10-PCS; principal; 2019-07-21)
DX: J15.9 Unspecified bacterial pneumonia (principal); J96.21 Acute and chronic respiratory failure with hypoxia; J96.22 Acute and chronic respiratory failure with hypercapnia; J44.0 Chronic obstructive pulmonary disease with (acute) lower respiratory infection; I50.32 Chronic diastolic (congestive) heart failure; E66.2 Morbid (severe) obesity with alveolar hypoventilation; Z68.45 Body mass index [BMI] 70 or greater, adult; E11.9 Type 2 diabetes mellitus without complications; E03.9 Hypothyroidism, unspecified; I16.0 Hypertensive urgency; R51 Headache; Z93.0 Tracheostomy status; F41.9 Anxiety disorder, unspecified; F32.9 Major depressive disorder, single episode, unspecified; I11.0 Hypertensive heart disease with heart failure; Z79.4 Long term (current) use of insulin; J45.909 Unspecified asthma, uncomplicated; J40 Bronchitis, not specified as acute or chronic
CPT/HCPCS: 36415; 36416; 71045; 80048; 80053; 80202; 82330; 82550; 82803; 83036; 83605; 83690; 84484; 85025; 87040; 87804; 93005; 94640; 94667; 94668; 96361; 96365; 96366; 96367; 96375; 96376; J0360; J0692; J1650; J1815; J1956; J2270; J2920; J2930; J3370; J3490; J7050; J7620; S0028